=== PATIENT | female | born 1940 | race Caucasian/White ===

== ENCOUNTER 2017-03-11 17:58 | Inpatient (IN) | payer MEDICARE ==
[2017-03-11] VITALS (10 sets, daily range): BP systolic 151–177; BP diastolic 63–101; PULSE 65–97; RESP 28–33; TEMP 99.1–100.5; O2SAT 95–100
[~2017-03-11] VITALS: Ht 167.6 cm; Wt 143.4 kg
[~2017-03-11 17:58] MED LIST: COUM5TAB PO; COZA25TA PO; GEMF600T PO; GLYB1TAB50 PO; LASI20TA PO; LEVO100T4 PO; MECL25CH PO; METF500 PO; METO25CR PO; NIFE10CA PO; NIFE20CA PO; POTA-243 PO; ROSU40 PO; VITA400C28 PO; VITA500T10 PO
--- NOTE | 2017-03-11 18:10 | PD ---
HPI Chief Complaint: Respiratory Distress Time Seen by Provider: 18:07 Travel History International Travel<30 days: No Contact w/Intl Traveler<30days: No Traveled to known affect area: No History of Present Illness HPI Patient is a 77-year-old female with a history of CHF presents emergency Department with acute on chronic shortness of breath. Patient is not on home oxygen but does use a CPAP when she sleeps and sometimes during the day. Per EMS she states that over today she's had gradually worsening shortness of breath. Denies cough denies congestion. History is somewhat limited by the patient's tachypnea on arrival. Also according to EMS she has a history of atrial fibrillation and is on blood thinners. PFSH Past Medical History Arthritis: No Asthma: No Autoimmune Disease: No Blood Disorders: No Anxiety: No Depression: No Heart Rhythm Problems: No Cancer: No Cardiovascular Problems: Yes High Cholesterol: No Chemotherapy: No Chest Pain: No Congestive Heart Failure: Yes COPD: No Cerebrovascular Accident: Yes Diabetes: Yes Patient Takes Glucophage: No Diminished Hearing: No Endocrine: No Gastrointestinal Disorders: No GERD: No Glaucoma: No Genitourinary: No Headaches: No Hepatitis: No Hiatal Hernia: No Hypertension: Yes Immune Disorder: No Kidney Stones: No Musculoskeletal: Yes Neurologic: Yes Psychiatric: No Reproductive: No Respiratory: Yes Migraines: No Myocardial Infarction: No Radiation Therapy: No Renal Failure: No Seizures: No Sickle Cell Disease: No Sleep Apnea: Yes (cpap) Thyroid Disease: No Ulcer: No Influenza Vaccination: No ?: Not Menopausal: Yes Past Surgical History Abdominal Surgery: No AICD: No Cardiac Surgery: No Ear Surgery: No Endocrine Surgery: No Eye Surgery: No Genitourinary Surgery: No Gynecologic Surgery: No Insulin Pump: No Joint Replacement: Yes (BILAT KNEE) Oral Surgery: No Pacemaker: No Thoracic Surgery: No Other Surgery: Yes (BILATERAL KNEE SX, NECK SURGERY) Social History Alcohol Use: No Tobacco Use: No Substance Use: No Allergies-Medications (Allergen,Severity, Reaction): Coded Allergies: bacitracin (Unverified Allergy, Severe, Rash, 03/11/17) gramicidin D (Unverified Allergy, Severe, Rash, 03/11/17) neomycin (Unverified Allergy, Severe, Rash, 03/11/17) polymyxin B (Unverified Allergy, Severe, Rash, 03/11/17) acetaminophen (Unverified Adverse Reaction, Unknown, Hallucinations, 03/11) hydrocodone (Unverified Adverse Reaction, Unknown, Hallucinations, ) Reported Meds & Prescriptions Reported Meds & Active Scripts Active Active Prescriptions or Reported Medications Unobtainable Review of Systems ROS Limitations: Clinical Condition Physical Exam Narrative GENERAL: Well-developed, morbidly obese, in quite profound respiratory distress. CPAP in place by EMS. SKIN: Focused skin assessment warm/dry. HEAD: Atraumatic. Normocephalic. EYES: Pupils equal and round. No scleral icterus. No injection or drainage. ENT: No nasal bleeding or discharge. Mucous membranes pink and moist. NECK: Trachea midline. No JVD. CARDIOVASCULAR: Regular rate and rhythm. No murmur appreciated. RESPIRATORY: Subcostal retractions, abdominal muscle use while breathing, nearly unable to speak secondary to dyspnea.,. Bibasilar rales.. Breath sounds equal bilaterally. GASTROINTESTINAL: Abdomen soft, non-tender, nondistended. Hepatic and splenic margins not palpable. MUSCULOSKELETAL: No obvious deformities. No clubbing. No cyanosis. Giving and lower extremity edema from the knees down. NEUROLOGICAL: Awake and alert. No obvious cranial nerve deficits. Motor grossly within normal limits. Normal speech. PSYCHIATRIC: Appropriate mood and affect; insight and judgment normal. Data Data Last Documented VS Vital Signs Date Time Temp Pulse Resp B/P (MAP) Pulse Ox O2 Delivery O2 Flow Rate FiO2 03/11/17 18:32 99 03/11/17 18:32 BiPAP 100 03/11/17 18:01 100.5 82 33 177/101 (126) Orders Orders Sepsis Workup Initiated (03/11/17 ) Complete Blood Count With Diff (03/11/17 18:07) Comprehensive Metabolic Panel (03/11/17 18:07) Prothrombin Time / Inr (Pt) (03/11/17 18:07) Act Partial Throm Time (Ptt) (03/11/17 18:07) Lactic Acid Sepsis Protocol (03/11/17 18:07) Magnesium (Mg) (03/11/17 18:07) Phosphorus (Po4) (03/11/17 18:07) Lipase (03/11/17 18:07) Ckmb (Isoenzyme) Profile (03/11/17 18:07) Troponin I (03/11/17 18:07) Urinalysis - C+S If Indicated (03/11/17 18:07) Influenzae A/B Antigen (03/11/17 18:07) Blood Culture (03/11/17 18:07) Chest, Single Ap (03/11/17 18:07) Blood Glucose (03/11/17 18:07) Ecg Monitoring (03/11/17 18:07) Iv Access Insert/Monitor (03/11/17 18:07) Oximetry (03/11/17 18:07) Oxygen Administration (03/11/17 18:07) Urinary Catheter Insert/Apply (03/11/17 18:07) B-Type Natriuretic Peptide (03/11/17 18:07) Resp Bipap / Cpap Non Invas Vt (03/11/17 ) Ct Pulmonary Angiogram (03/11/17 ) Furosemide Inj (Lasix Inj) (03/11/17 19:15) Vancomycin Inj (Vancomycin Inj) (03/11/17 19:15) Piperacil-Tazo 4.5 Gm Premix (Zosyn 4.5 (03/11/17 19:15) Labs Laboratory Tests Test 03/11/17 18:20 03/11/17 18:30 White Blood Count 9.4 TH/MM3 Red Blood Count 4.27 MIL/MM3 Hemoglobin 12.6 GM/DL Hematocrit 37.8 % Mean Corpuscular Volume 88.5 FL Mean Corpuscular Hemoglobin 29.5 PG Mean Corpuscular Hemoglobin Concent 33.4 % Red Cell Distribution Width 16.1 % Platelet Count 220 TH/MM3 Mean Platelet Volume 7.4 FL Neutrophils (%) (Auto) 84.7 % Lymphocytes (%) (Auto) 8.1 % Monocytes (%) (Auto) 6.0 % Eosinophils (%) (Auto) 0.8 % Basophils (%) (Auto) 0.4 % Neutrophils # (Auto) 8.0 TH/MM3 Lymphocytes # (Auto) 0.8 TH/MM3 Monocytes # (Auto) 0.6 TH/MM3 Eosinophils # (Auto) 0.1 TH/MM3 Basophils # (Auto) 0.0 TH/MM3 CBC Comment DIFF FINAL Differential Comment Prothrombin Time 14.0 SEC Prothromb Time International Ratio 1.4 RATIO Activated Partial Thromboplast Time 24.7 SEC Blood Urea Nitrogen 18 MG/DL Creatinine 1.14 MG/DL Random Glucose 143 MG/DL Total Protein 8.9 GM/DL Albumin 3.4 GM/DL Calcium Level 8.7 MG/DL Phosphorus Level 2.9 MG/DL Magnesium Level 1.9 MG/DL Alkaline Phosphatase 95 U/L Aspartate Amino Transf (AST/SGOT) 22 U/L Alanine Aminotransferase (ALT/SGPT) 16 U/L Total Bilirubin 0.6 MG/DL Sodium Level 137 MEQ/L Potassium Level 4.3 MEQ/L Chloride Level 103 MEQ/L Carbon Dioxide Level 24.9 MEQ/L Anion Gap 9 MEQ/L Estimat Glomerular Filtration Rate 46 ML/MIN Lactic Acid Level 1.0 mmol/L Total Creatine Kinase 63 U/L Troponin I LESS THAN 0.02 NG/ML Lipase 113 U/L Urine Color YELLOW Urine Turbidity CLEAR Urine pH 6.5 Urine Specific [place] 1.014 Urine Protein 300 mg/dL Urine Glucose (UA) NEG mg/dL Urine Ketones NEG mg/dL Urine Occult Blood SMALL Urine Nitrite NEG Urine Bilirubin NEG Urine Urobilinogen LESS THAN 2.0 MG/DL Urine Leukocyte Esterase NEG Urine RBC 7 /hpf Urine WBC 1 /hpf Urine Squamous Epithelial Cells <1 /hpf Urine Hyaline Casts 1 /lpf Urine Mucus FEW /lpf Microscopic Urinalysis Comment CATH-CULT NOT IND MDM Medical Decision Making Medical Screen Exam Complete: Yes Emergency Medical Condition: Yes Differential Diagnosis CHF, pleural effusion, PE, mucous plugging, atelectasis. Narrative Course Patient roomed in the emergency department, in significant respiratory distress on arrival, she was transferred to an ER stretcher changed to BiPAP 5/10 at 100% , over the next 10-20 minutes she improved significantly and I was able to talk. Chest x-ray reveals significant pleural effusion/mucus plugging on the right, a wedge infarct is also on the differential diagnosis. CT examination of her chest was ordered. Lasix 80 mg IV was ordered, the patient now hemodynamically stable, we'll continue to titrate the BiPAP down, EKG nonischemic. Troponin negative, Yousif catheter placed, CAT scan being ordered we'll discuss with the online content editor for further management. Diagnosis Primary Impression: Acute respiratory failure with hypoxia Admitting Information Admitting Physician Requests: Admit Scripts Unable to Obtain Active Prescriptions or Reported Meds Condition: Almas Otoole MD Mar 11, 2017 18:10
[2017-03-11 18:40] LABS: BASOPHIL % 0.4 % (0.0-2.0); EOSINOPHIL # 0.1 TH/MM3 (0-0.4); EOSINOPHIL % 0.8 % (0.0-4.0); HEMATOCRIT 37.8 % (35.0-46.0); HEMOGLOBIN 12.6 GM/DL (11.6-15.3); LYMPH % 8.1 % (9.0-44.0); LYMPHOCYTE # 0.8 TH/MM3 (1.0-4.8); MEAN CELL VOLUME 88.5 FL (80.0-100.0); MEAN CORPUSCULAR HEMOGLOBIN 29.5 PG (27.0-34.0); MEAN CORPUSCULAR HGB CONC 33.4 % (32.0-36.0); MEAN PLATELET VOLUME 7.4 FL (7.0-11.0); MONOCYTE # 0.6 TH/MM3 (0-0.9); NEUT % 84.7 % (16.0-70.0); PLATELET COUNT 220 TH/MM3 (150-450); RED BLOOD COUNT 4.27 MIL/MM3 (4.00-5.30); RED CELL DISTRIBUTION WIDTH 16.1 % (11.6-17.2); WHITE BLOOD COUNT 9.4 TH/MM3 (4.0-11.0)
[2017-03-11 18:50] LABS: INTERNATIONAL NORMALIZED RATIO 1.4 RATIO
--- NOTE | 2017-03-11 18:54 | RADRPT ---
EXAM DATE/TIME: 03/11/2017 18:39 [facility] COMPARISON: CHEST SINGLE AP, June 06, 2015, 0:52. INDICATIONS : Chest pain, shortness of breath. MEDICAL HISTORY : Cardiovascular disease. SURGICAL HISTORY : None. ENCOUNTER: Initial ACUITY: 1 day PAIN SCORE: 0/10 LOCATION: Bilateral chest FINDINGS: 2 AP views of the chest. Marked cardiac silhouette enlargement similar to the prior study. New right lower lobe consolidation versus atelectasis, small right pleural effusion and possible small left ple ural effusion. No evidence of pneumothorax. CONCLUSION: 1. Chronic cardiac silhouette enlargement. 2. New bilateral lower hemithorax opacity right greater than left likely representing right lower lob e atelectasis versus consolidation, right pleural effusion, and possible small left pleural effusion. Juan Dempsey MD on March 11, 2017 at 18:51 Board Certified Radiologist. This report was verified electronically.
[2017-03-11 18:59] LABS: BILIRUBIN, URINE NEG (NEG); BLOOD, URINE SMALL (NEG); GLUCOSE,URINE NEG (NEG); HYALINE CAST, URINE 1 /lpf (RARE); KETONE, URINE NEG (NEG); MUCUS URINE FEW /lpf (OCC); NITRITE,URINE NEG (NEG); PH, URINE 6.5 (5.0-8.5); SQUAMOUS EPITHELIAL CELL URINE <1 /hpf (0-5); URINE COLOR YELLOW (YELLW/STRAW); URINE LEUKOCYTE ESTERASE NEG (NEG)
[2017-03-11 19:08] LABS: ALT (GPT) 16 U/L (10-53); PHOSPHORUS 2.9 MG/DL (2.5-4.9)
[2017-03-11] MEDS ORDERED: PIPERACIL-TAZO 4.5 GM PREMIX 100 ML IV ONE (19:15)
[2017-03-11] MEDS ORDERED: FUROSEMIDE 100 MG/10 ML VIAL IV PUSH ONE (19:15)
[2017-03-11] MEDS ORDERED: VANCOMYCIN INJ 1,000 MG in SODIUM CHLOR 0.9% 250 ML INJ 250 ML IV ONE (19:15)
[2017-03-11 19:27] LABS: ALBUMIN 3.4 GM/DL (3.4-5.0); ALKALINE PHOSPHATASE 95 U/L (45-117); AST (GOT) 22 U/L (15-37); BICARBONATE 24.9 MEQ/L (21.0-32.0); BLOOD UREA NITROGEN 18 MG/DL (7-18); CALCIUM 8.7 MG/DL (8.5-10.1); CHLORIDE 103 MEQ/L (98-107); CREATININE 1.14 MG/DL (0.50-1.00); GLOMERULAR FILTRATION RATE 46 ML/MIN (>89); GLUCOSE,RANDOM 143 MG/DL (74-106); LIPASE 113 U/L (73-393); MAGNESIUM 1.9 MG/DL (1.5-2.5); SODIUM (NA) 137 MEQ/L (136-145); TOTAL BILIRUBIN ADULT 0.6 MG/DL (0.2-1.0); TOTAL PROTEIN 8.9 GM/DL (6.4-8.2); TROPONIN I LESS THAN 0.02 NG/ML (0.02-0.05)
[2017-03-11] MEDS ORDERED: CHLORHEXIDINE GLUCONATE 2 % 1 PACK (2 CLOTHS) TOP PRN (20:00)
[2017-03-11] MEDS ORDERED: ONDANSETRON HCL 4 MG/2 ML VIAL IV PUSH PRN (20:00)
[2017-03-11] MEDS ORDERED: MISCELLANEOUS NURSING INFORMATION XX SCH (20:00)
[2017-03-11] MEDS ORDERED: POTASSIUM CHLORIDE 25 MEQ EFFERVESCENT TAB PO PRN (20:00)
[2017-03-11] MEDS ORDERED: SODIUM PHOSPHATE INJ 30 MMOL in SODIUM CHLOR 0.9% 250 ML INJ 240 ML IV PRN (20:00)
[2017-03-11] MEDS ORDERED: MAGNESIUM SULFATE INJ 2 GM in SODIUM CHLORIDE 0.9% INJ 96 ML IV PRN (20:00)
[2017-03-11] MEDS ORDERED: MAGNESIUM SULFATE INJ 4 GM in SODIUM CHLORIDE 0.9% INJ 92 ML IV PRN (20:00)
[2017-03-11] MEDS ORDERED: POTASSIUM CHLOR 40 MEQ PREMIX 100 ML IV PRN ×2 (20:00)
[2017-03-11] MEDS ORDERED: POTASSIUM PHOSPHATE MONOBASIC 500 MG TAB PO/TUBE PRN (20:00)
[2017-03-11] MEDS ORDERED: MAGNESIUM OXIDE 400 MG TAB PO PRN (20:00)
[2017-03-11] MEDS ORDERED: POTASSIUM PHOSPHATE MONOBASIC 500 MG TAB PO PRN (20:00)
[2017-03-11] MEDS ORDERED: MAGNESIUM HYDROXIDE SUSP 30 ML CUP PO PRN (20:00)
[2017-03-11] MEDS ORDERED: POTASSIUM PHOSPHATE INJ 30 MMOL in SODIUM CHLOR 0.9% 250 ML INJ 250 ML IV PRN (20:00)
[2017-03-11] MEDS ORDERED: POTASSIUM CHLOR 20 MEQ PREMIX 100 ML IV PRN ×2 (20:00)
[2017-03-11] MEDS ORDERED: Vancomycin Consult Pharmacy 1 EA OTHER SCH (20:00)
--- NOTE | 2017-03-11 20:06 | HHI.HP ---
[facility] Service Critical Care Medicine Primary Care Physician Unknown Admission Diagnosis Hypoxic Respiratory Failure Diagnosis: Chief Complaint: shortness of breath Travel History International Travel<30 Days: No Contact w/Intl Traveler <30 Da: No Traveled to Known Affected Are: No History of Present Illness This is a 77-year-old female with a history of diastolic CHF who presents with a three-week history of slowly worsening shortness of breath. Patient does use CPAP quite frequently during the day and night, and consistently uses it whenever she takes a nap which occurs at least once or twice during the daytime and then uses it every night with consistency. She complains that over the last 2-3 days her shortness of breath has gotten significantly worse. She does endorse a nonproductive cough over the last 2-3 days and some chills although denies fever. She denies any chest pain. She endorses what sounds like orthopnea and PND type symptoms. She states that she had a prior diagnosis of CHF but has not had any heart workup or seen anyone for this for at least a year or more. She does have a history of atrial fibrillation and is on blood thinners, although she cannot remember which ones. In the emergency department she was significantly hypoxic and placed on BiPAP. She was given Lasix 80 mg IV. She's had a good response and greater than 1 L since that time in urine output. Her BNP is slightly elevated at 238. In the emergency department she had a low-grade temperature of 100.5 Fahrenheit, but has a normal white count. Chest x-ray suggestive of bilateral pleural effusions with possible lower lobe consolidations. Review of Systems ROS Limitations: Clinical Condition Constitutional: COMPLAINS OF: Fatigue, DENIES: Fever, Chills Respiratory: COMPLAINS OF: Cough, Shortness of breath, DENIES: Apneas, Wheezing , Hemoptysis, Sputum production Cardiovascular: COMPLAINS OF: PND, Lower Extremity Edema, Orthopnea, DENIES: Chest pain, Palpitations, Syncope, Dyspnea on Exertion, Claudication Gastrointestinal: DENIES: Abdominal pain, Constipation, Diarrhea, Nausea, Vomiting Neurologic: DENIES: Headache Psychiatric: DENIES: Confusion ROS Remains slightly dyspneic and cannot complete a full review of systems. Past Family Social History Allergies: Coded Allergies: bacitracin (Verified Allergy, Severe, Rash, 03/11/17) gramicidin D (Verified Allergy, Severe, Rash, 03/11/17) neomycin (Verified Allergy, Severe, Rash, 03/11/17) polymyxin B (Verified Allergy, Severe, Rash, 03/11/17) acetaminophen (Verified Adverse Reaction, Unknown, Hallucinations, ) hydrocodone (Verified Adverse Reaction, Unknown, Hallucinations, 03/11/17) Past Medical History Diastolic congestive heart failure with a prior EF of 60%, but the study was multiple years ago. 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 She does endorse being on any coagulation, but cannot remember which one. Active Ordered Medications See MAR Family History reviewed and found to be noncontributory to her acute illness Social History denies tob, etoh, doa. Physical Exam Vital Signs Vital Signs Date Time Temp Pulse Resp B/P (MAP) Pulse Ox O2 Delivery O2 Flow Rate FiO2 03/11/17 18:32 99 03/11/17 18:32 BiPAP 100 03/11/17 18:05 100 100 03/11/17 18:04 BiPAP 100 03/11/17 18:01 100.5 82 33 177/101 (126) 100 Physical Exam GENERAL: Obese female, lying in bed, in mild respiratory distress, on BiPAP HEENT: Normocephalic. Atraumatic. Pupils equal, round, reactive, conjugate. Mucous membranes are moist NECK: Trachea is midline. Large neck circumference prevents accurate assessment of JVD CHEST: Mildly tachypneic. Not using accessory muscles. BiPAP in place EPAP 11 , IPAP 5, 40% FiO2 CARDIOVASCULAR: Normal rate, regular rhythm. Appears sinus at the current time by telemetry. ABDOMEN: Soft, nontender, nondistended. No guarding. MUSCULOSKELETAL: Pulses 2+. 2+ peripheral edema. NEUROLOGICAL: Breasts 0. CAM -. Follows commands. No focal deficits. Laboratory Laboratory Tests Test 03/11/17 18:20 03/11/17 18:30 White Blood Count 9.4 Red Blood Count 4.27 Hemoglobin 12.6 Hematocrit 37.8 Mean Corpuscular Volume 88.5 Mean Corpuscular Hemoglobin 29.5 Mean Corpuscular Hemoglobin Concent 33.4 Red Cell Distribution Width 16.1 Platelet Count 220 Mean Platelet Volume 7.4 Neutrophils (%) (Auto) 84.7 Lymphocytes (%) (Auto) 8.1 Monocytes (%) (Auto) 6.0 Eosinophils (%) (Auto) 0.8 Basophils (%) (Auto) 0.4 Neutrophils # (Auto) 8.0 Lymphocytes # (Auto) 0.8 Monocytes # (Auto) 0.6 Eosinophils # (Auto) 0.1 Basophils # (Auto) 0.0 CBC Comment DIFF FINAL Differential Comment Prothrombin Time 14.0 Prothromb Time International Ratio 1.4 Activated Partial Thromboplast Time 24.7 Blood Urea Nitrogen 18 Creatinine 1.14 Random Glucose 143 Total Protein 8.9 Albumin 3.4 Calcium Level 8.7 Phosphorus Level 2.9 Magnesium Level 1.9 Alkaline Phosphatase 95 Aspartate Amino Transf (AST/SGOT) 22 Alanine Aminotransferase (ALT/SGPT) 16 Total Bilirubin 0.6 Sodium Level 137 Potassium Level 4.3 Chloride Level 103 Carbon Dioxide Level 24.9 Anion Gap 9 Estimat Glomerular Filtration Rate 46 Lactic Acid Level 1.0 Total Creatine Kinase 63 Troponin I LESS THAN 0.02 B-Type Natriuretic Peptide 268 Lipase 113 Urine Color YELLOW Urine Turbidity CLEAR Urine pH 6.5 Urine Specific [place] 1.014 Urine Protein 300 Urine Glucose (UA) NEG Urine Ketones NEG Urine Occult Blood SMALL Urine Nitrite NEG Urine Bilirubin NEG Urine Urobilinogen LESS THAN 2.0 Urine Leukocyte Esterase NEG Urine RBC 7 Urine WBC 1 Urine Squamous Epithelial Cells <1 Urine Hyaline Casts 1 Urine Mucus FEW Microscopic Urinalysis Comment CATH-CULT NOT IND Date/Time Source Procedure Growth Status 03/11/17 18:25 Blood Peripheral Aerobic Blood Culture Pending Received 03/11/17 18:25 Blood Peripheral Anaerobic Blood Culture Pending Received Result Diagram: 03/11/17 1820 03/11/17 182 Imaging Last Impressions Chest X-Ray 03/11/171806 Signed Impressions: Service Date/Time: Saturday, March 11, 2017 18:39 - CONCLUSION: 1. Chronic cardiac silhouette enlargement. 2. New bilateral lower hemithorax opacity right greater than left likely representing right lower lobe atelectasis versus consolidation, right pleural effusion, and possible small left pleural effusion. Juan Dempsey MD Septic Shock Reassessment Septic shock perfusion: reassessment completed Caprini VTE Risk Assessment Caprini VTE Risk Assessment: Mod/High Risk (score >= 2) Caprini Risk Assessment Model Point Value = 1 Point Value = 2 Point Value = 3 Point Value = 5 Age 41-60 Minor surgery BMI > 25 kg/m2 Swollen legs Varicose veins or History of unexplained or recurrent spontaneous Oral contraceptives or hormone replacement Sepsis (< 1 month) Serious lung disease, including pneumonia (< 1 month) Abnormal pulmonary function Acute myocardial infarction Congestive heart failure (< 1 month) History of inflammatory bowel disease Medical patient at bed rest Age 61-74 Arthroscopic surgery Major open surgery (> 45 min) Laparoscopic surgery (> 45 min) Malignancy Confined to bed (> 72 hours) Immobilizing plaster cast Central venous access Age >= 75 History of VTE Family history of VTE Factor V Leiden Prothrombin [id number] Lupus anticoagulant Anticardiolipin antibodies Elevated serum homocysteine Heparin-induced thrombocytopenia Other congenital or acquired thrombophilia Stroke (< 1 month) Elective arthroplasty Hip, pelvis, or leg fracture Acute spinal cord injury (< 1 month) Prophylaxis Regimen Total Risk Factor Score Risk Level Prophylaxis Regimen 0-1 Low Early ambulation 2 Moderate Order ONE of the following: *Sequential Compression Device (SCD) *Heparin 5000 units SQ BID 3-4 Higher Order ONE of the following medications: *Heparin 5000 units SQ TID *Enoxaparin/Lovenox 40 mg SQ daily (WT < 150 kg, CrCl > 30 mL/min) *Enoxaparin/Lovenox 30 mg SQ daily (WT < 150 kg, CrCl > 10-29 mL/min) *Enoxaparin/Lovenox 30 mg SQ BID (WT < 150 kg, CrCl > 30 mL/min) AND/OR *Sequential Compression Device (SCD) 5 or more Highest Order ONE of the following medications: *Heparin 5000 units SQ TID (Preferred with Epidurals) *Enoxaparin/Lovenox 40 mg SQ daily (WT < 150 kg, CrCl > 30 mL/min) *Enoxaparin/Lovenox 30 mg SQ daily (WT < 150 kg, CrCl > 10-29 mL/min) *Enoxaparin/Lovenox 30 mg SQ BID (WT < 150 kg, CrCl > 30 mL/min) AND *Sequential Compression Device (SCD) Assessment and Plan Assessment and Plan Assessment: 76yF with history of CHF with preserved EF who presents with SOB and fever and acute hypoxic respiratory failure requiring NIPPV. Differential includes pneumonia vs. CHF exacerbation, diastolic type. Admit to ICU. forced diuresis. abx. f/u cultures. CHF Exacerbation, diastolic type - forced diuresis - lactate normal Acute hypoxic respiratory failure - continue BiPAP. wean as tolerated - wean fio2 for goal spo2 > 90% - diuresis and abx - nebs prn - hob at 30 degrees Possible community acquired pneumonia - broad spectrum abx given severity of symptoms. vanc and zosyn. can de- escalate if clinically improving or culture data returns. Acute kidney injury - likely secondary to CHF - strict i/o's - trend Cr on daily BMP Atrial fibrillation - CHADS score > 2. will need anticoagulation. - currently rate controlled. SCDs, SQH no GI prophylaxis indicated. NPO until respiratory status improves. Admit to ICU. Code Status Full Code Jason Mack MD Mar 11, 2017 20:06
[2017-03-11] MEDS: DOCUSATE SODIUM 50 MG/SENNA 8.6 MG TAB PO SCH (21:00)
[2017-03-11] MEDS ORDERED: VANCOMYCIN INJ 750 MG in SODIUM CHLOR 0.9% 250 ML INJ 250 ML IV ONE (21:00)
[2017-03-11] MEDS: RESP: ALBUTEROL 2.5 MG/IPRATROPIUM 0.5 MG NEB (SCH) INH (21:21)
[2017-03-11] MEDS: CHLORHEXIDINE GLUCONATE 2 % 1 PACK (2 CLOTHS) TOP SCH (22:03)
[2017-03-11] MEDS: HEPARIN SODIUM - SQ 10,000 UNITS/ML VIAL SQ SCH (22:04)
[2017-03-12] VITALS (18 sets, daily range): BP systolic 145–189; BP diastolic 59–85; PULSE 62–99; RESP 33–41; TEMP 98.7–99.9; O2SAT 93–100
[2017-03-12] MEDS: RESP: ALBUTEROL 2.5 MG/IPRATROPIUM 0.5 MG NEB (SCH) INH ×4 (03:27→20:08)
[2017-03-12] MEDS: HEPARIN SODIUM - SQ 10,000 UNITS/ML VIAL SQ SCH ×3 (04:31→20:29)
[2017-03-12] MEDS: PIPERACIL-TAZO 3.375 GM PREMIX 50 ML IV SCH ×3 (04:31→20:29)
[2017-03-12 04:32] LABS: HEMATOCRIT 34.1 % (35.0-46.0); HEMOGLOBIN 11.1 GM/DL (11.6-15.3); MEAN CELL VOLUME 88.9 FL (80.0-100.0); MEAN CORPUSCULAR HGB CONC 32.6 % (32.0-36.0); MEAN PLATELET VOLUME 7.3 FL (7.0-11.0); PLATELET COUNT 197 TH/MM3 (150-450); RED BLOOD COUNT 3.83 MIL/MM3 (4.00-5.30); WHITE BLOOD COUNT 5.8 TH/MM3 (4.0-11.0)
[2017-03-12 04:57] LABS: BICARBONATE 28.3 MEQ/L (21.0-32.0); CALCIUM 8.3 MG/DL (8.5-10.1); CREATININE 1.04 MG/DL (0.50-1.00)
--- NOTE | 2017-03-12 05:12 | RADRPT ---
EXAM DATE/TIME: 03/12/2017 03:11 [facility] COMPARISON: CHEST SINGLE AP, March 11, 2017, 18:39. INDICATIONS : Short of breath. MEDICAL HISTORY : Cardiovascular disease. SURGICAL HISTORY : None. ENCOUNTER: Subsequent ACUITY: 2 days PAIN SCORE: 0/10 LOCATION: Bilateral chest FINDINGS: There is slight cardiomegaly and perivascular pulmonary edema. Bilateral pleural effusions and bibasi lar consolidations are difficult to exclude. CONCLUSION: Slight CHF and possible pleural effusions bilaterally. Cathi Martinez MD on March 12, 2017 at 5:10 Board Certified Radiologist. This report was verified electronically.
[2017-03-12] MEDS: LABETALOL HCL 100 MG/20 ML VIAL IVS PRN ×3 (08:06→15:26)
[2017-03-12] MEDS: DOCUSATE SODIUM 50 MG/SENNA 8.6 MG TAB PO SCH ×2 (09:00→20:29)
[2017-03-12] MEDS ORDERED: METO50TA PO (09:37)
[2017-03-12] MEDS ORDERED: LOSA50TA PO (09:37)
[2017-03-12] MEDS ORDERED: ROSU10 PO (09:37)
[2017-03-12] MEDS ORDERED: LEVO100T5 PO (09:37)
[2017-03-12] MEDS ORDERED: GLIM1TAB PO ×2 (09:37)
[2017-03-12] MEDS ORDERED: VITA1000 PO (09:37)
[2017-03-12] MEDS ORDERED: FURO40TA PO (09:37)
[2017-03-12] MEDS ORDERED: METF1000 PO (09:37)
[2017-03-12] MEDS ORDERED: JANT5TAB PO (09:37)
[2017-03-12] MEDS ORDERED: GEMF600T PO (09:37)
[2017-03-12] MEDS ORDERED: POTA1TAB4 PO (09:37)
[2017-03-12] MEDS ORDERED: LORazepam 2 MG/ML VIAL IV PUSH ONE (13:00)
--- NOTE | 2017-03-12 13:11 | MB ---
cc: STEVO WOLFF MD DATE OF CONSULTATION 03/12/2017 HISTORY OF PRESENT ILLNESS This is a 77-year-old woman who comes into the hospital with significantly increasing shortness of breath over the past 1-3 weeks. Apparently she has a history of diastolic heart failure and atrial fibrillation in the past, although on questioning today does not recall any significant heart problems. No cough or sputum history at present. She denies any chest pain. She has noted that her ankles have been swelling significantly over the past several days. She does have a history of obstructive sleep apnea using a C-PAP machine when she sleeps during the day. No fever or chills have been present. She has had a history of hypertension and diabetes. She denies any prior chest pain or ischemic heart disease. SOCIAL HISTORY She is a nonsmoker. She does not use alcohol or recreational drugs. ALLERGIES TO MULTIPLE ANTIBIOTICS INCLUDING BACITRACIN. GRAMICIDIN. NEOMYCIN. POLYMYXIN. ACETAMINOPHEN. HYDROCODONE. MEDICATIONS She does not recall her home medications. PHYSICAL EXAMINATION GENERAL: On physical exam she is morbidly obese. She does appear to be mildly dyspneic. VITAL SIGNS: Her blood pressure is 170/70. Respiratory rate is approximately 30, heart rate is 70-90 and irregular. NECK: There is no neck vein distension. LUNGS: Essentially clear although the breath sounds are rather CARDIOVASCULAR EXAM: An irregularly irregular rhythm with no significant murmur or gallop noted. ABDOMEN: Obese. EXTREMITIES: Reveal trace pedal edema. ELECTROCARDIOGRAM Unremarkable. LABORATORY EXAMINATION Significant in that her BNP is only slightly elevated at 268. Troponins are normal x2. Renal function actually is within normal limits. X-RAYS A chest x-ray reveals mild bilateral pleural effusions but no significant pulmonary congestion is present. ASSESSMENT AND PLAN The patient has dyspnea of uncertain etiology. She has been placed on antibiotic therapy for possible infectious purposes. I had drawn a D-dimer to rule out the possibility of pulmonary emboli. MD SARAH Dominguez/GERDA /12:43 PM /12:48 PM
[2017-03-12] MEDS: POTASSIUM CHLORIDE 20 MEQ CONTROLLED RELEASE TAB PO SCH (16:15)
[2017-03-12] MEDS ORDERED: NON-FORMULARY DRUG (Rosuvastatin (Crestor) 10 MG) PO SCH (16:15)
--- NOTE | 2017-03-12 16:30 | HHI.CCPN ---
Subjective Remarks/Hospital Course 03/11: This is a 77-year-old female with a history of diastolic CHF who presents with a three-week history of slowly worsening shortness of breath. Patient does use CPAP quite frequently during the day and night, and consistently uses it whenever she takes a nap which occurs at least once or twice during the daytime and then uses it every night with consistency. She complains that over the last 2-3 days her shortness of breath has gotten significantly worse. She does endorse a nonproductive cough over the last 2-3 days and some chills although denies fever. She denies any chest pain. She endorses what sounds like orthopnea and PND type symptoms. She states that she had a prior diagnosis of CHF but has not had any heart workup or seen anyone for this for at least a year or more. She does have a history of atrial fibrillation and is on blood thinners, although she cannot remember which ones. In the emergency department she was significantly hypoxic and placed on BiPAP. She was given Lasix 80 mg IV. She's had a good response and greater than 1 L since that time in urine output. Her BNP is slightly elevated at 238. In the emergency department she had a low-grade temperature of 100.5 Fahrenheit, but has a normal white count. Chest x-ray suggestive of bilateral pleural effusions with possible lower lobe consolidations. 03/12: Was on nasal cannula this morning. Following return from CAT scan she developed respiratory distress and was placed on BiPAP. CT scan could not be completed as IV infiltrated. At the time of my evaluation patient was comfortably tolerating BiPAP with full facemask. Objective Vital Signs Date Time Temp Pulse Resp B/P (MAP) Pulse Ox O2 Delivery O2 Flow Rate FiO2 03/12/17 14:34 99 40 03/12/17 10:00 71 03/12/17 09:11 Nasal Cannula 4.00 03/12/17 08:00 98.7 41 179/76 (110) Intake and Output 03/12/17 03/12/17 03/13/17 08:00 16:00 00:00 Output Total 1450 ml Balance -1450 ml Result Diagram: 03/12/17 0354 03/12/17 0354 Other Results Microbiology Date/Time Source Procedure Growth Status 03/11/17 19:45 Nasal Washing Influenza Types A,B Antigen (JOSUÉ) - Final NEGATIVE FOR FLU A AND B ANTIGEN.... Complete Laboratory Tests Test 03/11/17 19:45 03/12/17 05:37 03/12/17 14:44 Blood Gas Puncture Site FROM IV LINE RT RADIAL LT RADIAL Blood Gas Patient Temperature 98.6 98.6 98.6 Venous Blood pH 7.41 (7.360-7.400) Venous Blood Partial Pressure CO2 29 mmHg (44-48) Venous Blood Partial Pressure O2 99 mmHg (35-40) Venous Blood HCO3 18 mmol/L (22-26) Venous Blood Oxygen Saturation 97 % (70-76) Venous Blood Oxygen Content 13.8 Vol % (9.0-17.0) Venous Blood Base Excess -5.8 mmol/L (-2-2) Oxygen Delivery Device BIPAP BIPAP10/5/40% BiPAP Blood Gas Ventilator Setting IPAP=10 EPAP=5 IPAP10/EPAP5 Blood Gas Inspired Oxygen 65 % 40 % 40 % Blood Gas HCO3 27 mmol/L (22-26) 27 mmol/L (22-26) Blood Gas Base Excess 2.5 mmol/L (-2-2) 1.5 mmol/L (-2-2) Blood Gas Oxygen Saturation 94 % (90-100) 94 % (90-100) Arterial Blood pH 7.37 (7.380-7.420) 7.33 (7.380-7.420) Arterial Blood Partial Pressure CO2 48 mmHg (38-42) 53 mmHg (38-42) Arterial Blood Partial Pressure O2 91 mmHg (61-120) 93 mmHg (61-120) Arterial Blood Oxygen Content 14.3 Vol % (12.0-20.0) 16.2 Vol % (12.0-20.0) Arterial Blood Carboxyhemoglobin 1.4 % (0-4) 1.0 % (0-4) Arterial Blood Methemoglobin 1.1 % (0-2) 1.2 % (0-2) Blood Gas Hemoglobin 10.7 G/DL (12.0-16.0) 12.2 G/DL (12.0-16.0) Imaging Last Impressions Chest X-Ray 03/11/17 1933 Signed Impressions: Service Date/Time: Saturday, March 11, 2017 18:39 - CONCLUSION: 1. Chronic cardiac silhouette enlargement. 2. New bilateral lower hemithorax opacity right greater than left likely representing right lower lobe atelectasis versus consolidation, right pleural effusion, and possible small left pleural effusion. Juan Dempsey MD Objective Remarks GENERAL: Obese female, lying in bed, in mild respiratory distress, on BiPAP HEENT: Normocephalic. Atraumatic. Pupils equal, round, reactive, conjugate. Mucous membranes are moist NECK: Trachea is midline. Large neck circumference prevents accurate assessment of JVD CHEST: Mildly tachypneic. Not using accessory muscles. BiPAP in place EPAP 11 , IPAP 5, 40% FiO2 CARDIOVASCULAR: Normal rate, regular rhythm. Appears sinus at the current time by telemetry. ABDOMEN: Soft, nontender, nondistended. No guarding. MUSCULOSKELETAL: Pulses 2+. 2+ peripheral edema. NEUROLOGICAL: Drowsy, easily arousable, Follows commands. No focal deficits. A/P Assessment and Plan Assessment: 76yF with history of CHF with preserved EF who presents with SOB and fever and acute hypoxic respiratory failure requiring NIPPV. Differential includes pneumonia vs. CHF exacerbation, diastolic type. Admit to ICU. forced diuresis. abx. f/u cultures. CHF Exacerbation, diastolic type - forced diuresis - lactate normal - Cardiology consulted for further evaluation. Acute hypoxic respiratory failure - continue BiPAP. wean as tolerated - wean fio2 for goal spo2 > 90% - diuresis and abx - nebs prn - hob at 30 degrees Possible community acquired pneumonia - broad spectrum abx given severity of symptoms. vanc and zosyn. can de- escalate if clinically improving or culture data returns. Acute kidney injury - likely secondary to CHF - strict i/o's - trend Cr on daily BMP Atrial fibrillation - CHADS score > 2. Coumadin for anticoagulation. - currently rate controlled. SCDs, SQH no GI prophylaxis indicated. NPO until respiratory status improves. Dwight Vergara MD Mar 12, 2017 16:30
--- NOTE | 2017-03-12 17:26 | EKG ---
Date Performed: 03/11/2017 Time Performed: 18:08:07 PTAGE: 76 years EKG: ATRIAL FIBRILLATION INFERIOR MYOCARDIAL INFARCTION Since previous tracing, no significant c hange noted ABNORMAL ECG PREVIOUS TRACING : 06/06/2015 01.43 DOCTOR: Heydi Grullon Interpretating Date/Time 03/12/2017 17:25:06
[2017-03-12] MEDS ORDERED: ACETAMINOPHEN 1000 MG/100 ML 100 ML IV PRN (19:00)
[2017-03-12] MEDS: ENOXAPARIN SODIUM 100 MG/ML SYRINGE SQ SCH (19:33)
[2017-03-12] MEDS: METOPROLOL TARTRATE 50 MG TAB PO SCH (20:29)
[2017-03-12] MEDS: VANCOMYCIN INJ 1,750 MG in SODIUM CHLORID 0.9% 500 ML INJ 500 ML IV SCH (20:29)
[2017-03-12] MEDS: LOSARTAN 50 MG TAB PO SCH (20:29)
[2017-03-12] MEDS: GLIMEPIRIDE 1 MG TAB PO SCH (20:30)
[2017-03-13] VITALS (24 sets, daily range): BP systolic 140–183; BP diastolic 62–94; PULSE 79–97; RESP 22–56; TEMP 97.6–98.8; O2SAT 90–98
[2017-03-13] MEDS: RESP: ALBUTEROL 2.5 MG/IPRATROPIUM 0.5 MG NEB (SCH) INH ×4 (03:17→20:06)
[2017-03-13] MEDS: CHLORHEXIDINE GLUCONATE 2 % 1 PACK (2 CLOTHS) TOP SCH (04:00)
[2017-03-13] MEDS: ENOXAPARIN SODIUM 100 MG/ML SYRINGE SQ SCH ×2 (04:19→17:26)
[2017-03-13] MEDS: LABETALOL HCL 100 MG/20 ML VIAL IVS PRN ×2 (04:20→15:08)
[2017-03-13] MEDS: PIPERACIL-TAZO 3.375 GM PREMIX 50 ML IV SCH ×3 (04:20→19:48)
[2017-03-13] MEDS: HEPARIN SODIUM - SQ 10,000 UNITS/ML VIAL SQ SCH ×2 (04:20→13:12)
[2017-03-13] MEDS: LEVOTHYROXINE SODIUM 100 MCG TAB PO SCH (05:34)
[2017-03-13] MEDS: GEMFIBROZIL 600 MG TAB PO SCH ×2 (05:35→15:08)
[2017-03-13 08:24] LABS: HEMATOCRIT 32.8 % (35.0-46.0); MEAN CELL VOLUME 88.5 FL (80.0-100.0); MEAN CORPUSCULAR HEMOGLOBIN 29.6 PG (27.0-34.0); MEAN CORPUSCULAR HGB CONC 33.4 % (32.0-36.0); MEAN PLATELET VOLUME 8.5 FL (7.0-11.0); PLATELET COUNT 158 TH/MM3 (150-450); RED BLOOD COUNT 3.71 MIL/MM3 (4.00-5.30); RED CELL DISTRIBUTION WIDTH 16.3 % (11.6-17.2); WHITE BLOOD COUNT 5.8 TH/MM3 (4.0-11.0)
[2017-03-13] MEDS: LOSARTAN 50 MG TAB PO SCH ×2 (08:27→20:10)
[2017-03-13] MEDS: WARFARIN SOD 5 MG TAB PO SCH (08:27)
[2017-03-13] MEDS: POTASSIUM CHLORIDE 20 MEQ CONTROLLED RELEASE TAB PO SCH (08:27)
[2017-03-13] MEDS: CHOLECALCIFEROL (VIT D3) 1000 UNIT TAB PO SCH (08:28)
[2017-03-13] MEDS: DOCUSATE SODIUM 50 MG/SENNA 8.6 MG TAB PO SCH ×2 (08:28→20:10)
[2017-03-13] MEDS: ATORVASTATIN 20 MG TAB PO SCH (08:28)
[2017-03-13] MEDS: METOPROLOL TARTRATE 50 MG TAB PO SCH ×2 (08:28→20:10)
[2017-03-13 08:30] LABS: BICARBONATE 25.5 MEQ/L (21.0-32.0); CALCIUM 8.3 MG/DL (8.5-10.1); CREATININE 1.09 MG/DL (0.50-1.00)
[2017-03-13] MEDS: GLIMEPIRIDE 1 MG TAB PO SCH ×2 (09:00→20:10)
[2017-03-13] MEDS ORDERED: DEXTROSE 50% IN WATER 50 ML VIAL(D50) IV PRN (11:30)
[2017-03-13] MEDS ORDERED: GLUCAGON 1 MG/ML VIAL IM/SQ PRN (11:30)
[2017-03-13] MEDS: ACETAMINOPHEN 325 MG TAB PO PRN ×2 (11:31→22:23)
--- NOTE | 2017-03-13 11:35 | HHI.CCPN ---
Subjective Remarks/Hospital Course 03/11: This is a 77-year-old female with a history of diastolic CHF who presents with a three-week history of slowly worsening shortness of breath. Patient does use CPAP quite frequently during the day and night, and consistently uses it whenever she takes a nap which occurs at least once or twice during the daytime and then uses it every night with consistency. She complains that over the last 2-3 days her shortness of breath has gotten significantly worse. She does endorse a nonproductive cough over the last 2-3 days and some chills although denies fever. She denies any chest pain. She endorses what sounds like orthopnea and PND type symptoms. She states that she had a prior diagnosis of CHF but has not had any heart workup or seen anyone for this for at least a year or more. She does have a history of atrial fibrillation and is on blood thinners, although she cannot remember which ones. In the emergency department she was significantly hypoxic and placed on BiPAP. She was given Lasix 80 mg IV. She's had a good response and greater than 1 L since that time in urine output. Her BNP is slightly elevated at 238. In the emergency department she had a low-grade temperature of 100.5 Fahrenheit, but has a normal white count. Chest x-ray suggestive of bilateral pleural effusions with possible lower lobe consolidations. 03/12: Was on nasal cannula this morning. Following return from CAT scan she developed respiratory distress and was placed on BiPAP. CT scan could not be completed as IV infiltrated. At the time of my evaluation patient was comfortably tolerating BiPAP with full facemask. 03/13: Was on BiPAP overnight. Awake and alert at the time of my evaluation, following commands this morning. Objective Vital Signs Date Time Temp Pulse Resp B/P (MAP) Pulse Ox O2 Delivery O2 Flow Rate FiO2 03/13/17 10:00 79 03/13/17 09:45 95 Non-Rebreather 10.00 03/13/17 09:00 25 154/67 (96) 03/13/17 07:00 40 03/13/17 04:00 98.7 Intake and Output 03/13/17 03/13/17 03/14/17 08:00 16:00 00:00 Intake Total 400 ml Output Total 400 ml Balance 0 ml Result Diagram: 03/13/17 0640 03/13/17 0640 Other Results Microbiology Date/Time Source Procedure Growth Status 03/11/17 19:45 Nasal Washing Influenza Types A,B Antigen (JOSUÉ) - Final NEGATIVE FOR FLU A AND B ANTIGEN.... Complete Laboratory Tests Test 03/12/17 14:44 Blood Gas Puncture Site LT RADIAL Blood Gas Patient Temperature 98.6 Blood Gas HCO3 27 mmol/L (22-26) Blood Gas Base Excess 1.5 mmol/L (-2-2) Blood Gas Oxygen Saturation 94 % (90-100) Arterial Blood pH 7.33 (7.380-7.420) Arterial Blood Partial Pressure CO2 53 mmHg (38-42) Arterial Blood Partial Pressure O2 93 mmHg (61-120) Arterial Blood Oxygen Content 16.2 Vol % (12.0-20.0) Arterial Blood Carboxyhemoglobin 1.0 % (0-4) Arterial Blood Methemoglobin 1.2 % (0-2) Blood Gas Hemoglobin 12.2 G/DL (12.0-16.0) Oxygen Delivery Device BiPAP Blood Gas Ventilator Setting IPAP10/EPAP5 Blood Gas Inspired Oxygen 40 % Imaging Last Impressions Chest X-Ray 03/11/177 Signed Impressions: Service Date/Time: Saturday, March 11, 2017 18:39 - CONCLUSION: 1. Chronic cardiac silhouette enlargement. 2. New bilateral lower hemithorax opacity right greater than left likely representing right lower lobe atelectasis versus consolidation, right pleural effusion, and possible small left pleural effusion. Juan Dempsey MD Objective Remarks GENERAL: Obese female, lying in bed, on BiPAP with full facemask at the time of my evaluation this morning HEENT: Normocephalic. Atraumatic. Pupils equal, round, reactive, conjugate. Mucous membranes are moist NECK: Trachea is midline. Large neck circumference prevents accurate assessment of JVD CHEST: Mildly tachypneic. Not using accessory muscles. BiPAP in place EPAP 10 , IPAP 5, 40% FiO2 CARDIOVASCULAR: Normal rate, regular rhythm. Appears sinus at the current time by telemetry. ABDOMEN: Soft, nontender, nondistended. No guarding. MUSCULOSKELETAL: Pulses 2+. 2+ peripheral edema. NEUROLOGICAL: Drowsy, easily arousable, Follows commands. No focal deficits. A/P Assessment and Plan Assessment: 76yF with history of CHF with preserved EF who presents with SOB and fever and acute hypoxic respiratory failure requiring NIPPV. Differential includes pneumonia vs. CHF exacerbation, diastolic type. Admit to ICU. forced diuresis. abx. f/u cultures. CHF Exacerbation, diastolic type - forced diuresis - lactate normal - Cardiology consulted for further evaluation. Acute hypoxic respiratory failure - continue BiPAP. wean as tolerated - wean fio2 for goal spo2 > 90% - diuresis and abx - nebs prn - hob at 30 degrees Possible community acquired pneumonia - broad spectrum abx given severity of symptoms. vanc and zosyn. can de- escalate if clinically improving or culture data returns. Acute kidney injury - likely secondary to CHF - strict i/o's - trend Cr on daily BMP Atrial fibrillation - CHADS score > 2. Lovenox/Coumadin for anticoagulation. - currently rate controlled. SCDs, SQH no GI prophylaxis indicated. Advance to 1800 ADA diet as patient tolerating nasal cannula today. Awaiting CT chest to evaluate for PE. Dwight Vergara MD Mar 13, 2017 11:35
[2017-03-13] MEDS: RESP: ALBUTEROL 2.5 MG/IPRATROPIUM 0.5 MG NEB (PRN) INH (11:38)
[2017-03-13] MEDS: INSULIN ASPART SUPPLEMENTAL SCALE SQ SCH ×3 (12:00→20:10)
[2017-03-13 12:15] LABS: INTERNATIONAL NORMALIZED RATIO 1.6 RATIO; PROTHROMBIN TIME - PATIENT 16.5 SEC (9.8-11.6)
[2017-03-13] MEDS ORDERED: LORazepam 2 MG/ML VIAL IV PUSH ONE (14:30)
[2017-03-13] MEDS: methylPREDNISolone SOD SUCC 40 MG/1 ML VIAL IV PUSH SCH ×2 (15:08→20:09)
--- NOTE | 2017-03-13 15:17 | MB ---
cc: TRAE CALVO DATE OF CONSULTATION 03/13/[address] Dwight Vergara REASON FOR CONSULTATION Pulmonary management HISTORY OF PRESENT ILLNESS This is a pleasant 76-year-old obese female with a history of atrial fibrillation, diastolic congestive heart failure, obstructive sleep apnea. She has been having worsening of her shortness for the last three to four weeks with any respiratory activity walking in the house into the kitchen makes her short of breath. She did notice increased swelling in her legs as well as wheezing and cough, no fever or chills. No chest pain. No nausea, vomiting, palpitations. With these symptoms, she was admitted in the hospital. Her initial blood gas pH 7.37, pCO2 of 48, pO2 91. Repeat blood gas on 40% BiPap is pH is 7.33 pCO2 53, bicarb 27, saturation 93%. Her CBC showed a WBC count of 5.8, hemoglobin 11, hematocrit 32.8, MCV 88, platelet count of 158. Sodium 142, potassium 4.5, chloride 108, CO2 25, BUN 18, creatinine 1.09 and her INR is 1.6. The D-dimer 1.54. PAST MEDICAL HISTORY Significant for a history of: 1. Diastolic congestive heart failure 2. COPD 3. Atrial fibrillation 4. Hypertension 5. Obstructive sleep apnea 6. Bilateral knee replacement MEDICATIONS She is currently takin. Insulin coverage 2. Coumadin 5 mg daily 3. Lipitor 20 mg daily 4. Lopid 600 mg twice a day 5. Levothyroxine 100 mcg 6. Levaquin 500 mg twice a day 7. Losartan 50 mg twice a day 8. Metoprolol 50 mg twice a day 9. Vancomycin 1750 mg q. 24-hour 10. Lovenox 100 mg q.12 h. 11. Lipitor 20 mg p.r.n. 12. Zosyn IV ALLERGIES ACETAMINOPHEN, BACITRACIN, GRAMCIDINE, HYDROCONE, NEOMYCIN, POLYMYXIN B SOCIAL HISTORY She has no history of smoking. No alcohol use. She is a homemaker. FAMILY HISTORY She is . She has six children, three of them have had bypass open heart surgery done and her had open heart surgery done twice. REVIEW OF SYSTEMS Normally she walks only a short distance. Denies any DVT or pulmonary embolism. No malignancy. No history of seizures or stroke. PHYSICAL EXAM This is a morbidly obese female mildly short of breath. VITAL SIGNS: Blood pressure 151/62, heart rate 94, respirations 20, temperature 98.8. HEENT: Pupils are equal and reactive to light. Oral mucosa and nasal mucosa normal. NECK: Supple. JVP not raised. CHEST: She had bilateral expiratory rhonchi. CARDIOVASCULAR: S1 AND S2 normal. ABDOMEN: Soft, nontender, nondistended. Bowel sounds are present. EXTREMITIES: 1 to 2+ pedal edema with ischemic changes. SCREEN TENDER: She is alert and oriented times three with no focal deficits. IMPRESSION 1. Shortness of breath with COPD exacerbation. 2. Obstructive sleep apnea 3. Respiratory acidosis 4. Mild hypoxia, need to rule out pulmonary embolism 5. Diastolic congestive heart failure 6. Atrial fibrillation 7. Arthritis status post bilateral knee replacement. PLAN She will use the C-PAP machine at nighttime for her sleep apnea. She is being diuresed. Continue antibiotic. I will also start her on IV Solu-Medrol. Monitor blood sugar. She is to undergo a CT of the chest to rule out pulmonary embolism. Further recommendations will depend upon the course in the hospital. Thank you, Dr. Vergara for this consultation. MD SHELLIE Le/ELÍAS /2:36 PM /2:47 PM
[2017-03-13] MEDS: hydrALAZINE HCL 20 MG/ML VIAL IV PRN ×2 (17:25→22:28)
[2017-03-13] MEDS: VANCOMYCIN INJ 1,750 MG in SODIUM CHLORID 0.9% 500 ML INJ 500 ML IV SCH (20:00)
[2017-03-14] VITALS (25 sets, daily range): BP systolic 95–184; BP diastolic 51–92; PULSE 81–100; RESP 21–52; TEMP 97.3–99; O2SAT 88–99
[2017-03-14] MEDS: methylPREDNISolone SOD SUCC 40 MG/1 ML VIAL IV PUSH SCH ×4 (02:48→21:45)
[2017-03-14] MEDS: RESP: ALBUTEROL 2.5 MG/IPRATROPIUM 0.5 MG NEB (SCH) INH ×4 (03:15→20:03)
[2017-03-14] MEDS: ENOXAPARIN SODIUM 100 MG/ML SYRINGE SQ SCH ×2 (03:38→17:51)
[2017-03-14] MEDS: PIPERACIL-TAZO 3.375 GM PREMIX 50 ML IV SCH ×3 (03:38→20:00)
[2017-03-14] MEDS: CHLORHEXIDINE GLUCONATE 2 % 1 PACK (2 CLOTHS) TOP SCH (03:38)
[2017-03-14] MEDS ORDERED: LORazepam 2 MG/ML VIAL ONE ×2 (04:39→16:17)
[2017-03-14] MEDS ORDERED: IOHEXOL 350 MG/ML 10 ML VIAL (for RAD DIAG) IVCONTRAST ONE (05:15)
[2017-03-14] MEDS: RESP: ALBUTEROL 2.5 MG/IPRATROPIUM 0.5 MG NEB (PRN) INH (05:25)
--- NOTE | 2017-03-14 05:56 | RADRPT ---
EXAM DATE/TIME: 03/14/2017 05:15 [facility] COMPARISON: CHEST SINGLE AP, March 14, 2017, 4:19. INDICATIONS : Shortness of breath for 1 day IV CONTRAST: 50 cc Omnipaque 350 (iohexol) IV RADIATION DOSE: 25.9 CTDIvol (mGy) ; Patient body habitus MEDICAL HISTORY : Hypertension. Congestive heart failure. Cerebrovascular disease.Diabetic SURGICAL HISTORY : None. ENCOUNTER: Initial ACUITY: 1 day PAIN SCALE: 0/10 LOCATION: chest TECHNIQUE: Volumetric scanning of the chest was performed using a pulmonary embolism protocol MIP images were re constructed. Using automated exposure control and adjustment of the mA and/or kV according to patien t size, radiation dose was kept as low as reasonably achievable to obtain optimal diagnostic quality images. DICOM format image data is available electronically for review and comparison. Follow-up recommendations for detected pulmonary nodules are based at a minimum on nodule size and pa tient risk factors according to Fleischner Society Guidelines. FINDINGS: Moderate bilateral pleural effusions and bibasilar consolidation is seen worse on the right. The re is no evidence for PE for technique. There are small lymph nodes within the mediastinum the larges t measures almost 1.6 cm in size in the pretracheal location most likely benign. CONCLUSION: Bilateral pleural effusions and bibasilar consolidation with probable superimposed slight pulmonary e khloe as well. Cathi Martinez MD on March 14, 2017 at 5:52 Board Certified Radiologist. This report was verified electronically.
--- NOTE | 2017-03-14 05:58 | RADRPT ---
EXAM DATE/TIME: 03/14/2017 04:19 [facility] COMPARISON: CHEST SINGLE AP, March 12, 2017, 3:11. CT PULMONARY ANGIOGRAM, March 14, 2017, 5:15. INDICATIONS : Shortness of breath, possible pulmonary disease. MEDICAL HISTORY : Cardiovascular disease. SURGICAL HISTORY : None. ENCOUNTER: Subsequent ACUITY: 4 - 6 days PAIN SCORE: Non-responsive. LOCATION: Bilateral chest FINDINGS: There is slight worsening of pulmonary edema. Bilateral pleural effusions and bibasilar consolidation have not changed. Slight cardiomegaly seen. CONCLUSION: Slight worsening of pulmonary edema and otherwise no change. Cathi Martinez MD on March 14, 2017 at 5:56 Board Certified Radiologist. This report was verified electronically.
[2017-03-14 06:18] LABS: HEMATOCRIT 34.7 % (35.0-46.0); HEMOGLOBIN 11.2 GM/DL (11.6-15.3); MEAN CELL VOLUME 90.7 FL (80.0-100.0); MEAN CORPUSCULAR HEMOGLOBIN 29.2 PG (27.0-34.0); MEAN CORPUSCULAR HGB CONC 32.2 % (32.0-36.0); MEAN PLATELET VOLUME 7.3 FL (7.0-11.0); PLATELET COUNT 189 TH/MM3 (150-450); RED BLOOD COUNT 3.82 MIL/MM3 (4.00-5.30); RED CELL DISTRIBUTION WIDTH 16.4 % (11.6-17.2); WHITE BLOOD COUNT 4.2 TH/MM3 (4.0-11.0)
[2017-03-14 06:46] LABS: BICARBONATE 27.4 MEQ/L (21.0-32.0); CALCIUM 8.8 MG/DL (8.5-10.1); CREATININE 1.08 MG/DL (0.50-1.00)
[2017-03-14] MEDS: LEVOTHYROXINE SODIUM 100 MCG TAB PO SCH (07:47)
[2017-03-14] MEDS: GEMFIBROZIL 600 MG TAB PO SCH ×2 (07:47→17:51)
[2017-03-14] MEDS: INSULIN ASPART SUPPLEMENTAL SCALE SQ SCH ×4 (07:49→21:00)
[2017-03-14] MEDS: WARFARIN SOD 5 MG TAB PO SCH (09:08)
[2017-03-14] MEDS: GLIMEPIRIDE 1 MG TAB PO SCH ×2 (09:08→21:45)
[2017-03-14] MEDS: LOSARTAN 50 MG TAB PO SCH ×2 (09:09→21:45)
[2017-03-14] MEDS: METOPROLOL TARTRATE 50 MG TAB PO SCH ×2 (09:09→21:45)
[2017-03-14] MEDS: POTASSIUM CHLORIDE 20 MEQ CONTROLLED RELEASE TAB PO SCH (09:09)
[2017-03-14] MEDS: DOCUSATE SODIUM 50 MG/SENNA 8.6 MG TAB PO SCH ×2 (09:09→21:45)
[2017-03-14] MEDS: CHOLECALCIFEROL (VIT D3) 1000 UNIT TAB PO SCH (09:09)
[2017-03-14] MEDS ORDERED: FUROSEMIDE 40 MG/4 ML VIAL IV PUSH ONE (09:15)
--- NOTE | 2017-03-14 09:15 | HHI.CCPN ---
Subjective Remarks/Hospital Course 03/11: This is a 77-year-old female with a history of diastolic CHF who presents with a three-week history of slowly worsening shortness of breath. Patient does use CPAP quite frequently during the day and night, and consistently uses it whenever she takes a nap which occurs at least once or twice during the daytime and then uses it every night with consistency. She complains that over the last 2-3 days her shortness of breath has gotten significantly worse. She does endorse a nonproductive cough over the last 2-3 days and some chills although denies fever. She denies any chest pain. She endorses what sounds like orthopnea and PND type symptoms. She states that she had a prior diagnosis of CHF but has not had any heart workup or seen anyone for this for at least a year or more. She does have a history of atrial fibrillation and is on blood thinners, although she cannot remember which ones. In the emergency department she was significantly hypoxic and placed on BiPAP. She was given Lasix 80 mg IV. She's had a good response and greater than 1 L since that time in urine output. Her BNP is slightly elevated at 238. In the emergency department she had a low-grade temperature of 100.5 Fahrenheit, but has a normal white count. Chest x-ray suggestive of bilateral pleural effusions with possible lower lobe consolidations. 03/12: Was on nasal cannula this morning. Following return from CAT scan she developed respiratory distress and was placed on BiPAP. CT scan could not be completed as IV infiltrated. At the time of my evaluation patient was comfortably tolerating BiPAP with full facemask. 03/13: Was on BiPAP overnight. Awake and alert at the time of my evaluation, following commands this morning. 03/14: on 3L o2 by [place] this AM. still somewhat dyspneic. tolerating breakfast. CT pulmonary angiogram yesterday without PE, concern for pulmonary edema with small pleural effusions. CXR today with worsening pulmonary edema. Objective Vital Signs Date Time Temp Pulse Resp B/P (MAP) Pulse Ox O2 Delivery O2 Flow Rate FiO2 03/14/17 08:36 97 Nasal Cannula 3.00 03/14/17 08:00 90 03/14/17 08:00 97.4 24 149/74 (99) 03/14/17 07:00 40 Intake and Output 03/14/17 03/14/17 03/15/17 08:00 16:00 00:00 Intake Total 90 ml Output Total 455 ml Balance -365 ml Result Diagram: 03/14/17 0530 03/14/17 0530 Other Results Microbiology Date/Time Source Procedure Growth Status 03/11/17 19:45 Nasal Washing Influenza Types A,B Antigen (JOSUÉ) - Final NEGATIVE FOR FLU A AND B ANTIGEN.... Complete Imaging Last Impressions Chest X-Ray 03/11/171806 Signed Impressions: Service Date/Time: Saturday, March 11, 2017 18:39 - CONCLUSION: 1. Chronic cardiac silhouette enlargement. 2. New bilateral lower hemithorax opacity right greater than left likely representing right lower lobe atelectasis versus consolidation, right pleural effusion, and possible small left pleural effusion. Juan Dempsey MD Objective Remarks GENERAL: Obese female, lying in bed, on nc o2. HEENT: Normocephalic. Atraumatic. Pupils equal, round, reactive, conjugate. Mucous membranes are moist NECK: Trachea is midline. Large neck circumference prevents accurate assessment of JVD CHEST: Mildly tachypneic. Not using accessory muscles. 3L o2 by NC. CARDIOVASCULAR: Normal rate, regular rhythm. Appears sinus at the current time by telemetry. ABDOMEN: Soft, nontender, nondistended. No guarding. MUSCULOSKELETAL: Pulses 2+. 2+ peripheral edema. NEUROLOGICAL: awake, alert, oriented. follows commands. no focal deficits. A/P Assessment and Plan Assessment: 76yF with history of CHF with preserved EF who presents with SOB and fever and acute hypoxic respiratory failure requiring NIPPV. Differential includes pneumonia vs. CHF exacerbation, diastolic type. Without evidence of PE. afebrile. continue abx, but would have low threshold to de-escalate abx therapy. appears to be most likely related to CHF. will recheck bnp today. given that her o2 requirement has improved, can transfer out of ICU. CHF Exacerbation, diastolic type - forced diuresis - lactate normal - Cardiology: Dr. Moreno following Acute hypoxic respiratory failure - wean o2 by mn for goal spo2 > 90% - diuresis and abx - nebs prn - hob at 30 degrees Possible community acquired pneumonia - broad spectrum abx given severity of symptoms. vanc and zosyn. can de- escalate if clinically improving or culture data returns. Acute kidney injury- improving. - likely secondary to CHF - strict i/o's - trend Cr on daily BMP Atrial fibrillation - CHADS score > 2. Lovenox/Coumadin for anticoagulation. - currently rate controlled. SCDs, SQH no GI prophylaxis indicated. Advance to 1800 ADA diet as patient tolerating nasal cannula today. transfer out of ICU. consult hospitalist service. Jason Mack MD Mar 14, 2017 09:15
[2017-03-14] MEDS ORDERED: LORazepam 2 MG/ML VIAL IV ONE (17:15)
[2017-03-14] MEDS: hydrALAZINE HCL 20 MG/ML VIAL IV PRN (18:26)
--- NOTE | 2017-03-14 18:52 | HHI.PR ---
Subjective Remarks 76 YOWF with resp insuff, on VM Gets anxious had Ativan, seems to be helping her CTA no PE, has pl eff Daughter at BS Objective Vital Signs Vital Signs Date Time Temp Pulse Resp B/P (MAP) Pulse Ox O2 Delivery O2 Flow Rate FiO2 03/14/17 18:00 90 21 184/92 (122) 95 03/14/17 17:20 93 Simple Mask 10.00 03/14/17 17:00 83 24 96 03/14/17 16:00 97.3 96 21 93 03/14/17 16:00 96 03/14/17 15:22 95 Bi-Pap 5.00 40 03/14/17 15:16 95 45 03/14/17 15:00 85 40 162/74 (103) 90 03/14/17 14:00 84 03/14/17 14:00 84 26 161/74 (103) 95 03/14/17 13:00 94 52 93 03/14/17 12:42 93 Bi-Pap 5.00 40 03/14/17 12:24 96 45 03/14/17 12:00 88 03/14/17 12:00 97.8 88 25 155/75 (101) 93 03/14/17 11:00 90 41 94 03/14/17 10:00 99 27 168/85 (112) 95 03/14/17 10:00 99 03/14/17 09:00 97 24 176/91 (119) 94 03/14/17 08:36 97 Nasal Cannula 3.00 03/14/17 08:00 96 Nasal Cannula 3.00 03/14/17 08:00 90 03/14/17 08:00 97.4 90 24 149/74 (99) 98 03/14/17 07:00 96 Bi-Pap 5.00 40 03/14/17 06:00 92 03/14/17 04:00 97.5 88 26 142/67 (92) 88 03/14/17 04:00 88 03/14/17 03:40 96 Venturi Mask 6.00 50 03/14/17 03:15 94 BiPAP 45 03/14/17 03:15 96 45 03/14/17 02:00 81 03/14/17 00:05 94 45 03/14/17 00:00 98.2 91 39 95/51 (66) 95 03/14/17 00:00 91 03/13/17 22:00 88 03/13/17 20:06 97 50 03/13/17 20:00 96 03/13/17 20:00 97.6 96 26 159/81 (107) 95 03/13/17 19:00 Bi-Pap 5.00 40 I/O 03/13/17 03/13/17 03/13/17 03/14/17 03/14/17 03/14/17 07:00 15:00 23:00 07:00 15:00 23:00 Intake Total 400 ml 50 ml 1275.5 ml 90 ml 50 ml Output Total 400 ml 450 ml 455 ml Balance 0 ml 50 ml 825.5 ml -365 ml 50 ml Intake Oral 708 ml 40 ml IV Total 400 ml 50 ml 567.5 ml 50 ml 50 ml Output Urine Total 400 ml 450 ml 455 ml Stool Total 0 ml # Bowel Movements 0 1 Result Diagram: 03/14/17 0503/14/17 0530 Objective Remarks GENERAL: Obese WF, sob, anxious SKIN: Warm and dry. HEAD: Normocephalic. EYES: No scleral icterus. No injection or drainage. NECK: Supple, trachea midline. No JVD or lymphadenopathy. CARDIOVASCULAR: Regular rate and rhythm without murmurs, gallops, or rubs. RESPIRATORY: Breath sounds equal bilaterally. No accessory muscle use. GASTROINTESTINAL: Abdomen soft, non-tender, nondistended. MUSCULOSKELETAL: No cyanosis, ++ edema. BACK: Nontender without obvious deformity. No CVA tenderness. A/P Assessment and Plan Resp insuff No PE Pleural effusion CHF AF PLAN: DW Daughter Cont VM Will try BIPAP If gets worse, will need intubation Diurease Cont Abx IV Solumedrol. Landon Tony MD Mar 14, 2017 18:52
[2017-03-14] MEDS ORDERED: PHARMACY ORDERED LAB ONE (19:45)
[2017-03-14] MEDS: VANCOMYCIN INJ 1,750 MG in SODIUM CHLORID 0.9% 500 ML INJ 500 ML IV SCH (21:07)
[2017-03-15] VITALS (24 sets, daily range): BP systolic 139–180; BP diastolic 72–108; PULSE 82–103; RESP 18–45; TEMP 97.6–98.8; O2SAT 88–100
[2017-03-15] MEDS: RESP: ALBUTEROL 2.5 MG/IPRATROPIUM 0.5 MG NEB (PRN) INH (00:05)
[2017-03-15] MEDS: CHLORHEXIDINE GLUCONATE 2 % 1 PACK (2 CLOTHS) TOP SCH (04:00)
[2017-03-15] MEDS: RESP: ALBUTEROL 2.5 MG/IPRATROPIUM 0.5 MG NEB (SCH) INH ×4 (04:00→21:34)
[2017-03-15] MEDS: ENOXAPARIN SODIUM 100 MG/ML SYRINGE SQ SCH ×2 (04:26→16:58)
[2017-03-15] MEDS: PIPERACIL-TAZO 3.375 GM PREMIX 50 ML IV SCH ×3 (04:27→19:53)
[2017-03-15] MEDS: methylPREDNISolone SOD SUCC 40 MG/1 ML VIAL IV PUSH SCH ×4 (04:27→19:54)
[2017-03-15] MEDS: GEMFIBROZIL 600 MG TAB PO SCH ×2 (05:18→15:23)
[2017-03-15] MEDS: LEVOTHYROXINE SODIUM 100 MCG TAB PO SCH (05:18)
[2017-03-15 07:03] LABS: HEMATOCRIT 35.4 % (35.0-46.0); HEMOGLOBIN 11.3 GM/DL (11.6-15.3); MEAN CELL VOLUME 91.7 FL (80.0-100.0); MEAN CORPUSCULAR HEMOGLOBIN 29.2 PG (27.0-34.0); MEAN CORPUSCULAR HGB CONC 31.8 % (32.0-36.0); MEAN PLATELET VOLUME 7.6 FL (7.0-11.0); PLATELET COUNT 210 TH/MM3 (150-450); RED BLOOD COUNT 3.86 MIL/MM3 (4.00-5.30); RED CELL DISTRIBUTION WIDTH 16.7 % (11.6-17.2); WHITE BLOOD COUNT 7.4 TH/MM3 (4.0-11.0)
[2017-03-15 07:19] LABS: BICARBONATE 24.8 MEQ/L (21.0-32.0); CREATININE 1.17 MG/DL (0.50-1.00)
[2017-03-15] MEDS: INSULIN ASPART SUPPLEMENTAL SCALE SQ SCH ×4 (08:00→21:13)
--- NOTE | 2017-03-15 08:42 | HHI.PR ---
Subjective Remarks on bipap awake and alert. says she is doing ok asking for coffee had severe panic attack requiring ativan yesterday Objective Vitals bipap awake/oriented follows commands heart irreg lung diminished bases abd s/nt ext no pitting velarde Vital Signs Date Time Temp Pulse Resp B/P (MAP) Pulse Ox O2 Delivery O2 Flow Rate FiO2 03/15/17 07:00 95 Bi-Pap 5.00 45 03/15/17 06:00 83 03/15/17 04:01 95 45 03/15/17 04:00 98.8 97 25 140/72 (94) 95 03/15/17 04:00 97 03/15/17 02:00 93 03/15/17 00:00 84 03/15/17 00:00 98.6 84 27 139/108 (118) 95 03/14/17 22:05 99 45 03/14/17 22:00 100 03/14/17 20:00 86 03/14/17 20:00 99.0 86 38 184/82 (116) 95 03/14/17 19:05 95 45 03/14/17 19:05 95 BiPAP 45 03/14/17 19:00 93 Simple Mask 10.00 40 03/14/17 18:00 90 21 184/92 (122) 95 03/14/17 18:00 90 03/14/17 17:20 93 Simple Mask 10.00 03/14/17 17:00 83 24 96 03/14/17 16:00 97.3 96 21 93 03/14/17 16:00 96 03/14/17 15:22 95 Bi-Pap 5.00 40 03/14/17 15:16 95 45 03/14/17 15:00 85 40 162/74 (103) 90 03/14/17 14:00 84 03/14/17 14:00 84 26 161/74 (103) 95 03/14/17 13:00 94 52 93 03/14/17 12:42 93 Bi-Pap 5.00 40 03/14/17 12:24 96 45 03/14/17 12:00 88 03/14/17 12:00 97.8 88 25 155/75 (101) 93 03/14/17 11:00 90 41 94 03/14/17 10:00 99 27 168/85 (112) 95 03/14/17 10:00 99 03/14/17 09:00 97 24 057/02 (689) 89 Result Diagram: 03/15/1714 03/15/1714 A/P Problem List: (1) Acute respiratory failure with hypoxia ICD Codes: J96.01 - Acute respiratory failure with hypoxia Status: Acute Plan: 1. hypoxic resp failure. diastolic chf with exacerbation/effusions questionable pna paul. uses cpap 2. afib. controlled 3. ckd 3 4. diabetes. steroid exacerbated. 5. htn plan bipap. wean as tolerated. f/u abg cont nebs . steroids per pulmonary de escalate abx on lovenox/coumadin for afib..f/u pending inr monitor bmp. pt scheduled diuretic held ssi. oha. PT eval anxiolytics. pt had severe anxiety attack yesterday keep in icu today. (2) Diastolic CHF ICD Codes: I50.30 - Unspecified diastolic (congestive) heart failure Status: Acute (3) Pleural effusion ICD Codes: J90 - Pleural effusion, not elsewhere classified Status: Acute (4) Diabetes ICD Codes: E11.9 - Type 2 diabetes mellitus without complications Status: Chronic (5) CKD (chronic kidney disease), stage III ICD Codes: N18.3 - Chronic kidney disease, stage 3 (moderate) Status: Chronic (6) Atrial fibrillation ICD Codes: I48.91 - Unspecified atrial fibrillation Status: Chronic Marcello Stuart MD Mar 15, 2017 08:42
[2017-03-15] MEDS: POTASSIUM CHLORIDE 20 MEQ CONTROLLED RELEASE TAB PO SCH ×2 (09:00→10:34)
[2017-03-15] MEDS: GLIMEPIRIDE 1 MG TAB PO SCH ×2 (09:00→19:53)
[2017-03-15] MEDS: DOCUSATE SODIUM 50 MG/SENNA 8.6 MG TAB PO SCH ×2 (09:00→19:54)
[2017-03-15] MEDS: LORazepam 2 MG/ML VIAL IV PUSH PRN ×2 (10:33→22:24)
[2017-03-15] MEDS: ATORVASTATIN 20 MG TAB PO SCH (10:34)
[2017-03-15] MEDS: METOPROLOL TARTRATE 50 MG TAB PO SCH ×2 (10:35→19:53)
[2017-03-15] MEDS: WARFARIN SOD 5 MG TAB PO SCH (10:35)
[2017-03-15] MEDS: CHOLECALCIFEROL (VIT D3) 1000 UNIT TAB PO SCH (10:35)
[2017-03-15] MEDS: LOSARTAN 50 MG TAB PO SCH ×2 (10:35→19:53)
[2017-03-15 13:17] LABS: INTERNATIONAL NORMALIZED RATIO 2.7 RATIO
--- NOTE | 2017-03-15 16:52 | HHI.PR ---
Subjective Remarks 76 YOWF with resp insuff, on VM Gets anxious CTA no PE, has pl eff Less labored breathing Still has wheezing. Objective Vital Signs Vital Signs Date Time Temp Pulse Resp B/P (MAP) Pulse Ox O2 Delivery O2 Flow Rate FiO2 03/15/17 14:00 93 03/15/17 13:00 82 20 157/80 (105) 91 03/15/17 12:16 95 40 03/15/17 12:00 84 03/15/17 12:00 98.0 84 19 94 03/15/17 11:00 86 22 148/78 (101) 94 03/15/17 10:00 89 18 180/79 (112) 93 03/15/17 10:00 89 03/15/17 09:19 95 45 03/15/17 09:00 85 19 175/90 (118) 94 03/15/17 08:00 97.8 94 20 176/85 (115) 94 03/15/17 08:00 94 03/15/17 07:00 95 Bi-Pap 5.00 45 03/15/17 06:00 83 03/15/17 04:01 95 45 03/15/17 04:00 98.8 97 25 140/72 (94) 95 03/15/17 04:00 97 03/15/17 02:00 93 03/15/17 00:00 84 03/15/17 00:00 98.6 84 27 139/108 (118) 95 03/14/17 22:05 99 45 03/14/17 22:00 100 03/14/17 20:00 86 03/14/17 20:00 99.0 86 38 184/82 (116) 95 03/14/17 19:05 95 45 03/14/17 19:05 95 BiPAP 45 03/14/17 19:00 93 Simple Mask 10.00 40 03/14/17 18:00 90 21 184/92 (122) 95 03/14/17 18:00 90 03/14/17 17:20 93 Simple Mask 10.00 03/14/17 17:00 83 24 96 I/O 03/14/17 03/14/17 03/14/17 03/15/17 03/15/17 03/15/17 07:00 15:00 23:00 07:00 15:00 23:00 Intake Total 90 ml 50 ml 360 ml 30 ml 250 ml 50 ml Output Total 455 ml 1000 ml 426 ml Balance -365 ml 50 ml -640 ml -396 ml 250 ml 50 ml Intake Oral 40 ml 360 ml 30 ml IV Total 50 ml 50 ml 250 ml 50 ml Output Urine Total 455 ml 1000 ml 425 ml Stool Total 0 ml 1 ml # Bowel Movements 2 1 Result Diagram: 03/15/1751303/15/17513 Objective Remarks GENERAL: Obese WF, sob, anxious SKIN: Warm and dry. HEAD: Normocephalic. EYES: No scleral icterus. No injection or drainage. NECK: Supple, trachea midline. No JVD or lymphadenopathy. CARDIOVASCULAR: Regular rate and rhythm without murmurs, gallops, or rubs. RESPIRATORY: Breath sounds equal bilaterally. No accessory muscle use. GASTROINTESTINAL: Abdomen soft, non-tender, nondistended. MUSCULOSKELETAL: No cyanosis, ++ edema. BACK: Nontender without obvious deformity. No CVA tenderness. A/P Assessment and Plan Resp insuff No PE Pleural effusion CHF AF PLAN: Cont VM If gets worse, will need intubation Diurease Cont Abx IV Solumedrol. racemic epi nebs prn Landon Tony MD Mar 15, 2017 16:51
[2017-03-15] MEDS ORDERED: RESP: RACEPINEPHRINE 2.25% 0.5 ML NEB NEB PRN (17:00)
[2017-03-16] VITALS (20 sets, daily range): BP systolic 87–193; BP diastolic 51–84; PULSE 68–92; RESP 18–35; TEMP 97.8–98.6; O2SAT 89–96
[2017-03-16] MEDS: RESP: ALBUTEROL 2.5 MG/IPRATROPIUM 0.5 MG NEB (SCH) INH ×4 (03:03→20:12)
[2017-03-16] MEDS: CHLORHEXIDINE GLUCONATE 2 % 1 PACK (2 CLOTHS) TOP SCH (03:42)
[2017-03-16] MEDS: methylPREDNISolone SOD SUCC 40 MG/1 ML VIAL IV PUSH SCH ×4 (03:42→23:42)
[2017-03-16] MEDS: PIPERACIL-TAZO 3.375 GM PREMIX 50 ML IV SCH ×3 (03:42→23:43)
[2017-03-16] MEDS: hydrALAZINE HCL 20 MG/ML VIAL IV PRN (03:55)
--- NOTE | 2017-03-16 05:17 | RADRPT ---
EXAM DATE/TIME: 03/16/2017 03:28 [facility] COMPARISON: CHEST SINGLE AP, March 14, 2017, 4:19. INDICATIONS : Shortness of breath, possible pulmonary disease. MEDICAL HISTORY : Cardiovascular disease. SURGICAL HISTORY : None. ENCOUNTER: Subsequent ACUITY: 1 week PAIN SCORE: Non-responsive. LOCATION: Bilateral chest FINDINGS: Patchy parenchymal opacities again seen of both lungs, right more so than left. A small to moderate r ight pleural effusion is again noted. Findings are not significantly changed. I don't see a pneumotho rax. Mild cardiomegaly is stable. CONCLUSION: Patchy bilateral consolidation and small to moderate right pleural effusion not significantly changed . Mild cardiomegaly. Rufino Chow MD on March 16, 2017 at 5:15 Board Certified Radiologist. This report was verified electronically.
[2017-03-16 05:30] LABS: HEMATOCRIT 34.3 % (35.0-46.0); MEAN CORPUSCULAR HEMOGLOBIN 28.7 PG (27.0-34.0); MEAN CORPUSCULAR HGB CONC 32.2 % (32.0-36.0); MEAN PLATELET VOLUME 7.3 FL (7.0-11.0); PLATELET COUNT 193 TH/MM3 (150-450); RED BLOOD COUNT 3.85 MIL/MM3 (4.00-5.30); RED CELL DISTRIBUTION WIDTH 15.7 % (11.6-17.2); WHITE BLOOD COUNT 6.4 TH/MM3 (4.0-11.0)
[2017-03-16 05:35] LABS: INTERNATIONAL NORMALIZED RATIO 4.8 RATIO; PROTHROMBIN TIME - PATIENT 47.7 SEC (9.8-11.6)
[2017-03-16 06:04] LABS: BICARBONATE 27.4 MEQ/L (21.0-32.0); CALCIUM 9.1 MG/DL (8.5-10.1); CREATININE 1.26 MG/DL (0.50-1.00)
[2017-03-16] MEDS: GEMFIBROZIL 600 MG TAB PO SCH ×2 (06:05→15:23)
[2017-03-16] MEDS: LEVOTHYROXINE SODIUM 100 MCG TAB PO SCH (06:06)
[2017-03-16] MEDS: INSULIN ASPART SUPPLEMENTAL SCALE SQ SCH ×4 (08:00→21:00)
[2017-03-16] MEDS ORDERED: FUROSEMIDE 40 MG/4 ML VIAL IV PUSH ONE (09:00)
[2017-03-16] MEDS: POTASSIUM CHLORIDE 20 MEQ CONTROLLED RELEASE TAB PO SCH (09:00)
[2017-03-16] MEDS: LOSARTAN 50 MG TAB PO SCH ×2 (09:15→23:43)
[2017-03-16] MEDS: METOPROLOL TARTRATE 50 MG TAB PO SCH ×2 (09:15→23:43)
[2017-03-16] MEDS: DOCUSATE SODIUM 50 MG/SENNA 8.6 MG TAB PO SCH ×2 (09:15→23:43)
[2017-03-16] MEDS: GLIMEPIRIDE 1 MG TAB PO SCH ×2 (09:15→23:43)
[2017-03-16] MEDS: CHOLECALCIFEROL (VIT D3) 1000 UNIT TAB PO SCH (09:15)
--- NOTE | 2017-03-16 09:36 | HHI.PR ---
Subjective Remarks sob and wheezing this AM Objective Vitals off bipap looks sob oriented bilatered ext wheezing kendall heart reg abd s/nt velarde Vital Signs Date Time Temp Pulse Resp B/P (MAP) Pulse Ox O2 Delivery O2 Flow Rate FiO2 03/16/17 08:18 94 45 03/16/17 06:00 84 03/16/17 04:00 77 03/16/17 04:00 98.0 77 18 193/82 (119) 95 03/16/17 03:09 95 BiPAP 03/16/17 03:05 95 45 03/16/17 02:40 Bi-Pap 45 03/16/17 02:00 76 03/16/17 00:05 94 40 03/16/17 00:00 77 03/16/17 00:00 Bi-Pap 40 03/16/17 00:00 97.8 77 18 150/70 (96) 91 03/15/17 22:00 91 03/15/17 21:39 95 BiPAP 03/15/17 20:08 97 BiPAP 03/15/17 20:05 96 40 03/15/17 20:00 97.6 102 20 173/88 (116) 100 03/15/17 20:00 Bi-Pap 40 03/15/17 20:00 102 03/15/17 18:00 103 03/15/17 17:36 93 40 03/15/17 17:00 101 22 160/77 (104) 94 03/15/17 16:00 98.3 87 24 178/84 (115) 91 03/15/17 16:00 87 03/15/17 15:00 89 22 88 03/15/17 14:00 93 26 168/89 (115) 91 03/15/17 14:00 93 03/15/17 13:00 82 20 157/80 (105) 91 03/15/17 12:16 95 40 03/15/17 12:00 84 03/15/17 12:00 98.0 84 19 94 03/15/17 11:00 86 22 148/78 (101) 94 03/15/17 10:00 89 18 180/79 (112) 93 03/15/17 10:00 89 Result Diagram: 03/16/17 04303/16/17 0432 A/P Problem List: (1) Acute respiratory failure with hypoxia ICD Codes: J96.01 - Acute respiratory failure with hypoxia Status: Acute Plan: 1. hypoxic resp failure...continues to have severe wheezing/sob diastolic chf with exacerbation/effusions questionable pna paul. uses cpap 2. afib. controlled. coumadin supratherapeutic 3. ckd 3 4. diabetes. steroid exacerbated. 5. htn. uncontrolled plan bipap. wean as tolerated. cont nebs . add budesonide. steroids per pulmonary cont emperic abx echo to eval LVF pending. lovenox stopped and coumadin hold until inr trends down. dose lasix now. monitor cr ssi. oha. PT eval anxiolytics. pt had severe anxiety attack keep in icu today. discussed with [facility] as she has potential for respiratory deterioration. add procardia for bp (2) Diastolic CHF ICD Codes: I50.30 - Unspecified diastolic (congestive) heart failure Status: Acute (3) Pleural effusion ICD Codes: J90 - Pleural effusion, not elsewhere classified Status: Acute (4) Diabetes ICD Codes: E11.9 - Type 2 diabetes mellitus without complications Status: Chronic (5) CKD (chronic kidney disease), stage III ICD Codes: N18.3 - Chronic kidney disease, stage 3 (moderate) Status: Chronic (6) Atrial fibrillation ICD Codes: I48.91 - Unspecified atrial fibrillation Status: Chronic Marcello Stuart MD Mar 16, 2017 09:36
[2017-03-16] MEDS: NIFEdipine 30 MG SUSTAINED RELEASE TAB PO SCH ×2 (09:42→23:43)
[2017-03-16] MEDS: RESP: BUDESONIDE 0.5 MG/2 ML NEB NEB SCH ×2 (10:09→20:11)
--- NOTE | 2017-03-16 14:26 | HHI.PR ---
Subjective Remarks 76 YOWF with resp insuff, on VM Gets anxious CTA no PE, has pl eff Still has wheezing. Getting tired Daughters at BS consulted Objective Vital Signs Vital Signs Date Time Temp Pulse Resp B/P (MAP) Pulse Ox O2 Delivery O2 Flow Rate FiO2 03/16/17 10:15 Bi-Pap 45 03/16/17 10:00 88 03/16/17 08:18 94 45 03/16/17 08:00 90 03/16/17 08:00 97.9 90 23 168/79 (108) 89 03/16/17 07:15 Bi-Pap 45 03/16/17 06:00 84 03/16/17 04:00 77 03/16/17 04:00 98.0 77 18 193/82 (119) 95 03/16/17 03:09 95 BiPAP 03/16/17 03:05 95 45 03/16/17 02:40 Bi-Pap 45 03/16/17 02:00 76 03/16/17 00:05 94 40 03/16/17 00:00 77 03/16/17 00:00 Bi-Pap 40 03/16/17 00:00 97.8 77 18 150/70 (96) 91 03/15/17 22:00 91 03/15/17 21:39 95 BiPAP 03/15/17 20:08 97 BiPAP 03/15/17 20:05 96 40 03/15/17 20:00 97.6 102 20 173/88 (116) 100 03/15/17 20:00 Bi-Pap 40 03/15/17 20:00 102 03/15/17 18:00 103 03/15/17 17:36 93 40 03/15/17 17:00 101 22 160/77 (104) 94 03/15/17 16:00 98.3 87 24 178/84 (115) 91 03/15/17 16:00 87 03/15/17 15:00 89 22 88 I/O 03/15/17 03/15/17 03/15/17 03/16/17 03/16/17 03/16/17 07:00 15:00 23:00 07:00 15:00 23:00 Intake Total 30 ml 250 ml 290 ml 530 ml Output Total 426 ml 400 ml 400 ml Balance -396 ml 250 ml -110 ml 130 ml Intake Oral 30 ml 240 ml 480 ml IV Total 250 ml 50 ml 50 ml Output Urine Total 425 ml 400 ml 400 ml Stool Total 1 ml # Bowel Movements 1 2 2 Result Diagram: 03/16/1743103/16/17431 Objective Remarks GENERAL: Obese WF, sob, anxious SKIN: Warm and dry. HEAD: Normocephalic. EYES: No scleral icterus. No injection or drainage. NECK: Supple, trachea midline. No JVD or lymphadenopathy. CARDIOVASCULAR: Regular rate and rhythm without murmurs, gallops, or rubs. RESPIRATORY: Breath sounds equal bilaterally. No accessory muscle use. GASTROINTESTINAL: Abdomen soft, non-tender, nondistended. MUSCULOSKELETAL: No cyanosis, ++ edema. BACK: Nontender without obvious deformity. No CVA tenderness. A/P Assessment and Plan Resp insuff No PE Pleural effusion CHF AF PLAN: BIPAP Diurease Cont Abx IV Solumedrol. racemic epi nebs prn Will need intubation consulted Landon Tony MD Mar 16, 2017 14:26
[2017-03-16] MEDS ORDERED: ETOMIDATE 40 MG/20 ML VIAL ONE (14:27)
[2017-03-16] MEDS ORDERED: SUCCINYLCHOLINE CHLORIDE 200 MG/10 ML VIAL IV ONE (14:30)
[2017-03-16] MEDS ORDERED: ETOMIDATE 20 MG/10 ML VIAL IVP ONE (14:30)
[2017-03-16] MEDS ORDERED: fentaNYL CITRATE 250 MCG/5 ML AMP IV ONE (14:30)
--- NOTE | 2017-03-16 14:43 | ECHRPT ---
Indication: HEART FAILURE CONCLUSIONS Normal left ventricular size. Moderate concentric left ventricular hypertrophy. The left ventricular systolic function is mildly reduced with an estimated ejection fraction in the range of 45- 50%. (Estimated, endocardium not well visualized and often off-axis imaging.) The left atrial size is moderately dilated. The right atrial size is nqaa-va-skdssxbqqu dilated. Bmqg-xa-kewxpxme mitral valve regurgitation. Aortic valve sclerosis is present. Aortic valve area is 1.4 cm. Aortic valve mean gradient is 14.3 mmHg. Mild aortic valve stenosis. Trace aortic valve regurgitation. There is mild tricuspid valve regurgitation. The estimated pulmonary arterial pressure is 62.8 mmHg. There is estimated sapggfxo-dq-aakuxh pulmonary hypertension present (range 60-70 mmHg). Mild pulmonary valve regurgitation. Very technically difficult study. BP: 149 / 74 HR: 90 Rhythm: Atrial fibrillation, Atrial flut ter MEASUREMENTS (Male / Female) Normal Values Technical Quality:Very technically difficult study 2D ECHO LV Diastolic Diameter PLAX 3.1 cm 4.2 - 5.9 / 3.9 - 5.3 cm LV Systolic Diameter PLAX 2.5 cm IVS Diastolic Thickness 1.6 cm 0.6 - 1.0 / 0.6 - 0.9 cm LVPW Diastolic Thickness 1.6 cm 0.6 - 1.0 / 0.6 - 0.9 cm LV Relative Wall Thickness 1.0 LVOT Diameter 2.1 cm Aortic Root Diameter 3.1 cm LA Systolic Diameter LX 4.2 cm 3.0 - 4.0 / 2.7 - 3.8 cm DOPPLER AV Peak Velocity 246.5 cm/s AV Peak Gradient 24.3 mmHg AV Mean Gradient 14.2 mmHg AV Velocity Time Integral 48.8 cm LVOT Peak Velocity 105.1 cm/s LVOT Peak Gradient 4.4 mmHg LVOT Velocity Time Integral 19.8 cm LVOT Cardiac Index 2308.3 cm/minm AV Area Cont Eq vti 1.4 cm AV Area Cont Eq pk 1.5 cm Mitral E Point Velocity 106.2 cm/s LV E' Lateral Velocity 9.8 cm/s Mitral E to LV E' Lateral Ratio 10.8 LV E' Septal Velocity 7.4 cm/s Mitral E to LV E' Septal Ratio 14.3 TR Peak Velocity 363.3 cm/s TR Peak Gradient 52.8 mmHg Right Atrial Pressure 10.0 mmHg Pulmonary Artery Systolic Pressu 62.8 mmHg Right Ventricular Systolic Press 62.8 mmHg PV Peak Velocity 88.0 cm/s PV Peak Gradient 3.1 mmHg FINDINGS LEFT VENTRICLE Normal left ventricular size. Moderate concentric left ventricular hypertrophy. The left ventricular systolic function is mildly reduced with an estimated ejection fraction in the range of 45- 50%. RIGHT VENTRICLE Normal right ventricular size and systolic function. LEFT ATRIUM The left atrial size is moderately dilated. RIGHT ATRIUM The right atrial size is zaki-sg-mhrizmkpft dilated. ATRIAL SEPTUM Normal atrial septal thickness without atrial level shunting by limited color doppler interrogation. AORTA The aortic root and proximal ascending aorta are normal in size on limited imaging. MITRAL VALVE Difu-bk-gukznvqy mitral valve regurgitation. AORTIC VALVE Aortic valve sclerosis is present. Aortic valve area is 1.4 cm. Aortic valve mean gradient is 14.3 mmHg. Mild aortic valve stenosis. Trace aortic valve regurgitation. TRICUSPID VALVE There is mild tricuspid valve regurgitation. The estimated pulmonary arterial pressure is 62.8 mmHg. There is estimated ipdzlepl-ap-xuvecc pulmonary hypertension present (range 60-70 mmHg). PULMONARY VALVE Mild pulmonary valve regurgitation. VESSELS The inferior vena cava is normal in size. PERICARDIUM No pericardial effusion. Cesario Bray MD (Electronically Signed) Final Date:16 March 2017 14:42
[2017-03-16] MEDS ORDERED: PROPOFOL 500 MG/50 ML INJ 50 ML ONE (14:53)
[2017-03-16] MEDS: fentaNYL DRIP 250 ML IV PRN (15:43)
[2017-03-16] MEDS: PROPOFOL 1000 MG/100 ML INJ 100 ML IV PRN ×3 (15:43→21:02)
--- NOTE | 2017-03-16 16:20 | RADRPT ---
EXAM DATE/TIME: 03/16/2017 15:23 [facility] COMPARISON: CHEST SINGLE AP, March 16, 2017, 3:28. INDICATIONS : Post intubation. MEDICAL HISTORY : Cardiovascular disease. SURGICAL HISTORY : None. ENCOUNTER: Initial ACUITY: 1 day PAIN SCORE: Non-responsive. LOCATION: Bilateral chest FINDINGS: There is slight cardiomegaly and moderate perivascular pulmonary edema. Focal consolidation is not se en. NG tube is present with tip in the stomach. ET tube is present with tip overlapping approximately 2 cm above the chang. CONCLUSION: Moderate CHF. Cathi Martinez MD on March 16, 2017 at 16:16 Board Certified Radiologist. This report was verified electronically.
--- NOTE | 2017-03-16 16:26 | HHI.CCPN ---
Subjective Remarks/Hospital Course 03/11: This is a 77-year-old female with a history of diastolic CHF who presents with a three-week history of slowly worsening shortness of breath. Patient does use CPAP quite frequently during the day and night, and consistently uses it whenever she takes a nap which occurs at least once or twice during the daytime and then uses it every night with consistency. She complains that over the last 2-3 days her shortness of breath has gotten significantly worse. She does endorse a nonproductive cough over the last 2-3 days and some chills although denies fever. She denies any chest pain. She endorses what sounds like orthopnea and PND type symptoms. She states that she had a prior diagnosis of CHF but has not had any heart workup or seen anyone for this for at least a year or more. She does have a history of atrial fibrillation and is on blood thinners, although she cannot remember which ones. In the emergency department she was significantly hypoxic and placed on BiPAP. She was given Lasix 80 mg IV. She's had a good response and greater than 1 L since that time in urine output. Her BNP is slightly elevated at 238. In the emergency department she had a low-grade temperature of 100.5 Fahrenheit, but has a normal white count. Chest x-ray suggestive of bilateral pleural effusions with possible lower lobe consolidations. 03/12: Was on nasal cannula this morning. Following return from CAT scan she developed respiratory distress and was placed on BiPAP. CT scan could not be completed as IV infiltrated. At the time of my evaluation patient was comfortably tolerating BiPAP with full facemask. 03/13: Was on BiPAP overnight. Awake and alert at the time of my evaluation, following commands this morning. 03/14: on 3L o2 by NC this AM. still somewhat dyspneic. tolerating breakfast. CT pulmonary angiogram yesterday without PE, concern for pulmonary edema with small pleural effusions. CXR today with worsening pulmonary edema. 03/16: Critical care medicine reconsulted by Dr. Radford for respiratory failure with possible need for intubation. Patient remained on BiPAP however does not tolerate taking it off and immediately gets extremely tachypneic and short of breath. Has not been able to have tube feeds of by mouth meds due to her respiratory status. No significant improvement and appears to be getting weaker with lack of nutrition. Discussed with Dr. Radford as well as family members on multiple occasions today. Discussed plan with family regarding proceeding with intubation and mechanical ventilation and inserting NG tube/OG tube to maintain nutritional status while waiting for improvement in pneumonia/ respiratory failure and they were agreeable. Objective Vital Signs Date Time Temp Pulse Resp B/P (MAP) Pulse Ox O2 Delivery O2 Flow Rate FiO2 03/16/17 14:54 93 100 03/16/17 10:15 Bi-Pap 03/16/17 10:00 88 03/16/17 08:00 97.9 23 168/79 (108) 03/15/17 07:00 5.00 Intake and Output 03/16/17 03/16/17 03/17/17 08:00 16:00 00:00 Intake Total 530 ml Output Total 400 ml Balance 130 ml Result Diagram: 03/16/17 0432 03/16/17 0432 Other Results Laboratory Tests Test 03/16/17 04:32 White Blood Count 6.4 TH/MM3 Red Blood Count 3.85 MIL/MM3 Hemoglobin 11.0 GM/DL Hematocrit 34.3 % Mean Corpuscular Volume 89.0 FL Mean Corpuscular Hemoglobin 28.7 PG Mean Corpuscular Hemoglobin Concent 32.2 % Red Cell Distribution Width 15.7 % Platelet Count 193 TH/MM3 Mean Platelet Volume 7.3 FL Prothrombin Time 47.7 SEC Prothromb Time International Ratio 4.8 RATIO Blood Urea Nitrogen 32 MG/DL Creatinine 1.26 MG/DL Random Glucose 106 MG/DL Calcium Level 9.1 MG/DL Sodium Level 144 MEQ/L Potassium Level 3.8 MEQ/L Chloride Level 111 MEQ/L Carbon Dioxide Level 27.4 MEQ/L Anion Gap 6 MEQ/L Estimat Glomerular Filtration Rate 41 ML/MIN Imaging Chest x-ray portable done on 03/16 was personally reviewed: ET tube above chang , bilateral infiltrates more on the right, bilateral pleural effusions, NG tube in place Last 48 hours Impressions Chest X-Ray 03/16/17 0600 Signed Impressions: Service Date/Time: Thursday, March 16, 2017 03:28 - CONCLUSION: Patchy bilateral consolidation and small to moderate right pleural effusion not significantly changed. Mild cardiomegaly. Rufino Chow MD Last Impressions Chest X-Ray 03/11/17 1807 Signed Impressions: Service Date/Time: Saturday, March 11, 2017 18:39 - CONCLUSION: 1. Chronic cardiac silhouette enlargement. 2. New bilateral lower hemithorax opacity right greater than left likely representing right lower lobe atelectasis versus consolidation, right pleural effusion, and possible small left pleural effusion. Juan Dempsey MD Objective Remarks HEENT/ Neuro: Sedated, orally intubated, Pallor present, no icterus, tongue/ mucosa moist Neck: No JVD Chest/Pulm: on mech vent, good air entry bilaterally, no wheezing or crackles CVS: S1-S2 regular, no murmur GI/abdomen: soft, nontender, bowel sounds sluggish Extremities: warm bilaterally, no edema A/P Assessment and Plan Assessment: 76yF with history of CHF with preserved EF who presents with SOB and fever and acute hypoxic respiratory failure requiring NIPPV. Differential includes pneumonia vs. CHF exacerbation, diastolic type. Without evidence of PE. Intubated and placed on mechanical ventilation for borderline respiration status and inability to take off BiPAP for by mouth intake. Neuro: - Sedation with propofol/fentanyl gtt., daily sedation vacation. Neurochecks. CHF Exacerbation, diastolic type - forced diuresis - lactate normal - Cardiology: Dr. Moreno following Acute hypoxic respiratory failure -Intubated and placed on mechanical ventilation on 03/16. Vent bundle, bronchodilators, daily C Pap trials starting tomorrow. - diuresis and abx - nebs prn - hob at 30 degrees Possible community acquired pneumonia - broad spectrum abx given severity of symptoms. vanc and zosyn. Since sputum for Gram stain and cultures following intubation. Acute kidney injury - likely secondary to CHF - strict i/o's - trend Cr on daily BMP Atrial fibrillation - CHADS score > 2. Lovenox/Coumadin for anticoagulation. Coumadin on hold due to elevated INR greater than 4.5 - currently rate controlled. GI/liver: - Insert OG tube and start tube feeds with Glucerna 1.5 and advanced to goal as tolerated. SCDs, SQH no GI prophylaxis indicated. Onb 03/16 discussed at length with multiple family members today prior to intubation including reviewing CAT scan images.. Explained that patient is chronically on BiPAP and inability to take off BiPAP to feed or insert NG tube. Discussed option of proceeding with intubation and place on mechanical ventilation in order to be able to place the OG tube to meet nutritional requirements. Family in agreement. Discussed with Dr. Radford who is agreeable with the plan as well. Condition critical Time spent on critical care excluding procedures 45 minutes Dwight Vergara MD Mar 16, 2017 16:26
--- NOTE | 2017-03-16 16:47 | PD.PROCEDR ---
Procedure Note Procedure Procedure: Endotracheal intubation Preop diagnosis: Acute respiratory failure Postop diagnosis: Same Sedation used: Etomidate 30 mg, fentanyl 200 mcg, succinylcholine 150 mg IV Procedure: Patient was preoxygenated with 100% oxygen via Ambu bag with bag mask ventilation, following induction of sedation and neuromuscular blockade, direct laryngoscopy was performed using a Mac for blade with good visualization of vocal cords. An 8 Albanian ET tube was passed through the vocal cords under direct visualization up to the 23 centimeter brandon and after inflating cuff of ET tube, correct placement was confirmed using bagging with good color change on CO2 detector, 5 point auscultation and chest rise with ventilation. Patient was connected to mechanical ventilation. Patient tolerated the procedure well with no immediate complications noted. Postprocedure chest x-ray was ordered. Dwight Vergara MD Mar 16, 2017 16:47
[2017-03-16] MEDS ORDERED: PHARMACY ORDERED LAB ONE (19:45)
[2017-03-16] MEDS: CHLORHEXIDINE 0.12% (ORAL KIT) 15 ML CUP MT SCH (20:00)
[2017-03-17] VITALS (61 sets, daily range): BP systolic 108–166; BP diastolic 38–100; PULSE 64–97; RESP 8–61; TEMP 98.2–99; O2SAT 92–97
[2017-03-17] MEDS: PROPOFOL 1000 MG/100 ML INJ 100 ML IV PRN ×2 (00:37→04:51)
[2017-03-17] MEDS: RESP: ALBUTEROL 2.5 MG/IPRATROPIUM 0.5 MG NEB (SCH) INH ×5 (04:00→21:34)
[2017-03-17] MEDS: CHLORHEXIDINE GLUCONATE 2 % 1 PACK (2 CLOTHS) TOP SCH (04:00)
[2017-03-17] MEDS: methylPREDNISolone SOD SUCC 40 MG/1 ML VIAL IV PUSH SCH ×4 (04:36→23:05)
[2017-03-17] MEDS: LEVOTHYROXINE SODIUM 100 MCG TAB PO SCH (04:36)
[2017-03-17] MEDS: PIPERACIL-TAZO 3.375 GM PREMIX 50 ML IV SCH ×3 (04:39→23:06)
[2017-03-17] MEDS: GEMFIBROZIL 600 MG TAB PO SCH ×2 (04:42→16:02)
[2017-03-17 05:18] LABS: HEMATOCRIT 32.9 % (35.0-46.0); HEMOGLOBIN 10.8 GM/DL (11.6-15.3); MEAN CELL VOLUME 88.8 FL (80.0-100.0); MEAN CORPUSCULAR HEMOGLOBIN 29.1 PG (27.0-34.0); MEAN CORPUSCULAR HGB CONC 32.8 % (32.0-36.0); MEAN PLATELET VOLUME 7.3 FL (7.0-11.0); PLATELET COUNT 175 TH/MM3 (150-450); RED CELL DISTRIBUTION WIDTH 15.8 % (11.6-17.2); WHITE BLOOD COUNT 4.7 TH/MM3 (4.0-11.0)
[2017-03-17 05:24] LABS: INTERNATIONAL NORMALIZED RATIO 3.9 RATIO; PROTHROMBIN TIME - PATIENT 39.5 SEC (9.8-11.6)
[2017-03-17 05:32] LABS: BICARBONATE 27.8 MEQ/L (21.0-32.0); CALCIUM 8.9 MG/DL (8.5-10.1); CREATININE 1.31 MG/DL (0.50-1.00)
[2017-03-17] MEDS: DOCUSATE SODIUM 50 MG/SENNA 8.6 MG TAB PO SCH ×2 (07:41→23:06)
[2017-03-17] MEDS: CHLORHEXIDINE 0.12% (ORAL KIT) 15 ML CUP MT SCH ×2 (08:07→20:00)
[2017-03-17] MEDS: METOPROLOL TARTRATE 50 MG TAB PO SCH ×2 (08:27→23:06)
[2017-03-17] MEDS: NIFEdipine 30 MG SUSTAINED RELEASE TAB PO SCH ×2 (08:27→21:00)
[2017-03-17] MEDS: POTASSIUM CHLORIDE 20 MEQ CONTROLLED RELEASE TAB PO SCH (08:27)
[2017-03-17] MEDS: INSULIN ASPART SUPPLEMENTAL SCALE SQ SCH ×4 (08:27→23:07)
[2017-03-17] MEDS: GLIMEPIRIDE 1 MG TAB PO SCH ×2 (08:28→23:06)
[2017-03-17] MEDS: LOSARTAN 50 MG TAB PO SCH (08:28)
[2017-03-17] MEDS: CHOLECALCIFEROL (VIT D3) 1000 UNIT TAB PO SCH (08:29)
[2017-03-17] MEDS: RESP: BUDESONIDE 0.5 MG/2 ML NEB NEB SCH ×2 (08:54→21:34)
[2017-03-17] MEDS: LACTATED RINGER'S 1000 ML INJ 1,000 ML IV SCH (12:45)
[2017-03-17] MEDS: SILDENAFIL CITRATE 20 MG TAB NG SCH (13:02)
--- NOTE | 2017-03-17 13:22 | HHI.CCPN ---
Subjective Remarks/Hospital Course 03/11: This is a 77-year-old female with a history of diastolic CHF who presents with a three-week history of slowly worsening shortness of breath. Patient does use CPAP quite frequently during the day and night, and consistently uses it whenever she takes a nap which occurs at least once or twice during the daytime and then uses it every night with consistency. She complains that over the last 2-3 days her shortness of breath has gotten significantly worse. She does endorse a nonproductive cough over the last 2-3 days and some chills although denies fever. She denies any chest pain. She endorses what sounds like orthopnea and PND type symptoms. She states that she had a prior diagnosis of CHF but has not had any heart workup or seen anyone for this for at least a year or more. She does have a history of atrial fibrillation and is on blood thinners, although she cannot remember which ones. In the emergency department she was significantly hypoxic and placed on BiPAP. She was given Lasix 80 mg IV. She's had a good response and greater than 1 L since that time in urine output. Her BNP is slightly elevated at 238. In the emergency department she had a low-grade temperature of 100.5 Fahrenheit, but has a normal white count. Chest x-ray suggestive of bilateral pleural effusions with possible lower lobe consolidations. 03/12: Was on nasal cannula this morning. Following return from CAT scan she developed respiratory distress and was placed on BiPAP. CT scan could not be completed as IV infiltrated. At the time of my evaluation patient was comfortably tolerating BiPAP with full facemask. 03/13: Was on BiPAP overnight. Awake and alert at the time of my evaluation, following commands this morning. 03/14: on 3L o2 by NC this AM. still somewhat dyspneic. tolerating breakfast. CT pulmonary angiogram yesterday without PE, concern for pulmonary edema with small pleural effusions. CXR today with worsening pulmonary edema. 03/16: Critical care medicine reconsulted by Dr. Radford for respiratory failure with possible need for intubation. Patient remained on BiPAP however does not tolerate taking it off and immediately gets extremely tachypneic and short of breath. Has not been able to have tube feeds of by mouth meds due to her respiratory status. No significant improvement and appears to be getting weaker with lack of nutrition. Discussed with Dr. Radford as well as family members on multiple occasions today. Discussed plan with family regarding proceeding with intubation and mechanical ventilation and inserting NG tube/OG tube to maintain nutritional status while waiting for improvement in pneumonia/ respiratory failure and they were agreeable. 03/17: Sedated, easily arousable, orally intubated on mechanical ventilation. Tolerating tube feeds. Objective Vital Signs Date Time Temp Pulse Resp B/P (MAP) Pulse Ox O2 Delivery O2 Flow Rate FiO2 03/17/17 11:49 92 50 03/17/17 11:00 68 14 141/67 (91) 03/17/17 07:59 98.9 03/16/17 20:14 Ventilator 03/15/17 07:00 5.00 Intake and Output 03/17/17 03/17/17 03/18/17 08:00 16:00 00:00 Intake Total 250 ml Output Total 400 ml Balance -150 ml Result Diagram: 03/17/17 0435 03/17/17 0435 Other Results Laboratory Tests Test 03/16/17 16:20 Blood Gas Puncture Site LT RADIAL Blood Gas Patient Temperature 98.6 Blood Gas HCO3 25 mmol/L (22-26) Blood Gas Base Excess 0.3 mmol/L (-2-2) Blood Gas Oxygen Saturation 98 % (90-100) Arterial Blood pH 7.40 (7.380-7.420) Arterial Blood Partial Pressure CO2 41 mmHg (38-42) Arterial Blood Partial Pressure O2 215 mmHg (61-120) Arterial Blood Oxygen Content 15.3 Vol % (12.0-20.0) Arterial Blood Carboxyhemoglobin 0.9 % (0-4) Arterial Blood Methemoglobin 1.1 % (0-2) Blood Gas Hemoglobin 10.8 G/DL (12.0-16.0) Oxygen Delivery Device VENTILATOR Blood Gas Ventilator Setting [id number]/R18/VT500/P8 Blood Gas Inspired Oxygen 100 % Imaging Chest x-ray portable done on 03/16 was personally reviewed: ET tube above chang , bilateral infiltrates more on the right, bilateral pleural effusions, NG tube in place Last 48 hours Impressions Chest X-Ray 03/16/17 0600 Signed Impressions: Service Date/Time: Thursday, March 16, 2017 03:28 - CONCLUSION: Patchy bilateral consolidation and small to moderate right pleural effusion not significantly changed. Mild cardiomegaly. Rufino Chow MD Last Impressions Chest X-Ray 03/11/17 1807 Signed Impressions: Service Date/Time: Saturday, March 11, 2017 18:39 - CONCLUSION: 1. Chronic cardiac silhouette enlargement. 2. New bilateral lower hemithorax opacity right greater than left likely representing right lower lobe atelectasis versus consolidation, right pleural effusion, and possible small left pleural effusion. Juan Dempsey MD Objective Remarks HEENT/ Neuro: Sedated, arousable, following commands, orally intubated, Pallor present, no icterus, tongue/ mucosa moist Neck: No JVD Chest/Pulm: on mech vent, good air entry bilaterally, no wheezing or crackles. Scattered rhonchi CVS: S1-S2 regular, no murmur GI/abdomen: soft, nontender, bowel sounds sluggish Extremities: warm bilaterally, bilateral edema A/P Assessment and Plan Assessment: 76yF with history of CHF with preserved EF who presents with SOB and fever and acute hypoxic respiratory failure requiring NIPPV. Differential includes pneumonia vs. CHF exacerbation, diastolic type. Without evidence of PE. Intubated and placed on mechanical ventilation for borderline respiration status and inability to take off BiPAP for by mouth intake. Neuro: - Sedation with propofol/fentanyl gtt., daily sedation vacation. Neurochecks. CHF Exacerbation, diastolic type Pulmonary hypertension -Status post diuresis - lactate normal - Added sildenafil for pulmonary hypertension on 03/17/17 - Cardiology: Dr. Moreno evaluated patient Acute hypoxic respiratory failure -Intubated and placed on mechanical ventilation on 03/16. Vent bundle, bronchodilators, daily C Pap trials - abx - nebs prn - hob at 30 degrees Possible community acquired pneumonia Bilateral pleural effusions - broad spectrum abx given severity of symptoms. vanc and zosyn. sputum for Gram stain and cultures following intubation. - We will obtain CT-guided thoracentesis once INR improves. Coumadin will be placed on hold Acute kidney injury -Off diuretics. Holding losartan starting 03/17 in view of rising creatinine. May require fluids. Repeat UA and urine culture as indicated - strict i/o's - trend Cr on daily BMP Atrial fibrillation - CHADS score > 2. Lovenox/Coumadin for anticoagulation. We'll hold Coumadin as patient is to be scheduled for thoracentesis. - currently rate controlled. GI/liver: -Tolerating tube feeds with Glucerna 1.5@60 cc per hour SCDs, SQH Pepcid for GI prophylaxis On 03/16 discussed at length with multiple family members today prior to intubation including reviewing CAT scan images.. Explained that patient is chronically on BiPAP and inability to take off BiPAP to feed or insert NG tube. Discussed option of proceeding with intubation and place on mechanical ventilation in order to be able to place the OG tube to meet nutritional requirements. Family in agreement. Discussed with Dr. Radford who is agreeable with the plan as well. 03/17: Discussed with family members at bedside regarding current clinical status and plan of care and they voiced understanding and were agreeable. Condition critical Time spent on critical care excluding procedures 45 minutes Dwight Vergara MD Mar 17, 2017 13:22
--- NOTE | 2017-03-17 15:20 | HHI.PR ---
Subjective Remarks 76 YOWF with resp insuff, on VM Gets anxious CTA no PE, has pl eff Intubated Weaned to CPAP Sedated with Fentanyl Objective Vital Signs Vital Signs Date Time Temp Pulse Resp B/P (MAP) Pulse Ox O2 Delivery O2 Flow Rate FiO2 03/17/17 14:14 81 03/17/17 14:00 81 19 140/63 (88) 96 03/17/17 13:45 74 27 136/63 (87) 95 03/17/17 13:30 82 33 150/70 (96) 93 03/17/17 13:15 81 27 137/65 (89) 93 03/17/17 13:00 78 143/65 (91) 92 03/17/17 12:45 72 12 144/66 (92) 95 03/17/17 12:30 75 32 147/64 (91) 94 03/17/17 12:15 70 15 142/66 (91) 93 03/17/17 12:00 50 03/17/17 12:00 98.7 69 16 149/65 (93) 92 03/17/17 12:00 75 03/17/17 11:49 92 50 03/17/17 11:00 68 14 141/67 (91) 95 03/17/17 10:45 70 16 143/66 (91) 95 03/17/17 10:30 73 16 144/65 (91) 95 03/17/17 10:15 74 14 143/67 (92) 95 03/17/17 10:00 70 136/63 (87) 95 03/17/17 09:45 72 136/63 (87) 95 03/17/17 09:30 78 134/63 (86) 95 03/17/17 09:15 84 128/61 (83) 94 03/17/17 09:05 83 141/66 (91) 94 03/17/17 09:00 85 166/74 (104) 94 03/17/17 08:45 94 42 155/89 (111) 94 03/17/17 08:43 95 50 03/17/17 08:30 84 51 146/66 (92) 94 03/17/17 08:24 93 61 156/75 (102) 93 03/17/17 08:23 50 03/17/17 08:15 97 37 153/100 (117) 96 03/17/17 08:02 86 44 140/87 (104) 95 03/17/17 08:00 50 03/17/17 08:00 76 23 108/38 (61) 94 03/17/17 08:00 70 03/17/17 07:59 98.9 03/17/17 07:45 70 24 141/65 (90) 95 03/17/17 07:30 67 23 143/67 (92) 95 03/17/17 07:15 68 18 145/66 (92) 96 03/17/17 07:00 68 35 133/62 (85) 95 03/17/17 06:00 72 03/17/17 05:09 96 50 03/17/17 04:00 64 03/17/17 04:00 50 03/17/17 04:00 98.3 64 18 138/63 (88) 93 03/17/17 02:00 64 03/17/17 00:00 50 03/17/17 00:00 98.2 68 18 140/63 (88) 95 03/17/17 00:00 68 03/16/17 23:53 96 50 03/16/17 22:00 80 03/16/17 20:14 94 Ventilator 03/16/17 20:06 94 50 03/16/17 20:00 50 03/16/17 20:00 98.6 80 25 123/58 (79) 93 03/16/17 20:00 80 03/16/17 18:00 69 03/16/17 18:00 50 03/16/17 16:30 70 03/16/17 16:00 68 03/16/17 16:00 98.1 69 18 87/51 (63) 95 I/O 03/16/17 03/16/17 03/16/17 03/17/17 03/17/17 03/17/17 07:00 15:00 23:00 07:00 15:00 23:00 Intake Total 530 ml 50 ml 200 ml 250 ml Output Total 400 ml 1800 ml 400 ml Balance 130 ml 50 ml -1600 ml -150 ml Intake Oral 480 ml IV Total 50 ml 50 ml 100 ml 250 ml Other 100 ml Output Urine Total 400 ml 1800 ml 400 ml # Bowel Movements 2 1 0 Result Diagram: 03/17/1743403/17/17434 Objective Remarks GENERAL: Obese WF, sob, anxious SKIN: Warm and dry. HEAD: Normocephalic. EYES: No scleral icterus. No injection or drainage. NECK: Supple, trachea midline. No JVD or lymphadenopathy. CARDIOVASCULAR: Regular rate and rhythm without murmurs, gallops, or rubs. RESPIRATORY: Breath sounds equal bilaterally. No accessory muscle use. GASTROINTESTINAL: Abdomen soft, non-tender, nondistended. MUSCULOSKELETAL: No cyanosis, ++ edema. BACK: Nontender without obvious deformity. No CVA tenderness. A/P Assessment and Plan VDRF No PE Pleural effusion CHF AF PLAN: Vent support CPAP trial Diurease Cont Abx IV Solumedrol. Fentanyl for sedation Landon Tony MD Mar 17, 2017 15:20
[2017-03-17] MEDS: RESP: ALBUTEROL 2.5 MG/IPRATROPIUM 0.5 MG NEB (PRN) INH (15:34)
[2017-03-17] MEDS: FAMOTIDINE 20 MG TAB OG-TUBE SCH ×2 (16:03→23:10)
[2017-03-17] MEDS ORDERED: PHYTONADIONE 2.5 MG/SWFI 2.5 ML ORAL SYR OG-TUBE ONE (20:00)
[2017-03-18] VITALS (38 sets, daily range): BP systolic 119–231; BP diastolic 60–201; PULSE 58–99; RESP 10–41; TEMP 98.4–100.1; O2SAT 90–100
[2017-03-18] MEDS: RESP: ALBUTEROL 2.5 MG/IPRATROPIUM 0.5 MG NEB (SCH) INH ×4 (03:37→21:14)
[2017-03-18] MEDS: CHLORHEXIDINE GLUCONATE 2 % 1 PACK (2 CLOTHS) TOP SCH (04:00)
[2017-03-18] MEDS: PROPOFOL 1000 MG/100 ML INJ 100 ML IV PRN ×2 (05:52→22:13)
[2017-03-18] MEDS: LEVOTHYROXINE SODIUM 100 MCG TAB PO SCH (05:54)
[2017-03-18] MEDS: GEMFIBROZIL 600 MG TAB PO SCH ×2 (05:54→16:38)
[2017-03-18] MEDS: PIPERACIL-TAZO 3.375 GM PREMIX 50 ML IV SCH ×3 (05:54→20:44)
[2017-03-18] MEDS: methylPREDNISolone SOD SUCC 40 MG/1 ML VIAL IV PUSH SCH ×4 (05:54→20:44)
[2017-03-18 06:34] LABS: HEMATOCRIT 37.8 % (35.0-46.0); MEAN CELL VOLUME 88.3 FL (80.0-100.0); MEAN CORPUSCULAR HGB CONC 31.7 % (32.0-36.0); MEAN PLATELET VOLUME 7.4 FL (7.0-11.0); PLATELET COUNT 190 TH/MM3 (150-450); RED BLOOD COUNT 4.28 MIL/MM3 (4.00-5.30); WHITE BLOOD COUNT 5.5 TH/MM3 (4.0-11.0)
[2017-03-18 06:47] LABS: INTERNATIONAL NORMALIZED RATIO 1.6 RATIO; PROTHROMBIN TIME - PATIENT 16.4 SEC (9.8-11.6)
[2017-03-18 06:51] LABS: BICARBONATE 26.7 MEQ/L (21.0-32.0); CALCIUM 8.9 MG/DL (8.5-10.1); CREATININE 1.36 MG/DL (0.50-1.00)
--- NOTE | 2017-03-18 06:51 | HHI.CCPN ---
Subjective Remarks/Hospital Course 03/11: This is a 77-year-old female with a history of diastolic CHF who presents with a three-week history of slowly worsening shortness of breath. Patient does use CPAP quite frequently during the day and night, and consistently uses it whenever she takes a nap which occurs at least once or twice during the daytime and then uses it every night with consistency. She complains that over the last 2-3 days her shortness of breath has gotten significantly worse. She does endorse a nonproductive cough over the last 2-3 days and some chills although denies fever. She denies any chest pain. She endorses what sounds like orthopnea and PND type symptoms. She states that she had a prior diagnosis of CHF but has not had any heart workup or seen anyone for this for at least a year or more. She does have a history of atrial fibrillation and is on blood thinners, although she cannot remember which ones. In the emergency department she was significantly hypoxic and placed on BiPAP. She was given Lasix 80 mg IV. She's had a good response and greater than 1 L since that time in urine output. Her BNP is slightly elevated at 238. In the emergency department she had a low-grade temperature of 100.5 Fahrenheit, but has a normal white count. Chest x-ray suggestive of bilateral pleural effusions with possible lower lobe consolidations. 03/12: Was on nasal cannula this morning. Following return from CAT scan she developed respiratory distress and was placed on BiPAP. CT scan could not be completed as IV infiltrated. At the time of my evaluation patient was comfortably tolerating BiPAP with full facemask. 03/13: Was on BiPAP overnight. Awake and alert at the time of my evaluation, following commands this morning. 03/14: on 3L o2 by NC this AM. still somewhat dyspneic. tolerating breakfast. CT pulmonary angiogram yesterday without PE, concern for pulmonary edema with small pleural effusions. CXR today with worsening pulmonary edema. 03/16: Critical care medicine reconsulted by Dr. Radford for respiratory failure with possible need for intubation. Patient remained on BiPAP however does not tolerate taking it off and immediately gets extremely tachypneic and short of breath. Has not been able to have tube feeds of by mouth meds due to her respiratory status. No significant improvement and appears to be getting weaker with lack of nutrition. Discussed with Dr. Radford as well as family members on multiple occasions today. Discussed plan with family regarding proceeding with intubation and mechanical ventilation and inserting NG tube/OG tube to maintain nutritional status while waiting for improvement in pneumonia/ respiratory failure and they were agreeable. 03/17: Sedated, easily arousable, orally intubated on mechanical ventilation. Tolerating tube feeds. 03/18: Remains sedated, orally intubated on mechanical ventilation. Tolerating tube feeds. Objective Vital Signs Date Time Temp Pulse Resp B/P (MAP) Pulse Ox O2 Delivery O2 Flow Rate FiO2 03/18/17 06:00 72 03/18/17 04:35 97 40 03/18/17 04:00 99.8 18 149/68 (95) 03/16/17 20:14 Ventilator 03/15/17 07:00 5.00 Intake and Output 03/18/17 03/18/17 03/19/17 08:00 16:00 00:00 Intake Total 1446 ml Output Total 450 ml Balance 996 ml Result Diagram: 03/18/17 0618 03/17/17 0435 Imaging Chest x-ray portable done on 03/16 was personally reviewed: ET tube above chang , bilateral infiltrates more on the right, bilateral pleural effusions, NG tube in place Last 48 hours Impressions Chest X-Ray 03/16/17 0600 Signed Impressions: Service Date/Time: Thursday, March 16, 2017 03:28 - CONCLUSION: Patchy bilateral consolidation and small to moderate right pleural effusion not significantly changed. Mild cardiomegaly. Rufino Chow MD Last Impressions Chest X-Ray 03/11/17 1807 Signed Impressions: Service Date/Time: Saturday, March 11, 2017 18:39 - CONCLUSION: 1. Chronic cardiac silhouette enlargement. 2. New bilateral lower hemithorax opacity right greater than left likely representing right lower lobe atelectasis versus consolidation, right pleural effusion, and possible small left pleural effusion. Juan Dempsey MD Objective Remarks HEENT/ Neuro: Sedated, arousable, following commands, orally intubated, Pallor present, no icterus, tongue/ mucosa moist Neck: No JVD Chest/Pulm: on mech vent, good air entry bilaterally, no wheezing or crackles. Scattered rhonchi CVS: S1-S2 regular, no murmur GI/abdomen: soft, nontender, bowel sounds sluggish Extremities: warm bilaterally, bilateral edema A/P Assessment and Plan Assessment: 76yF with history of CHF with preserved EF who presents with SOB and fever and acute hypoxic respiratory failure. Differential includes pneumonia vs. CHF exacerbation, diastolic type. Without evidence of PE. Intubated and placed on mechanical ventilation for borderline respiration status and inability to take off BiPAP for PO intake. Neuro: - Sedation with propofol/fentanyl gtt., daily sedation vacation. Neurochecks. CHF Exacerbation, diastolic type Pulmonary hypertension -Status post diuresis - lactate normal - Added sildenafil for pulmonary hypertension on 03/17/17 - Cardiology: Dr. Moreno evaluated patient Acute hypoxic respiratory failure -Intubated and placed on mechanical ventilation on 03/16. Vent bundle, bronchodilators, daily C Pap trials - abx - nebs prn - hob at 30 degrees Possible community acquired pneumonia Bilateral pleural effusions - broad spectrum abx given severity of symptoms. vanc and zosyn. sputum for Gram stain and cultures following intubation. - We will obtain CT-guided thoracentesis once INR improves. Coumadin will be placed on hold Acute kidney injury -Off diuretics. Holding losartan starting 03/17 in view of rising creatinine. May require fluids. Repeat UA and urine culture as indicated - strict i/o's - trend Cr on daily BMP Atrial fibrillation - CHADS score > 2. Lovenox/Coumadin for anticoagulation. We'll hold Coumadin as patient is to be scheduled for thoracentesis. - currently rate controlled. GI/liver: -Tolerating tube feeds with Glucerna 1.5@60 cc per hour SCDs, SQH Pepcid for GI prophylaxis On 03/16 discussed at length with multiple family members today prior to intubation including reviewing CAT scan images.. Explained that patient is chronically on BiPAP and inability to take off BiPAP to feed or insert NG tube. Discussed option of proceeding with intubation and place on mechanical ventilation in order to be able to place the OG tube to meet nutritional requirements. Family in agreement. Discussed with Dr. Radford who is agreeable with the plan as well. 03/17: Discussed with family members at bedside regarding current clinical status and plan of care and they voiced understanding and were agreeable. Condition critical Time spent on critical care excluding procedures 45 minutes Dwight Vergara MD Mar 18, 2017 06:51
[2017-03-18] MEDS: INSULIN ASPART SUPPLEMENTAL SCALE SQ SCH ×4 (08:00→20:50)
[2017-03-18] MEDS: RESP: BUDESONIDE 0.5 MG/2 ML NEB NEB SCH ×2 (08:08→21:14)
[2017-03-18] MEDS: CHLORHEXIDINE 0.12% (ORAL KIT) 15 ML CUP MT SCH ×2 (08:58→20:46)
[2017-03-18] MEDS: DOCUSATE SODIUM 50 MG/SENNA 8.6 MG TAB PO SCH ×2 (08:59→20:45)
[2017-03-18] MEDS: CHOLECALCIFEROL (VIT D3) 1000 UNIT TAB PO SCH (08:59)
[2017-03-18] MEDS: GLIMEPIRIDE 1 MG TAB PO SCH ×2 (08:59→20:45)
[2017-03-18] MEDS: ATORVASTATIN 20 MG TAB PO SCH (08:59)
[2017-03-18] MEDS: POTASSIUM CHLORIDE 20 MEQ CONTROLLED RELEASE TAB PO SCH (09:00)
[2017-03-18] MEDS: FAMOTIDINE 20 MG TAB OG-TUBE SCH ×2 (09:00→20:45)
[2017-03-18] MEDS: SILDENAFIL CITRATE 20 MG TAB NG SCH (09:00)
[2017-03-18] MEDS: NIFEdipine 30 MG SUSTAINED RELEASE TAB PO SCH ×2 (09:00→20:45)
[2017-03-18] MEDS: METOPROLOL TARTRATE 50 MG TAB PO SCH ×2 (09:00→20:45)
[2017-03-18] MEDS: hydrALAZINE HCL 20 MG/ML VIAL IV PRN (11:39)
[2017-03-18] MEDS: LACTATED RINGER'S 1000 ML INJ 1,000 ML IV SCH (11:41)
--- NOTE | 2017-03-18 14:29 | HHI.PR ---
Subjective Remarks 76 YOWF with resp insuff, on VM Gets anxious CTA no PE, has pl eff Intubated On AC 14 Sedated with Fentanyl Tolerates TF Objective Vital Signs Vital Signs Date Time Temp Pulse Resp B/P (MAP) Pulse Ox O2 Delivery O2 Flow Rate FiO2 03/18/17 13:00 78 36 92 03/18/17 13:00 78 03/18/17 12:55 92 40 03/18/17 12:45 90 03/18/17 12:45 90 41 130/64 (86) 90 03/18/17 12:30 77 12 159/74 (102) 90 03/18/17 12:30 77 03/18/17 12:15 81 15 161/71 (101) 92 03/18/17 12:15 81 03/18/17 12:00 71 03/18/17 12:00 40 03/18/17 12:00 100.0 71 12 141/66 (91) 94 03/18/17 11:03 95 40 03/18/17 10:15 60 03/18/17 10:00 67 10 153/71 (98) 95 03/18/17 10:00 67 03/18/17 09:45 71 03/18/17 09:45 71 11 135/62 (86) 94 03/18/17 09:30 75 12 140/65 (90) 98 03/18/17 09:30 75 03/18/17 09:23 73 03/18/17 09:23 73 13 166/74 (104) 100 03/18/17 09:21 73 18 231/201 (211) 100 03/18/17 09:21 73 03/18/17 09:19 72 03/18/17 09:19 72 12 216/194 (201) 100 03/18/17 09:16 74 03/18/17 09:16 74 12 189/82 (117) 100 03/18/17 09:15 70 03/18/17 09:15 70 16 192/86 (121) 99 03/18/17 09:04 70 03/18/17 09:04 70 16 179/79 (112) 100 03/18/17 09:00 69 03/18/17 09:00 69 15 194/81 (118) 100 03/18/17 08:45 70 03/18/17 08:45 70 15 169/74 (105) 98 03/18/17 08:30 65 12 162/74 (103) 97 03/18/17 08:30 65 03/18/17 08:15 67 16 176/80 (112) 99 03/18/17 08:15 67 03/18/17 08:11 99 40 03/18/17 08:10 40 03/18/17 08:00 65 03/18/17 08:00 40 03/18/17 08:00 98.4 65 25 158/74 (102) 97 03/18/17 06:00 72 03/18/17 04:35 97 40 03/18/17 04:00 99.8 63 18 149/68 (95) 96 03/18/17 04:00 61 03/18/17 04:00 50 03/18/17 02:00 58 03/18/17 01:16 97 45 03/18/17 00:00 50 03/18/17 00:00 73 03/18/17 00:00 100.1 73 18 119/60 (79) 95 03/17/17 23:40 97 50 03/17/17 22:16 93 50 03/17/17 22:00 71 03/17/17 20:00 99.0 72 14 159/70 (99) 93 03/17/17 20:00 72 03/17/17 20:00 35 03/17/17 19:19 96 50 03/17/17 19:00 67 03/17/17 18:00 79 19 151/70 (97) 93 03/17/17 17:45 69 27 146/66 (92) 93 03/17/17 17:30 69 24 133/63 (86) 93 03/17/17 17:15 74 15 144/67 (92) 93 03/17/17 17:00 70 16 132/62 (85) 93 03/17/17 16:45 71 28 134/62 (86) 93 03/17/17 16:30 72 15 131/60 (83) 92 03/17/17 16:15 71 23 131/61 (84) 92 03/17/17 16:00 50 03/17/17 16:00 76 15 130/63 (85) 93 03/17/17 16:00 68 03/17/17 15:45 71 14 118/53 (74) 93 03/17/17 15:31 93 50 03/17/17 15:30 75 13 128/58 (81) 93 03/17/17 15:15 76 15 137/51 (79) 92 03/17/17 15:00 80 15 149/64 (92) 94 03/17/17 14:45 84 16 135/62 (86) 95 03/17/17 14:30 81 8 129/65 (86) 94 I/O 03/17/17 03/17/17 03/17/17 03/18/17 03/18/17 03/18/17 07:00 15:00 23:00 07:00 15:00 23:00 Intake Total 250 ml 1496 ml Output Total 400 ml 340 ml 450 ml Balance -150 ml -340 ml 1046 ml IV Total 250 ml 100 ml Tube Feeding 1396 ml Output Urine Total 400 ml 340 ml 450 ml # Bowel Movements 0 4 Result Diagram: 03/18/1761703/18/17617 Objective Remarks GENERAL: Obese WF, sob, anxious SKIN: Warm and dry. HEAD: Normocephalic. EYES: No scleral icterus. No injection or drainage. NECK: Supple, trachea midline. No JVD or lymphadenopathy. CARDIOVASCULAR: Regular rate and rhythm without murmurs, gallops, or rubs. RESPIRATORY: Breath sounds equal bilaterally. No accessory muscle use. GASTROINTESTINAL: Abdomen soft, non-tender, nondistended. MUSCULOSKELETAL: No cyanosis, ++ edema. BACK: Nontender without obvious deformity. No CVA tenderness. A/P Assessment and Plan VDRF No PE Pleural effusion CHF AF PLAN: Vent support CPAP trial Diurease Cont Abx IV Solumedrol. Fentanyl for sedation Landon Tony MD Mar 18, 2017 14:29
[2017-03-18] MEDS: fentaNYL DRIP 250 ML IV PRN (16:38)
[2017-03-18 19:04] LABS: BACTERIA, URINE RARE /hpf; BILIRUBIN, URINE NEG (NEG); BLOOD, URINE LARGE (NEG); GLUCOSE,URINE NEG (NEG); KETONE, URINE NEG (NEG); MUCUS URINE FEW /lpf (OCC); NITRITE,URINE NEG (NEG); SQUAMOUS EPITHELIAL CELL URINE 7 /hpf (0-5); URINE COLOR YELLOW (YELLW/STRAW); URINE LEUKOCYTE ESTERASE MOD (NEG)
[2017-03-19] VITALS (24 sets, daily range): BP systolic 137–182; BP diastolic 68–87; PULSE 55–99; RESP 10–30; TEMP 98.1–100; O2SAT 92–97
[2017-03-19] MEDS: RESP: ALBUTEROL 2.5 MG/IPRATROPIUM 0.5 MG NEB (SCH) INH ×2 (02:51→08:42)
[2017-03-19] MEDS: hydrALAZINE HCL 20 MG/ML VIAL IV PRN ×2 (03:15→20:20)
[2017-03-19] MEDS: PIPERACIL-TAZO 3.375 GM PREMIX 50 ML IV SCH ×3 (03:16→20:08)
[2017-03-19] MEDS: methylPREDNISolone SOD SUCC 40 MG/1 ML VIAL IV PUSH SCH ×4 (03:16→20:09)
[2017-03-19] MEDS: CHLORHEXIDINE GLUCONATE 2 % 1 PACK (2 CLOTHS) TOP SCH (04:00)
--- NOTE | 2017-03-19 04:56 | RADRPT ---
EXAM DATE/TIME: 03/19/2017 03:55 [facility] COMPARISON: CHEST SINGLE AP, March 16, 2017, 15:23. INDICATIONS : Short of breath. MEDICAL HISTORY : Cardiovascular disease. SURGICAL HISTORY : None. ENCOUNTER: Subsequent ACUITY: 1 week PAIN SCORE: 0/10 LOCATION: Bilateral chest FINDINGS: A single portable frontal view the chest is limited by the patient's body habitus and the obliquity o f the film. Endotracheal tube tip is 2 cm from the chang. Nasogastric tube tip in the region of the body the stomach. Worsening right lung infiltrate. The left lung is clear. No effusions. Cardiomegaly . CONCLUSION: Worsening right lung infiltrate. Yohannes Green Jr., MD on March 19, 2017 at 4:53 Board Certified Radiologist. This report was verified electronically.
[2017-03-19] MEDS: LEVOTHYROXINE SODIUM 100 MCG TAB PO SCH (05:11)
[2017-03-19] MEDS: GEMFIBROZIL 600 MG TAB PO SCH ×2 (05:12→16:10)
[2017-03-19 05:20] LABS: INTERNATIONAL NORMALIZED RATIO 1.2 RATIO
[2017-03-19] MEDS: GLIMEPIRIDE 1 MG TAB PO SCH ×2 (07:57→20:09)
[2017-03-19] MEDS: SILDENAFIL CITRATE 20 MG TAB NG SCH (07:58)
[2017-03-19] MEDS: METOPROLOL TARTRATE 50 MG TAB PO SCH ×2 (07:58→20:09)
[2017-03-19] MEDS: CHOLECALCIFEROL (VIT D3) 1000 UNIT TAB PO SCH (07:58)
[2017-03-19] MEDS: POTASSIUM CHLORIDE 20 MEQ CONTROLLED RELEASE TAB PO SCH (07:58)
[2017-03-19] MEDS: CHLORHEXIDINE 0.12% (ORAL KIT) 15 ML CUP MT SCH ×2 (07:59→20:08)
[2017-03-19] MEDS: INSULIN ASPART SUPPLEMENTAL SCALE SQ SCH ×3 (07:59→21:00)
[2017-03-19] MEDS: FAMOTIDINE 20 MG TAB OG-TUBE SCH ×2 (07:59→20:09)
[2017-03-19] MEDS: DOCUSATE SODIUM 50 MG/SENNA 8.6 MG TAB PO SCH ×2 (07:59→20:09)
[2017-03-19] MEDS: NIFEdipine 30 MG SUSTAINED RELEASE TAB PO SCH ×2 (08:00→20:10)
[2017-03-19] MEDS: RESP: BUDESONIDE 0.5 MG/2 ML NEB NEB SCH ×2 (08:42→20:43)
--- NOTE | 2017-03-19 10:28 | HHI.CCPN ---
Subjective Remarks/Hospital Course 03/11: This is a 77-year-old female with a history of diastolic CHF who presents with a three-week history of slowly worsening shortness of breath. Patient does use CPAP quite frequently during the day and night, and consistently uses it whenever she takes a nap which occurs at least once or twice during the daytime and then uses it every night with consistency. She complains that over the last 2-3 days her shortness of breath has gotten significantly worse. She does endorse a nonproductive cough over the last 2-3 days and some chills although denies fever. She denies any chest pain. She endorses what sounds like orthopnea and PND type symptoms. She states that she had a prior diagnosis of CHF but has not had any heart workup or seen anyone for this for at least a year or more. She does have a history of atrial fibrillation and is on blood thinners, although she cannot remember which ones. In the emergency department she was significantly hypoxic and placed on BiPAP. She was given Lasix 80 mg IV. She's had a good response and greater than 1 L since that time in urine output. Her BNP is slightly elevated at 238. In the emergency department she had a low-grade temperature of 100.5 Fahrenheit, but has a normal white count. Chest x-ray suggestive of bilateral pleural effusions with possible lower lobe consolidations. 03/12: Was on nasal cannula this morning. Following return from CAT scan she developed respiratory distress and was placed on BiPAP. CT scan could not be completed as IV infiltrated. At the time of my evaluation patient was comfortably tolerating BiPAP with full facemask. 03/13: Was on BiPAP overnight. Awake and alert at the time of my evaluation, following commands this morning. 03/14: on 3L o2 by NC this AM. still somewhat dyspneic. tolerating breakfast. CT pulmonary angiogram yesterday without PE, concern for pulmonary edema with small pleural effusions. CXR today with worsening pulmonary edema. 03/16: Critical care medicine reconsulted by Dr. Radford for respiratory failure with possible need for intubation. Patient remained on BiPAP however does not tolerate taking it off and immediately gets extremely tachypneic and short of breath. Has not been able to have tube feeds of by mouth meds due to her respiratory status. No significant improvement and appears to be getting weaker with lack of nutrition. Discussed with Dr. Radford as well as family members on multiple occasions today. Discussed plan with family regarding proceeding with intubation and mechanical ventilation and inserting NG tube/OG tube to maintain nutritional status while waiting for improvement in pneumonia/ respiratory failure and they were agreeable. 03/17: Sedated, easily arousable, orally intubated on mechanical ventilation. Tolerating tube feeds. 03/18: Remains sedated, orally intubated on mechanical ventilation. Tolerating tube feeds. 03/19: Afebrile. Patient continues on CPAP trials successfully, plan for CT- guided thoracentesis this a.m.. Objective Vital Signs Date Time Temp Pulse Resp B/P (MAP) Pulse Ox O2 Delivery O2 Flow Rate FiO2 03/19/17 07:35 94 40 03/19/17 06:00 93 03/19/17 04:00 98.1 30 163/68 (99) 03/16/17 20:14 Ventilator 03/15/17 07:00 5.00 Intake and Output 03/19/17 03/19/17 03/20/17 08:00 16:00 00:00 Output Total 475 ml Balance -475 ml Result Diagram: 03/18/17 0618 03/18/17 0618 Other Results Microbiology Date/Time Source Procedure Growth Status 03/16/17 16:05 Sputum Endotracheal Gram Stain - Final Complete 03/16/17 16:05 Sputum Endotracheal Sputum Culture - Final NO GROWTH IN 48 HOURS. Complete Imaging Last Impressions Chest X-Ray 03/19/17 0600 Signed Impressions: Service Date/Time: Sunday, March 19, 2017 03:55 - CONCLUSION: Worsening right lung infiltrate. Yohannes Green Jr., MD CT Angiography 03/14/17 0000 Signed Impressions: Service Date/Time: February 05:15 - CONCLUSION: Bilateral pleural effusions and bibasilar consolidation with probable superimposed slight pulmonary edema as well. Cathi Martinez MD Chest x-ray portable done on 03/16 was personally reviewed: ET tube above chang , bilateral infiltrates more on the right, bilateral pleural effusions, NG tube in place Last 48 hours Impressions Chest X-Ray 03/16/17 0600 Signed Impressions: Service Date/Time: Thursday, March 16, 2017 03:28 - CONCLUSION: Patchy bilateral consolidation and small to moderate right pleural effusion not significantly changed. Mild cardiomegaly. Rufino Chow MD Last Impressions Chest X-Ray 03/11/171806 Signed Impressions: Service Date/Time: Saturday, March 11, 2017 18:39 - CONCLUSION: 1. Chronic cardiac silhouette enlargement. 2. New bilateral lower hemithorax opacity right greater than left likely representing right lower lobe atelectasis versus consolidation, right pleural effusion, and possible small left pleural effusion. Juan Dempsey MD Objective Remarks Gen-is a morbidly obese female intubated and sedated HEENT/ Neuro: Sedated, arousable, following commands, orally intubated, Pallor present, no icterus, tongue/ mucosa moist Neck: No JVD Chest/Pulm: on mech vent, good air entry bilaterally, no wheezing or crackles. Scattered rhonchi CVS: S1-S2 regular, no murmur. Telemetry atrial fibrillation rate controlled GI/abdomen: soft, nontender, bowel sounds sluggish Extremities: warm bilaterally, bilateral edema 2 + A/P Assessment and Plan Assessment: 76yF with history of CHF with preserved EF who presents with SOB and fever and acute hypoxic respiratory failure. Differential includes pneumonia vs. CHF exacerbation, diastolic type. Without evidence of PE. Intubated and placed on mechanical ventilation for borderline respiration status and inability to take off BiPAP for PO intake. Neuro: - Sedation with propofol/fentanyl gtt., daily sedation vacation. - Neurochecks per ICU protocol CHF Exacerbation, diastolic type Pulmonary hypertension -Status post diuresis - lactate normal - Added sildenafil for pulmonary hypertension on 03/17/17 - Cardiology: Dr. Moreno evaluated patient Acute hypoxic respiratory failure -Intubated and placed on mechanical ventilation on 03/16. - Vent bundle, bronchodilators, continue daily CPAP trials - abx - nebs prn - hob at 30 degrees Possible community acquired pneumonia Bilateral pleural effusions - broad spectrum abx given severity of symptoms. vanc and zosyn. sputum for Gram stain and cultures following intubation. - We will obtain CT-guided thoracentesis once INR improves. Coumadin will be placed on hold. INR 1.2 this am - Follow-up results of pleural fluid lab analysis -03/11 Blood culture- Anaerobic gram-positive cocci Acute kidney injury -Off diuretics. Holding losartan starting 03/17 in view of rising creatinine. May require fluids. Repeat UA and urine culture as indicated - strict I & O's - trend Cr on daily BMP Atrial fibrillation - CHADS score > 2. Lovenox/Coumadin for anticoagulation. We'll hold Coumadin as patient is to be scheduled for thoracentesis. - currently rate controlled. GI/liver: -Tolerating tube feeds with Glucerna 1.5@60 cc per hour SCDs, SQH Pepcid for GI prophylaxis On 03/16 discussed at length with multiple family members today prior to intubation including reviewing CAT scan images.. Explained that patient is chronically on BiPAP and inability to take off BiPAP to feed or insert NG tube. Discussed option of proceeding with intubation and place on mechanical ventilation in order to be able to place the OG tube to meet nutritional requirements. Family in agreement. Discussed with Dr. Radford who is agreeable with the plan as well. 03/17: Discussed with family members at bedside regarding current clinical status and plan of care and they voiced understanding and were agreeable. Condition critical my billing statement This patient remains critically ill with one or more organ systems which are or may become a threat to life. I have spent in excess of 33 minutes discontinuously in the care and management of this patient. This time is exclusive of procedures, and includes, but is not limited to, evaluation of the patient, review of the medical record, discussions with family, consultants, nursing staff, or respiratory therapy, and documentation in the medical record. s Physician Nadiya Vazquez MD Mar 19, 2017 10:28
[2017-03-19] MEDS: LACTATED RINGER'S 1000 ML INJ 1,000 ML IV SCH (11:52)
[2017-03-19] MEDS: PROPOFOL 1000 MG/100 ML INJ 100 ML IV PRN (11:52)
[2017-03-19] MEDS: RESP: ALBUTEROL 2.5 MG/IPRATROPIUM 0.5 MG NEB (PRN) INH (14:52)
--- NOTE | 2017-03-19 18:33 | HHI.PR ---
Subjective Remarks 76 YOWF with resp insuff, on VM Gets anxious CTA no PE, has pl eff Intubated On AC 10 Tolertaed CPAP Sedated with Fentanyland Diprivan Tolerates TF Objective Vital Signs Vital Signs Date Time Temp Pulse Resp B/P (MAP) Pulse Ox O2 Delivery O2 Flow Rate FiO2 03/19/17 17:04 96 40 03/19/17 17:00 55 03/19/17 17:00 40 03/19/17 16:00 70 03/19/17 14:00 61 20 97 03/19/17 14:00 61 03/19/17 13:00 62 18 96 03/19/17 13:00 62 03/19/17 13:00 40 03/19/17 12:05 94 40 03/19/17 12:00 66 03/19/17 12:00 99.2 66 10 94 03/19/17 11:24 66 03/19/17 11:24 66 12 137/70 (92) 94 03/19/17 11:00 66 12 94 03/19/17 11:00 66 03/19/17 10:00 67 12 93 03/19/17 10:00 67 03/19/17 09:00 68 12 92 03/19/17 09:00 68 03/19/17 08:00 40 03/19/17 08:00 100.0 82 12 94 03/19/17 08:00 82 03/19/17 07:35 94 40 03/19/17 06:00 93 03/19/17 04:00 99 03/19/17 04:00 40 03/19/17 04:00 98.1 99 30 163/68 (99) 95 03/19/17 03:05 93 40 03/19/17 02:00 75 03/19/17 00:33 94 40 03/19/17 00:00 65 03/19/17 00:00 40 03/19/17 00:00 98.4 65 18 164/73 (103) 93 03/18/17 22:00 65 03/18/17 21:12 94 40 03/18/17 20:00 40 03/18/17 20:00 69 03/18/17 20:00 98.7 69 25 149/67 (94) 96 I/O 1/1/18 1/1/18 03/18/17 03/19/17 03/19/17 03/19/17 07:00 15:00 23:00 07:00 15:00 23:00 Intake Total 1496 ml 1000 ml 1058 ml 1200 ml Output Total 450 ml 550 ml 475 ml Balance 1046 ml 1000 ml 508 ml -475 ml 1200 ml IV Total 100 ml 1000 ml 100 ml 1200 ml Tube Feeding 1396 ml 718 ml Other 240 ml Output Urine Total 450 ml 550 ml 475 ml # Bowel Movements 4 2 1 Result Diagram: 03/18/1761703/18/17617 Objective Remarks GENERAL: Obese WF, sob, anxious SKIN: Warm and dry. HEAD: Normocephalic. EYES: No scleral icterus. No injection or drainage. NECK: Supple, trachea midline. No JVD or lymphadenopathy. CARDIOVASCULAR: Regular rate and rhythm without murmurs, gallops, or rubs. RESPIRATORY: Breath sounds equal bilaterally. No accessory muscle use. GASTROINTESTINAL: Abdomen soft, non-tender, nondistended. MUSCULOSKELETAL: No cyanosis, ++ edema. BACK: Nontender without obvious deformity. No CVA tenderness. A/P Assessment and Plan VDRF No PE Pleural effusion CHF AF PLAN: Vent support Diurease Cont Abx IV Solumedrol. Fentanyl and Diprivan for sedation CT guided TC in AMfor sedation Landon Tony MD Mar 19, 2017 18:32
[2017-03-20] VITALS (34 sets, daily range): BP systolic 137–221; BP diastolic 65–91; PULSE 57–81; RESP 18–28; TEMP 98.1–99.6; O2SAT 93–100
[2017-03-20] MEDS: CHLORHEXIDINE GLUCONATE 2 % 1 PACK (2 CLOTHS) TOP SCH (04:00)
--- NOTE | 2017-03-20 04:58 | RADRPT ---
EXAM DATE/TIME: 03/20/2017 03:50 [facility] COMPARISON: CHEST SINGLE AP, March 19, 2017, 3:55. INDICATIONS : Short of breath. MEDICAL HISTORY : Cerebrovascular disease. SURGICAL HISTORY : None. ENCOUNTER: Subsequent ACUITY: 1 week PAIN SCORE: 0/10 LOCATION: Bilateral chest FINDINGS: A single portable frontal view of the chest is limited due to the obliquity. This particularly limits the evaluation of the right base. Right lung infiltrate is seen vertically in the basilar segment. T his is stable. Left lung is clear. No effusions. Heart is mildly enlarged. CONCLUSION: 1. Limited by the obliquity. 2. No gross change involving the right lung infiltrate. Yohannes Green Jr., MD on March 20, 2017 at 4:56 Board Certified Radiologist. This report was verified electronically.
[2017-03-20 05:21] LABS: HEMATOCRIT 33.9 % (35.0-46.0); HEMOGLOBIN 10.9 GM/DL (11.6-15.3); MEAN CELL VOLUME 88.9 FL (80.0-100.0); MEAN CORPUSCULAR HEMOGLOBIN 28.5 PG (27.0-34.0); MEAN CORPUSCULAR HGB CONC 32.1 % (32.0-36.0); MEAN PLATELET VOLUME 7.7 FL (7.0-11.0); PLATELET COUNT 203 TH/MM3 (150-450); RED BLOOD COUNT 3.82 MIL/MM3 (4.00-5.30); RED CELL DISTRIBUTION WIDTH 16.2 % (11.6-17.2); WHITE BLOOD COUNT 7.5 TH/MM3 (4.0-11.0)
[2017-03-20 05:22] LABS: INTERNATIONAL NORMALIZED RATIO 1.2 RATIO; PROTHROMBIN TIME - PATIENT 11.9 SEC (9.8-11.6)
[2017-03-20] MEDS: LEVOTHYROXINE SODIUM 100 MCG TAB PO SCH (05:31)
[2017-03-20] MEDS: PIPERACIL-TAZO 3.375 GM PREMIX 50 ML IV SCH ×3 (05:31→20:18)
[2017-03-20] MEDS: GEMFIBROZIL 600 MG TAB PO SCH ×2 (05:31→16:08)
[2017-03-20] MEDS: methylPREDNISolone SOD SUCC 40 MG/1 ML VIAL IV PUSH SCH ×4 (05:31→20:18)
[2017-03-20 05:39] LABS: BICARBONATE 26.8 MEQ/L (21.0-32.0); CALCIUM 8.4 MG/DL (8.5-10.1); CREATININE 1.17 MG/DL (0.50-1.00)
[2017-03-20] MEDS: INSULIN ASPART SUPPLEMENTAL SCALE SQ SCH ×4 (08:00→20:19)
[2017-03-20] MEDS: CHLORHEXIDINE 0.12% (ORAL KIT) 15 ML CUP MT SCH ×2 (08:00→20:18)
[2017-03-20] MEDS: CHOLECALCIFEROL (VIT D3) 1000 UNIT TAB PO SCH (08:18)
[2017-03-20] MEDS: NIFEdipine 30 MG SUSTAINED RELEASE TAB PO SCH ×2 (08:18→20:18)
[2017-03-20] MEDS: ATORVASTATIN 20 MG TAB PO SCH (08:18)
[2017-03-20] MEDS: fentaNYL DRIP 250 ML IV PRN (08:18)
[2017-03-20] MEDS: FAMOTIDINE 20 MG TAB OG-TUBE SCH ×2 (08:19→20:18)
[2017-03-20] MEDS: SILDENAFIL CITRATE 20 MG TAB NG SCH (08:19)
[2017-03-20] MEDS: GLIMEPIRIDE 1 MG TAB PO SCH ×2 (08:19→20:18)
[2017-03-20] MEDS: POTASSIUM CHLORIDE 20 MEQ CONTROLLED RELEASE TAB PO SCH (08:19)
[2017-03-20] MEDS: DOCUSATE SODIUM 50 MG/SENNA 8.6 MG TAB PO SCH ×2 (08:20→20:19)
[2017-03-20] MEDS: METOPROLOL TARTRATE 50 MG TAB PO SCH ×2 (09:00→20:18)
[2017-03-20] MEDS: RESP: BUDESONIDE 0.5 MG/2 ML NEB NEB SCH ×2 (09:10→21:14)
[2017-03-20] MEDS: LACTATED RINGER'S 1000 ML INJ 1,000 ML IV SCH (10:57)
[2017-03-20] MEDS ORDERED: LIDOCAINE HCL 1% 20 ML VIAL ONE (12:55)
--- NOTE | 2017-03-20 14:30 | RADRPT ---
EXAM DATE/TIME: 03/20/2017 13:47 [facility] COMPARISON: No previous studies available for comparison. TECHNIQUE: Using automated exposure control and adjustment of the mA and/or kV according to p atient size, radiation dose was kept as low as reasonably achievable to obtain optimal diagnostic ernesto lity images. DICOM format image data is available electronically for review and comparison. FINDINGS: Very tiny pleural effusions are noted bilaterally and are too small for thoracentesis. Bibasilar alveolar consolidations are noted consistent with compressive atelectasis and/or pneumonia. Coronary artery calcifications are noted. The heart is enlarged. Mild pulmonary vascular congestion is noted. No pulmonary nodule or mass is noted. No significant lymphadenopathy is noted. Endotracheal tube and nasogastric tube are in good positions. Degenerative changes and scoliosis of the thoracolu mbar spine are noted. CONCLUSION: 1. Very tiny bilateral pleural effusions which are too small for thoracentesis. 2. Cardiomegaly and coronary artery calcifications. 3. Bibasilar alveolar consolidations consistent with compressive atelectasis and/or pneumonia. 4. Mild pulmonary vascular congestion. Almas Dave MD on March 20, 2017 at 14:26 Board Certified Radiologist. This report was verified electronically.
[2017-03-20] MEDS: PROPOFOL 1000 MG/100 ML INJ 100 ML IV PRN (15:48)
[2017-03-20] MEDS: hydrALAZINE HCL 20 MG/ML VIAL IV PRN (16:08)
--- NOTE | 2017-03-20 18:48 | HHI.PR ---
Subjective Remarks 76 YOWF with resp insuff, on VM Gets anxious CTA no PE, has pl eff Intubated On AC 10 Sedated with Fentanyland Diprivan Tolerates TF no sig pleural fluid for drainage Objective Vital Signs Vital Signs Date Time Temp Pulse Resp B/P (MAP) Pulse Ox O2 Delivery O2 Flow Rate FiO2 03/20/17 17:00 81 03/20/17 17:00 81 24 97 03/20/17 17:00 81 24 97 03/20/17 16:38 79 24 161/80 (107) 97 03/20/17 16:38 79 24 161/80 (107) 97 03/20/17 16:38 79 03/20/17 16:19 71 25 193/81 (118) 100 03/20/17 16:19 71 03/20/17 16:19 71 25 193/81 (118) 100 03/20/17 16:16 71 25 221/84 (129) 100 03/20/17 16:16 71 25 221/84 (129) 100 03/20/17 16:16 71 03/20/17 16:11 66 03/20/17 16:11 66 18 183/88 (119) 100 03/20/17 16:11 66 18 183/88 (119) 100 03/20/17 16:10 66 19 197/84 (121) 100 03/20/17 16:10 66 19 197/84 (121) 100 03/20/17 16:10 66 03/20/17 16:04 63 18 196/84 (121) 99 03/20/17 16:04 63 18 196/84 (121) 99 03/20/17 16:04 63 03/20/17 16:00 40 03/20/17 16:00 64 18 196/91 (126) 97 03/20/17 16:00 64 03/20/17 16:00 98.8 64 18 196/91 (126) 97 03/20/17 15:57 97 40 03/20/17 15:00 57 03/20/17 15:00 57 18 166/81 (109) 97 03/20/17 14:30 59 18 175/78 (110) 97 03/20/17 14:30 59 03/20/17 14:09 65 03/20/17 14:09 65 23 154/88 (110) 99 03/20/17 13:00 62 03/20/17 13:00 62 18 144/76 (98) 100 03/20/17 12:48 99 40 03/20/17 12:30 61 18 156/70 (98) 100 03/20/17 12:30 61 03/20/17 12:00 98.1 63 18 156/76 (102) 100 03/20/17 12:00 63 03/20/17 12:00 40 03/20/17 10:00 66 03/20/17 09:11 93 40 03/20/17 08:32 62 03/20/17 08:32 62 23 139/84 (102) 96 03/20/17 08:30 57 20 202/81 (121) 95 03/20/17 08:30 57 03/20/17 08:06 59 03/20/17 08:06 59 18 179/84 (115) 95 03/20/17 08:00 58 03/20/17 08:00 40 03/20/17 08:00 99.6 58 21 191/84 (119) 95 03/20/17 06:00 59 03/20/17 04:00 63 03/20/17 04:00 98.4 63 21 137/65 (89) 95 03/20/17 04:00 40 03/20/17 03:47 94 40 03/20/17 02:00 65 03/20/17 00:21 95 40 03/20/17 00:00 98.7 69 19 153/71 (98) 95 03/20/17 00:00 40 03/20/17 00:00 69 03/19/17 22:00 73 03/19/17 20:41 93 40 03/19/17 20:00 98.8 63 26 182/87 (118) 96 03/19/17 20:00 40 03/19/17 20:00 63 03/19/17 19:00 66 03/19/17 19:00 66 23 96 I/O 03/19/17 03/19/17 03/19/17 03/20/17 03/20/17 03/20/17 07:00 15:00 23:00 07:00 15:00 23:00 Intake Total 1200 ml 251 ml 1320 ml 1100 ml 50 ml Output Total 475 ml 400 ml 325 ml Balance -475 ml 1200 ml -149 ml 995 ml 1100 ml 50 ml IV Total 1200 ml 50 ml 1080 ml 1100 ml 50 ml Tube Feeding 81 ml 240 ml Other 120 ml Output Urine Total 475 ml 400 ml 325 ml Stool Total 0 ml Bladder Scan Volume Amount 818 ml 818 ml # Voids 1 # Bowel Movements 1 3 0 Result Diagram: 03/20/1742903/20/17429 Objective Remarks GENERAL: Obese WF, sob, anxious SKIN: Warm and dry. HEAD: Normocephalic. EYES: No scleral icterus. No injection or drainage. NECK: Supple, trachea midline. No JVD or lymphadenopathy. CARDIOVASCULAR: Regular rate and rhythm without murmurs, gallops, or rubs. RESPIRATORY: Breath sounds equal bilaterally. No accessory muscle use. GASTROINTESTINAL: Abdomen soft, non-tender, nondistended. MUSCULOSKELETAL: No cyanosis, ++ edema. BACK: Nontender without obvious deformity. No CVA tenderness. A/P Assessment and Plan VDRF No PE Pleural effusion CHF AF PLAN: Vent support Diurease Cont Abx IV Solumedrol. Fentanyl and Diprivan for sedation CPAP trial in AM Landon Tony MD Mar 20, 2017 18:48
--- NOTE | 2017-03-20 19:08 | HHI.CCPN ---
Subjective Remarks/Hospital Course 03/11: This is a 77-year-old female with a history of diastolic CHF who presents with a three-week history of slowly worsening shortness of breath. Patient does use CPAP quite frequently during the day and night, and consistently uses it whenever she takes a nap which occurs at least once or twice during the daytime and then uses it every night with consistency. She complains that over the last 2-3 days her shortness of breath has gotten significantly worse. She does endorse a nonproductive cough over the last 2-3 days and some chills although denies fever. She denies any chest pain. She endorses what sounds like orthopnea and PND type symptoms. She states that she had a prior diagnosis of CHF but has not had any heart workup or seen anyone for this for at least a year or more. She does have a history of atrial fibrillation and is on blood thinners, although she cannot remember which ones. In the emergency department she was significantly hypoxic and placed on BiPAP. She was given Lasix 80 mg IV. She's had a good response and greater than 1 L since that time in urine output. Her BNP is slightly elevated at 238. In the emergency department she had a low-grade temperature of 100.5 Fahrenheit, but has a normal white count. Chest x-ray suggestive of bilateral pleural effusions with possible lower lobe consolidations. 03/12: Was on nasal cannula this morning. Following return from CAT scan she developed respiratory distress and was placed on BiPAP. CT scan could not be completed as IV infiltrated. At the time of my evaluation patient was comfortably tolerating BiPAP with full facemask. 03/13: Was on BiPAP overnight. Awake and alert at the time of my evaluation, following commands this morning. 03/14: on 3L o2 by NC this AM. still somewhat dyspneic. tolerating breakfast. CT pulmonary angiogram yesterday without PE, concern for pulmonary edema with small pleural effusions. CXR today with worsening pulmonary edema. 03/16: Critical care medicine reconsulted by Dr. Radford for respiratory failure with possible need for intubation. Patient remained on BiPAP however does not tolerate taking it off and immediately gets extremely tachypneic and short of breath. Has not been able to have tube feeds of by mouth meds due to her respiratory status. No significant improvement and appears to be getting weaker with lack of nutrition. Discussed with Dr. Radford as well as family members on multiple occasions today. Discussed plan with family regarding proceeding with intubation and mechanical ventilation and inserting NG tube/OG tube to maintain nutritional status while waiting for improvement in pneumonia/ respiratory failure and they were agreeable. 03/17: Sedated, easily arousable, orally intubated on mechanical ventilation. Tolerating tube feeds. 03/18: Remains sedated, orally intubated on mechanical ventilation. Tolerating tube feeds. 03/19: Afebrile. Patient continues on CPAP trials successfully, plan for CT- guided thoracentesis this a.m.. 03/20: Late entry note. Patient underwent CT evaluation for pleural effusions minimal no thoracentesis performed. The patient continues on sedation with intermittent CPAP trials. Objective Vital Signs Date Time Temp Pulse Resp B/P (MAP) Pulse Ox O2 Delivery O2 Flow Rate FiO2 03/20/17 17:00 81 03/20/17 17:00 24 97 03/20/17 16:38 161/80 (107) 03/20/17 16:00 40 03/20/17 16:00 98.8 03/16/17 20:14 Ventilator Intake and Output 03/20/17 03/20/17 03/21/17 08:00 16:00 00:00 Intake Total 1320 ml 1150 ml Output Total 325 ml Balance 995 ml 1150 ml Result Diagram: 03/20/17 0430 03/20/17 0430 Imaging Last Impressions Chest X-Ray 03/19/17 0600 Signed Impressions: Service Date/Time: Sunday, March 19, 2017 03:55 - CONCLUSION: Worsening right lung infiltrate. Yohannes Green Jr., MD CT Angiography 03/14/17 0000 Signed Impressions: Service Date/Time: February 05:15 - CONCLUSION: Bilateral pleural effusions and bibasilar consolidation with probable superimposed slight pulmonary edema as well. Cathi Martinez MD Chest x-ray portable done on 03/16 was personally reviewed: ET tube above chang , bilateral infiltrates more on the right, bilateral pleural effusions, NG tube in place Last 48 hours Impressions Chest X-Ray 03/16/17 0600 Signed Impressions: Service Date/Time: Thursday, March 16, 2017 03:28 - CONCLUSION: Patchy bilateral consolidation and small to moderate right pleural effusion not significantly changed. Mild cardiomegaly. Rufino Chow MD Last Impressions Chest X-Ray 03/11/171806 Signed Impressions: Service Date/Time: Saturday, March 11, 2017 18:39 - CONCLUSION: 1. Chronic cardiac silhouette enlargement. 2. New bilateral lower hemithorax opacity right greater than left likely representing right lower lobe atelectasis versus consolidation, right pleural effusion, and possible small left pleural effusion. Juan Dempsey MD Objective Remarks Gen-is a morbidly obese female intubated and sedated HEENT/ Neuro: Sedated, arousable, following commands, orally intubated, Pallor present, no icterus, tongue/ mucosa moist Neck: No JVD Chest/Pulm: on mech vent, good air entry bilaterally, no wheezing or crackles. Scattered rhonchi CVS: S1-S2 regular, no murmur. Telemetry atrial fibrillation rate controlled GI/abdomen: soft, nontender, bowel sounds sluggish Extremities: warm bilaterally, bilateral edema 2 + A/P Assessment and Plan Assessment: 76yF with history of CHF with preserved EF who presents with SOB and fever and acute hypoxic respiratory failure. Differential includes pneumonia vs. CHF exacerbation, diastolic type. Without evidence of PE. Intubated and placed on mechanical ventilation for borderline respiration status and inability to take off BiPAP for PO intake. Neuro: - Sedation with propofol/fentanyl gtt., daily sedation vacation. - Neurochecks per ICU protocol CHF Exacerbation, diastolic type Pulmonary hypertension -Status post diuresis - lactate normal - Added sildenafil for pulmonary hypertension on 03/17/17 - Cardiology: Dr. Moreno evaluated patient Acute hypoxic respiratory failure -Intubated and placed on mechanical ventilation on 03/16. - Vent bundle, bronchodilators, continue daily CPAP trials - abx - nebs prn - hob at 30 degrees Possible community acquired pneumonia Bilateral pleural effusions - broad spectrum abx given severity of symptoms. vanc and zosyn. sputum for Gram stain and cultures following intubation. - We will obtain CT-guided thoracentesis once INR improves. Coumadin will be placed on hold. INR 1.2 this am - Follow-up results of pleural fluid lab analysis -03/11 Blood culture- Anaerobic gram-positive cocci Acute kidney injury -Off diuretics. Holding losartan starting 03/17 in view of rising creatinine. May require fluids. Repeat UA and urine culture as indicated - strict I & O's - trend Cr on daily BMP Atrial fibrillation - CHADS score > 2. Lovenox/Coumadin for anticoagulation. We'll hold Coumadin as patient is to be scheduled for thoracentesis. - currently rate controlled. GI/liver: -Tolerating tube feeds with Glucerna 1.5@60 cc per hour SCDs, SQH Pepcid for GI prophylaxis On 03/16 discussed at length with multiple family members today prior to intubation including reviewing CAT scan images.. Explained that patient is chronically on BiPAP and inability to take off BiPAP to feed or insert NG tube. Discussed option of proceeding with intubation and place on mechanical ventilation in order to be able to place the OG tube to meet nutritional requirements. Family in agreement. Discussed with Dr. Radford who is agreeable with the plan as well. 03/17: Discussed with family members at bedside regarding current clinical status and plan of care and they voiced understanding and were agreeable. Condition critical my billing statement This patient remains critically ill with one or more organ systems which are or may become a threat to life. I have spent in excess of 30 minutes discontinuously in the care and management of this patient. This time is exclusive of procedures, and includes, but is not limited to, evaluation of the patient, review of the medical record, discussions with family, consultants, nursing staff, or respiratory therapy, and documentation in the medical record. s Physician Nadiya Vazquez MD Mar 20, 2017 19:08
[2017-03-20 19:18] LABS: BILIRUBIN, URINE NEG (NEG); BLOOD, URINE NEG (NEG); GLUCOSE,URINE NEG (NEG); KETONE, URINE NEG (NEG); NITRITE,URINE NEG (NEG); PH, URINE 6.5 (5.0-8.5); SQUAMOUS EPITHELIAL CELL URINE 1 /hpf (0-5); URINE COLOR YELLOW (YELLW/STRAW); URINE LEUKOCYTE ESTERASE NEG (NEG)
[2017-03-21] VITALS (18 sets, daily range): BP systolic 135–194; BP diastolic 68–87; PULSE 52–71; RESP 18–25; TEMP 98.5–99.6; O2SAT 95–99
[2017-03-21] MEDS: methylPREDNISolone SOD SUCC 40 MG/1 ML VIAL IV PUSH SCH ×4 (03:16→22:10)
[2017-03-21] MEDS: CHLORHEXIDINE GLUCONATE 2 % 1 PACK (2 CLOTHS) TOP SCH (04:00)
[2017-03-21] MEDS: PIPERACIL-TAZO 3.375 GM PREMIX 50 ML IV SCH (04:29)
[2017-03-21] MEDS: LEVOTHYROXINE SODIUM 100 MCG TAB PO SCH (06:00)
[2017-03-21] MEDS: GEMFIBROZIL 600 MG TAB PO SCH ×2 (07:00→15:36)
[2017-03-21] MEDS: INSULIN ASPART SUPPLEMENTAL SCALE SQ SCH ×4 (08:00→22:11)
[2017-03-21] MEDS: RESP: BUDESONIDE 0.5 MG/2 ML NEB NEB SCH ×2 (08:02→20:13)
[2017-03-21] MEDS: RESP: ALBUTEROL 2.5 MG/IPRATROPIUM 0.5 MG NEB (PRN) INH (08:03)
[2017-03-21] MEDS: GLIMEPIRIDE 1 MG TAB PO SCH ×2 (08:54→22:09)
[2017-03-21] MEDS: CHOLECALCIFEROL (VIT D3) 1000 UNIT TAB PO SCH (08:55)
[2017-03-21] MEDS: POTASSIUM CHLORIDE 20 MEQ CONTROLLED RELEASE TAB PO SCH (08:55)
[2017-03-21] MEDS: SILDENAFIL CITRATE 20 MG TAB NG SCH (08:55)
[2017-03-21] MEDS: NIFEdipine 30 MG SUSTAINED RELEASE TAB PO SCH ×2 (08:55→22:09)
[2017-03-21] MEDS: FAMOTIDINE 20 MG TAB OG-TUBE SCH ×2 (08:56→22:10)
[2017-03-21] MEDS: DOCUSATE SODIUM 50 MG/SENNA 8.6 MG TAB PO SCH ×2 (08:56→21:00)
[2017-03-21] MEDS: METOPROLOL TARTRATE 50 MG TAB PO SCH ×2 (08:56→21:00)
[2017-03-21] MEDS: CHLORHEXIDINE 0.12% (ORAL KIT) 15 ML CUP MT SCH ×2 (08:57→22:09)
--- NOTE | 2017-03-21 12:25 | HHI.CCPN ---
Subjective Remarks/Hospital Course 03/11: This is a 77-year-old female with a history of diastolic CHF who presents with a three-week history of slowly worsening shortness of breath. Patient does use CPAP quite frequently during the day and night, and consistently uses it whenever she takes a nap which occurs at least once or twice during the daytime and then uses it every night with consistency. She complains that over the last 2-3 days her shortness of breath has gotten significantly worse. She does endorse a nonproductive cough over the last 2-3 days and some chills although denies fever. She denies any chest pain. She endorses what sounds like orthopnea and PND type symptoms. She states that she had a prior diagnosis of CHF but has not had any heart workup or seen anyone for this for at least a year or more. She does have a history of atrial fibrillation and is on blood thinners, although she cannot remember which ones. In the emergency department she was significantly hypoxic and placed on BiPAP. She was given Lasix 80 mg IV. She's had a good response and greater than 1 L since that time in urine output. Her BNP is slightly elevated at 238. In the emergency department she had a low-grade temperature of 100.5 Fahrenheit, but has a normal white count. Chest x-ray suggestive of bilateral pleural effusions with possible lower lobe consolidations. 03/12: Was on nasal cannula this morning. Following return from CAT scan she developed respiratory distress and was placed on BiPAP. CT scan could not be completed as IV infiltrated. At the time of my evaluation patient was comfortably tolerating BiPAP with full facemask. 03/13: Was on BiPAP overnight. Awake and alert at the time of my evaluation, following commands this morning. 03/14: on 3L o2 by NC this AM. still somewhat dyspneic. tolerating breakfast. CT pulmonary angiogram yesterday without PE, concern for pulmonary edema with small pleural effusions. CXR today with worsening pulmonary edema. 03/16: Critical care medicine reconsulted by Dr. Radford for respiratory failure with possible need for intubation. Patient remained on BiPAP however does not tolerate taking it off and immediately gets extremely tachypneic and short of breath. Has not been able to have tube feeds of by mouth meds due to her respiratory status. No significant improvement and appears to be getting weaker with lack of nutrition. Discussed with Dr. Radford as well as family members on multiple occasions today. Discussed plan with family regarding proceeding with intubation and mechanical ventilation and inserting NG tube/OG tube to maintain nutritional status while waiting for improvement in pneumonia/ respiratory failure and they were agreeable. 03/17: Sedated, easily arousable, orally intubated on mechanical ventilation. Tolerating tube feeds. 03/18: Remains sedated, orally intubated on mechanical ventilation. Tolerating tube feeds. 03/19: Afebrile. Patient continues on CPAP trials successfully, plan for CT- guided thoracentesis this a.m.. 03/20: Late entry note. Patient underwent CT evaluation for pleural effusions minimal no thoracentesis performed. The patient continues on sedation with intermittent CPAP trials. 03/21: Afebrile. Patient noted to have yeast from urine culture Diflucan started for 14 days regimen. Patient continues to tolerate tube feeds. Objective Vital Signs Date Time Temp Pulse Resp B/P (MAP) Pulse Ox O2 Delivery O2 Flow Rate FiO2 03/21/17 12:12 98 40 03/21/17 06:00 54 03/21/17 04:00 98.7 18 155/71 (99) Intake and Output 03/21/17 03/21/17 03/22/17 08:00 16:00 00:00 Intake Total 1257 ml Output Total 725 ml Balance 532 ml Result Diagram: 03/20/17 0430 03/20/17 0430 Imaging Last Impressions Chest X-Ray 03/19/17 0600 Signed Impressions: Service Date/Time: Sunday, March 19, 2017 03:55 - CONCLUSION: Worsening right lung infiltrate. Yohannes Green Jr., MD CT Angiography 03/14/17 0000 Signed Impressions: Service Date/Time: February 05:15 - CONCLUSION: Bilateral pleural effusions and bibasilar consolidation with probable superimposed slight pulmonary edema as well. Cathi Martinez MD Chest x-ray portable done on 03/16 was personally reviewed: ET tube above chang , bilateral infiltrates more on the right, bilateral pleural effusions, NG tube in place Last 48 hours Impressions Chest X-Ray 03/16/17 0600 Signed Impressions: Service Date/Time: Thursday, March 16, 2017 03:28 - CONCLUSION: Patchy bilateral consolidation and small to moderate right pleural effusion not significantly changed. Mild cardiomegaly. Rufino Chow MD Last Impressions Chest X-Ray 03/11/171806 Signed Impressions: Service Date/Time: Saturday, March 11, 2017 18:39 - CONCLUSION: 1. Chronic cardiac silhouette enlargement. 2. New bilateral lower hemithorax opacity right greater than left likely representing right lower lobe atelectasis versus consolidation, right pleural effusion, and possible small left pleural effusion. Juan Dempsey MD Objective Remarks Gen-This is a morbidly obese female intubated and sedated HEENT/ Neuro: Sedated, arousable, following commands, orally intubated, Pallor present, no icterus, tongue/ mucosa moist Neck: No JVD Chest/Pulm: on mech vent, good air entry bilaterally, no wheezing or crackles. Scattered rhonchi CVS: S1-S2 regular, no murmur. Telemetry atrial fibrillation rate controlled GI/abdomen: soft, nontender, bowel sounds sluggish Extremities: warm bilaterally, bilateral edema 3 + A/P Assessment and Plan Assessment: 76yF with history of CHF with preserved EF who presents with SOB and fever and acute hypoxic respiratory failure. Differential includes pneumonia vs. CHF exacerbation, diastolic type. Without evidence of PE. Intubated and placed on mechanical ventilation for borderline respiration status and inability to take off BiPAP for PO intake. Neuro: - Sedation with propofol/fentanyl gtt., daily sedation vacation. - Neurochecks per ICU protocol CHF Exacerbation, diastolic type Pulmonary hypertension -Status post diuresis - lactate normal - Added sildenafil for pulmonary hypertension on 03/17/17 - Cardiology: Dr. Moreno evaluated patient 03/12 Acute hypoxic respiratory failure -Intubated and placed on mechanical ventilation on 03/16. - Vent bundle, bronchodilators, continue daily CPAP trials - abx - nebs prn - hob at 30 degrees Possible community acquired pneumonia Bilateral pleural effusions - broad spectrum abx given severity of symptoms. vanc and zosyn105/13-03/21. sputum for Gram stain and cultures following intubation. - We will obtain CT-guided thoracentesis once INR improves. Coumadin will be placed on hold. INR 1.2 this am - Follow-up results of pleural fluid lab analysis -12/25 Blood culture- Anaerobic gram-positive cocci -03/18 Urine culture- yeast Acute kidney injury UTI -Off diuretics. Holding losartan starting 03/17 in view of rising creatinine. May require fluids. Repeat UA and urine culture as indicated - strict I & O's - trend Cr on daily BMP -03/21 begin Diflucan x 14 days Atrial fibrillation - CHADS score > 2. Lovenox/Coumadin for anticoagulation.Small amt of fluid not quantifiable for thoracentesis. Will resume Coumadin - currently rate controlled. GI/liver: -Tolerating tube feeds with Glucerna 1.5@60 cc per hour SCDs, SQH Pepcid for GI prophylaxis On 03/16 discussed at length with multiple family members today prior to intubation including reviewing CAT scan images.. Explained that patient is chronically on BiPAP and inability to take off BiPAP to feed or insert NG tube. Discussed option of proceeding with intubation and place on mechanical ventilation in order to be able to place the OG tube to meet nutritional requirements. Family in agreement. Discussed with Dr. Radford who is agreeable with the plan as well. 03/17: Discussed with family members at bedside regarding current clinical status and plan of care and they voiced understanding and were agreeable. Condition critical my billing statement This patient remains critically ill with one or more organ systems which are or may become a threat to life. I have spent in excess of 30 minutes discontinuously in the care and management of this patient. This time is exclusive of procedures, and includes, but is not limited to, evaluation of the patient, review of the medical record, discussions with family, consultants, nursing staff, or respiratory therapy, and documentation in the medical record. s Physician Nadiya Vazquez MD Mar 21, 2017 12:25
[2017-03-21 13:08] LABS: BICARBONATE 26.3 MEQ/L (21.0-32.0); CALCIUM 8.7 MG/DL (8.5-10.1); CREATININE 1.16 MG/DL (0.50-1.00)
[2017-03-21] MEDS: WARFARIN SOD 5 MG TAB PO SCH (15:36)
[2017-03-21] MEDS: LORazepam 2 MG/ML VIAL IV PUSH PRN (15:36)
[2017-03-21] MEDS: fentaNYL DRIP 250 ML IV PRN (15:52)
[2017-03-21] MEDS: FLUCONAZOLE 200 MG PREMIX BAG 100 ML IV SCH (16:01)
[2017-03-21] MEDS ORDERED: DEXMEDETOMIDINE INJ 200 MCG in SODIUM CHLORIDE 0.9% INJ 50 ML IV PRN (16:30)
--- NOTE | 2017-03-21 19:33 | HHI.PR ---
Subjective Remarks 76 YOWF with resp insuff, on VM Gets anxious CTA no PE, has pl eff Intubated On AC 10 Sedated with Fentanyl Blood pressure was high CPAP not tried Daughter at [facility] Tolerates TF no sig pleural fluid for drainage Objective Vital Signs Vital Signs Date Time Temp Pulse Resp B/P (MAP) Pulse Ox O2 Delivery O2 Flow Rate FiO2 03/21/17 15:26 95 40 03/21/17 12:12 98 40 03/21/17 08:04 98 40 03/21/17 06:00 54 03/21/17 04:50 97 40 03/21/17 04:00 54 03/21/17 04:00 98.7 54 18 155/71 (99) 97 03/21/17 04:00 40 03/21/17 02:00 69 03/21/17 01:10 96 40 03/21/17 00:00 40 03/21/17 00:00 98.5 61 18 135/70 (91) 96 03/21/17 00:00 61 03/20/17 22:00 58 03/20/17 21:15 95 40 03/20/17 20:00 98.8 79 28 161/80 (107) 95 03/20/17 20:00 40 03/20/17 20:00 79 I/O 03/20/17 03/20/17 03/20/17 03/21/17 03/21/17 03/21/17 07:00 15:00 23:00 07:00 15:00 23:00 Intake Total 1320 ml 1100 ml 829 ml 1257 ml Output Total 325 ml 900 ml 725 ml Balance 995 ml 1100 ml -71 ml 532 ml IV Total 1080 ml 1100 ml 100 ml 635 ml Tube Feeding 240 ml 489 ml 622 ml Other 240 ml Output Urine Total 325 ml 900 ml 425 ml Stool Total 0 ml 300 ml Bladder Scan Volume Amount 818 ml 818 ml # Voids 1 # Bowel Movements 0 1 1 Result Diagram: 03/20/17 0430 03/21/17 1207 Objective Remarks GENERAL: Obese WF, sob, anxious SKIN: Warm and dry. HEAD: Normocephalic. EYES: No scleral icterus. No injection or drainage. NECK: Supple, trachea midline. No JVD or lymphadenopathy. CARDIOVASCULAR: Regular rate and rhythm without murmurs, gallops, or rubs. RESPIRATORY: Breath sounds equal bilaterally. No accessory muscle use. GASTROINTESTINAL: Abdomen soft, non-tender, nondistended. MUSCULOSKELETAL: No cyanosis, ++ edema. BACK: Nontender without obvious deformity. No CVA tenderness. A/P Assessment and Plan VDRF No PE Pleural effusion CHF AF PLAN: Vent support Diurease Cont Abx IV Solumedrol. Fentanyl for sedation CPAP trial in AM Will try Precedex tonight DW Daughter at [facility] MD Mar 21, 2017 19:33
[2017-03-22] VITALS (21 sets, daily range): BP systolic 156–184; BP diastolic 73–137; PULSE 51–110; RESP 14–29; TEMP 98.6–100.5; O2SAT 89–98
[2017-03-22] MEDS: CHLORHEXIDINE GLUCONATE 2 % 1 PACK (2 CLOTHS) TOP SCH (01:50)
[2017-03-22] MEDS: methylPREDNISolone SOD SUCC 40 MG/1 ML VIAL IV PUSH SCH ×4 (01:50→20:50)
[2017-03-22] MEDS: ACETAMINOPHEN 325 MG TAB PO PRN (04:47)
[2017-03-22] MEDS: LEVOTHYROXINE SODIUM 100 MCG TAB PO SCH (04:47)
[2017-03-22] MEDS: GEMFIBROZIL 600 MG TAB PO SCH ×2 (07:45→16:42)
[2017-03-22] MEDS: FAMOTIDINE 20 MG TAB OG-TUBE SCH ×2 (07:45→20:50)
[2017-03-22] MEDS: DOCUSATE SODIUM 50 MG/SENNA 8.6 MG TAB PO SCH ×2 (07:45→20:50)
[2017-03-22] MEDS: GLIMEPIRIDE 1 MG TAB PO SCH ×2 (07:45→20:50)
[2017-03-22] MEDS: CHOLECALCIFEROL (VIT D3) 1000 UNIT TAB PO SCH (07:45)
[2017-03-22] MEDS: POTASSIUM CHLORIDE 20 MEQ PWD PACKET PO SCH (07:46)
[2017-03-22] MEDS: METOPROLOL TARTRATE 50 MG TAB PO SCH ×2 (07:47→20:50)
[2017-03-22] MEDS: RESP: ALBUTEROL 2.5 MG/IPRATROPIUM 0.5 MG NEB (PRN) INH (07:51)
[2017-03-22] MEDS: RESP: BUDESONIDE 0.5 MG/2 ML NEB NEB SCH ×2 (07:51→20:00)
[2017-03-22] MEDS: NIFEdipine 30 MG SUSTAINED RELEASE TAB PO SCH ×2 (09:00→21:07)
[2017-03-22] MEDS: INSULIN ASPART SUPPLEMENTAL SCALE SQ SCH ×4 (10:10→21:00)
[2017-03-22] MEDS: CHLORHEXIDINE 0.12% (ORAL KIT) 15 ML CUP MT SCH ×2 (10:11→20:50)
[2017-03-22] MEDS: ATORVASTATIN 20 MG TAB PO SCH (10:11)
[2017-03-22] MEDS: hydrALAZINE HCL 20 MG/ML VIAL IV PRN (10:43)
[2017-03-22] MEDS ORDERED: DEXMEDETOMIDINE INJ 1,000 MCG in SODIUM CHLOR 0.9% 250 ML INJ 250 ML IV PRN (11:00)
[2017-03-22] MEDS: SILDENAFIL CITRATE 20 MG TAB NG SCH (11:51)
[2017-03-22] MEDS: FLUCONAZOLE 200 MG PREMIX BAG 100 ML IV SCH (12:41)
[2017-03-22] MEDS ORDERED: PILL SPLITTER OTHER PRN (15:45)
[2017-03-22] MEDS: WARFARIN SOD 5 MG TAB PO SCH (16:42)
--- NOTE | 2017-03-22 17:25 | HHI.CCPN ---
Subjective Remarks/Hospital Course 03/11: This is a 77-year-old female with a history of diastolic CHF who presents with a three-week history of slowly worsening shortness of breath. Patient does use CPAP quite frequently during the day and night, and consistently uses it whenever she takes a nap which occurs at least once or twice during the daytime and then uses it every night with consistency. She complains that over the last 2-3 days her shortness of breath has gotten significantly worse. She does endorse a nonproductive cough over the last 2-3 days and some chills although denies fever. She denies any chest pain. She endorses what sounds like orthopnea and PND type symptoms. She states that she had a prior diagnosis of CHF but has not had any heart workup or seen anyone for this for at least a year or more. She does have a history of atrial fibrillation and is on blood thinners, although she cannot remember which ones. In the emergency department she was significantly hypoxic and placed on BiPAP. She was given Lasix 80 mg IV. She's had a good response and greater than 1 L since that time in urine output. Her BNP is slightly elevated at 238. In the emergency department she had a low-grade temperature of 100.5 Fahrenheit, but has a normal white count. Chest x-ray suggestive of bilateral pleural effusions with possible lower lobe consolidations. 03/12: Was on nasal cannula this morning. Following return from CAT scan she developed respiratory distress and was placed on BiPAP. CT scan could not be completed as IV infiltrated. At the time of my evaluation patient was comfortably tolerating BiPAP with full facemask. 03/13: Was on BiPAP overnight. Awake and alert at the time of my evaluation, following commands this morning. 03/14: on 3L o2 by NC this AM. still somewhat dyspneic. tolerating breakfast. CT pulmonary angiogram yesterday without PE, concern for pulmonary edema with small pleural effusions. CXR today with worsening pulmonary edema. 03/16: Critical care medicine reconsulted by Dr. Radford for respiratory failure with possible need for intubation. Patient remained on BiPAP however does not tolerate taking it off and immediately gets extremely tachypneic and short of breath. Has not been able to have tube feeds of by mouth meds due to her respiratory status. No significant improvement and appears to be getting weaker with lack of nutrition. Discussed with Dr. Radford as well as family members on multiple occasions today. Discussed plan with family regarding proceeding with intubation and mechanical ventilation and inserting NG tube/OG tube to maintain nutritional status while waiting for improvement in pneumonia/ respiratory failure and they were agreeable. 03/17: Sedated, easily arousable, orally intubated on mechanical ventilation. Tolerating tube feeds. 03/18: Remains sedated, orally intubated on mechanical ventilation. Tolerating tube feeds. 03/19: Afebrile. Patient continues on CPAP trials successfully, plan for CT- guided thoracentesis this a.m.. 03/20: Late entry note. Patient underwent CT evaluation for pleural effusions minimal no thoracentesis performed. The patient continues on sedation with intermittent CPAP trials. 03/21: Afebrile. Patient noted to have yeast from urine culture Diflucan started for 14 days regimen. Patient continues to tolerate tube feeds. 03/22: TMax 100.5. Patient CPAP trials initiated an ongoing since 8 AM. Patient transitioned to Precedex this a.m. was not started last night secondary to patient's bradycardic rate. With minimal sedation patient alert and oriented following commands daughter in the room. Objective Vital Signs Date Time Temp Pulse Resp B/P (MAP) Pulse Ox O2 Delivery O2 Flow Rate FiO2 03/22/17 16:04 96 40 03/22/17 14:00 62 03/22/17 12:00 99.4 29 157/73 (101) Intake and Output 03/22/17 03/22/17 03/23/17 08:00 16:00 00:00 Intake Total 531 ml 200 ml Output Total 450 ml Balance 81 ml 200 ml Result Diagram: 03/20/17 0430 03/21/17 1207 Imaging Last Impressions Chest X-Ray 03/19/17 0600 Signed Impressions: Service Date/Time: Sunday, March 19, 2017 03:55 - CONCLUSION: Worsening right lung infiltrate. Yohannes Green Jr., MD CT Angiography 03/14/17 0000 Signed Impressions: Service Date/Time: February 05:15 - CONCLUSION: Bilateral pleural effusions and bibasilar consolidation with probable superimposed slight pulmonary edema as well. Cathi Martinez MD Chest x-ray portable done on 03/16 was personally reviewed: ET tube above chang , bilateral infiltrates more on the right, bilateral pleural effusions, NG tube in place Last 48 hours Impressions Chest X-Ray 03/16/17 0600 Signed Impressions: Service Date/Time: Thursday, March 16, 2017 03:28 - CONCLUSION: Patchy bilateral consolidation and small to moderate right pleural effusion not significantly changed. Mild cardiomegaly. Rufino Chow MD Last Impressions Chest X-Ray 03/11/17 1807 Signed Impressions: Service Date/Time: Saturday, March 11, 2017 18:39 - CONCLUSION: 1. Chronic cardiac silhouette enlargement. 2. New bilateral lower hemithorax opacity right greater than left likely representing right lower lobe atelectasis versus consolidation, right pleural effusion, and possible small left pleural effusion. Juan Dempsey MD Objective Remarks Gen-This is a morbidly obese female intubated and lightly sedated, responsive HEENT/ Neuro: Sedated, arousable, following commands, orally intubated, Pallor present, no icterus, tongue/ mucosa moist Neck: No JVD Chest/Pulm: on mech vent, good air entry bilaterally, no wheezing or crackles. Scattered rhonchi CVS: S1-S2 regular, no murmur. Telemetry atrial fibrillation rate controlled GI/abdomen: soft, nontender, bowel sounds sluggish Extremities: warm bilaterally, bilateral edema 3 + A/P Assessment and Plan Assessment: 76yF with history of CHF with preserved EF who presents with SOB and fever and acute hypoxic respiratory failure. Differential includes pneumonia vs. CHF exacerbation, diastolic type. Without evidence of PE. Intubated and placed on mechanical ventilation for borderline respiration status and inability to take off BiPAP for PO intake. Neuro: - Sedation with Precedex daily for ventilator synchrony -Daily sedation vacation - Neurochecks per ICU protocol CHF Exacerbation, diastolic type Pulmonary hypertension -Status post diuresis - lactate normal - Added sildenafil 20 mg/day for pulmonary hypertension on 03/17/17 - Cardiology: Dr. Moreno evaluated patient Acute hypoxic respiratory failure -Intubated and placed on mechanical ventilation on 03/16. - Vent bundle, bronchodilators, continue daily CPAP trials, and throughout the night if patient tolerates and clinically stable - abx - nebs prn - hob at 30 degrees - Follow-up chest x-ray in a.m. Possible community acquired pneumonia Bilateral pleural effusions - broad spectrum abx given severity of symptoms. vanc and zosyn1/-03/21. sputum for Gram stain and cultures following intubation. - CT-guided thoracentesis cancel secondary to inadequate pleural fluid for drainage. Coumadin resumed -03/11 Blood culture- Anaerobic gram-positive cocci -03/18 Urine culture- yeast Acute kidney injury UTI -Off diuretics. Holding losartan starting 03/17 in view of rising creatinine. May require fluids. Repeat UA and urine culture as indicated - strict I & O's - trend Cr on daily BMP -03/21 begin Diflucan x 14 days Atrial fibrillation - CHADS score > 2. Lovenox/Coumadin for anticoagulation.Small amt of fluid not quantifiable for thoracentesis. Will resume Coumadin - currently rate controlled. GI/liver: -Tolerating tube feeds with Glucerna 1.5@60 cc per hour SCDs, SQH Pepcid for GI prophylaxis On 03/16 discussed at length with multiple family members today prior to intubation including reviewing CAT scan images.. Explained that patient is chronically on BiPAP and inability to take off BiPAP to feed or insert NG tube. Discussed option of proceeding with intubation and place on mechanical ventilation in order to be able to place the OG tube to meet nutritional requirements. Family in agreement. Discussed with Dr. Radford who is agreeable with the plan as well. 03/17: Discussed with family members at bedside regarding current clinical status and plan of care and they voiced understanding and were agreeable. 03/21, 03/22-patient's daughter at bedside. Extensive discussion with daughter provided update on medical status. Chin to be continued on CPAP trials throughout the night if clinically tolerating for plans for SBT trials when clinically indicated Condition critical my billing statement This patient remains critically ill with one or more organ systems which are or may become a threat to life. I have spent in excess of 47 minutes discontinuously in the care and management of this patient. This time is exclusive of procedures, and includes, but is not limited to, evaluation of the patient, review of the medical record, discussions with family, consultants, nursing staff, or respiratory therapy, and documentation in the medical record. Physician Nadiya Vazquez MD Mar 22, 2017 17:25
--- NOTE | 2017-03-22 17:59 | HHI.PR ---
Subjective Remarks 76 YOWF with resp insuff, on VM Gets anxious CTA no PE, has pl eff Intubated Tolerates TF Tolerates CPA Sedated with Fentanyl and Precedex Objective Vital Signs Vital Signs Date Time Temp Pulse Resp B/P (MAP) Pulse Ox O2 Delivery O2 Flow Rate FiO2 03/22/17 16:04 96 40 03/22/17 14:00 62 03/22/17 12:00 40 03/22/17 12:00 99.4 85 29 157/73 (101) 98 03/22/17 12:00 85 03/22/17 11:24 91 40 03/22/17 11:01 40 03/22/17 11:00 96 40 03/22/17 10:35 94 40 03/22/17 10:00 80 03/22/17 08:00 99.0 99 24 175/137 (150) 96 03/22/17 08:00 40 03/22/17 08:00 80 03/22/17 07:53 96 40 03/22/17 06:00 86 03/22/17 04:00 79 03/22/17 04:00 40 03/22/17 04:00 100.5 79 22 184/86 (118) 03/22/17 03:32 97 40 03/22/17 02:00 70 03/22/17 00:02 98 40 03/22/17 00:00 40 03/22/17 00:00 98.6 110 19 184/87 (119) 89 03/22/17 00:00 110 03/21/17 22:00 67 03/21/17 20:15 95 40 03/21/17 20:00 52 03/21/17 20:00 98.8 52 19 194/87 (122) 96 03/21/17 20:00 40 03/21/17 18:00 53 I/O 03/21/17 03/21/17 03/21/17 03/22/17 03/22/17 03/22/17 07:00 15:00 23:00 07:00 15:00 23:00 Intake Total 1313.11 ml 196.11 ml 888 ml 531 ml 200 ml Output Total 725 ml 475 ml 450 ml Balance 588.11 ml 196.11 ml 413 ml 81 ml 200 ml IV Total 691.11 ml 196.11 ml 40 ml 200 ml Tube Feeding 622 ml 648 ml 531 ml Other 200 ml Output Urine Total 425 ml 475 ml 450 ml Stool Total 300 ml # Bowel Movements 1 2 Result Diagram: 03/20/17 0430 03/21/17 1207 Objective Remarks GENERAL: Obese WF, sob, anxious SKIN: Warm and dry. HEAD: Normocephalic. EYES: No scleral icterus. No injection or drainage. NECK: Supple, trachea midline. No JVD or lymphadenopathy. CARDIOVASCULAR: Regular rate and rhythm without murmurs, gallops, or rubs. RESPIRATORY: Breath sounds equal bilaterally. No accessory muscle use. GASTROINTESTINAL: Abdomen soft, non-tender, nondistended. MUSCULOSKELETAL: No cyanosis, ++ edema. BACK: Nontender without obvious deformity. No CVA tenderness. A/P Assessment and Plan VDRF No PE Pleural effusion CHF AF PLAN: Vent support Diurease Cont Abx IV Solumedrol. Fentanyl and Precedex for sedation Daily CPAP trial Landon Tony MD Mar 22, 2017 17:59
[2017-03-23] VITALS (20 sets, daily range): BP systolic 127–178; BP diastolic 63–77; PULSE 48–90; RESP 17–29; TEMP 97.8–98.9; O2SAT 91–96
[2017-03-23] MEDS: CHLORHEXIDINE GLUCONATE 2 % 1 PACK (2 CLOTHS) TOP SCH (03:02)
[2017-03-23] MEDS: methylPREDNISolone SOD SUCC 40 MG/1 ML VIAL IV PUSH SCH ×3 (03:04→20:10)
[2017-03-23] MEDS: hydrALAZINE HCL 20 MG/ML VIAL IV PRN (04:37)
--- NOTE | 2017-03-23 04:45 | RADRPT ---
EXAM DATE/TIME: 03/23/2017 03:18 [facility] COMPARISON: CHEST SINGLE AP, March 20, 2017, 3:50. INDICATIONS : Shortness of breath, possible pulmonary disease. MEDICAL HISTORY : Cerebrovascular disease. SURGICAL HISTORY : None. ENCOUNTER: Subsequent ACUITY: 1 week PAIN SCORE: 0/10 LOCATION: Bilateral chest FINDINGS: Single AP view of the chest. Endotracheal tube and nasogastric tube remain in place. Persistent right lower lobe atelectasis versus consolidation. No significant interval change allowing for differences in technique. Cardiac silhouette enlargement also unchanged. CONCLUSION: Persistent right lower lobe atelectasis versus consolidation. Persistent cardiac silhouette enlargeme nt. No significant interval change. Juan Dempsey MD on March 23, 2017 at 4:41 Board Certified Radiologist. This report was verified electronically.
[2017-03-23] MEDS: LEVOTHYROXINE SODIUM 100 MCG TAB PO SCH (05:49)
[2017-03-23 06:29] LABS: HEMATOCRIT 37.5 % (35.0-46.0); MEAN CELL VOLUME 89.9 FL (80.0-100.0); MEAN CORPUSCULAR HEMOGLOBIN 28.7 PG (27.0-34.0); MEAN CORPUSCULAR HGB CONC 31.9 % (32.0-36.0); MEAN PLATELET VOLUME 8.1 FL (7.0-11.0); PLATELET COUNT 211 TH/MM3 (150-450); RED BLOOD COUNT 4.17 MIL/MM3 (4.00-5.30); RED CELL DISTRIBUTION WIDTH 16.2 % (11.6-17.2); WHITE BLOOD COUNT 7.2 TH/MM3 (4.0-11.0)
[2017-03-23 06:45] LABS: INTERNATIONAL NORMALIZED RATIO 1.3 RATIO; PROTHROMBIN TIME - PATIENT 12.8 SEC (9.8-11.6)
[2017-03-23 07:32] LABS: BICARBONATE 26.3 MEQ/L (21.0-32.0); CALCIUM 8.6 MG/DL (8.5-10.1); CREATININE 1.01 MG/DL (0.50-1.00); MAGNESIUM 2.7 MG/DL (1.5-2.5); PHOSPHORUS 3.4 MG/DL (2.5-4.9)
[2017-03-23] MEDS: RESP: BUDESONIDE 0.5 MG/2 ML NEB NEB SCH ×2 (08:01→20:33)
[2017-03-23] MEDS: GEMFIBROZIL 600 MG TAB PO SCH ×2 (08:13→17:54)
[2017-03-23] MEDS: INSULIN ASPART SUPPLEMENTAL SCALE SQ SCH ×4 (08:13→20:10)
[2017-03-23] MEDS: CHLORHEXIDINE 0.12% (ORAL KIT) 15 ML CUP MT SCH ×2 (08:14→20:00)
[2017-03-23] MEDS: GLIMEPIRIDE 1 MG TAB PO SCH ×2 (08:15→20:10)
[2017-03-23] MEDS: FAMOTIDINE 20 MG TAB OG-TUBE SCH ×2 (08:15→20:10)
[2017-03-23] MEDS: SILDENAFIL CITRATE 20 MG TAB NG SCH (08:15)
[2017-03-23] MEDS: CHOLECALCIFEROL (VIT D3) 1000 UNIT TAB PO SCH (08:16)
[2017-03-23] MEDS: NIFEdipine 30 MG SUSTAINED RELEASE TAB PO SCH ×2 (08:16→20:10)
[2017-03-23] MEDS: DOCUSATE SODIUM 50 MG/SENNA 8.6 MG TAB PO SCH ×2 (08:17→20:10)
[2017-03-23] MEDS: POTASSIUM CHLORIDE 20 MEQ PWD PACKET PO SCH ×2 (08:17→08:35)
[2017-03-23] MEDS: METOPROLOL TARTRATE 50 MG TAB PO SCH ×2 (08:17→20:10)
[2017-03-23] MEDS: FLUCONAZOLE 200 MG PREMIX BAG 100 ML IV SCH (13:41)
[2017-03-23] MEDS: RESP: ALBUTEROL 2.5 MG/IPRATROPIUM 0.5 MG NEB (PRN) INH (13:46)
--- NOTE | 2017-03-23 15:30 | HHI.CCPN ---
Subjective Remarks/Hospital Course 03/11: This is a 77-year-old female with a history of diastolic CHF who presents with a three-week history of slowly worsening shortness of breath. Patient does use CPAP quite frequently during the day and night, and consistently uses it whenever she takes a nap which occurs at least once or twice during the daytime and then uses it every night with consistency. She complains that over the last 2-3 days her shortness of breath has gotten significantly worse. She does endorse a nonproductive cough over the last 2-3 days and some chills although denies fever. She denies any chest pain. She endorses what sounds like orthopnea and PND type symptoms. She states that she had a prior diagnosis of CHF but has not had any heart workup or seen anyone for this for at least a year or more. She does have a history of atrial fibrillation and is on blood thinners, although she cannot remember which ones. In the emergency department she was significantly hypoxic and placed on BiPAP. She was given Lasix 80 mg IV. She's had a good response and greater than 1 L since that time in urine output. Her BNP is slightly elevated at 238. In the emergency department she had a low-grade temperature of 100.5 Fahrenheit, but has a normal white count. Chest x-ray suggestive of bilateral pleural effusions with possible lower lobe consolidations. 03/12: Was on nasal cannula this morning. Following return from CAT scan she developed respiratory distress and was placed on BiPAP. CT scan could not be completed as IV infiltrated. At the time of my evaluation patient was comfortably tolerating BiPAP with full facemask. 03/13: Was on BiPAP overnight. Awake and alert at the time of my evaluation, following commands this morning. 03/14: on 3L o2 by NC this AM. still somewhat dyspneic. tolerating breakfast. CT pulmonary angiogram yesterday without PE, concern for pulmonary edema with small pleural effusions. CXR today with worsening pulmonary edema. 03/16: Critical care medicine reconsulted by Dr. Radford for respiratory failure with possible need for intubation. Patient remained on BiPAP however does not tolerate taking it off and immediately gets extremely tachypneic and short of breath. Has not been able to have tube feeds of by mouth meds due to her respiratory status. No significant improvement and appears to be getting weaker with lack of nutrition. Discussed with Dr. Radford as well as family members on multiple occasions today. Discussed plan with family regarding proceeding with intubation and mechanical ventilation and inserting NG tube/OG tube to maintain nutritional status while waiting for improvement in pneumonia/ respiratory failure and they were agreeable. 03/17: Sedated, easily arousable, orally intubated on mechanical ventilation. Tolerating tube feeds. 03/18: Remains sedated, orally intubated on mechanical ventilation. Tolerating tube feeds. 03/19: Afebrile. Patient continues on CPAP trials successfully, plan for CT- guided thoracentesis this a.m.. 03/20: Late entry note. Patient underwent CT evaluation for pleural effusions minimal no thoracentesis performed. The patient continues on sedation with intermittent CPAP trials. 03/21: Afebrile. Patient noted to have yeast from urine culture Diflucan for 14 days regimen. Patient continues to tolerate tube feeds. 03/22: TMax 100.5. Patient CPAP trials initiated an ongoing since 8 AM. Patient transitioned to Precedex this a.m. was not started last night secondary to patient's bradycardic rate. With minimal sedation patient alert and oriented following commands daughter in the room. 03/23: The patient tolerated CPAP trials throughout the night greater than 24 hours. SBT parameters obtained within normal limits. Patient was successfully extubated, and has been weaned to 4 L via nasal cannula. Steroids continue to be weaned per pulmonology. Objective Vital Signs Date Time Temp Pulse Resp B/P (MAP) Pulse Ox O2 Delivery O2 Flow Rate FiO2 03/23/17 14:00 59 03/23/17 13:49 94 Nasal Cannula 4 03/23/17 12:00 97.8 24 127/63 (84) 03/23/17 12:00 40 Intake and Output 03/23/17 03/23/17 03/24/17 08:00 16:00 00:00 Intake Total 812 ml Output Total 550 ml Balance 262 ml Result Diagram: 03/23/17 0600 03/23/17 0600 Other Results Laboratory Tests Test 03/23/17 05:49 03/23/17 13:10 Blood Gas Puncture Site RT RADIAL RT RADIAL Blood Gas Patient Temperature 98.6 98.6 Blood Gas HCO3 25 mmol/L (22-26) 25 mmol/L (22-26) Blood Gas Base Excess 0.6 mmol/L (-2-2) 0.4 mmol/L (-2-2) Blood Gas Oxygen Saturation 96 % (90-100) 94 % (90-100) Arterial Blood pH 7.40 (7.380-7.420) 7.40 (7.380-7.420) Arterial Blood Partial Pressure CO2 41 mmHg (38-42) 41 mmHg (38-42) Arterial Blood Partial Pressure O2 123 mmHg (61-120) 86 mmHg (61-120) Arterial Blood Oxygen Content 16.8 Vol % (12.0-20.0) 15.7 Vol % (12.0-20.0) Arterial Blood Carboxyhemoglobin 1.1 % (0-4) 1.0 % (0-4) Arterial Blood Methemoglobin 1.2 % (0-2) 1.0 % (0-2) Blood Gas Hemoglobin 12.2 G/DL (12.0-16.0) 11.8 G/DL (12.0-16.0) Oxygen Delivery Device VENTILATOR VENTILATOR Blood Gas Ventilator Setting CPAP CPAP 5/10PS Blood Gas Inspired Oxygen 40 % 40 % Imaging Last Impressions Chest X-Ray 03/19/17 0600 Signed Impressions: Service Date/Time: Sunday, March 19, 2017 03:55 - CONCLUSION: Worsening right lung infiltrate. Yohannes Green Jr., MD CT Angiography 03/14/17 0000 Signed Impressions: Service Date/Time: February 05:15 - CONCLUSION: Bilateral pleural effusions and bibasilar consolidation with probable superimposed slight pulmonary edema as well. Cathi Martinez MD Chest x-ray portable done on 03/16 was personally reviewed: ET tube above chang , bilateral infiltrates more on the right, bilateral pleural effusions, NG tube in place Last 48 hours Impressions Chest X-Ray 03/16/17 0600 Signed Impressions: Service Date/Time: Thursday, March 16, 2017 03:28 - CONCLUSION: Patchy bilateral consolidation and small to moderate right pleural effusion not significantly changed. Mild cardiomegaly. Rufino Chow MD Last Impressions Chest X-Ray 03/11/17 1807 Signed Impressions: Service Date/Time: Saturday, March 11, 2017 18:39 - CONCLUSION: 1. Chronic cardiac silhouette enlargement. 2. New bilateral lower hemithorax opacity right greater than left likely representing right lower lobe atelectasis versus consolidation, right pleural effusion, and possible small left pleural effusion. Juan Dempsey MD Objective Remarks Gen-This is a morbidly obese female recently extubated, no respiratory distress HEENT/ Neuro: Sedated, arousable, following commands, orally intubated, Pallor present, no icterus, tongue/ mucosa moist Neck: No JVD Chest/Pulm: on mech vent, good air entry bilaterally, no wheezing or crackles. Clear to auscultation bilaterally. CVS: S1-S2 regular, no murmur. Telemetry atrial fibrillation rate controlled GI/abdomen: soft, nontender, bowel sounds sluggish Extremities: warm bilaterally, bilateral edema 3 + A/P Assessment and Plan Assessment: 76yF with history of CHF with preserved EF who presents with SOB and fever and acute hypoxic respiratory failure. Differential includes pneumonia vs. CHF exacerbation, diastolic type. Without evidence of PE. Intubated and placed on mechanical ventilation for borderline respiration status and inability to take off BiPAP for PO intake. Neuro: - Precedex discontinued -Avoid long-acting sedative type medications - Neurochecks per ICU protocol CHF Exacerbation, diastolic type Pulmonary hypertension -Status post diuresis - Continue sildenafil 20 mg/day for pulmonary hypertension on 03/17/17 - Cardiology: Dr. Moreno evaluated patient Acute hypoxic respiratory failure -Intubated and placed on mechanical ventilation on 03/16. Extubated 03/23/17 - SBT parameters-NIF -37, FVC 900, RSBI 30, positive cuff leak - ABG 7.39/41/85/24/0.4 - abx - nebs prn - hob at 30 degrees - Senna spirometry every 4 hours while awake Possible community acquired pneumonia Bilateral pleural effusions - broad spectrum abx given severity of symptoms. vanc and zosyn1/-03/21. sputum for Gram stain and cultures following intubation. - CT-guided thoracentesis cancel secondary to inadequate pleural fluid for drainage. Coumadin resumed -03/11 Blood culture- Anaerobic gram-positive cocci -03/18 Urine culture- yeast Acute kidney injury UTI -Off diuretics. Holding losartan starting 03/17 in view of rising creatinine. May require fluids. Repeat UA and urine culture as indicated - strict I & O's - trend Cr on daily BMP -03/21 begin Diflucan x 14 days Atrial fibrillation - CHADS score > 2. Lovenox/Coumadin for anticoagulation.Small amt of fluid not quantifiable for thoracentesis. Will resume Coumadin - currently rate controlled. GI/liver: -Bedside swallow-allow ice chips -Advance diet- 1800 kamar ADA PT evaluation and treat SCDs, SQH Pepcid for GI prophylaxis On 03/16 discussed at length with multiple family members today prior to intubation including reviewing CAT scan images.. Explained that patient is chronically on BiPAP and inability to take off BiPAP to feed or insert NG tube. Discussed option of proceeding with intubation and place on mechanical ventilation in order to be able to place the OG tube to meet nutritional requirements. Family in agreement. Discussed with Dr. Radford who is agreeable with the plan as well. 03/17: Discussed with family members at bedside regarding current clinical status and plan of care and they voiced understanding and were agreeable. 03/23: Patient extubated doing well, currently on 4 L nasal cannula. Patient has passed bedside swallow exam. Tolerating clear liquids. Dispo: Level [address] [facility] in a.m. plan transfer to the floor in the a.m. Physician Nadiya Vazquez MD Mar 23, 2017 15:30
[2017-03-23] MEDS: WARFARIN SOD 5 MG TAB PO SCH (17:54)
[2017-03-23] MEDS: LORazepam 2 MG/ML VIAL IV PUSH PRN (21:22)
[2017-03-24] VITALS (24 sets, daily range): BP systolic 116–156; BP diastolic 61–95; PULSE 58–103; RESP 14–49; TEMP 97.5–98.5; O2SAT 91–100
[2017-03-24] MEDS ORDERED: ETOMIDATE 40 MG/20 ML VIAL ONE (02:37)
[2017-03-24] MEDS ORDERED: PROPOFOL 500 MG/50 ML INJ 50 ML ONE (02:48)
[2017-03-24] MEDS ORDERED: MIDAZOLAM HCL 5 MG/ML VIAL (1 ML) ONE (03:03)
[2017-03-24] MEDS: PROPOFOL 1000 MG/100 ML INJ 100 ML IV PRN ×6 (03:20→20:29)
--- NOTE | 2017-03-24 03:30 | RADRPT ---
EXAM DATE/TIME: 03/24/2017 03:08 [facility] COMPARISON: CHEST SINGLE AP, March 23, 2017, 3:18. INDICATIONS : Shortness of breath, E-T tube placement. MEDICAL HISTORY : Cerebrovascular disease. SURGICAL HISTORY : None. ENCOUNTER: Subsequent ACUITY: 1 week PAIN SCORE: Non-responsive. LOCATION: Bilateral chest FINDINGS: Single AP view of the chest. Endotracheal tube is in place with the tip 1.6 cm above the chang. Naso gastric tube is no longer seen. There is increased hazy opacity of the lungs bilaterally right greate r than left with pulmonary vasculature indistinctness. Cardiac silhouette remains enlarged and unchan ged. No evidence of pneumothorax. CONCLUSION: Increased bilateral pulmonary opacity likely representing pulmonary edema. Possible small right pleur al effusion. Persistent cardiac silhouette enlargement. Endotracheal tube tip 1.6 cm above the chang . Juan Dempsey MD on March 24, 2017 at 3:27 Board Certified Radiologist. This report was verified electronically.
[2017-03-24] MEDS: CHLORHEXIDINE GLUCONATE 2 % 1 PACK (2 CLOTHS) TOP SCH (04:00)
[2017-03-24] MEDS ORDERED: CHLORHEXIDINE GLUCONATE 2 % 1 PACK (2 CLOTHS)(extra cloths) TOPICAL PRN (05:30)
[2017-03-24] MEDS: LEVOTHYROXINE SODIUM 100 MCG TAB PO SCH (06:00)
[2017-03-24] MEDS: GEMFIBROZIL 600 MG TAB PO SCH ×2 (06:08→15:06)
[2017-03-24] MEDS: RESP: ALBUTEROL 2.5 MG/IPRATROPIUM 0.5 MG NEB (PRN) INH (07:35)
[2017-03-24] MEDS: RESP: BUDESONIDE 0.5 MG/2 ML NEB NEB SCH ×2 (07:37→19:54)
[2017-03-24] MEDS: INSULIN ASPART SUPPLEMENTAL SCALE SQ SCH ×4 (08:00→20:28)
[2017-03-24] MEDS: GLIMEPIRIDE 1 MG TAB PO SCH ×2 (09:00→20:28)
[2017-03-24] MEDS: FAMOTIDINE 20 MG TAB OG-TUBE SCH ×2 (09:25→20:28)
[2017-03-24] MEDS: NIFEdipine 30 MG SUSTAINED RELEASE TAB PO SCH ×2 (09:25→20:28)
[2017-03-24] MEDS: METOPROLOL TARTRATE 50 MG TAB PO SCH ×2 (09:25→20:28)
[2017-03-24] MEDS: POTASSIUM CHLORIDE 20 MEQ PWD PACKET PO SCH (09:25)
[2017-03-24] MEDS: methylPREDNISolone SOD SUCC 40 MG/1 ML VIAL IV PUSH SCH ×2 (09:25→20:27)
[2017-03-24] MEDS: DOCUSATE SODIUM 50 MG/SENNA 8.6 MG TAB PO SCH ×2 (09:25→20:28)
[2017-03-24] MEDS: CHLORHEXIDINE 0.12% (ORAL KIT) 15 ML CUP MT SCH ×2 (09:26→20:00)
[2017-03-24] MEDS: SILDENAFIL CITRATE 20 MG TAB PO SCH (09:26)
[2017-03-24] MEDS: CHOLECALCIFEROL (VIT D3) 1000 UNIT TAB PO SCH (09:26)
[2017-03-24] MEDS: FLUCONAZOLE 200 MG PREMIX BAG 100 ML IV SCH (12:26)
[2017-03-24] MEDS: RESP: ALBUTEROL 2.5 MG/IPRATROPIUM 0.5 MG NEB (SCH) INH ×2 (12:57→19:54)
[2017-03-24] MEDS: WARFARIN SOD 5 MG TAB PO SCH (15:06)
[2017-03-24] MEDS ORDERED: FUROSEMIDE 40 MG/4 ML VIAL IV PUSH SCH (18:30)
--- NOTE | 2017-03-24 19:11 | HHI.CCPN ---
Subjective Remarks/Hospital Course 03/11: This is a 77-year-old female with a history of diastolic CHF who presents with a three-week history of slowly worsening shortness of breath. Patient does use CPAP quite frequently during the day and night, and consistently uses it whenever she takes a nap which occurs at least once or twice during the daytime and then uses it every night with consistency. She complains that over the last 2-3 days her shortness of breath has gotten significantly worse. She does endorse a nonproductive cough over the last 2-3 days and some chills although denies fever. She denies any chest pain. She endorses what sounds like orthopnea and PND type symptoms. She states that she had a prior diagnosis of CHF but has not had any heart workup or seen anyone for this for at least a year or more. She does have a history of atrial fibrillation and is on blood thinners, although she cannot remember which ones. In the emergency department she was significantly hypoxic and placed on BiPAP. She was given Lasix 80 mg IV. She's had a good response and greater than 1 L since that time in urine output. Her BNP is slightly elevated at 238. In the emergency department she had a low-grade temperature of 100.5 Fahrenheit, but has a normal white count. Chest x-ray suggestive of bilateral pleural effusions with possible lower lobe consolidations. 03/12: Was on nasal cannula this morning. Following return from CAT scan she developed respiratory distress and was placed on BiPAP. CT scan could not be completed as IV infiltrated. At the time of my evaluation patient was comfortably tolerating BiPAP with full facemask. 03/13: Was on BiPAP overnight. Awake and alert at the time of my evaluation, following commands this morning. 03/14: on 3L o2 by NC this AM. still somewhat dyspneic. tolerating breakfast. CT pulmonary angiogram yesterday without PE, concern for pulmonary edema with small pleural effusions. CXR today with worsening pulmonary edema. 03/16: Critical care medicine reconsulted by Dr. Radford for respiratory failure with possible need for intubation. Patient remained on BiPAP however does not tolerate taking it off and immediately gets extremely tachypneic and short of breath. Has not been able to have tube feeds of by mouth meds due to her respiratory status. No significant improvement and appears to be getting weaker with lack of nutrition. Discussed with Dr. Radford as well as family members on multiple occasions today. Discussed plan with family regarding proceeding with intubation and mechanical ventilation and inserting NG tube/OG tube to maintain nutritional status while waiting for improvement in pneumonia/ respiratory failure and they were agreeable. 03/17: Sedated, easily arousable, orally intubated on mechanical ventilation. Tolerating tube feeds. 03/18: Remains sedated, orally intubated on mechanical ventilation. Tolerating tube feeds. 03/19: Afebrile. Patient continues on CPAP trials successfully, plan for CT- guided thoracentesis this a.m.. 03/20: Late entry note. Patient underwent CT evaluation for pleural effusions minimal no thoracentesis performed. The patient continues on sedation with intermittent CPAP trials. 03/21: Afebrile. Patient noted to have yeast from urine culture type of plan started for 14 days regimen. Patient continues to tolerate tube feeds. 03/22: TMax 100.5. Patient CPAP trials initiated an ongoing since 8 AM. Patient transitioned to Precedex this a.m. was not started last night secondary to patient's bradycardic rate. With minimal sedation patient alert and oriented following commands daughter in the room. 03/23: The patient tolerated CPAP trials throughout the night greater than 24 hours. SBT parameters obtained within normal limits. Patient was successfully extubated, and has been weaned to 4 L via nasal cannula. Steroids continue to be weaned per pulmonology. 03/24: The patient was successfully extubated yesterday during the night ,however the patient became hypoxic ,cyanotic (per report) and required emergent intubation. She was reintubated, stat chest x-ray revealed pulmonary edema .Lasix ordered. Sputum culture obtained results pending. Objective Vital Signs Date Time Temp Pulse Resp B/P (MAP) Pulse Ox O2 Delivery O2 Flow Rate FiO2 03/24/17 18:00 59 18 141/65 (90) 100 03/24/17 16:00 98.3 03/24/17 16:00 40 03/23/17 22:35 Nasal Cannula 4.00 Intake and Output 03/24/17 03/24/17 03/25/17 08:00 16:00 00:00 Intake Total 374 ml 314.4 ml 282.3 ml Output Total 550 ml 655 ml Balance -176 ml 314.4 ml -372.7 ml Result Diagram: 03/23/17 0600 03/23/17 0600 Other Results Laboratory Tests Test 03/24/17 05:04 Blood Gas Puncture Site RT RADIAL Blood Gas Patient Temperature 98.6 Blood Gas HCO3 25 mmol/L (22-26) Blood Gas Base Excess -0.1 mmol/L (-2-2) Blood Gas Oxygen Saturation 94 % (90-100) Arterial Blood pH 7.35 (7.380-7.420) Arterial Blood Partial Pressure CO2 46 mmHg (38-42) Arterial Blood Partial Pressure O2 85 mmHg (61-120) Arterial Blood Oxygen Content 14.7 Vol % (12.0-20.0) Arterial Blood Carboxyhemoglobin 1.1 % (0-4) Arterial Blood Methemoglobin 1.0 % (0-2) Blood Gas Hemoglobin 11.1 G/DL (12.0-16.0) Oxygen Delivery Device VENTILATOR Blood Gas Ventilator Setting PRVC/AC14/500/ Blood Gas Inspired Oxygen 40 % Imaging Last Impressions Chest X-Ray 03/19/17 06 Signed Impressions: Service Date/Time: Sunday, March 19, 2017 03:55 - CONCLUSION: Worsening right lung infiltrate. Yohannes Green Jr., MD CT Angiography 03/14/17 0000 Signed Impressions: Service Date/Time: February 05:15 - CONCLUSION: Bilateral pleural effusions and bibasilar consolidation with probable superimposed slight pulmonary edema as well. Cathi Martinez MD Chest x-ray portable done on 03/16 was personally reviewed: ET tube above chang , bilateral infiltrates more on the right, bilateral pleural effusions, NG tube in place Last 48 hours Impressions Chest X-Ray 03/16/17 0600 Signed Impressions: Service Date/Time: Thursday, March 16, 2017 03:28 - CONCLUSION: Patchy bilateral consolidation and small to moderate right pleural effusion not significantly changed. Mild cardiomegaly. Rufino Chow MD Last Impressions Chest X-Ray 03/11/17 1807 Signed Impressions: Service Date/Time: Saturday, March 11, 2017 18:39 - CONCLUSION: 1. Chronic cardiac silhouette enlargement. 2. New bilateral lower hemithorax opacity right greater than left likely representing right lower lobe atelectasis versus consolidation, right pleural effusion, and possible small left pleural effusion. Juan Dempsey MD Objective Remarks Gen-This is a morbidly obese female recently extubated, no respiratory distress HEENT/ Neuro: Sedated, arousable, following commands, orally intubated, Pallor present, no icterus, tongue/ mucosa moist Neck: No JVD Chest/Pulm: on mech vent, good air entry bilaterally, no wheezing or crackles. Clear to auscultation bilaterally. CVS: S1-S2 regular, no murmur. Telemetry atrial fibrillation rate controlled GI/abdomen: soft, nontender, bowel sounds sluggish Extremities: warm bilaterally, bilateral edema 3 + A/P Assessment and Plan Assessment: 76yF with history of CHF with preserved EF who presents with SOB and fever and acute hypoxic respiratory failure. Differential includes pneumonia vs. CHF exacerbation, diastolic type. Without evidence of PE. Intubated and placed on mechanical ventilation for borderline respiration status and inability to take off BiPAP for PO intake. Neuro: - Precedex discontinued -Avoid long-acting sedative type medications - Neurochecks per ICU protocol CHF Exacerbation, diastolic type Pulmonary hypertension -Status post diuresis - Continue sildenafil 20 mg/day for pulmonary hypertension on 03/17/17 - Cardiology: Dr. Moreno evaluated patient - Order CTA thorax- F/U results Acute hypoxic respiratory failure Pulmonary edema -Intubated and placed on mechanical ventilation on 03/16. Extubated 03/23/17 - Intubated 03/24/17 -Ventilator bundle - Lasix 40 mg twice a day - abx - nebs prn - hob at 30 degrees - Incentive spirometry every 4 hours while awake Possible community acquired pneumonia Bilateral pleural effusions - broad spectrum abx given severity of symptoms. vanc and zosyn105/13-03/21. sputum for Gram stain and cultures following intubation. - CT-guided thoracentesis cancel secondary to inadequate pleural fluid for drainage. Coumadin resumed -03/11 Blood culture- Anaerobic gram-positive cocci -03/18 Urine culture- yeast Acute kidney injury UTI -Off diuretics. Holding losartan starting 03/17 in view of rising creatinine. May require fluids. Repeat UA and urine culture as indicated - strict I & O's - trend Cr on daily BMP -03/21 begin Diflucan x 14 days Atrial fibrillation - CHADS score > 2. Lovenox/Coumadin for anticoagulation.Small amt of fluid not quantifiable for thoracentesis. Will resume Coumadin - currently rate controlled. GI/liver: -Glucerna 1.5 PT evaluation and treat SCDs, SQH Pepcid for GI prophylaxis On 03/16 discussed at length with multiple family members today prior to intubation including reviewing CAT scan images.. Explained that patient is chronically on BiPAP and inability to take off BiPAP to feed or insert NG tube. Discussed option of proceeding with intubation and place on mechanical ventilation in order to be able to place the OG tube to meet nutritional requirements. Family in agreement. Discussed with Dr. Radford who is agreeable with the plan as well. 03/17: Discussed with family members at bedside regarding current clinical status and plan of care and they voiced understanding and were agreeable. Discussed with RECREATION CLERK at bedside. Dispo: Level 3 Physician Nadiya Vazquez MD Mar 24, 2017 19:11
[2017-03-24] MEDS: FUROSEMIDE 40 MG/4 ML VIAL IV PUSH SCH (20:27)
--- NOTE | 2017-03-24 21:33 | PD.PROCEDR ---
Procedure Note Procedure Endotracheal Intubation A time-out was completed verifying correct patient, procedure, site, positioning , and special equipment if applicable. The patient was placed in a flat position. Sedation was obtained using Etomidate 20mg. The patient was easily ventilated using an ambu bag. The [employer]/ MAC 4 BLADE was used and inserted into the oropharynx at which time there was a Grade 1 view of the vocal cords. A 8-yoruba endotracheal tube was inserted and visualized going through the vocal cords. The stylette was removed. Colorimetric change was visualized on the CO2 meter. Breath sounds were heard in both lung celaya equally. The endotracheal tube was placed at 23 cm, measured at the teeth. A chest x-ray was ordered to assess for pneumothorax and verify endotrachealtube placement. Estimated Blood Loss: 0 The patient tolerated the procedure well and there were no complications. Dilshad Hercules MD Mar 24, 2017 9:33 pm
[2017-03-25] VITALS (20 sets, daily range): BP systolic 98–151; BP diastolic 49–68; PULSE 59–77; RESP 15–36; TEMP 98–100.6; O2SAT 96–100
[2017-03-25] MEDS: PROPOFOL 1000 MG/100 ML INJ 100 ML IV PRN ×3 (03:22→10:46)
[2017-03-25] MEDS: CHLORHEXIDINE GLUCONATE 2 % 1 PACK (2 CLOTHS)(taper/protocol) TOPICAL SCH (03:22)
[2017-03-25] MEDS: CHLORHEXIDINE GLUCONATE 2 % 1 PACK (2 CLOTHS) TOP SCH (03:23)
[2017-03-25 05:49] LABS: HEMATOCRIT 35.5 % (35.0-46.0); MEAN CELL VOLUME 89.2 FL (80.0-100.0); MEAN CORPUSCULAR HEMOGLOBIN 30.2 PG (27.0-34.0); MEAN CORPUSCULAR HGB CONC 33.8 % (32.0-36.0); MEAN PLATELET VOLUME 8.9 FL (7.0-11.0); PLATELET COUNT 204 TH/MM3 (150-450); RED BLOOD COUNT 3.98 MIL/MM3 (4.00-5.30); RED CELL DISTRIBUTION WIDTH 16.4 % (11.6-17.2); WHITE BLOOD COUNT 9.1 TH/MM3 (4.0-11.0)
[2017-03-25 06:16] LABS: BICARBONATE 25.4 MEQ/L (21.0-32.0); CALCIUM 8.5 MG/DL (8.5-10.1); CREATININE 1.17 MG/DL (0.50-1.00); MAGNESIUM 2.5 MG/DL (1.5-2.5); PHOSPHORUS 4.3 MG/DL (2.5-4.9)
[2017-03-25] MEDS: LEVOTHYROXINE SODIUM 100 MCG TAB PO SCH (06:34)
[2017-03-25] MEDS: RESP: BUDESONIDE 0.5 MG/2 ML NEB NEB SCH ×2 (07:51→21:04)
[2017-03-25] MEDS: RESP: ALBUTEROL 2.5 MG/IPRATROPIUM 0.5 MG NEB (SCH) INH ×4 (07:51→21:04)
[2017-03-25] MEDS: CHLORHEXIDINE 0.12% (ORAL KIT) 15 ML CUP MT SCH ×2 (08:00→20:30)
[2017-03-25] MEDS: POTASSIUM CHLORIDE 20 MEQ PWD PACKET PO SCH (09:00)
[2017-03-25] MEDS: FAMOTIDINE 20 MG TAB OG-TUBE SCH ×2 (10:16→20:31)
[2017-03-25] MEDS: METOPROLOL TARTRATE 50 MG TAB PO SCH ×2 (10:17→20:32)
[2017-03-25] MEDS: GLIMEPIRIDE 1 MG TAB PO SCH (10:17)
[2017-03-25] MEDS: methylPREDNISolone SOD SUCC 40 MG/1 ML VIAL IV PUSH SCH ×3 (10:17→20:31)
[2017-03-25] MEDS: SILDENAFIL CITRATE 20 MG TAB PO SCH (10:17)
[2017-03-25] MEDS: CHOLECALCIFEROL (VIT D3) 1000 UNIT TAB PO SCH (10:17)
[2017-03-25] MEDS: ATORVASTATIN 20 MG TAB PO SCH (10:17)
[2017-03-25] MEDS: NIFEdipine 30 MG SUSTAINED RELEASE TAB PO SCH ×2 (10:17→20:31)
[2017-03-25] MEDS: DOCUSATE SODIUM 50 MG/SENNA 8.6 MG TAB PO SCH ×2 (10:17→20:31)
[2017-03-25] MEDS: FUROSEMIDE 40 MG/4 ML VIAL IV PUSH SCH (10:18)
[2017-03-25] MEDS: GEMFIBROZIL 600 MG TAB PO SCH ×2 (10:42→16:30)
[2017-03-25] MEDS: INSULIN ASPART SUPPLEMENTAL SCALE SQ SCH ×3 (10:46→20:40)
--- NOTE | 2017-03-25 13:02 | HHI.CCPN ---
Subjective Remarks/Hospital Course 03/11: This is a 77-year-old female with a history of diastolic CHF who presents with a three-week history of slowly worsening shortness of breath. Patient does use CPAP quite frequently during the day and night, and consistently uses it whenever she takes a nap which occurs at least once or twice during the daytime and then uses it every night with consistency. She complains that over the last 2-3 days her shortness of breath has gotten significantly worse. She does endorse a nonproductive cough over the last 2-3 days and some chills although denies fever. She denies any chest pain. She endorses what sounds like orthopnea and PND type symptoms. She states that she had a prior diagnosis of CHF but has not had any heart workup or seen anyone for this for at least a year or more. She does have a history of atrial fibrillation and is on blood thinners, although she cannot remember which ones. In the emergency department she was significantly hypoxic and placed on BiPAP. She was given Lasix 80 mg IV. She's had a good response and greater than 1 L since that time in urine output. Her BNP is slightly elevated at 238. In the emergency department she had a low-grade temperature of 100.5 Fahrenheit, but has a normal white count. Chest x-ray suggestive of bilateral pleural effusions with possible lower lobe consolidations. 03/12: Was on nasal cannula this morning. Following return from CAT scan she developed respiratory distress and was placed on BiPAP. CT scan could not be completed as IV infiltrated. At the time of my evaluation patient was comfortably tolerating BiPAP with full facemask. 03/13: Was on BiPAP overnight. Awake and alert at the time of my evaluation, following commands this morning. 03/14: on 3L o2 by NC this AM. still somewhat dyspneic. tolerating breakfast. CT pulmonary angiogram yesterday without PE, concern for pulmonary edema with small pleural effusions. CXR today with worsening pulmonary edema. 03/16: Critical care medicine reconsulted by Dr. Radford for respiratory failure with possible need for intubation. Patient remained on BiPAP however does not tolerate taking it off and immediately gets extremely tachypneic and short of breath. Has not been able to have tube feeds of by mouth meds due to her respiratory status. No significant improvement and appears to be getting weaker with lack of nutrition. Discussed with Dr. Radford as well as family members on multiple occasions today. Discussed plan with family regarding proceeding with intubation and mechanical ventilation and inserting NG tube/OG tube to maintain nutritional status while waiting for improvement in pneumonia/ respiratory failure and they were agreeable. 03/17: Sedated, easily arousable, orally intubated on mechanical ventilation. Tolerating tube feeds. 03/18: Remains sedated, orally intubated on mechanical ventilation. Tolerating tube feeds. 03/19: Afebrile. Patient continues on CPAP trials successfully, plan for CT- guided thoracentesis this a.m.. 03/20: Late entry note. Patient underwent CT evaluation for pleural effusions minimal no thoracentesis performed. The patient continues on sedation with intermittent CPAP trials. 03/21: Afebrile. Patient noted to have yeast from urine culture type of plan started for 14 days regimen. Patient continues to tolerate tube feeds. 03/22: TMax 100.5. Patient CPAP trials initiated an ongoing since 8 AM. Patient transitioned to Precedex this a.m. was not started last night secondary to patient's bradycardic rate. With minimal sedation patient alert and oriented following commands daughter in the room. 03/23: The patient tolerated CPAP trials throughout the night greater than 24 hours. SBT parameters obtained within normal limits. Patient was successfully extubated, and has been weaned to 4 L via nasal cannula. Steroids continue to be weaned per pulmonology. 03/24: The patient was successfully extubated yesterday during the night ,however the patient became hypoxic ,cyanotic (per report) and required emergent intubation. She was reintubated, stat chest x-ray revealed pulmonary edema .Lasix ordered. Sputum culture obtained results pending. 03/25: The patient continues to be sedated and intubated, well oxygenated on FiO2 of 35%. Plan for CT angiography thorax today to rule out pulmonary embolus in the setting of pulmonary hypertension, and repeat intubation that occurred on 03/24/17. Plan for CPAP trials to continue and subsequently SBT parameters. Sedation vacation revealed patient alert and following commands on minimal sedation. Objective Vital Signs Date Time Temp Pulse Resp B/P (MAP) Pulse Ox O2 Delivery O2 Flow Rate FiO2 03/25/17 12:36 97 35 03/25/17 06:00 66 03/25/17 04:00 100.6 32 136/65 (88) 03/23/17 22:35 Nasal Cannula 4.00 Intake and Output 03/25/17 03/25/17 03/26/17 08:00 16:00 00:00 Intake Total 530 ml Output Total 2550 ml Balance -2020 ml Result Diagram: 03/25/17 0446 03/25/17 0446 Other Results Laboratory Tests Test 03/25/17 04:54 Blood Gas Puncture Site LT RADIAL Blood Gas Patient Temperature 98.6 Blood Gas HCO3 27 mmol/L (22-26) Blood Gas Base Excess 2.9 mmol/L (-2-2) Blood Gas Oxygen Saturation 91 % (90-100) Arterial Blood pH 7.44 (7.380-7.420) Arterial Blood Partial Pressure CO2 40 mmHg (38-42) Arterial Blood Partial Pressure O2 69 mmHg (61-120) Arterial Blood Oxygen Content 14.9 Vol % (12.0-20.0) Arterial Blood Carboxyhemoglobin 1.3 % (0-4) Arterial Blood Methemoglobin 1.3 % (0-2) Blood Gas Hemoglobin 11.6 G/DL (12.0-16.0) Oxygen Delivery Device VENTILATOR Blood Gas Ventilator Setting PRVC/AC Blood Gas Inspired Oxygen 35 % Imaging Last Impressions Chest X-Ray 03/24/17 0000 Signed Impressions: Service Date/Time: Friday, March 24, 2017 03:08 - CONCLUSION: Increased bilateral pulmonary opacity likely representing pulmonary edema. Possible small right pleural effusion. Persistent cardiac silhouette enlargement. Endotracheal tube tip 1.6 cm above the chang. Juan Dempsey MD Consultation 03/20/17 0700 Signed Impressions: Service Date/Time: Monday, March 20, 2017 13:47 - CONCLUSION: 1. Very tiny bilateral pleural effusions which are too small for thoracentesis. 2. Cardiomegaly and coronary artery calcifications. 3. Bibasilar alveolar consolidations consistent with compressive atelectasis and/or pneumonia. 4. Mild pulmonary vascular congestion. Almas Dave MD CT Angiography 03/14/17 0000 Signed Impressions: Service Date/Time: February 05:15 - CONCLUSION: Bilateral pleural effusions and bibasilar consolidation with probable superimposed slight pulmonary edema as well. Cathi Martinez MD Last Impressions Chest X-Ray 03/19/17 0600 Signed Impressions: Service Date/Time: Sunday, March 19, 2017 03:55 - CONCLUSION: Worsening right lung infiltrate. Yohannes Green Jr., MD CT Angiography 03/14/17 0000 Signed Impressions: Service Date/Time: February 05:15 - CONCLUSION: Bilateral pleural effusions and bibasilar consolidation with probable superimposed slight pulmonary edema as well. Cathi Martinez MD Chest x-ray portable done on 03/16 was personally reviewed: ET tube above chang , bilateral infiltrates more on the right, bilateral pleural effusions, NG tube in place Last 48 hours Impressions Chest X-Ray 03/16/17 0600 Signed Impressions: Service Date/Time: Thursday, March 16, 2017 03:28 - CONCLUSION: Patchy bilateral consolidation and small to moderate right pleural effusion not significantly changed. Mild cardiomegaly. Rufino Chow MD Last Impressions Chest X-Ray 03/11/17 1807 Signed Impressions: Service Date/Time: Saturday, March 11, 2017 18:39 - CONCLUSION: 1. Chronic cardiac silhouette enlargement. 2. New bilateral lower hemithorax opacity right greater than left likely representing right lower lobe atelectasis versus consolidation, right pleural effusion, and possible small left pleural effusion. Juan Dempsey MD Objective Remarks Gen-This is a morbidly obese female intubated and sedated HEENT/ Neuro: Sedated, arousable, following commands, orally intubated, Pallor present, no icterus, tongue/ mucosa moist Neck: No JVD Chest/Pulm: on mech vent, good air entry bilaterally, no wheezing or crackles. Clear to auscultation bilaterally. CVS: S1-S2 regular rate, no murmur. Telemetry atrial fibrillation rate controlled GI/abdomen: soft, nontender, bowel sounds sluggish Extremities: warm bilaterally, bilateral edema 3 + Neuro: RASS -2. Off sedation patient's following commands A/P Assessment and Plan Assessment: 76yF with history of CHF with preserved EF who presents with SOB and fever and acute hypoxic respiratory failure. Differential includes pneumonia vs. CHF exacerbation, diastolic type. Without evidence of PE. Intubated and placed on mechanical ventilation for borderline respiration status and inability to take off BiPAP for PO intake. Neuro: - Precedex initiated. Wean off -Avoid long-acting sedative type medications - Neurochecks per ICU protocol CHF Exacerbation, diastolic type Pulmonary hypertension -Status post diuresis - Continue sildenafil 20 mg/day for pulmonary hypertension on 03/17/17 - Cardiology: Dr. Moreno evaluated patient - Ordered CT Angio pulmonary - F/U results Acute hypoxic respiratory failure Pulmonary edema -Intubated and placed on mechanical ventilation on 03/16. Extubated 03/23/17 - Reintubated 03/24/17 -Ventilator bundle - Lasix 40 mg twice a day - abx - nebs prn - hob at 30 degrees - Senna spirometry every 4 hours while awake Possible community acquired pneumonia Bilateral pleural effusions - broad spectrum abx given severity of symptoms. vanc and zosyn105/13-03/21. sputum for Gram stain and cultures following intubation. - CT-guided thoracentesis cancel secondary to inadequate pleural fluid for drainage. Coumadin resumed -03/11 Blood culture- Anaerobic gram-positive cocci -03/18 Urine culture- yeast Acute kidney injury UTI -Off diuretics. Holding losartan starting 03/17 in view of rising creatinine. May require fluids. Repeat UA and urine culture as indicated - strict I & O's - trend Cr on daily BMP -03/21 begin Diflucan x 14 days Atrial fibrillation - CHADS score > 2. Lovenox/Coumadin for anticoagulation.Small amt of fluid not quantifiable for thoracentesis. Will resume Coumadin - currently rate controlled. -Repeat INR GI/liver: -Bedside swallow-allow ice chips -Advance diet- 1800 kamar ADA PT evaluation and treat SCDs, SQH Pepcid for GI prophylaxis On 03/16 discussed at length with multiple family members today prior to intubation including reviewing CAT scan images.. Explained that patient is chronically on BiPAP and inability to take off BiPAP to feed or insert NG tube. Discussed option of proceeding with intubation and place on mechanical ventilation in order to be able to place the OG tube to meet nutritional requirements. Family in agreement. Discussed with Dr. Radford who is agreeable with the plan as well. 03/17: Discussed with family members at bedside regarding current clinical status and plan of care and they voiced understanding and were agreeable. 03/25: Discussed with son Mina at bedside providing him with medical status update. Contacted patient's daughter, Kimberley providing her with update regarding pulmonary edema, diuresis, CT angiogram pulmonary pending, and patient 's neuro status off sedation following commands. Discussed with her VDRF and the possibility of tracheostomy and PEG placement, if unable to wean off the ventilator. Daughter stated an understanding, all questions answered. Discussed with TUCK POINTER HELPER at bedside. Dispo: my billing statement This patient remains critically ill with one or more organ systems which are or may become a threat to life. I have spent in excess of 30 minutes discontinuously in the care and management of this patient. This time is exclusive of procedures, and includes, but is not limited to, evaluation of the patient, review of the medical record, discussions with family, consultants, nursing staff, or respiratory therapy, and documentation in the medical record. Physician Nadiya Vazquez MD Mar 25, 2017 13:02
--- NOTE | 2017-03-25 13:43 | RADRPT ---
EXAM DATE/TIME: 03/25/2017 12:40 [facility] COMPARISON: CHEST SINGLE AP, March 24, 2017, 3:08. INDICATIONS : Shortness of breath. MEDICAL HISTORY : Cerebrovascular disease. SURGICAL HISTORY : None. ENCOUNTER: Initial ACUITY: 1 week PAIN SCORE: Non-responsive. LOCATION: Bilateral chest FINDINGS: There is a stable ETT. Interval placement of NGT which courses beyond the GE junction. Redemonstratio n of bilateral lower lung zone pleural-parenchymal opacities, right greater left. Cardiac silhouette is enlarged. Remainder of exam is unchanged. CONCLUSION: 1. Stable ETT. NGT courses beyond the GE junction with tip omitted from the image. 2. Stable positive fluid balance. 3. Stable bilateral lower lung zone pleural-parenchymal disease, right > left. Max Stratton MD on March 25, 2017 at 13:32 Board Certified Radiologist. This report was verified electronically.
[2017-03-25] MEDS ORDERED: IOHEXOL 350 MG/ML 10 ML VIAL (for RAD DIAG) IVCONTRAST ONE (13:58)
--- NOTE | 2017-03-25 14:09 | RADRPT ---
EXAM DATE/TIME: 03/25/2017 13:29 [facility] COMPARISON: CT PULMONARY ANGIOGRAM, March 14, 2017, 5:15. INDICATIONS : Pulmonary hypertension,hyoxic,respiratory failure IV CONTRAST: 60 cc Omnipaque 350 (iohexol) IV RADIATION DOSE: 6.34 CTDIvol (mGy) MEDICAL HISTORY : Cerebrovascular disease. Cardiovascular disease Hypertension.Diabetes SURGICAL HISTORY : Orthopedic ENCOUNTER: Initial ACUITY: 1 day PAIN SCALE: Non-responsive LOCATION: chest TECHNIQUE: Volumetric scanning of the chest was performed using a pulmonary embolism protocol MIP images were re constructed. Using automated exposure control and adjustment of the mA and/or kV according to patien t size, radiation dose was kept as low as reasonably achievable to obtain optimal diagnostic quality images. DICOM format image data is available electronically for review and comparison. Follow-up recommendations for detected pulmonary nodules are based at a minimum on nodule size and pa tient risk factors according to Fleischner Society Guidelines. FINDINGS: There is no central pulmonary emboli. There is cardiomegaly with moderate interstitial edema,. Ther e are consolidative changes in both base is worse on the right than the left. As the small right ple ural effusion. There is trace left pleural effusion. There is no axillary or mediastinal adenopathy . Upper abdominal contents are unremarkable. CONCLUSION: Negative for central pulmonary emboli Cardiomegaly with moderate congestive failure, consolidation in both base with small right pleural ef fusion. Satnam Ibarra MD FACR on March 25, 2017 at 14:03 Board Certified Radiologist. This report was verified electronically.
[2017-03-25] MEDS: DEXMEDETOMIDINE INJ 200 MCG in SODIUM CHLORIDE 0.9% INJ 50 ML IV PRN ×2 (14:44→19:11)
[2017-03-25] MEDS: FLUCONAZOLE 200 MG PREMIX BAG 100 ML IV SCH (14:45)
[2017-03-25] MEDS: WARFARIN SOD 5 MG TAB PO SCH (16:30)
--- NOTE | 2017-03-25 19:55 | HHI.PR ---
Subjective Remarks 76 YOWF with resp insuff, on VM Gets anxious CTA no PE, has pl eff Weekend events noted Was extubated, reintubated within 24 hrs Tolerates TF Sedated with Precedex CTA No PE Objective Vital Signs Vital Signs Date Time Temp Pulse Resp B/P (MAP) Pulse Ox O2 Delivery O2 Flow Rate FiO2 03/25/17 18:00 71 03/25/17 17:10 96 35 03/25/17 17:10 35 03/25/17 17:00 35 03/25/17 16:22 98 35 03/25/17 16:00 68 03/25/17 16:00 100.1 68 20 149/67 (94) 99 03/25/17 14:00 75 03/25/17 13:35 100 100 03/25/17 12:36 97 35 03/25/17 12:00 68 03/25/17 12:00 99.8 68 22 98/49 (65) 99 03/25/17 10:00 63 03/25/17 08:00 59 03/25/17 08:00 35 03/25/17 08:00 99.9 59 15 125/60 (81) 99 03/25/17 07:53 98 35 03/25/17 06:00 66 03/25/17 04:14 98 35 03/25/17 04:00 35 03/25/17 04:00 100.6 77 32 136/65 (88) 98 03/25/17 04:00 77 03/25/17 02:00 74 03/25/17 01:18 100 35 03/25/17 00:00 98.0 74 36 137/68 (91) 100 03/25/17 00:00 74 03/25/17 00:00 35 03/24/17 22:00 66 03/24/17 20:00 66 03/24/17 20:00 98.2 66 14 144/68 (93) 100 03/24/17 20:00 35 I/O 03/24/17 03/24/17 03/24/17 03/25/17 03/25/17 03/25/17 07:00 15:00 23:00 07:00 15:00 23:00 Intake Total 374 ml 124 ml 472.7 ml 530 ml 563 ml Output Total 550 ml 655 ml 2550 ml 1600 ml Balance -176 ml 124 ml -182.3 ml -2020 ml -1037 ml IV Total 374 ml 124 ml 272.7 ml 289 ml 100 ml Tube Feeding 241 ml 363 ml Tube Irrigant 200 ml Other 100 ml Output Urine Total 550 ml 425 ml 2550 ml 1600 ml Emesis 230 ml # Bowel Movements 1 1 0 4 Result Diagram: 03/25/1744503/25/17445 Objective Remarks GENERAL: Obese WF, sob, anxious SKIN: Warm and dry. HEAD: Normocephalic. EYES: No scleral icterus. No injection or drainage. NECK: Supple, trachea midline. No JVD or lymphadenopathy. CARDIOVASCULAR: Regular rate and rhythm without murmurs, gallops, or rubs. RESPIRATORY: Breath sounds equal bilaterally. No accessory muscle use. GASTROINTESTINAL: Abdomen soft, non-tender, nondistended. MUSCULOSKELETAL: No cyanosis, ++ edema. BACK: Nontender without obvious deformity. No CVA tenderness. A/P Assessment and Plan VDRF No PE Pleural effusion CHF AF PLAN: Vent support Diurease Cont Abx IV Solumedrol.Increase 40 mg q 6 hrs monitor BS Precedex for sedation Daily CPAP trial Landon Tony MD Mar 25, 2017 19:55
[2017-03-26] VITALS (18 sets, daily range): BP systolic 129–146; BP diastolic 63–71; PULSE 60–86; RESP 15–20; TEMP 98.8–99.7; O2SAT 94–100
[2017-03-26] MEDS: CHLORHEXIDINE GLUCONATE 2 % 1 PACK (2 CLOTHS) TOP SCH (03:12)
[2017-03-26] MEDS: methylPREDNISolone SOD SUCC 40 MG/1 ML VIAL IV PUSH SCH ×4 (03:12→20:41)
[2017-03-26] MEDS: CHLORHEXIDINE GLUCONATE 2 % 1 PACK (2 CLOTHS)(taper/protocol) TOPICAL SCH (03:13)
[2017-03-26] MEDS: DEXMEDETOMIDINE INJ 200 MCG in SODIUM CHLORIDE 0.9% INJ 50 ML IV PRN ×4 (03:26→22:52)
[2017-03-26] MEDS: RESP: ALBUTEROL 2.5 MG/IPRATROPIUM 0.5 MG NEB (SCH) INH ×4 (03:35→20:14)
--- NOTE | 2017-03-26 05:25 | RADRPT ---
EXAM DATE/TIME: 03/26/2017 04:25 [facility] COMPARISON: CHEST SINGLE AP, March 25, 2017, 12:40. INDICATIONS : Shortness of breath. MEDICAL HISTORY : Cerebrovascular disease. SURGICAL HISTORY : None. ENCOUNTER: Subsequent ACUITY: 1 week PAIN SCORE: 0/10 LOCATION: Bilateral chest FINDINGS: The cardiac silhouette is enlarged in transverse diameter. There are findings of congestive heart aureliano lure with interstitial and alveolar opacity bilaterally. Moderate size bilateral pleural effusions ar e identified. CONCLUSION: 1. Cardiomegaly and findings of congestive heart failure. The findings are similar to the prior exam. Camden Lakhani MD on March 26, 2017 at 5:24 Board Certified Radiologist. This report was verified electronically.
[2017-03-26] MEDS: LEVOTHYROXINE SODIUM 100 MCG TAB PO SCH (05:46)
[2017-03-26] MEDS: GEMFIBROZIL 600 MG TAB PO SCH ×2 (05:46→17:13)
[2017-03-26 07:42] LABS: HEMATOCRIT 36.1 % (35.0-46.0); MEAN CELL VOLUME 88.3 FL (80.0-100.0); MEAN CORPUSCULAR HEMOGLOBIN 29.4 PG (27.0-34.0); MEAN CORPUSCULAR HGB CONC 33.3 % (32.0-36.0); MEAN PLATELET VOLUME 8.7 FL (7.0-11.0); PLATELET COUNT 204 TH/MM3 (150-450); RED BLOOD COUNT 4.09 MIL/MM3 (4.00-5.30); RED CELL DISTRIBUTION WIDTH 16.1 % (11.6-17.2); WHITE BLOOD COUNT 8.6 TH/MM3 (4.0-11.0)
[2017-03-26 07:46] LABS: INTERNATIONAL NORMALIZED RATIO 3.6 RATIO; PROTHROMBIN TIME - PATIENT 36.2 SEC (9.8-11.6)
--- NOTE | 2017-03-26 07:52 | PD.CARD.PN ---
Subjective Subjective Remarks Asked to review chart. Remains on vent. CXR shows no evidence of CHF. A fib rate controlled. On warfarin Objective Medications Current Medications Medications (Trade) Dose Ordered Sig/Diann Route Start Time Stop Time Status Last Admin Potassium Chloride 100 ml @ 50 mls/hr Q2H PRN IV 03/11/17 20:00 Potassium Chloride 100 ml @ 50 mls/hr Q2H PRN IV 03/11/17 20:00 (K-Lyte Cl Eff) 50 meq UNSCH PRN PO 03/11/17 20:00 Potassium Chloride 100 ml @ 25 mls/hr UNSCH PRN IV 03/11/17 20:00 Potassium Chloride 100 ml @ 50 mls/hr Q2H PRN IV 03/11/17 20:00 Magnesium Sulfate 4 gm/Sodium Chloride 100 ml @ 50 mls/hr UNSCH PRN IV 03/11/17 20:00 (Mag-Ox) 800 mg UNSCH PRN PO 03/11/17 20:00 Magnesium Sulfate 2 gm/Sodium Chloride 100 ml @ 50 mls/hr UNSCH PRN IV 03/11/17 20:00 (K-Phos) 2,000 mg Q4H PRN PO 03/11/17 20:00 Sodium Phosphate 30 mmol/Sodium Chloride 250 ml @ 42 mls/hr UNSCH PRN IV 03/11/17 20:00 (K-Phos) 2,000 mg UNSCH PRN PO/TUBE 03/11/17 20:00 Potassium Phosphate 30 mmol/ Sodium Chloride 260 ml @ 42 mls/hr UNSCH PRN IV 03/11/17 20:00 (Duoneb Neb) 1 ampule Q2HR NEB PRN INH 03/11/17 20:00 03/24/17 07:35 (Zofran Inj) 4 mg Q6H PRN IV PUSH 03/11/17 20:00 Miscellaneous Information 1 Q361D XX 03/11/17 20:00 03/11/17 20:00 (Chlorhexidine 2% Cloth) Taper DAILY@04 TOP 03/12/17 04:00 03/08/18 03:59 03/25/17 03:23 (Chlorhexidine 2% Cloth) 3 pack UNSCH PRN TOP 03/11/17 20:00 (Elda-Colace) 1 tab BID PO 03/11/17 21:00 03/25/17 10:17 (Milk Of Magnesia Liq) 30 ml Q12H PRN PO 03/11/17 20:00 (Trandate Inj) 20 mg Q2H PRN IVS 03/12/17 08:00 03/13/17 15:08 (Vitamin D3) 1,000 units DAILY PO 03/13/17 09:00 03/25/17 10:17 (Lopid) 600 mg BIDAC PO 03/13/17 07:00 03/26/17 05:46 (Amaryl) 1 mg BID PO 03/12/17 21:00 Future Hold 03/25/17 10:17 (Synthroid) 100 mcg DAILY@0600 PO 03/13/17 06:00 03/26/17 05:46 (Cozaar) 50 mg BID PO 03/12/17 21:00 Future Hold 03/17/17 08:28 (Lopressor) 50 mg BID PO 03/12/17 21:00 03/25/17 10:17 (Lipitor) 20 mg MoWeFr@0900 PO 03/13/17 09:00 03/25/17 10:17 (Tylenol) 650 mg Q6H PRN PO 03/13/17 11:15 03/22/17 04:47 (NovoLOG SUPPLEMENTAL SCALE) 1 ACHS SLIDING SCALE SQ 03/13/17 12:00 03/25/17 20:40 (D50w (Vial) Inj) 25 ml UNSCH PRN IV 03/13/17 11:30 (Glucagon Inj) 1 mg UNSCH PRN IM/SQ 03/13/17 11:30 (Apresoline Inj) 20 mg Q2H PRN IV 03/13/17 17:15 03/23/17 04:37 (Ativan Inj) 1 mg Q8H PRN IV PUSH 03/15/17 08:45 03/23/17 21:22 (Procardia Xl) 30 mg BID PO 03/16/17 09:30 03/25/17 20:31 (Pulmicort Respule Neb) 0.5 mg Q12HR NEB NEB 03/16/17 09:45 03/25/17 21:04 (Peridex 0.12% Liq) 15 ml BID@08,20 MT 03/16/17 20:00 03/25/17 20:30 Fluconazole/ Sodium Chloride 100 ml @ 100 mls/hr Q24H IV 03/21/17 13:00 04/04/17 12:59 03/25/17 14:45 (Coumadin) 5 mg DAILY@1600 PO 03/21/17 16:00 03/25/17 16:30 (KCl Powder) 20 meq DAILY PO 03/22/17 09:00 03/24/17 09:25 (Pepcid) 10 mg BID OG-TUBE 03/22/17 21:00 03/25/17 20:31 (Pill Splitter) 1 ea UNSCH PRN OTHER 03/22/17 15:45 (Revatio) 20 mg DAILY PO 03/24/17 09:00 03/25/17 10:17 Propofol 100 ml @ 4.314 mls/ hr TITRATE PRN IV 03/24/17 03:00 03/25/17 10:46 Miscellaneous Information Patient in critical care unit? Ass... Q361D .XX 03/24/17 05:30 (Chlorhexidine 2% Cloth) 3 pack DAILY@04 TOPICAL 03/25/17 04:00 03/29/17 04:01 03/25/17 03:22 (Chlorhexidine 2% Cloth) 3 pack UNSCH PRN TOPICAL 03/24/17 05:30 03/29/17 05:26 (Lasix Inj) 40 mg BID IV PUSH 03/24/17 21:00 Future hold 03/25/17 10:18 Dexmedetomidine HCl 200 mcg/ Sodium Chloride 52 ml @ 7.27 mls/hr TITRATE PRN IV 03/25/17 12:45 03/26/17 03:26 (Duoneb Neb) 1 ampule Q6HR NEB INH 03/25/17 16:00 03/26/17 03:35 (SoluMEDROL INJ) 40 mg Q6H IV PUSH 03/25/17 21:00 03/26/17 03:12 Vital Signs / I&O Vital Signs Date Time Temp Pulse Resp B/P (MAP) Pulse Ox O2 Delivery O2 Flow Rate FiO2 03/26/17 06:00 76 03/26/17 04:00 99.7 65 17 132/63 (86) 99 03/26/17 04:00 65 03/26/17 04:00 35 03/26/17 03:34 100 35 03/26/17 02:00 60 03/26/17 00:12 99 35 03/26/17 00:00 35 03/26/17 00:00 98.8 62 19 135/64 (87) 100 03/26/17 00:00 62 03/25/17 22:00 62 03/25/17 21:05 100 35 03/25/17 20:00 99.0 61 17 151/68 (95) 100 03/25/17 20:00 61 03/25/17 20:00 35 03/25/17 18:00 71 03/25/17 17:10 96 35 03/25/17 17:10 35 03/25/17 17:00 35 03/25/17 16:22 98 35 03/25/17 16:00 68 03/25/17 16:00 100.1 68 20 149/67 (94) 99 03/25/17 14:00 75 03/25/17 13:35 100 100 03/25/17 12:36 97 35 03/25/17 12:00 68 03/25/17 12:00 99.8 68 22 98/49 (65) 99 03/25/17 10:00 63 03/25/17 08:00 59 03/25/17 08:00 35 03/25/17 08:00 99.9 59 15 125/60 (81) 99 03/25/17 07:53 98 35 I/O 03/25/17 03/25/17 03/25/17 03/26/17 03/26/17 03/26/17 07:00 15:00 23:00 07:00 15:00 23:00 Intake Total 530 ml 563 ml 737 ml Output Total 2550 ml 1600 ml 800 ml Balance -2020 ml -1037 ml -63 ml IV Total 289 ml 100 ml 69 ml Tube Feeding 241 ml 363 ml 568 ml Other 100 ml 100 ml Output Urine Total 2550 ml 1600 ml 800 ml # Bowel Movements 0 4 0 Physical Exam Lungs grossly clear Irregular. Rate 70-80 Laboratory Laboratory Tests Test 03/26/17 06:14 03/26/17 07:01 Blood Gas Puncture Site RT RADIAL Blood Gas Patient Temperature 98.6 Blood Gas HCO3 27 mmol/L Blood Gas Base Excess 2.7 mmol/L Blood Gas Oxygen Saturation 94 % Arterial Blood pH 7.44 Arterial Blood Partial Pressure CO2 40 mmHg Arterial Blood Partial Pressure O2 81 mmHg Arterial Blood Oxygen Content 16.0 Vol % Arterial Blood Carboxyhemoglobin 1.1 % Arterial Blood Methemoglobin 1.2 % Blood Gas Hemoglobin 12.1 G/DL Oxygen Delivery Device VENTILATOR Blood Gas Ventilator Setting Blood Gas Inspired Oxygen 35 % White Blood Count 8.6 TH/MM3 Red Blood Count 4.09 MIL/MM3 Hemoglobin 12.0 GM/DL Hematocrit 36.1 % Mean Corpuscular Volume 88.3 FL Mean Corpuscular Hemoglobin 29.4 PG Mean Corpuscular Hemoglobin Concent 33.3 % Red Cell Distribution Width 16.1 % Platelet Count 204 TH/MM3 Mean Platelet Volume 8.7 FL Prothrombin Time 36.2 SEC Prothromb Time International Ratio 3.6 RATIO Imaging Last 24 hours Impressions Chest X-Ray 03/26/17 0600 Signed Impressions: Service Date/Time: Sunday, March 26, 2017 04:25 - CONCLUSION: 1. Cardiomegaly and findings of congestive heart failure. The findings are similar to the prior exam. Camden Lakhani MD Assessment and Plan Assessment and Plan Stable from CV standpoint. Respiratory failure non-cardiac. Continue present care plan Camden Moreno MD Mar 26, 2017 07:52
[2017-03-26] MEDS: INSULIN ASPART SUPPLEMENTAL SCALE SQ SCH ×4 (08:00→21:32)
[2017-03-26] MEDS: CHLORHEXIDINE 0.12% (ORAL KIT) 15 ML CUP MT SCH ×2 (08:02→20:40)
[2017-03-26] MEDS: DOCUSATE SODIUM 50 MG/SENNA 8.6 MG TAB PO SCH ×2 (08:03→20:41)
[2017-03-26] MEDS: SILDENAFIL CITRATE 20 MG TAB PO SCH (08:03)
[2017-03-26] MEDS: NIFEdipine 30 MG SUSTAINED RELEASE TAB PO SCH ×2 (08:03→20:41)
[2017-03-26] MEDS: FAMOTIDINE 20 MG TAB OG-TUBE SCH ×2 (08:03→20:41)
[2017-03-26] MEDS: CHOLECALCIFEROL (VIT D3) 1000 UNIT TAB PO SCH (08:03)
[2017-03-26] MEDS: METOPROLOL TARTRATE 50 MG TAB PO SCH ×2 (08:03→20:41)
[2017-03-26] MEDS: RESP: BUDESONIDE 0.5 MG/2 ML NEB NEB SCH ×2 (08:04→20:14)
[2017-03-26 08:12] LABS: BICARBONATE 26.6 MEQ/L (21.0-32.0); CALCIUM 8.3 MG/DL (8.5-10.1); CREATININE 1.19 MG/DL (0.50-1.00)
[2017-03-26] MEDS: FUROSEMIDE 40 MG/4 ML VIAL IV PUSH SCH ×2 (08:31→20:41)
[2017-03-26] MEDS: POTASSIUM CHLORIDE 20 MEQ PWD PACKET PO SCH (08:31)
--- NOTE | 2017-03-26 12:37 | PD.CONS ---
Consult Service Palliative Care . Consult Requested By Dr. Jaffe . Primary Care Physician Jesus Loo MD, PhD . Reason for Consultation a. To assist with evaluation and management of symptoms including: dyspnea, pain. b. To assist medical decision maker(s) with: better understanding of current medical conditions; weighing benefits/burdens of medical treatment options; making medical treatment decisions. . HPI History of Present Illness Ms. Aviles is a 76 year old female with past medical history of hypertension, CHF (no workup or evaluation in the past year), hypothyroidism, atrial fibrillation on warfarin, sleep apnea uses CPAP at night, diabetes and prior CVA. Patient presented to [facility] via [facility] on 03/11/17 with worsening shortness of breath over the 3 weeks prior to presentation. She attempted to use CPAP (was using intermittently day and night) with no improvement. The shortness of breath became increasingly worse and she called 911. Patient denies any chest pain or other symptoms. She reported a nonproductive cough over the last 2-3 days and some chills although denies fever. She reported some orthopnea. Upon arrival to the emergency department she was tachypneic, hypoxic and placed on BiPAP. She was given Lasix 80mg with adequate UOP. Additional findings: * VS: T 100.5, HR 82, RR 33, BP 177/101 * WBC 9.4, Hemoglobin 12.6, hematocrit 37.8, platelets 220, neutrophils 84.7 * PT 14, INR 1.4, PTT 24.7 * BUN 18, creatinine 1.14, glucose 143, sodium 137, potassium 4.3, chloride 103 , GFR 46 * total protein 8.9, albumin 3.4 * Lactic acid 1.0 * total bilirubin 0.6, AST 22, ALT 16 * troponin less than 0.02 * BNP 238 * urinalysis negative. * chest xray - chronic cardiac silhouette enlargement, new bilateral lower hemithorax opacity right> left, representing RLL atelectasis vs consolidation, right pleural effusion and possible small left pleural effusion. * Blood cultures later resulted with gram positive cocci in anaerobic bottle. Pulmonology, Dr. Tony was consulted with recommendation to continue medical management and CTA to rule of PE. 03/14/17 CTA bilateral pleural effusions and bibasilar consolidation with probable superimposed slight pulmonary edema. Cardiology, Dr. Morneo was consulted notes indicate dyspnea of uncertain etiology, non cardiac related. 03/16/17 - Echo EF 45-50%. 03/20 and 03/24 urine cultures + monster glabrata. Patient underwent CT evaluation for pleural effusions minimal, no thoracentesis performed. Patient was medically extubated on 03/23/17, however became hypoxic and cyanotic requiring emergent reintubation. Repeat CTA to rule out PE in the setting of pulmonary hypertension. 03/25/16 repeat CTA negative for pulmonary emboli, cardiomegaly with moderate congestive heart failure, consolidation in both bases with small right pleural effusion. [facility] Continues to tolerate CPAP trials. On sedation vacation patient is alert and following commands. Palliative care was consulted to assist family with possible upcoming trach/PEG decisions and decision regarding reintubation if able to be medically extubated in the coming days. . Function/Cognitive Trajectory Patient has had declining health in the months prior to admission. She was having more SOB. Sleeping more. Unable to perform ADLs without assistance. Unable to take out her own trash or do her own shopping recently. . Review of Systems ROS Limitations: Intubated Constitutional: COMPLAINS OF: Fatigue, Generalized weakness Eyes: COMPLAINS OF: Blurred vision (wears glasses) Respiratory: COMPLAINS OF: Apneas, Cough, Shortness of breath Cardiovascular: COMPLAINS OF: Dyspnea on Exertion, Lower Extremity Edema, Orthopnea Musculoskeletal: COMPLAINS OF: Back pain Hematologic/Lymphatics: COMPLAINS OF: Bruising Psychiatric: COMPLAINS OF: Anxiety (secondary to SOB) Other ROS: ROS per family report and EMR review, pt on vent. Past Family Social History Coded Allergies: bacitracin (Verified Allergy, Severe, Rash, 03/11/17) gramicidin D (Verified Allergy, Severe, Rash, 03/11/17) neomycin (Verified Allergy, Severe, Rash, 03/11/17) polymyxin B (Verified Allergy, Severe, Rash, 03/11/17) acetaminophen (Verified Adverse Reaction, Unknown, Hallucinations, ) hydrocodone (Verified Adverse Reaction, Unknown, Hallucinations, 03/11/17) Past Medical History Diastolic congestive heart failure with a prior EF of 60%, but the study was multiple years ago. Obstructive sleep apnea on CPAP at home Diabetes Type II Prior CVA without residual deficits Hypertension Atrial fibrillation on warfarin Prior CVA Hypothyroidism . Past Surgical History Bilateral total knee arthroplasties Cervical fusion . Reported Medications Reported Meds & Active Scripts Active Reported Vitamin D-1000 (Cholecalciferol) 1,000 Unit Tab 1,000 Units PO DAILY Jantoven (Warfarin) 5 Mg Tab 5 Mg PO DAILY Losartan (Losartan Potassium) 50 Mg Tab 50 Mg PO BID Metformin (Metformin HCl) 1,000 Mg Tab 1,000 Mg PO BIDPC Crestor (Rosuvastatin Calcium) 10 Mg Tab 10 Mg PO MON, WED, FRID Glimepiride 1 Mg Tab 1 Mg PO BID Take with breakfast or first main meal Glimepiride 1 Mg Tab 1 Mg PO DAILY Take with breakfast or first main meal Levothyroxine (Levothyroxine Sodium) 100 Mcg Tab 100 Mcg PO DAILY K-Tab (Potassium Chloride) 20 Meq Tab 20 Meq PO DAILY Furosemide 40 Mg Tab 40 Mg PO BID Gemfibrozil 600 Mg Tab 600 Mg PO BIDAC Take 30 minutes prior to breakfast and dinner. Metoprolol Tartrate 50 Mg Tab 50 Mg PO BID . Current Medications Medications (Trade) Dose Ordered Sig/Diann Route Start Time Stop Time Status Last Admin Potassium Chloride 100 ml @ 50 mls/hr Q2H PRN IV 03/11/17 20:00 Potassium Chloride 100 ml @ 50 mls/hr Q2H PRN IV 03/11/17 20:00 (K-Lyte Cl Eff) 50 meq UNSCH PRN PO 03/11/17 20:00 Potassium Chloride 100 ml @ 25 mls/hr UNSCH PRN IV 03/11/17 20:00 Potassium Chloride 100 ml @ 50 mls/hr Q2H PRN IV 03/11/17 20:00 Magnesium Sulfate 4 gm/Sodium Chloride 100 ml @ 50 mls/hr UNSCH PRN IV 03/11/17 20:00 (Mag-Ox) 800 mg UNSCH PRN PO 03/11/17 20:00 Magnesium Sulfate 2 gm/Sodium Chloride 100 ml @ 50 mls/hr UNSCH PRN IV 03/11/17 20:00 (K-Phos) 2,000 mg Q4H PRN PO 03/11/17 20:00 Sodium Phosphate 30 mmol/Sodium Chloride 250 ml @ 42 mls/hr UNSCH PRN IV 03/11/17 20:00 (K-Phos) 2,000 mg UNSCH PRN PO/TUBE 03/11/17 20:00 Potassium Phosphate 30 mmol/ Sodium Chloride 260 ml @ 42 mls/hr UNSCH PRN IV 03/11/17 20:00 (Duoneb Neb) 1 ampule Q2HR NEB PRN INH 03/11/17 20:00 03/24/17 07:35 (Zofran Inj) 4 mg Q6H PRN IV PUSH 03/11/17 20:00 Miscellaneous Information 1 Q361D XX 03/11/17 20:00 03/11/17 20:00 (Chlorhexidine 2% Cloth) Taper DAILY@04 TOP 03/12/17 04:00 03/08/18 03:59 03/25/17 03:23 (Chlorhexidine 2% Cloth) 3 pack UNSCH PRN TOP 03/11/17 20:00 (Elda-Colace) 1 tab BID PO 03/11/17 21:00 03/25/17 10:17 (Milk Of Magnesia Liq) 30 ml Q12H PRN PO 03/11/17 20:00 (Trandate Inj) 20 mg Q2H PRN IVS 03/12/17 08:00 03/13/17 15:08 (Vitamin D3) 1,000 units DAILY PO 03/13/17 09:00 03/26/17 08:03 (Lopid) 600 mg BIDAC PO 03/13/17 07:00 03/26/17 05:46 (Amaryl) 1 mg BID PO 03/12/17 21:00 Future Hold 03/25/17 10:17 (Synthroid) 100 mcg DAILY@0600 PO 03/13/17 06:00 03/26/17 05:46 (Cozaar) 50 mg BID PO 03/12/17 21:00 Future Hold 03/17/17 08:28 (Lopressor) 50 mg BID PO 03/12/17 21:00 03/26/17 08:03 (Lipitor) 20 mg MoWeFr@0900 PO 03/13/17 09:00 03/25/17 10:17 (Tylenol) 650 mg Q6H PRN PO 03/13/17 11:15 03/22/17 04:47 (NovoLOG SUPPLEMENTAL SCALE) 1 ACHS SLIDING SCALE SQ 03/13/17 12:00 03/26/17 08:00 (D50w (Vial) Inj) 25 ml UNSCH PRN IV 03/13/17 11:30 (Glucagon Inj) 1 mg UNSCH PRN IM/SQ 03/13/17 11:30 (Apresoline Inj) 20 mg Q2H PRN IV 03/13/17 17:15 03/23/17 04:37 (Ativan Inj) 1 mg Q8H PRN IV PUSH 03/15/17 08:45 03/23/17 21:22 (Procardia Xl) 30 mg BID PO 03/16/17 09:30 03/26/17 08:03 (Pulmicort Respule Neb) 0.5 mg Q12HR NEB NEB 03/16/17 09:45 03/26/17 08:04 (Peridex 0.12% Liq) 15 ml BID@08,20 MT 03/16/17 20:00 03/26/17 08:02 Fluconazole/ Sodium Chloride 100 ml @ 100 mls/hr Q24H IV 03/21/17 13:00 04/04/17 12:59 03/25/17 14:45 (Coumadin) 5 mg DAILY@1600 PO 03/21/17 16:00 03/25/17 16:30 (KCl Powder) 20 meq DAILY PO 03/22/17 09:00 03/24/17 09:25 (Pepcid) 10 mg BID OG-TUBE 03/22/17 21:00 03/26/17 08:03 (Pill Splitter) 1 ea UNSCH PRN OTHER 03/22/17 15:45 (Revatio) 20 mg DAILY PO 03/24/17 09:00 03/26/17 08:03 Propofol 100 ml @ 4.314 mls/ hr TITRATE PRN IV 03/24/17 03:00 03/25/17 10:46 Miscellaneous Information Patient in critical care unit? Ass... Q361D .XX 03/24/17 05:30 (Chlorhexidine 2% Cloth) 3 pack DAILY@04 TOPICAL 03/25/17 04:00 03/29/17 04:01 03/25/17 03:22 (Chlorhexidine 2% Cloth) 3 pack UNSCH PRN TOPICAL 03/24/17 05:30 03/29/17 05:26 (Lasix Inj) 40 mg BID IV PUSH 03/24/17 21:00 Future hold 03/26/17 08:31 Dexmedetomidine HCl 200 mcg/ Sodium Chloride 52 ml @ 7.27 mls/hr TITRATE PRN IV 03/25/17 12:45 03/26/17 03:26 (Duoneb Neb) 1 ampule Q6HR NEB INH 03/25/17 16:00 03/26/17 08:04 (SoluMEDROL INJ) 40 mg Q6H IV PUSH 03/25/17 21:00 03/26/17 08:03 Family History Mother of MS. 6 living children. . Substance Use Tobacco: Never smoked. Alcohol: None. Prescription med abuse:None. Illicits:None. . Psychosocial History . 6 adult children all live out of state. Moved from [place] to [place] 20 years ago. . Spiritual/Cultural Factors Confucianist magdalena. . Health Care Surrogate: Copy in medical record Date completed: 02/25/09 . Health Care Surrogate(s): Patient is incapacitated to make her own health care decisions, uncertain if she will regain capacity. Completed designation of health care proxy in [place] on 02/25/09 naming Sierra Adair as primary health care agent and Randi Beebe as alternate. . Documented care wishes: No Living Will. . Today's verbally stated goals: Patient is incapacitated to make her own health care decisions, uncertain if she will regain capacity. . Family/friends goals: Conference call/ family meeting with 5 of 6 available children (1 daughter in prison). Family has decided they would want reintubation if able to be medically extubated and trach and PEG when indicated. DaughterSierra remains hopeful patient will be able to participate in decision making if medically extubated as family has never had these conversations with patient. . Ethical and Legal Issues Patient is incapacitated to make her own health care decisions, uncertain if she will regain capacity. Completed designation of health care proxy in [place] on 02/25/09 naming Sierra Adair as primary health care agent and Randi Beebe as alternate. . Physical Exam Vital Signs Date Time Temp Pulse Resp B/P (MAP) Pulse Ox O2 Delivery O2 Flow Rate FiO2 03/26/17 11:26 96 35 03/26/17 10:00 70 03/26/17 08:04 100 35 03/26/17 08:00 99.3 71 18 146/68 (94) 99 03/26/17 08:00 71 03/26/17 08:00 35 03/26/17 06:00 76 03/26/17 04:00 99.7 65 17 132/63 (86) 99 03/26/17 04:00 65 03/26/17 04:00 35 03/26/17 03:34 100 35 03/26/17 02:00 60 03/26/17 00:12 99 35 03/26/17 00:00 35 03/26/17 00:00 98.8 62 19 135/64 (87) 100 03/26/17 00:00 62 03/25/17 22:00 62 03/25/17 21:05 100 35 03/25/17 20:00 99.0 61 17 151/68 (95) 100 03/25/17 20:00 61 03/25/17 20:00 35 03/25/17 18:00 71 03/25/17 17:10 96 35 03/25/17 17:10 35 03/25/17 17:00 35 03/25/17 16:22 98 35 03/25/17 16:00 68 03/25/17 16:00 100.1 68 20 149/67 (94) 99 03/25/17 14:00 75 03/25/17 13:35 100 100 03/25/17 12:36 97 35 03/25/17 12:00 68 03/25/17 12:00 99.8 68 22 98/49 (65) 99 Exam CONSTITUTIONAL/GENERAL: This is an adequately nourished patient, in no apparent distress. TUBES/LINES/DRAINS: SKIN: No jaundice, rashes, or lesions. Ecchymoses on upper extremities. No wounds seen anteriorly. Skin temperature appropriate. Not diaphoretic. HEAD: Atraumatic. Normocephalic. EYES: Pupils equal and round and reactive. Extraocular motions intact. No scleral icterus. No injection or drainage. Fundi not examined. ENT: Hearing grossly normal. Nose without bleeding or purulent drainage. Throat without visible erythema, exudates, masses, or lesions. NECK: Trachea midline. Supple, nontender. No palpable thyroid enlargement or nodularity. CARDIOVASCULAR: Regular rate and rhythm without murmurs, gallops, or rubs. No JVD. Peripheral pulses symmetric. RESPIRATORY/CHEST: Symmetric, unlabored respirations. Clear to auscultation. Breath sounds equal bilaterally. No wheezes, rales, or rhonchi. GASTROINTESTINAL: Abdomen soft, non-tender, nondistended. No hepato-splenomegaly , or palpable masses. No guarding. Bowel sounds present. GENITOURINARY: Without palpable bladder distension. Yousif catheter in place. MUSCULOSKELETAL: Extremities without clubbing, cyanosis, or edema. No joint tenderness or effusion noted. No calf tenderness. No mottling or clubbing. LYMPHATICS: No palpable cervical or supraclavicular adenopathy. NEUROLOGICAL: Awake and alert. Motor and sensory grossly within normal limits. Follows commands. Cognitively sharp. Moves all extremities. PSYCHIATRIC: No obvious anxiety/depression. no apparent hallucinations or other psychotic thought process. Diagnostic Tests Laboratory Laboratory Tests Test 03/23/17 13:10 03/24/17 05:04 03/25/17 04:46 03/25/17 04:54 Blood Gas Puncture Site RT RADIAL RT RADIAL LT RADIAL Blood Gas Patient Temperature 98.6 98.6 98.6 Blood Gas HCO3 25 mmol/L (22-26) 25 mmol/L (22-26) 27 mmol/L (22-26) Blood Gas Base Excess 0.4 mmol/L (-2-2) -0.1 mmol/L (-2-2) 2.9 mmol/L (-2-2) Blood Gas Oxygen Saturation 94 % (90-100) 94 % (90-100) 91 % (90-100) Arterial Blood pH 7.40 (7.380-7.420) 7.35 (7.380-7.420) 7.44 (7.380-7.420) Arterial Blood Partial Pressure CO2 41 mmHg (38-42) 46 mmHg (38-42) 40 mmHg (38-42) Arterial Blood Partial Pressure O2 86 mmHg (61-120) 85 mmHg (61-120) 69 mmHg (61-120) Arterial Blood Oxygen Content 15.7 Vol % (12.0-20.0) 14.7 Vol % (12.0-20.0) 14.9 Vol % (12.0-20.0) Arterial Blood Carboxyhemoglobin 1.0 % (0-4) 1.1 % (0-4) 1.3 % (0-4) Arterial Blood Methemoglobin 1.0 % (0-2) 1.0 % (0-2) 1.3 % (0-2) Blood Gas Hemoglobin 11.8 G/DL (12.0-16.0) 11.1 G/DL (12.0-16.0) 11.6 G/DL (12.0-16.0) Oxygen Delivery Device VENTILATOR VENTILATOR VENTILATOR Blood Gas Ventilator Setting CPAP 5/10PS PRVC/AC14/500/ PRVC/AC Blood Gas Inspired Oxygen 40 % 40 % 35 % White Blood Count 9.1 TH/MM3 (4.0-11.0) Red Blood Count 3.98 MIL/MM3 (4.00-5.30) Hemoglobin 12.0 GM/DL (11.6-15.3) Hematocrit 35.5 % (35.0-46.0) Mean Corpuscular Volume 89.2 FL (80.0-100.0) Mean Corpuscular Hemoglobin 30.2 PG (27.0-34.0) Mean Corpuscular Hemoglobin Concent 33.8 % (32.0-36.0) Red Cell Distribution Width 16.4 % (11.6-17.2) Platelet Count 204 TH/MM3 (150-450) Mean Platelet Volume 8.9 FL (7.0-11.0) Blood Urea Nitrogen 46 MG/DL (7-18) Creatinine 1.17 MG/DL (0.50-1.00) Random Glucose 185 MG/DL (74-106) Calcium Level 8.5 MG/DL (8.5-10.1) Phosphorus Level 4.3 MG/DL (2.5-4.9) Magnesium Level 2.5 MG/DL (1.5-2.5) Sodium Level 139 MEQ/L (136-145) Potassium Level 5.1 MEQ/L (3.5-5.1) Chloride Level 106 MEQ/L (98-107) Carbon Dioxide Level 25.4 MEQ/L (21.0-32.0) Anion Gap 8 MEQ/L (5-15) Estimat Glomerular Filtration Rate 45 ML/MIN (>89) Test 03/26/17 06:14 03/26/17 07:01 Blood Gas Puncture Site RT RADIAL Blood Gas Patient Temperature 98.6 Blood Gas HCO3 27 mmol/L (22-26) Blood Gas Base Excess 2.7 mmol/L (-2-2) Blood Gas Oxygen Saturation 94 % (90-100) Arterial Blood pH 7.44 (7.380-7.420) Arterial Blood Partial Pressure CO2 40 mmHg (38-42) Arterial Blood Partial Pressure O2 81 mmHg (61-120) Arterial Blood Oxygen Content 16.0 Vol % (12.0-20.0) Arterial Blood Carboxyhemoglobin 1.1 % (0-4) Arterial Blood Methemoglobin 1.2 % (0-2) Blood Gas Hemoglobin 12.1 G/DL (12.0-16.0) Oxygen Delivery Device VENTILATOR Blood Gas Ventilator Setting Blood Gas Inspired Oxygen 35 % White Blood Count 8.6 TH/MM3 (4.0-11.0) Red Blood Count 4.09 MIL/MM3 (4.00-5.30) Hemoglobin 12.0 GM/DL (11.6-15.3) Hematocrit 36.1 % (35.0-46.0) Mean Corpuscular Volume 88.3 FL (80.0-100.0) Mean Corpuscular Hemoglobin 29.4 PG (27.0-34.0) Mean Corpuscular Hemoglobin Concent 33.3 % (32.0-36.0) Red Cell Distribution Width 16.1 % (11.6-17.2) Platelet Count 204 TH/MM3 (150-450) Mean Platelet Volume 8.7 FL (7.0-11.0) Prothrombin Time 36.2 SEC (9.8-11.6) Prothromb Time International Ratio 3.6 RATIO Blood Urea Nitrogen 48 MG/DL (7-18) Creatinine 1.19 MG/DL (0.50-1.00) Random Glucose 238 MG/DL (74-106) Calcium Level 8.3 MG/DL (8.5-10.1) Sodium Level 140 MEQ/L (136-145) Potassium Level 4.8 MEQ/L (3.5-5.1) Chloride Level 105 MEQ/L (98-107) Carbon Dioxide Level 26.6 MEQ/L (21.0-32.0) Anion Gap 8 MEQ/L (5-15) Estimat Glomerular Filtration Rate 44 ML/MIN (>89) Result Diagram: 03/26/17 0701 03/26/17 0701 Microbiology Microbiology Date/Time Source Procedure Growth Status 03/24/17 16:35 Sputum Endotracheal Gram Stain - Final Complete 03/24/17 16:35 Sputum Endotracheal Sputum Culture - Final HEAVY GROWTH NORMAL RESPIRATORY KEENA Complete Imaging Last Impressions Chest X-Ray 03/26/17 0600 Signed Impressions: Service Date/Time: Sunday, March 26, 2017 04:25 - CONCLUSION: 1. Cardiomegaly and findings of congestive heart failure. The findings are similar to the prior exam. Camden Lakhani MD CT Angiography 03/25/17 0000 Signed Impressions: Service Date/Time: Saturday, March 25, 2017 13:29 - CONCLUSION: Negative for central pulmonary emboli Cardiomegaly with moderate congestive failure, consolidation in both base with small right pleural effusion. Satnam Ibarra MD FACR Consultation 03/20/17 0700 Signed Impressions: Service Date/Time: Monday, March 20, 2017 13:47 - CONCLUSION: 1. Very tiny bilateral pleural effusions which are too small for thoracentesis. 2. Cardiomegaly and coronary artery calcifications. 3. Bibasilar alveolar consolidations consistent with compressive atelectasis and/or pneumonia. 4. Mild pulmonary vascular congestion. Almas Dave MD Procedures * 03/24/16 - Intubated * 03/23/16 - extubated * 03/16/17 - Intubated . Patient/Family Conference Present at Family Conference: Met with daughterSierra for 30 minutes. Later met with daughterSierra and sonMina in consult room. Additional family Kamila, Olivia and Arben (children) on conference call for 1 hour. Also present MIN Deutsch and Ana Weaver [employer] medical student present. Family Conference Time (mins): 90 Family Conference Location: Consult Room Issues Discussed: * Palliative care role, purpose, approach * Additional medical, psychosocial, and spiritual history * Patients general health, functional status, and cognitive changes in the months leading up to the current hospitalization * Patient/family understanding of the current medical problems * Patient/family understanding of prognosis * Patients goals of care as best understood from advance directives and/or conversations and/or values * Current medical treatment options and benefits/burdens of those options * Likely scenarios comparing ongoing aggressive care with a transition to comfort measures only * Questions answered to the best of my ability * Palliative care contact information provided Family struggling with decisions as patient remains with some appropriate neuro status. Some family verbalizes she would not want trach/PEG or residential. Others tearful and quiet during visit. Left them to speak as a family after answering medical questions. 03/26/16 - Conference call/ family meeting with 5 of 6 available children (1 daughter in prison). Family has decided they would want reintubation if able to be medically extubated and trach and PEG when indicated. Daughter, Sierra remains hopeful patient will be able to participate in decision making if medically extubated as family has never had these conversations with patient. . Assessment and Plan Disease Oriented Problem List: (1) Diastolic CHF (2) CKD (chronic kidney disease), stage III (3) Pleural effusion (4) Diabetes (5) Atrial fibrillation (6) Acute respiratory failure with hypoxia Symptom Scale: (1) Pain 0-10 Scale: Unable to quantify (2) Dyspnea Comment: tolerating CPAP trials. (3) Agitation 0-10 Scale: Unable to quantify (4) Anxiety 0-10 Scale: Unable to quantify Pertinent Non-Medical Issues Psychosocial: . 6 children, 5 live out of state/ 1 local daughter in prison. Lives alone. Spiritual: Confucianist magdalena. Legal: Patient is incapacitated to make her own health care decisions, uncertain if she will regain capacity. Completed designation of health care proxy in [place] on 02/25/09 naming Sierra Adair (RN daughter) as primary health care agent and Randi Abiel (daughter) as alternate. Ethical issues impacting care: No known concerns at this time. . Important Contacts * Sierra Adair, daughter/Primary HCP: [phone] * Randi Beebe, daughter/ alternate HCP: [phone] * Kamila, daughter: [phone] * Arben, son: [phone] * Juliángloria, son: . Prognosis Ms. Aviles is a 76 year old female with multiple medical comorbidities admitted with acute on chronic respiratory failure, CHF, renal insufficiency failed recent extubation. Given trajectory of health and functional decline prior to admission, comorbidities, elevated BMI and advanced age she remains high risk for further decline, setbacks, infections, hospitalizations or even . . Code Status: Full Code Plan * Patient is incapacitated to make her own health care decisions, uncertain if she will regain capacity. Completed designation of health care proxy in [place] on 02/25/09 naming Sierra Adair as primary health care agent and Randi Beebe as alternate. * FULL CODE * 03/26/16 - Conference call/ family meeting with 5 of 6 available children (1 daughter in prison). Family has decided they would want reintubation if able to be medically extubated and trach and PEG when indicated. Daughter, Sierra remains hopeful patient will be able to participate in decision making if medically extubated as family has never had these conversations with patient. * Discussed with Dr. Jaffe and nurse, Brendan. * SYMPTOMS: Pain: due to tubes and lines, bedbound status and elevated BMI. Has PRN Tylenol for pain. Dyspnea: tolerating CPAP trials. Possible medical extubation on 03/27/17. Agitation: on Precedex, with continued episodes of agitation noted. Hopefully will improve if extubated. Anxiety: reported by family due to SOB and underlying claustrophobia. Has PRN Lorazepam, minimal use to date. No new medication recommendations at this time. * Palliative care number provided. * Palliative care will continue to follow to assist with symptom management and clarification of treatment goals as needed. . Thank you for the opportunity to participate in the care of Ms. Aviles. Attestation To help prompt me to consider important information that might be impacting today's encounter and assessment, information from prior notes written by myself or my colleagues may have been "brought forward" into today's note. My signature on this note, however, is an attestation that I personally performed the exam, history, and/or decision-making noted today, and, unless otherwise indicated, the interactions with patient, family, and staff as well as the review of records all occurred today. I also attest that the listed assessment and stated plan reflect my best clinical judgment today based on the combination of historical information, prior notes, and today's exam/ interactions. When time spent is documented, it refers only to time spent today by the signer, or if indicated, combined time spent today by collaborating physician/nurse practitioner. Sera Price Mar 26, 2017 12:37
[2017-03-26] MEDS: FLUCONAZOLE 200 MG PREMIX BAG 100 ML IV SCH (13:08)
--- NOTE | 2017-03-26 15:36 | HHI.CCPN ---
Subjective Remarks/Hospital Course 03/11: This is a 77-year-old female with a history of diastolic CHF who presents with a three-week history of slowly worsening shortness of breath. Patient does use CPAP quite frequently during the day and night, and consistently uses it whenever she takes a nap which occurs at least once or twice during the daytime and then uses it every night with consistency. She complains that over the last 2-3 days her shortness of breath has gotten significantly worse. She does endorse a nonproductive cough over the last 2-3 days and some chills although denies fever. She denies any chest pain. She endorses what sounds like orthopnea and PND type symptoms. She states that she had a prior diagnosis of CHF but has not had any heart workup or seen anyone for this for at least a year or more. She does have a history of atrial fibrillation and is on blood thinners, although she cannot remember which ones. In the emergency department she was significantly hypoxic and placed on BiPAP. She was given Lasix 80 mg IV. She's had a good response and greater than 1 L since that time in urine output. Her BNP is slightly elevated at 238. In the emergency department she had a low-grade temperature of 100.5 Fahrenheit, but has a normal white count. Chest x-ray suggestive of bilateral pleural effusions with possible lower lobe consolidations. 03/12: Was on nasal cannula this morning. Following return from CAT scan she developed respiratory distress and was placed on BiPAP. CT scan could not be completed as IV infiltrated. At the time of my evaluation patient was comfortably tolerating BiPAP with full facemask. 03/13: Was on BiPAP overnight. Awake and alert at the time of my evaluation, following commands this morning. 03/14: on 3L o2 by NC this AM. still somewhat dyspneic. tolerating breakfast. CT pulmonary angiogram yesterday without PE, concern for pulmonary edema with small pleural effusions. CXR today with worsening pulmonary edema. 03/16: Critical care medicine reconsulted by Dr. Radford for respiratory failure with possible need for intubation. Patient remained on BiPAP however does not tolerate taking it off and immediately gets extremely tachypneic and short of breath. Has not been able to have tube feeds of by mouth meds due to her respiratory status. No significant improvement and appears to be getting weaker with lack of nutrition. Discussed with Dr. Radford as well as family members on multiple occasions today. Discussed plan with family regarding proceeding with intubation and mechanical ventilation and inserting NG tube/OG tube to maintain nutritional status while waiting for improvement in pneumonia/ respiratory failure and they were agreeable. 03/17: Sedated, easily arousable, orally intubated on mechanical ventilation. Tolerating tube feeds. 03/18: Remains sedated, orally intubated on mechanical ventilation. Tolerating tube feeds. 03/19: Afebrile. Patient continues on CPAP trials successfully, plan for CT- guided thoracentesis this a.m.. 03/20: Late entry note. Patient underwent CT evaluation for pleural effusions minimal no thoracentesis performed. The patient continues on sedation with intermittent CPAP trials. 03/21: Afebrile. Patient noted to have yeast from urine culture type of plan started for 14 days regimen. Patient continues to tolerate tube feeds. 03/22: TMax 100.5. Patient CPAP trials initiated an ongoing since 8 AM. Patient transitioned to Precedex this a.m. was not started last night secondary to patient's bradycardic rate. With minimal sedation patient alert and oriented following commands daughter in the room. 03/23: The patient tolerated CPAP trials throughout the night greater than 24 hours. SBT parameters obtained within normal limits. Patient was successfully extubated, and has been weaned to 4 L via nasal cannula. Steroids continue to be weaned per pulmonology. 03/24: The patient was successfully extubated yesterday during the night ,however the patient became hypoxic ,cyanotic (per report) and required emergent intubation. She was reintubated, stat chest x-ray revealed pulmonary edema .Lasix ordered. Sputum culture obtained results pending. 03/25: The patient continues to be sedated and intubated, well oxygenated on FiO2 of 35%. Plan for CT angiography thorax today to rule out pulmonary embolus in the setting of pulmonary hypertension, and repeat intubation that occurred on 03/24/17. Plan for CPAP trials to continue and subsequently SBT parameters. Sedation vacation revealed patient alert and following commands on minimal sedation. 03/26: Tmax 99.7. Patient continues on CPAP trials since yesterday chest x-ray showing moderate pleural effusions. Continues on diuretics, prednisone was increased dosing to every 6 hours. INR this a.m. noted to be 3.6, Coumadin placed on hold. Pharmacy has been consulted for management of Coumadin for therapeutic level of 2.0- 3.0. Height of care team is in conference with the patient's family regarding defining goals of care at this time. Objective Vital Signs Date Time Temp Pulse Resp B/P (MAP) Pulse Ox O2 Delivery O2 Flow Rate FiO2 03/26/17 11:26 96 35 03/26/17 10:00 70 03/26/17 08:00 99.3 18 146/68 (94) 03/23/17 22:35 Nasal Cannula 4.00 Intake and Output 03/26/17 03/26/17 03/26/17 07:59 15:59 23:59 Intake Total 737 ml Output Total 800 ml Balance -63 ml Result Diagram: 03/26/17 0701 03/26/17 0701 Other Results Microbiology Date/Time Source Procedure Growth Status 03/24/17 16:35 Sputum Endotracheal Gram Stain - Final Complete 03/24/17 16:35 Sputum Endotracheal Sputum Culture - Final HEAVY GROWTH NORMAL RESPIRATORY KEENA Complete Laboratory Tests Test 03/26/17 06:14 Blood Gas Puncture Site RT RADIAL Blood Gas Patient Temperature 98.6 Blood Gas HCO3 27 mmol/L (22-26) Blood Gas Base Excess 2.7 mmol/L (-2-2) Blood Gas Oxygen Saturation 94 % (90-100) Arterial Blood pH 7.44 (7.380-7.420) Arterial Blood Partial Pressure CO2 40 mmHg (38-42) Arterial Blood Partial Pressure O2 81 mmHg (61-120) Arterial Blood Oxygen Content 16.0 Vol % (12.0-20.0) Arterial Blood Carboxyhemoglobin 1.1 % (0-4) Arterial Blood Methemoglobin 1.2 % (0-2) Blood Gas Hemoglobin 12.1 G/DL (12.0-16.0) Oxygen Delivery Device VENTILATOR Blood Gas Ventilator Setting Blood Gas Inspired Oxygen 35 % Imaging Last Impressions Chest X-Ray 03/24/17 0000 Signed Impressions: Service Date/Time: Friday, March 24, 2017 03:08 - CONCLUSION: Increased bilateral pulmonary opacity likely representing pulmonary edema. Possible small right pleural effusion. Persistent cardiac silhouette enlargement. Endotracheal tube tip 1.6 cm above the chang. Juan Dempsey MD Consultation 1/3/18 0700 Signed Impressions: Service Date/Time: Monday, March 20, 2017 13:47 - CONCLUSION: 1. Very tiny bilateral pleural effusions which are too small for thoracentesis. 2. Cardiomegaly and coronary artery calcifications. 3. Bibasilar alveolar consolidations consistent with compressive atelectasis and/or pneumonia. 4. Mild pulmonary vascular congestion. Almas Dave MD CT Angiography 03/14/17 0000 Signed Impressions: Service Date/Time: February 05:15 - CONCLUSION: Bilateral pleural effusions and bibasilar consolidation with probable superimposed slight pulmonary edema as well. Cathi Martinez MD Last Impressions Chest X-Ray 03/19/17 0600 Signed Impressions: Service Date/Time: Sunday, March 19, 2017 03:55 - CONCLUSION: Worsening right lung infiltrate. Yohannes Green Jr., MD CT Angiography 03/14/17 0000 Signed Impressions: Service Date/Time: February 05:15 - CONCLUSION: Bilateral pleural effusions and bibasilar consolidation with probable superimposed slight pulmonary edema as well. Cathi Martinez MD Chest x-ray portable done on 03/16 was personally reviewed: ET tube above chang , bilateral infiltrates more on the right, bilateral pleural effusions, NG tube in place Last 48 hours Impressions Chest X-Ray 03/16/17 0600 Signed Impressions: Service Date/Time: Thursday, March 16, 2017 03:28 - CONCLUSION: Patchy bilateral consolidation and small to moderate right pleural effusion not significantly changed. Mild cardiomegaly. Rufino Chow MD Last Impressions Chest X-Ray 03/11/17 1807 Signed Impressions: Service Date/Time: Saturday, March 11, 2017 18:39 - CONCLUSION: 1. Chronic cardiac silhouette enlargement. 2. New bilateral lower hemithorax opacity right greater than left likely representing right lower lobe atelectasis versus consolidation, right pleural effusion, and possible small left pleural effusion. Juan Dempsey MD Objective Remarks Gen-This is a morbidly obese female intubated and sedated on Precedex infusion HEENT/ Neuro: Sedated, arousable, following commands, orally intubated, No pallor present, no icterus, tongue/ mucosa moist and pink Neck: No JVD Chest/Pulm: on mech vent, good air entry bilaterally, no wheezing or crackles. Clear to auscultation bilaterally. CVS: S1-S2 regular rate, no murmur. Telemetry atrial fibrillation rate controlled GI/abdomen: soft, nontender, bowel sounds normoactive Extremities: warm bilaterally, bilateral edema 3 + Neuro: RASS -2. Off sedation patient's following commands A/P Assessment and Plan Assessment: 76yF with history of CHF with preserved EF who presents with SOB and fever and acute hypoxic respiratory failure. Differential includes pneumonia vs. CHF exacerbation, diastolic type. Without evidence of PE. Intubated and placed on mechanical ventilation for borderline respiration status and inability to take off BiPAP for PO intake. Neuro: - Precedex initiated. Wean off -Avoid long-acting sedative type medications - Neurochecks per ICU protocol CHF Exacerbation, diastolic type Pulmonary hypertension -Status post diuresis - Continue sildenafil 20 mg/day for pulmonary hypertension on 03/17/17 - Cardiology: Dr. Moreno following noncardiac respiratory failure - Ordered CT Angio pulmonary - F/U results Acute hypoxic respiratory failure Pulmonary edema -Intubated and placed on mechanical ventilation on 03/16. Extubated 03/23/17 - Reintubated 03/24/17 -Ventilator bundle - Lasix 40 mg twice a day - abx - nebs prn - hob at 30 degrees - Senna spirometry every 4 hours while awake -03/25 CT angiogram thorax- no PE, pulmonary edema Possible community acquired pneumonia Bilateral pleural effusions - broad spectrum abx given severity of symptoms. vanc and zosyn12/26-03/21. sputum for Gram stain and cultures following intubation. - CT-guided thoracentesis cancel secondary to inadequate pleural fluid for drainage. INR 3.6 today, Coumadin placed on hold. I see consulted for management -03/11 Blood culture- Anaerobic gram-positive cocci -03/18 Urine culture- yeast Acute kidney injury UTI -Off diuretics. Holding losartan starting 03/17 in view of rising creatinine. May require fluids. Repeat UA and urine culture as indicated - strict I & O's - trend Cr on daily BMP -03/21 begin Diflucan x 14 days Atrial fibrillation - CHADS score > 2. Lovenox/Coumadin for anticoagulation. Pharmacy consulted for management of Coumadin - currently rate controlled. -Repeat INR GI/liver: -Glucerna 1.5 PT evaluation and treat SCDs, SQH Pepcid for GI prophylaxis On 03/16 discussed at length with multiple family members today prior to intubation including reviewing CAT scan images.. Explained that patient is chronically on BiPAP and inability to take off BiPAP to feed or insert NG tube. Discussed option of proceeding with intubation and place on mechanical ventilation in order to be able to place the OG tube to meet nutritional requirements. Family in agreement. Discussed with Dr. Radford who is agreeable with the plan as well. 03/17: Discussed with family members at bedside regarding current clinical status and plan of care and they voiced understanding and were agreeable. 03/25: Discussed with son Mina at bedside providing him with medical status update. Contacted patient's daughter, Kimberley providing her with update regarding pulmonary edema, diuresis, CT angiogram pulmonary pending, and patient 's neuro status off sedation following commands. Discussed with her VDRF and the possibility of tracheostomy and PEG placement, if unable to wean off the ventilator. Daughter stated an understanding, all questions answered. 03/26: Discussed with Mina son and Kimberley daughter, provided an update on medical status. Palliative care team meeting scheduled for this afternoon to discuss definition of goals of care. Discussed with PROJ ENGINEER at bedside (Brendan) Dispo: my billing statement This patient remains critically ill with one or more organ systems which are or may become a threat to life. I have spent in excess of 37 minutes discontinuously in the care and management of this patient. This time is exclusive of procedures, and includes, but is not limited to, evaluation of the patient, review of the medical record, discussions with family, consultants, nursing staff, or respiratory therapy, and documentation in the medical record. Physician Nadiya Vazquez MD Mar 26, 2017 15:36
--- NOTE | 2017-03-26 15:38 | EKG ---
Date Performed: 03/25/2017 Time Performed: 14:10:04 PTAGE: 76 years EKG: ATRIAL FIBRILLATION ABNORMAL RHYTHM ECG PREVIOUS TRACING : 03/11/2017 18.08 Compared to prior tracing no significant change DOCTOR: Roly Law Interpretating Date/Time 03/26/2017 15:36:48
--- NOTE | 2017-03-26 16:33 | PQ ---
Physician Query Response Document PATIENT: LUANN HARDING : 1940 ADMIT DATE: 03/11/2017 7:57 PM DISCH DATE: RESPONDING PROVIDER #: marie QUERY TEXT: Cause and Effect Relationship Please clarify in documentation the relationship, if any, between UTI (DOCUMENTED 03/21/16) and INDWE LLING URINARY CATHETER Such as: -- Conditions are due to or associated -- Unrelated to each other -- Other, please specify PLEASE CALL [facility] @ [facility] [id number] FOR ASSISTANCE. THANK YOU ! The patient's Clinical Indicators include: PER PROGRESS NOTE: 03/21: Afebrile. Patient noted to have yeast from urine culture type of plan started for 14 days regim en. UTI CONNELLY EXCHANGED STARTED ON FLUCONAZOLE Query created by: Belinda Smith on 03/22/2017 4:42 PM RESPONSE TEXT: Patient with indwelling urinary catheter with noted yeast in skin folds of groin and breakdown and gr oin area, noted cloudy urine and urine culture obtained which also revealed Yeast. Connelly catheter exc hange and patient started on fluconazole. Electronically signed by: Nadiya Jaffe MD 03/26/2017 4:29 PM
--- NOTE | 2017-03-26 19:04 | HHI.PR ---
Subjective Remarks 76 YOWF with resp insuff, on VM Gets anxious CTA no PE, has pl eff Weekend events noted Was extubated, reintubated within 24 hrs Tolerates TF Sedated with Precedex Sreroids increased On PS 15 Objective Vital Signs Vital Signs Date Time Temp Pulse Resp B/P (MAP) Pulse Ox O2 Delivery O2 Flow Rate FiO2 03/26/17 18:00 73 03/26/17 16:05 94 35 03/26/17 16:00 35 03/26/17 16:00 99.4 75 20 143/71 (95) 96 03/26/17 16:00 75 03/26/17 15:36 35 03/26/17 14:00 68 03/26/17 12:00 99.1 70 19 135/63 (87) 99 03/26/17 12:00 35 03/26/17 11:26 96 35 03/26/17 10:00 70 03/26/17 08:04 100 35 03/26/17 08:00 99.3 71 18 146/68 (94) 99 03/26/17 08:00 71 03/26/17 08:00 35 03/26/17 06:00 76 03/26/17 04:00 99.7 65 17 132/63 (86) 99 03/26/17 04:00 65 03/26/17 04:00 35 03/26/17 03:34 100 35 03/26/17 02:00 60 03/26/17 00:12 99 35 03/26/17 00:00 35 03/26/17 00:00 98.8 62 19 135/64 (87) 100 03/26/17 00:00 62 03/25/17 22:00 62 03/25/17 21:05 100 35 03/25/17 20:00 99.0 61 17 151/68 (95) 100 03/25/17 20:00 61 03/25/17 20:00 35 I/O 03/25/17 03/25/17 03/25/17 03/26/17 03/26/17 03/26/17 07:00 15:00 23:00 07:00 15:00 23:00 Intake Total 530 ml 563 ml 737 ml 100 ml 763 ml Output Total 2550 ml 1600 ml 800 ml 1300 ml Balance -2020 ml -1037 ml -63 ml 100 ml -537 ml IV Total 289 ml 100 ml 69 ml 100 ml Tube Feeding 241 ml 363 ml 568 ml 663 ml Other 100 ml 100 ml 100 ml Output Urine Total 2550 ml 1600 ml 800 ml 1300 ml # Bowel Movements 0 4 0 Result Diagram: 03/26/1770003/26/17700 Objective Remarks GENERAL: Obese WF, sob, anxious SKIN: Warm and dry. HEAD: Normocephalic. EYES: No scleral icterus. No injection or drainage. NECK: Supple, trachea midline. No JVD or lymphadenopathy. CARDIOVASCULAR: Regular rate and rhythm without murmurs, gallops, or rubs. RESPIRATORY: Breath sounds equal bilaterally. No accessory muscle use. GASTROINTESTINAL: Abdomen soft, non-tender, nondistended. MUSCULOSKELETAL: No cyanosis, ++ edema. BACK: Nontender without obvious deformity. No CVA tenderness. A/P Assessment and Plan VDRF No PE Pleural effusion CHF AF PLAN: Vent support Diurease Cont Abx IV Solumedrol. 40 mg q 6 hrs monitor BS Precedex for sedation Daily CPAP trial DW daughter at BS Landon Tony MD Mar 26, 2017 19:04
[2017-03-27] VITALS (22 sets, daily range): BP systolic 132–180; BP diastolic 68–86; PULSE 73–100; RESP 11–41; TEMP 97.8–99.3; O2SAT 95–100
[2017-03-27] MEDS: CHLORHEXIDINE GLUCONATE 2 % 1 PACK (2 CLOTHS)(taper/protocol) TOPICAL SCH (02:53)
[2017-03-27] MEDS: methylPREDNISolone SOD SUCC 40 MG/1 ML VIAL IV PUSH SCH ×4 (02:53→20:11)
[2017-03-27] MEDS: CHLORHEXIDINE GLUCONATE 2 % 1 PACK (2 CLOTHS) TOP SCH (02:53)
[2017-03-27] MEDS: RESP: ALBUTEROL 2.5 MG/IPRATROPIUM 0.5 MG NEB (SCH) INH ×4 (03:54→21:14)
--- NOTE | 2017-03-27 04:42 | RADRPT ---
EXAM DATE/TIME: 03/27/2017 03:02 [facility] COMPARISON: CHEST SINGLE AP, March 26, 2017, 4:25. INDICATIONS : Short of breath. MEDICAL HISTORY : Cerebrovascular disease. SURGICAL HISTORY : None. ENCOUNTER: Subsequent ACUITY: 1 week PAIN SCORE: 0/10 LOCATION: Bilateral chest FINDINGS: The cardiac silhouette is enlarged in transverse diameter. There is bilateral lower lobe atelectasis versus pneumonia. Small bilateral pleural effusions are identified. There has been no significant patrick nge when compared to the prior exam. CONCLUSION: 1. Cardiomegaly. Bilateral lower lobe atelectasis versus pneumonia. There has been no significant patrick nge when compared to the prior exam. Camden Lakhani MD on March 27, 2017 at 4:40 Board Certified Radiologist. This report was verified electronically.
[2017-03-27] MEDS: GEMFIBROZIL 600 MG TAB PO SCH ×3 (05:52→21:07)
[2017-03-27] MEDS: LEVOTHYROXINE SODIUM 100 MCG TAB PO SCH ×2 (05:52→20:12)
[2017-03-27] MEDS: RESP: BUDESONIDE 0.5 MG/2 ML NEB NEB SCH ×2 (07:34→21:14)
[2017-03-27] MEDS: ATORVASTATIN 20 MG TAB PO SCH (08:06)
[2017-03-27] MEDS: SILDENAFIL CITRATE 20 MG TAB PO SCH (08:06)
[2017-03-27] MEDS: CHOLECALCIFEROL (VIT D3) 1000 UNIT TAB PO SCH (08:06)
[2017-03-27] MEDS: FAMOTIDINE 20 MG TAB OG-TUBE SCH ×2 (08:06→20:11)
[2017-03-27] MEDS: METOPROLOL TARTRATE 50 MG TAB PO SCH ×2 (08:06→20:11)
[2017-03-27] MEDS: NIFEdipine 30 MG SUSTAINED RELEASE TAB PO SCH ×2 (08:06→20:12)
[2017-03-27] MEDS: POTASSIUM CHLORIDE 20 MEQ PWD PACKET PO SCH (08:07)
[2017-03-27] MEDS: FUROSEMIDE 40 MG/4 ML VIAL IV PUSH SCH ×2 (08:08→20:11)
[2017-03-27] MEDS: CHLORHEXIDINE 0.12% (ORAL KIT) 15 ML CUP MT SCH ×2 (08:08→20:00)
[2017-03-27] MEDS: INSULIN ASPART SUPPLEMENTAL SCALE SQ SCH ×4 (08:11→21:09)
[2017-03-27] MEDS: DOCUSATE SODIUM 50 MG/SENNA 8.6 MG TAB PO SCH ×2 (08:11→20:11)
[2017-03-27 08:18] LABS: HEMATOCRIT 36.6 % (35.0-46.0); HEMOGLOBIN 11.8 GM/DL (11.6-15.3); MEAN CELL VOLUME 88.9 FL (80.0-100.0); MEAN CORPUSCULAR HEMOGLOBIN 28.8 PG (27.0-34.0); MEAN CORPUSCULAR HGB CONC 32.3 % (32.0-36.0); MEAN PLATELET VOLUME 8.8 FL (7.0-11.0); PLATELET COUNT 208 TH/MM3 (150-450); RED BLOOD COUNT 4.12 MIL/MM3 (4.00-5.30); RED CELL DISTRIBUTION WIDTH 16.3 % (11.6-17.2); WHITE BLOOD COUNT 11.3 TH/MM3 (4.0-11.0)
[2017-03-27 08:41] LABS: BICARBONATE 28.4 MEQ/L (21.0-32.0); CALCIUM 8.1 MG/DL (8.5-10.1); CREATININE 1.23 MG/DL (0.50-1.00); MAGNESIUM 2.5 MG/DL (1.5-2.5); PHOSPHORUS 2.6 MG/DL (2.5-4.9)
[2017-03-27] MEDS: FLUCONAZOLE 200 MG PREMIX BAG 100 ML IV SCH (12:07)
[2017-03-27 13:31] LABS: INTERNATIONAL NORMALIZED RATIO 2.9 RATIO; PROTHROMBIN TIME - PATIENT 29.4 SEC (9.8-11.6)
--- NOTE | 2017-03-27 14:05 | HHI.HCPN ---
Reason for visit a. To assist with evaluation and management of symptoms including: dyspnea, pain. b. To assist medical decision maker(s) with: better understanding of current medical conditions; weighing benefits/burdens of medical treatment options; making medical treatment decisions. . Subjective/Interval History Pt was intubated, up and alert. Pt's daughter daughter at bedside. Pt is able to nod and shake head very well at bedside. Answered questions appropriately. Recognizes daughter. Able to shake head when asked "Are you in [place]" nod no. Are you in [place]? Nod yes. Answered basic question correctly. I was able to go over pt's condition at bedside. I was able to go over pt's extubation, and what that entails, and that likely she will need reintubation. I went over that reintubation would mean trach and peg. With daughter at bedside, she noded yes for reintubation and peg and trach. Family/friend interactions Daughter who is a nurse, had indicated she has been asking her mom the same thing, and pt has said yes to reintubation. She was not able to get trach and peg decisions. I was able to review that with pt, and pt's daughter . Advance Directives Health Care Surrogate: Copy in medical record Advance Directive Specifics Date completed: 02/25/09 . Health Care Surrogate(s): Patient is incapacitated to make her own health care decisions, uncertain if she will regain capacity. Completed designation of health care proxy in [place] on 02/25/09 naming Sierra Adair as primary health care agent and Randi Beebe as alternate. . Documented care wishes: No Living Will. . Objective Vital Signs Date Time Temp Pulse Resp B/P (MAP) Pulse Ox O2 Delivery O2 Flow Rate FiO2 03/27/17 13:18 100 30 03/27/17 13:12 100 BiPAP/CPAP 30 03/27/17 12:00 35 03/27/17 12:00 76 03/27/17 12:00 97.8 76 31 155/72 (99) 100 03/27/17 11:39 100 35 03/27/17 10:00 76 03/27/17 08:00 35 03/27/17 08:00 79 03/27/17 08:00 98.5 79 26 155/69 (97) 100 03/27/17 07:36 100 35 03/27/17 06:00 76 03/27/17 04:55 100 35 03/27/17 04:10 35 03/27/17 04:10 99.3 100 11 153/71 (98) 100 03/27/17 04:00 78 03/27/17 02:00 78 03/27/17 00:33 100 35 03/27/17 00:00 98.9 73 11 153/71 (98) 100 03/27/17 00:00 73 03/27/17 00:00 35 03/26/17 22:00 86 03/26/17 20:15 100 35 03/26/17 20:00 99.2 77 15 129/68 (88) 100 03/26/17 20:00 35 03/26/17 20:00 76 03/26/17 18:00 73 03/26/17 16:05 94 35 03/26/17 16:00 35 03/26/17 16:00 99.4 75 20 143/71 (95) 96 03/26/17 16:00 75 03/26/17 15:36 35 03/26/17 14:00 68 Intake & Output 03/27/17 03/27/17 07:00 19:00 Intake Total 778 ml Output Total 2100 ml Balance -1322 ml IV Total 87 ml Tube Feeding 591 ml Other 100 ml Output Urine Total 2100 ml # Bowel Movements 1 Physical Exam CONSTITUTIONAL/GENERAL: This is an adequately nourished patient, obese pt, intubated, alert but no apparent distress. TUBES/LINES/DRAINS:velarde, intubated. SKIN: No jaundice, rashes, or lesions. Ecchymoses on upper extremities. No wounds seen anteriorly. Skin temperature appropriate. Not diaphoretic. HEAD: Atraumatic. Normocephalic. EYES: Pupils equal and round and reactive. Extraocular motions intact. No scleral icterus. No injection or drainage. Fundi not examined. ENT: Hearing grossly normal. Nose without bleeding or purulent drainage. Throat without visible erythema, exudates, masses, or lesions. NECK: Trachea midline. Supple, nontender. No palpable thyroid enlargement or nodularity. CARDIOVASCULAR: Regular rate and rhythm without murmurs, gallops, or rubs. No JVD. Peripheral pulses symmetric. RESPIRATORY/CHEST: Symmetric, unlabored respirations. Decrease breath sound bilat. . No wheezes, rales, or rhonchi. GASTROINTESTINAL: Abdomen soft, distended No hepato-splenomegaly, or palpable masses. No guarding. Bowel sounds present. GENITOURINARY: Without palpable bladder distension. Velarde catheter in place. MUSCULOSKELETAL: Extremities without clubbing, cyanosis, or edema. No joint tenderness or effusion noted. No calf tenderness. No mottling or clubbing. LYMPHATICS: No palpable cervical or supraclavicular adenopathy. NEUROLOGICAL: Awake and alert. Motor and sensory grossly within normal limits. Follows commands. Cognitively sharp. Moves all extremities. PSYCHIATRIC: No obvious anxiety/depression. no apparent hallucinations or other psychotic thought process. Diagnostic Tests Laboratory Laboratory Tests Test 03/25/17 04:46 03/25/17 04:54 03/26/17 06:14 03/26/17 07:01 White Blood Count 9.1 TH/MM3 (4.0-11.0) 8.6 TH/MM3 (4.0-11.0) Red Blood Count 3.98 MIL/MM3 (4.00-5.30) 4.09 MIL/MM3 (4.00-5.30) Hemoglobin 12.0 GM/DL (11.6-15.3) 12.0 GM/DL (11.6-15.3) Hematocrit 35.5 % (35.0-46.0) 36.1 % (35.0-46.0) Mean Corpuscular Volume 89.2 FL (80.0-100.0) 88.3 FL (80.0-100.0) Mean Corpuscular Hemoglobin 30.2 PG (27.0-34.0) 29.4 PG (27.0-34.0) Mean Corpuscular Hemoglobin Concent 33.8 % (32.0-36.0) 33.3 % (32.0-36.0) Red Cell Distribution Width 16.4 % (11.6-17.2) 16.1 % (11.6-17.2) Platelet Count 204 TH/MM3 (150-450) 204 TH/MM3 (150-450) Mean Platelet Volume 8.9 FL (7.0-11.0) 8.7 FL (7.0-11.0) Blood Urea Nitrogen 46 MG/DL (7-18) 48 MG/DL (7-18) Creatinine 1.17 MG/DL (0.50-1.00) 1.19 MG/DL (0.50-1.00) Random Glucose 185 MG/DL (74-106) 238 MG/DL (74-106) Calcium Level 8.5 MG/DL (8.5-10.1) 8.3 MG/DL (8.5-10.1) Phosphorus Level 4.3 MG/DL (2.5-4.9) Magnesium Level 2.5 MG/DL (1.5-2.5) Sodium Level 139 MEQ/L (136-145) 140 MEQ/L (136-145) Potassium Level 5.1 MEQ/L (3.5-5.1) 4.8 MEQ/L (3.5-5.1) Chloride Level 106 MEQ/L (98-107) 105 MEQ/L (98-107) Carbon Dioxide Level 25.4 MEQ/L (21.0-32.0) 26.6 MEQ/L (21.0-32.0) Anion Gap 8 MEQ/L (5-15) 8 MEQ/L (5-15) Estimat Glomerular Filtration Rate 45 ML/MIN (>89) 44 ML/MIN (>89) Blood Gas Puncture Site LT RADIAL RT RADIAL Blood Gas Patient Temperature 98.6 98.6 Blood Gas HCO3 27 mmol/L (22-26) 27 mmol/L (22-26) Blood Gas Base Excess 2.9 mmol/L (-2-2) 2.7 mmol/L (-2-2) Blood Gas Oxygen Saturation 91 % (90-100) 94 % (90-100) Arterial Blood pH 7.44 (7.380-7.420) 7.44 (7.380-7.420) Arterial Blood Partial Pressure CO2 40 mmHg (38-42) 40 mmHg (38-42) Arterial Blood Partial Pressure O2 69 mmHg (61-120) 81 mmHg (61-120) Arterial Blood Oxygen Content 14.9 Vol % (12.0-20.0) 16.0 Vol % (12.0-20.0) Arterial Blood Carboxyhemoglobin 1.3 % (0-4) 1.1 % (0-4) Arterial Blood Methemoglobin 1.3 % (0-2) 1.2 % (0-2) Blood Gas Hemoglobin 11.6 G/DL (12.0-16.0) 12.1 G/DL (12.0-16.0) Oxygen Delivery Device VENTILATOR VENTILATOR Blood Gas Ventilator Setting PRVC/AC Blood Gas Inspired Oxygen 35 % 35 % Prothrombin Time 36.2 SEC (9.8-11.6) Prothromb Time International Ratio 3.6 RATIO Test 03/27/17 06:45 03/27/17 12:20 03/27/17 12:43 White Blood Count 11.3 TH/MM3 (4.0-11.0) Red Blood Count 4.12 MIL/MM3 (4.00-5.30) Hemoglobin 11.8 GM/DL (11.6-15.3) Hematocrit 36.6 % (35.0-46.0) Mean Corpuscular Volume 88.9 FL (80.0-100.0) Mean Corpuscular Hemoglobin 28.8 PG (27.0-34.0) Mean Corpuscular Hemoglobin Concent 32.3 % (32.0-36.0) Red Cell Distribution Width 16.3 % (11.6-17.2) Platelet Count 208 TH/MM3 (150-450) Mean Platelet Volume 8.8 FL (7.0-11.0) Blood Urea Nitrogen 50 MG/DL (7-18) Creatinine 1.23 MG/DL (0.50-1.00) Random Glucose 280 MG/DL (74-106) Calcium Level 8.1 MG/DL (8.5-10.1) Phosphorus Level 2.6 MG/DL (2.5-4.9) Magnesium Level 2.5 MG/DL (1.5-2.5) Sodium Level 140 MEQ/L (136-145) Potassium Level 4.6 MEQ/L (3.5-5.1) Chloride Level 103 MEQ/L (98-107) Carbon Dioxide Level 28.4 MEQ/L (21.0-32.0) Anion Gap 9 MEQ/L (5-15) Estimat Glomerular Filtration Rate 42 ML/MIN (>89) Prothrombin Time 29.4 SEC (9.8-11.6) Prothromb Time International Ratio 2.9 RATIO Blood Gas Puncture Site RT RADIAL Blood Gas Patient Temperature 98.6 Blood Gas HCO3 29 mmol/L (22-26) Blood Gas Base Excess 5.0 mmol/L (-2-2) Blood Gas Oxygen Saturation 94 % (90-100) Arterial Blood pH 7.46 (7.380-7.420) Arterial Blood Partial Pressure CO2 41 mmHg (38-42) Arterial Blood Partial Pressure O2 82 mmHg (61-120) Arterial Blood Oxygen Content 17.0 Vol % (12.0-20.0) Arterial Blood Carboxyhemoglobin 1.0 % (0-4) Arterial Blood Methemoglobin 1.2 % (0-2) Blood Gas Hemoglobin 12.8 G/DL (12.0-16.0) Oxygen Delivery Device VENTILATOR Blood Gas Ventilator Setting CPAP/PS5/PEEP5 Blood Gas Inspired Oxygen 35 % Result Diagram: 03/27/17 0645 03/27/17 0645 Microbiology Microbiology Date/Time Source Procedure Growth Status 03/24/17 16:35 Sputum Endotracheal Gram Stain - Final Complete 03/24/17 16:35 Sputum Endotracheal Sputum Culture - Final HEAVY GROWTH NORMAL RESPIRATORY KEENA Complete Imaging Last Impressions Chest X-Ray 03/27/17 0600 Signed Impressions: Service Date/Time: Monday, March 27, 2017 03:02 - CONCLUSION: 1. Cardiomegaly. Bilateral lower lobe atelectasis versus pneumonia. There has been no significant change when compared to the prior exam. Camden Lakhani MD CT Angiography 03/25/17 0000 Signed Impressions: Service Date/Time: Saturday, March 25, 2017 13:29 - CONCLUSION: Negative for central pulmonary emboli Cardiomegaly with moderate congestive failure, consolidation in both base with small right pleural effusion. Satnam Ibarra MD FACR Consultation 03/20/17 0700 Signed Impressions: Service Date/Time: Monday, March 20, 2017 13:47 - CONCLUSION: 1. Very tiny bilateral pleural effusions which are too small for thoracentesis. 2. Cardiomegaly and coronary artery calcifications. 3. Bibasilar alveolar consolidations consistent with compressive atelectasis and/or pneumonia. 4. Mild pulmonary vascular congestion. Almas Dave MD Procedures * 03/24/16 - Intubated * 03/23/16 - extubated * 03/16/17 - Intubated . Assessment and Plan Disease Oriented Problem List: (1) Diastolic CHF (2) CKD (chronic kidney disease), stage III (3) Pleural effusion (4) Diabetes (5) Atrial fibrillation (6) Acute respiratory failure with hypoxia Symptom Scale: (1) Pain 0-10 Scale: Unable to quantify (2) Dyspnea Comment: tolerating CPAP trials. (3) Agitation 0-10 Scale: Unable to quantify (4) Anxiety 0-10 Scale: Unable to quantify Pertinent Non-Medical Issues Psychosocial: . 6 children, 5 live out of state/ 1 local daughter in [place]. Lives alone. Spiritual: [employer]ab[employer] magdalena. Legal: Patient is incapacitated to make her own health care decisions, uncertain if she will regain capacity. Completed designation of health care proxy in [place] on 02/25/09 naming Sierra Adair (RN daughter) as primary health care agent and Randi Beebe (daughter) as alternate. Ethical issues impacting care: No known concerns at this time. . Important Contacts * Sierra Adair, daughter/Primary HCP: [phone] * Randi Beebe, daughter/ alternate HCP: [phone] * Kamila, daughter: [phone] * Arben, son: [phone] * Mina, son: . Prognosis Ms. Aviles is a 76 year old female with multiple medical comorbidities admitted with acute on chronic respiratory failure, CHF, renal insufficiency failed recent extubation. Given trajectory of health and functional decline prior to admission, comorbidities, elevated BMI and advanced age she remains high risk for further decline, setbacks, infections, hospitalizations or even . . Code Status: Full Code Plan * Patient is incapacitated to make her own health care decisions, uncertain if she will regain capacity. Completed designation of health care proxy in [place] on 02/25/09 naming Sierra Adair as primary health care agent and Randi Beebe as alternate. * FULL CODE- would want intubation. * Capacity- Answered questions appropriately. Recognizes daughter. Able to shake head when asked "Are you in [place]" nod no. Are you in [place]? Nod yes. Answered other basic question correctly. Has capacity to make medical decision. * 03/27/16- another family meeting with daughter (Sierra who is a RN) and patient at bedside. Sierra is hoping to get answer from patient. Pt is able to nod and shake head very well at bedside to indicate yes or no. I went over that reintubation would mean trach and peg. With daughter at bedside, She noded yes for reintubation and peg and trach. Goals are aggressive. Yes to peg/ trach if reintubated. * Discussed with Dr. Jaffe and nurse, * SYMPTOMS: Pain: due to tubes and lines, bedbound status and elevated BMI. Has PRN Tylenol for pain. Dyspnea: tolerating CPAP trials. * Palliative care number provided. * Palliative care will continue to follow to assist with symptom management and clarification of treatment goals as needed. . Michele Rincon MD Mar 27, 2017 14:05
--- NOTE | 2017-03-27 16:52 | HHI.PR ---
Subjective Remarks 76 YOWF with resp insuff, onBIPAP Gets anxious CTA no PE, has pl eff Tolerates TF Extubated follows commands Daughter at BS Objective Vital Signs Vital Signs Date Time Temp Pulse Resp B/P (MAP) Pulse Ox O2 Delivery O2 Flow Rate FiO2 03/27/17 16:19 95 30 03/27/17 16:00 75 03/27/17 14:00 81 03/27/17 13:18 100 30 03/27/17 13:12 100 BiPAP/CPAP 30 03/27/17 12:00 35 03/27/17 12:00 76 03/27/17 12:00 97.8 76 31 155/72 (99) 100 03/27/17 11:39 100 35 03/27/17 10:00 76 03/27/17 08:00 35 03/27/17 08:00 79 03/27/17 08:00 98.5 79 26 155/69 (97) 100 03/27/17 07:36 100 35 03/27/17 06:00 76 03/27/17 04:55 100 35 03/27/17 04:10 35 03/27/17 04:10 99.3 100 11 153/71 (98) 100 03/27/17 04:00 78 03/27/17 02:00 78 03/27/17 00:33 100 35 03/27/17 00:00 98.9 73 11 153/71 (98) 100 03/27/17 00:00 73 03/27/17 00:00 35 03/26/17 22:00 86 03/26/17 20:15 100 35 03/26/17 20:00 99.2 77 15 129/68 (88) 100 03/26/17 20:00 35 03/26/17 20:00 76 03/26/17 18:00 73 I/O 03/26/17 03/26/17 03/26/17 03/27/17 03/27/17 03/27/17 07:00 15:00 23:00 07:00 15:00 23:00 Intake Total 737 ml 100 ml 815 ml 726 ml Output Total 800 ml 1300 ml 2100 ml Balance -63 ml 100 ml -485 ml -1374 ml IV Total 69 ml 100 ml 52 ml 35 ml Tube Feeding 568 ml 663 ml 591 ml Other 100 ml 100 ml 100 ml Output Urine Total 800 ml 1300 ml 2100 ml # Bowel Movements 0 1 Result Diagram: 03/27/1764403/27/17644 Objective Remarks GENERAL: Obese WF, sob, anxious SKIN: Warm and dry. HEAD: Normocephalic. EYES: No scleral icterus. No injection or drainage. NECK: Supple, trachea midline. No JVD or lymphadenopathy. CARDIOVASCULAR: Regular rate and rhythm without murmurs, gallops, or rubs. RESPIRATORY: Breath sounds equal bilaterally. No accessory muscle use. GASTROINTESTINAL: Abdomen soft, non-tender, nondistended. MUSCULOSKELETAL: No cyanosis, ++ edema. BACK: Nontender without obvious deformity. No CVA tenderness. A/P Assessment and Plan VDRF, s/p extubation No PE Pleural effusion CHF AF PLAN: Diurease Cont Abx IV Solumedrol. 40 mg q 6 hrs monitor BS Cont BIPAP DW daughter at BS Landon Tony MD Mar 27, 2017 16:51
--- NOTE | 2017-03-27 19:18 | HHI.CCPN ---
Subjective Remarks/Hospital Course 03/11: This is a 77-year-old female with a history of diastolic CHF who presents with a three-week history of slowly worsening shortness of breath. Patient does use CPAP quite frequently during the day and night, and consistently uses it whenever she takes a nap which occurs at least once or twice during the daytime and then uses it every night with consistency. She complains that over the last 2-3 days her shortness of breath has gotten significantly worse. She does endorse a nonproductive cough over the last 2-3 days and some chills although denies fever. She denies any chest pain. She endorses what sounds like orthopnea and PND type symptoms. She states that she had a prior diagnosis of CHF but has not had any heart workup or seen anyone for this for at least a year or more. She does have a history of atrial fibrillation and is on blood thinners, although she cannot remember which ones. In the emergency department she was significantly hypoxic and placed on BiPAP. She was given Lasix 80 mg IV. She's had a good response and greater than 1 L since that time in urine output. Her BNP is slightly elevated at 238. In the emergency department she had a low-grade temperature of 100.5 Fahrenheit, but has a normal white count. Chest x-ray suggestive of bilateral pleural effusions with possible lower lobe consolidations. 03/12: Was on nasal cannula this morning. Following return from CAT scan she developed respiratory distress and was placed on BiPAP. CT scan could not be completed as IV infiltrated. At the time of my evaluation patient was comfortably tolerating BiPAP with full facemask. 03/13: Was on BiPAP overnight. Awake and alert at the time of my evaluation, following commands this morning. 03/14: on 3L o2 by NC this AM. still somewhat dyspneic. tolerating breakfast. CT pulmonary angiogram yesterday without PE, concern for pulmonary edema with small pleural effusions. CXR today with worsening pulmonary edema. 03/16: Critical care medicine reconsulted by Dr. Radford for respiratory failure with possible need for intubation. Patient remained on BiPAP however does not tolerate taking it off and immediately gets extremely tachypneic and short of breath. Has not been able to have tube feeds of by mouth meds due to her respiratory status. No significant improvement and appears to be getting weaker with lack of nutrition. Discussed with Dr. Radford as well as family members on multiple occasions today. Discussed plan with family regarding proceeding with intubation and mechanical ventilation and inserting NG tube/OG tube to maintain nutritional status while waiting for improvement in pneumonia/ respiratory failure and they were agreeable. 03/17: Sedated, easily arousable, orally intubated on mechanical ventilation. Tolerating tube feeds. 03/18: Remains sedated, orally intubated on mechanical ventilation. Tolerating tube feeds. 03/19: Afebrile. Patient continues on CPAP trials successfully, plan for CT- guided thoracentesis this a.m.. 03/20: Late entry note. Patient underwent CT evaluation for pleural effusions minimal no thoracentesis performed. The patient continues on sedation with intermittent CPAP trials. 03/21: Afebrile. Patient noted to have yeast from urine culture type of plan started for 14 days regimen. Patient continues to tolerate tube feeds. 03/22: TMax 100.5. Patient CPAP trials initiated an ongoing since 8 AM. Patient transitioned to Precedex this a.m. was not started last night secondary to patient's bradycardic rate. With minimal sedation patient alert and oriented following commands daughter in the room. 03/23: The patient tolerated CPAP trials throughout the night greater than 24 hours. SBT parameters obtained within normal limits. Patient was successfully extubated, and has been weaned to 4 L via nasal cannula. Steroids continue to be weaned per pulmonology. 03/24: The patient was successfully extubated yesterday during the night ,however the patient became hypoxic ,cyanotic (per report) and required emergent intubation. She was reintubated, stat chest x-ray revealed pulmonary edema .Lasix ordered. Sputum culture obtained results pending. 03/25: The patient continues to be sedated and intubated, well oxygenated on FiO2 of 35%. Plan for CT angiography thorax today to rule out pulmonary embolus in the setting of pulmonary hypertension, and repeat intubation that occurred on 03/24/17. Plan for CPAP trials to continue and subsequently SBT parameters. Sedation vacation revealed patient alert and following commands on minimal sedation. 03/26: Tmax 99.7. Patient continues on CPAP trials since yesterday chest x-ray showing moderate pleural effusions. Continues on diuretics, prednisone was increased dosing to every 6 hours. INR this a.m. noted to be 3.6, Coumadin placed on hold. Pharmacy has been consulted for management of Coumadin for therapeutic level of 2.0- 3.0. Palliative care team is in conference with the patient's family regarding defining goals of care at this time. 03/27: Patient successfully passed SBT parameters. Palliative care forensics team director and to discuss goals of care. Patient requests trial of extubation with an understanding that reintubation and possible tracheostomy in the future if required. Plan for extubation. Objective Vital Signs Date Time Temp Pulse Resp B/P (MAP) Pulse Ox O2 Delivery O2 Flow Rate FiO2 03/27/17 16:19 95 30 03/27/17 16:00 75 03/27/17 13:12 BiPAP/CPAP 03/27/17 12:00 97.8 31 155/72 (99) 03/23/17 22:35 4.00 Intake and Output 03/27/17 03/27/17 03/28/17 08:00 16:00 00:00 Intake Total 726 ml Output Total 2100 ml Balance -1374 ml Result Diagram: 03/27/17 0645 03/27/17 0645 Other Results Laboratory Tests Test 03/27/17 12:43 Blood Gas Puncture Site RT RADIAL Blood Gas Patient Temperature 98.6 Blood Gas HCO3 29 mmol/L (22-26) Blood Gas Base Excess 5.0 mmol/L (-2-2) Blood Gas Oxygen Saturation 94 % (90-100) Arterial Blood pH 7.46 (7.380-7.420) Arterial Blood Partial Pressure CO2 41 mmHg (38-42) Arterial Blood Partial Pressure O2 82 mmHg (61-120) Arterial Blood Oxygen Content 17.0 Vol % (12.0-20.0) Arterial Blood Carboxyhemoglobin 1.0 % (0-4) Arterial Blood Methemoglobin 1.2 % (0-2) Blood Gas Hemoglobin 12.8 G/DL (12.0-16.0) Oxygen Delivery Device VENTILATOR Blood Gas Ventilator Setting CPAP/PS5/PEEP5 Blood Gas Inspired Oxygen 35 % Imaging Last Impressions Chest X-Ray 03/24/17 0000 Signed Impressions: Service Date/Time: Friday, March 24, 2017 03:08 - CONCLUSION: Increased bilateral pulmonary opacity likely representing pulmonary edema. Possible small right pleural effusion. Persistent cardiac silhouette enlargement. Endotracheal tube tip 1.6 cm above the chang. Juan Dempsey MD Consultation 03/20/17 0700 Signed Impressions: Service Date/Time: Monday, March 20, 2017 13:47 - CONCLUSION: 1. Very tiny bilateral pleural effusions which are too small for thoracentesis. 2. Cardiomegaly and coronary artery calcifications. 3. Bibasilar alveolar consolidations consistent with compressive atelectasis and/or pneumonia. 4. Mild pulmonary vascular congestion. Almas Dave MD CT Angiography 03/14/17 0000 Signed Impressions: Service Date/Time: February 05:15 - CONCLUSION: Bilateral pleural effusions and bibasilar consolidation with probable superimposed slight pulmonary edema as well. Cathi Martinez MD Last Impressions Chest X-Ray 03/19/17 0600 Signed Impressions: Service Date/Time: Sunday, March 19, 2017 03:55 - CONCLUSION: Worsening right lung infiltrate. Yohannes Green Jr., MD CT Angiography 03/14/17 0000 Signed Impressions: Service Date/Time: February 05:15 - CONCLUSION: Bilateral pleural effusions and bibasilar consolidation with probable superimposed slight pulmonary edema as well. Cathi Martinez MD Chest x-ray portable done on 03/16 was personally reviewed: ET tube above chang , bilateral infiltrates more on the right, bilateral pleural effusions, NG tube in place Last 48 hours Impressions Chest X-Ray 03/16/17 0600 Signed Impressions: Service Date/Time: Thursday, March 16, 2017 03:28 - CONCLUSION: Patchy bilateral consolidation and small to moderate right pleural effusion not significantly changed. Mild cardiomegaly. Rufino Chow MD Last Impressions Chest X-Ray 03/11/17 1807 Signed Impressions: Service Date/Time: Saturday, March 11, 2017 18:39 - CONCLUSION: 1. Chronic cardiac silhouette enlargement. 2. New bilateral lower hemithorax opacity right greater than left likely representing right lower lobe atelectasis versus consolidation, right pleural effusion, and possible small left pleural effusion. Juan Dempsey MD Objective Remarks Gen-This is a morbidly obese female recently extubated in no distress HEENT/ Neuro: Sedated, arousable, following commands, orally intubated, No pallor present, no icterus, tongue/ mucosa moist and pink Neck: No JVD Chest/Pulm: on mech vent, good air entry bilaterally, no wheezing or crackles. Clear to auscultation bilaterally. CVS: S1-S2 regular rate, no murmur. Telemetry atrial fibrillation rate controlled GI/abdomen: soft, nontender, bowel sounds normoactive Extremities: warm bilaterally, bilateral edema 3 + Neuro: RASS 0. Following commands, moving extremities 4. A/P Assessment and Plan Assessment: 76yF with history of CHF with preserved EF who presents with SOB and fever and acute hypoxic respiratory failure. Differential includes pneumonia vs. CHF exacerbation, diastolic type. Without evidence of PE. Intubated and placed on mechanical ventilation for borderline respiration status and inability to take off BiPAP for PO intake. Neuro: - Precedex discontinued -Avoid long-acting sedative type medications - Neurochecks per ICU protocol -Xanax 0.5 mg every 6 hours when necessary for agitation CHF Exacerbation, diastolic type Pulmonary hypertension -Status post diuresis - Continue sildenafil 20 mg/day for pulmonary hypertension on 03/17/17 - Cardiology: Dr. Moreno following noncardiac respiratory failure - 03/25 CT Angio pulmonary - negative Acute hypoxic respiratory failure Pulmonary edema -Intubated and placed on mechanical ventilation on 03/16. Extubated 03/23/17 - Reintubated 03/24/17 -Ventilator bundle - Lasix 40 mg twice a day - abx - nebs prn - hob at 30 degrees - Senna spirometry every 4 hours while awake -03/25 CT angiogram thorax- no PE, pulmonary edema Possible community acquired pneumonia Bilateral pleural effusions - broad spectrum abx given severity of symptoms. vanc and zosyn1/-03/21. sputum for Gram stain and cultures following intubation. - CT-guided thoracentesis cancel secondary to inadequate pleural fluid for drainage. INR 3.6 today, Coumadin placed on hold. I see consulted for management -03/11 Blood culture- Anaerobic gram-positive cocci -03/18 Urine culture- yeast Acute kidney injury UTI -Off diuretics. Holding losartan starting 03/17 in view of rising creatinine. May require fluids. Repeat UA and urine culture as indicated - strict I & O's - trend Cr on daily BMP -03/21 begin Diflucan x 14 days Atrial fibrillation - CHADS score > 2. Lovenox/Coumadin for anticoagulation.Small amt of fluid not quantifiable for thoracentesis. Pharmacy consulted for management of Coumadin - currently rate controlled. -Repeat INR GI/liver: Glucerna 1.5 PT evaluation and treat SCDs, SQH Pepcid for GI prophylaxis On 03/16 discussed at length with multiple family members today prior to intubation including reviewing CAT scan images.. Explained that patient is chronically on BiPAP and inability to take off BiPAP to feed or insert NG tube. Discussed option of proceeding with intubation and place on mechanical ventilation in order to be able to place the OG tube to meet nutritional requirements. Family in agreement. Discussed with Dr. Radford who is agreeable with the plan as well. 03/17: Discussed with family members at bedside regarding current clinical status and plan of care and they voiced understanding and were agreeable. 03/25: Discussed with son Mina at bedside providing him with medical status update. Contacted patient's daughter, Kimberley providing her with update regarding pulmonary edema, diuresis, CT angiogram pulmonary pending, and patient 's neuro status off sedation following commands. Discussed with her VDRF and the possibility of tracheostomy and PEG placement, if unable to wean off the ventilator. Daughter stated an understanding, all questions answered. 03/26: Discussed with Mina son and Kimberley daughter, provided an update on medical status. Palliative care team meeting scheduled for this afternoon to discuss definition of goals of care. Discussed with HEMATOLOGY ONCOLOGY CONSULTANT at bedside (Brendan) Dispo: Level III Family requests aggressive measures be continued the patient was successfully extubated with understanding that the patient may require reintubation and possibly a tracheostomy. Patient to be maintained on BiPAP. Physician Nadiya Vazquez MD Mar 27, 2017 19:18
[2017-03-27] MEDS: hydrALAZINE HCL 20 MG/ML VIAL IV PRN (20:11)
[2017-03-28] VITALS (23 sets, daily range): BP systolic 125–172; BP diastolic 67–94; PULSE 74–105; RESP 12–34; TEMP 97.8–98.9; O2SAT 97–100
[2017-03-28] MEDS: methylPREDNISolone SOD SUCC 40 MG/1 ML VIAL IV PUSH SCH ×4 (02:47→19:48)
[2017-03-28] MEDS: CHLORHEXIDINE GLUCONATE 2 % 1 PACK (2 CLOTHS) TOP SCH (02:48)
[2017-03-28] MEDS: RESP: ALBUTEROL 2.5 MG/IPRATROPIUM 0.5 MG NEB (SCH) INH ×4 (03:37→21:18)
--- NOTE | 2017-03-28 05:27 | RADRPT ---
EXAM DATE/TIME: 03/28/2017 04:26 [facility] COMPARISON: CHEST SINGLE AP, March 27, 2017, 3:02. INDICATIONS : Shortness of breath. MEDICAL HISTORY : Cerebrovascular disease. Cardiovascular disease. Hypertension. Diabetes SURGICAL HISTORY : None. ENCOUNTER: Initial ACUITY: 2 weeks PAIN SCORE: 0/10 LOCATION: Bilateral chest FINDINGS: The cardiac silhouette is enlarged in transverse diameter. The lungs are free of acute parenchymal op acity. No effusions are identified. No pleural effusions are identified. CONCLUSION: 1. Cardiomegaly. No acute pulmonary disease. Resolution of the previously seen edema Camden Lakhani MD on March 28, 2017 at 5:24 Board Certified Radiologist. This report was verified electronically.
[2017-03-28] MEDS: INSULIN ASPART SUPPLEMENTAL SCALE SQ SCH ×4 (08:00→19:55)
[2017-03-28] MEDS: CHLORHEXIDINE 0.12% (ORAL KIT) 15 ML CUP MT SCH ×2 (08:00→19:48)
[2017-03-28 08:04] LABS: CALCIUM 8.5 MG/DL (8.5-10.1); CREATININE 1.11 MG/DL (0.50-1.00); MAGNESIUM 2.5 MG/DL (1.5-2.5); PHOSPHORUS 3.3 MG/DL (2.5-4.9)
[2017-03-28] MEDS: RESP: BUDESONIDE 0.5 MG/2 ML NEB NEB SCH ×2 (08:22→21:18)
[2017-03-28] MEDS: POTASSIUM CHLORIDE 20 MEQ PWD PACKET PO SCH (09:00)
[2017-03-28] MEDS: FUROSEMIDE 40 MG/4 ML VIAL IV PUSH SCH (09:35)
[2017-03-28] MEDS: NIFEdipine 30 MG SUSTAINED RELEASE TAB PO SCH ×2 (09:36→19:48)
[2017-03-28] MEDS: METOPROLOL TARTRATE 50 MG TAB PO SCH ×2 (09:36→19:48)
[2017-03-28] MEDS: CHOLECALCIFEROL (VIT D3) 1000 UNIT TAB PO SCH (09:36)
[2017-03-28] MEDS: FAMOTIDINE 20 MG TAB OG-TUBE SCH ×2 (09:36→19:51)
[2017-03-28] MEDS: DOCUSATE SODIUM 50 MG/SENNA 8.6 MG TAB PO SCH ×2 (09:36→19:48)
[2017-03-28] MEDS: SILDENAFIL CITRATE 20 MG TAB PO SCH (09:37)
[2017-03-28] MEDS: FLUCONAZOLE 200 MG PREMIX BAG 100 ML IV SCH (13:00)
--- NOTE | 2017-03-28 14:37 | HHI.CCPN ---
Subjective Remarks/Hospital Course 03/11: This is a 77-year-old female with a history of diastolic CHF who presents with a three-week history of slowly worsening shortness of breath. Patient does use CPAP quite frequently during the day and night, and consistently uses it whenever she takes a nap which occurs at least once or twice during the daytime and then uses it every night with consistency. She complains that over the last 2-3 days her shortness of breath has gotten significantly worse. She does endorse a nonproductive cough over the last 2-3 days and some chills although denies fever. She denies any chest pain. She endorses what sounds like orthopnea and PND type symptoms. She states that she had a prior diagnosis of CHF but has not had any heart workup or seen anyone for this for at least a year or more. She does have a history of atrial fibrillation and is on blood thinners, although she cannot remember which ones. In the emergency department she was significantly hypoxic and placed on BiPAP. She was given Lasix 80 mg IV. She's had a good response and greater than 1 L since that time in urine output. Her BNP is slightly elevated at 238. In the emergency department she had a low-grade temperature of 100.5 Fahrenheit, but has a normal white count. Chest x-ray suggestive of bilateral pleural effusions with possible lower lobe consolidations. 03/12: Was on nasal cannula this morning. Following return from CAT scan she developed respiratory distress and was placed on BiPAP. CT scan could not be completed as IV infiltrated. At the time of my evaluation patient was comfortably tolerating BiPAP with full facemask. 03/13: Was on BiPAP overnight. Awake and alert at the time of my evaluation, following commands this morning. 03/14: on 3L o2 by NC this AM. still somewhat dyspneic. tolerating breakfast. CT pulmonary angiogram yesterday without PE, concern for pulmonary edema with small pleural effusions. CXR today with worsening pulmonary edema. 03/16: Critical care medicine reconsulted by Dr. Radford for respiratory failure with possible need for intubation. Patient remained on BiPAP however does not tolerate taking it off and immediately gets extremely tachypneic and short of breath. Has not been able to have tube feeds of by mouth meds due to her respiratory status. No significant improvement and appears to be getting weaker with lack of nutrition. Discussed with Dr. Radford as well as family members on multiple occasions today. Discussed plan with family regarding proceeding with intubation and mechanical ventilation and inserting NG tube/OG tube to maintain nutritional status while waiting for improvement in pneumonia/ respiratory failure and they were agreeable. 03/17: Sedated, easily arousable, orally intubated on mechanical ventilation. Tolerating tube feeds. 03/18: Remains sedated, orally intubated on mechanical ventilation. Tolerating tube feeds. 03/19: Afebrile. Patient continues on CPAP trials successfully, plan for CT- guided thoracentesis this a.m.. 03/20: Late entry note. Patient underwent CT evaluation for pleural effusions minimal no thoracentesis performed. The patient continues on sedation with intermittent CPAP trials. 03/21: Afebrile. Patient noted to have yeast from urine culture type of plan started for 14 days regimen. Patient continues to tolerate tube feeds. 03/22: TMax 100.5. Patient CPAP trials initiated an ongoing since 8 AM. Patient transitioned to Precedex this a.m. was not started last night secondary to patient's bradycardic rate. With minimal sedation patient alert and oriented following commands daughter in the room. 03/23: The patient tolerated CPAP trials throughout the night greater than 24 hours. SBT parameters obtained within normal limits. Patient was successfully extubated, and has been weaned to 4 L via nasal cannula. Steroids continue to be weaned per pulmonology. 03/24: The patient was successfully extubated yesterday during the night ,however the patient became hypoxic ,cyanotic (per report) and required emergent intubation. She was reintubated, stat chest x-ray revealed pulmonary edema .Lasix ordered. Sputum culture obtained results pending. 03/25: The patient continues to be sedated and intubated, well oxygenated on FiO2 of 35%. Plan for CT angiography thorax today to rule out pulmonary embolus in the setting of pulmonary hypertension, and repeat intubation that occurred on 03/24/17. Plan for CPAP trials to continue and subsequently SBT parameters. Sedation vacation revealed patient alert and following commands on minimal sedation. 03/26: Tmax 99.7. Patient continues on CPAP trials since yesterday chest x-ray showing moderate pleural effusions. Continues on diuretics, prednisone was increased dosing to every 6 hours. INR this a.m. noted to be 3.6, Coumadin placed on hold. Pharmacy has been consulted for management of Coumadin for therapeutic level of 2.0- 3.0. Palliative care team is in conference with the patient's family regarding defining goals of care at this time. 03/27: Patient successfully passed SBT parameters. Palliative care [place] and to discuss goals of care. Patient requests trial of extubation with an understanding that reintubation and possible tracheostomy in the future if required. Plan for extubation. 03/28: Patient tolerated BiPAP since extubation. Patient currently being weaned to nasal cannula and to wear BiPAP at night with the medical history significant for LEDA. Tolerating clear liquid diet and will advance to heart healthy diet this a.m. Physical therapy to evaluate and treat. Case management consulted for possible disposition of rehabilitation from oral hypoglycemic when patient is able to tolerate diet. Objective Vital Signs Date Time Temp Pulse Resp B/P (MAP) Pulse Ox O2 Delivery O2 Flow Rate FiO2 03/28/17 13:00 82 03/28/17 11:00 16 140/76 (97) 97 03/28/17 09:36 Nasal Cannula 3.00 03/28/17 08:00 98.4 03/28/17 03:38 30 Intake and Output 03/28/17 03/28/17 03/28/17 07:59 15:59 23:59 Intake Total 25 ml Output Total 1700 ml Balance -1675 ml Result Diagram: 03/27/17 0645 03/28/17 0610 Imaging Last Impressions Chest X-Ray 03/24/17 0000 Signed Impressions: Service Date/Time: Friday, March 24, 2017 03:08 - CONCLUSION: Increased bilateral pulmonary opacity likely representing pulmonary edema. Possible small right pleural effusion. Persistent cardiac silhouette enlargement. Endotracheal tube tip 1.6 cm above the chang. Juan Dempsey MD Consultation 03/20/17 0700 Signed Impressions: Service Date/Time: Monday, March 20, 2017 13:47 - CONCLUSION: 1. Very tiny bilateral pleural effusions which are too small for thoracentesis. 2. Cardiomegaly and coronary artery calcifications. 3. Bibasilar alveolar consolidations consistent with compressive atelectasis and/or pneumonia. 4. Mild pulmonary vascular congestion. Almas Dave MD CT Angiography 03/14/17 0000 Signed Impressions: Service Date/Time: February 05:15 - CONCLUSION: Bilateral pleural effusions and bibasilar consolidation with probable superimposed slight pulmonary edema as well. Cathi Martinez MD Last Impressions Chest X-Ray 03/19/17 0600 Signed Impressions: Service Date/Time: Sunday, March 19, 2017 03:55 - CONCLUSION: Worsening right lung infiltrate. Yohannes Green Jr., MD CT Angiography 03/14/17 0000 Signed Impressions: Service Date/Time: February 05:15 - CONCLUSION: Bilateral pleural effusions and bibasilar consolidation with probable superimposed slight pulmonary edema as well. Cathi Martinez MD Chest x-ray portable done on 03/16 was personally reviewed: ET tube above chang , bilateral infiltrates more on the right, bilateral pleural effusions, NG tube in place Last 48 hours Impressions Chest X-Ray 03/16/17 0600 Signed Impressions: Service Date/Time: Thursday, March 16, 2017 03:28 - CONCLUSION: Patchy bilateral consolidation and small to moderate right pleural effusion not significantly changed. Mild cardiomegaly. Rufino Chow MD Last Impressions Chest X-Ray 03/11/17 1807 Signed Impressions: Service Date/Time: Saturday, March 11, 2017 18:39 - CONCLUSION: 1. Chronic cardiac silhouette enlargement. 2. New bilateral lower hemithorax opacity right greater than left likely representing right lower lobe atelectasis versus consolidation, right pleural effusion, and possible small left pleural effusion. Juan Dempsey MD Objective Remarks Gen-This is a morbidly obese female on BIPAP in no distress HEENT/ Neuro: Sedated, arousable, following commands, orally intubated, No pallor present, no icterus, tongue/ mucosa moist and pink Neck: No JVD Chest/Pulm: on mech vent, good air entry bilaterally, no wheezing or crackles. Clear to auscultation bilaterally. CVS: S1-S2 regular rate, no murmur. Telemetry atrial fibrillation rate controlled GI/abdomen: soft, nontender, bowel sounds normoactive Extremities: warm bilaterally, bilateral edema 3 + Neuro: RASS 0. Following commands, moving extremities 4. A/P Assessment and Plan Neuro: - Precedex discontinued -Avoid long-acting sedative type medications - Neurochecks per ICU protocol -Xanax 0.5 mg every 6 hours when necessary for agitation CHF Exacerbation, diastolic type Pulmonary hypertension -Status post diuresis - Continue sildenafil 20 mg/day for pulmonary hypertension on 03/17/17 - Cardiology: Dr. Moreno following noncardiac respiratory failure - 03/25 CT Angio pulmonary - negative Acute hypoxic respiratory failure-resolved Pulmonary edema-resolved -Intubated and placed on mechanical ventilation on 03/16. Extubated 03/23/17, - Reintubated 03/24/17 -03/28 CXR-no pulmonary edema - Change to Lasix 40 mg/day - abx - nebs prn - hob at 30 degrees - Incentive spirometry every 4 hours while awake -03/25 CT angiogram thorax- no PE, pulmonary edema Possible community acquired pneumonia Bilateral pleural effusions - broad spectrum abx given severity of symptoms. vanc and zosyn105/13-03/21. sputum for Gram stain and cultures following intubation. - CT-guided thoracentesis cancel secondary to inadequate pleural fluid for drainage. INR 3.6 today, Coumadin placed on hold. I see consulted for management -03/11 Blood culture- Anaerobic gram-positive cocci -03/18 Urine culture- yeast Acute kidney injury UTI -Off diuretics. Holding losartan starting 03/17 in view of rising creatinine. May require fluids. Repeat UA and urine culture as indicated - strict I & O's - trend Cr on daily BMP -03/21 begin Diflucan x 14 days Atrial fibrillation - CHADS score > 2. Lovenox/Coumadin for anticoagulation. Pharmacy consulted for management of Coumadin - currently rate controlled. -Repeat INR GI/liver: -Advance diet- 1800 kamar ADA PT evaluation and treat SCDs, SQH Pepcid for GI prophylaxis On 03/16 discussed at length with multiple family members today prior to intubation including reviewing CAT scan images.. Explained that patient is chronically on BiPAP and inability to take off BiPAP to feed or insert NG tube. Discussed option of proceeding with intubation and place on mechanical ventilation in order to be able to place the OG tube to meet nutritional requirements. Family in agreement. Discussed with Dr. Radford who is agreeable with the plan as well. Dispo: Level 2-planned transfer to [facility] in a.m. Plan transfer to MedSurg floor when bed available Family requests aggressive measures be continued the patient was successfully extubated with understanding that the patient may require reintubation and possibly a tracheostomy. Patient to be maintained on BiPAP at night. Physician Nadiya Vazquez MD Mar 28, 2017 14:37
[2017-03-28] MEDS: GEMFIBROZIL 600 MG TAB PO SCH (17:53)
--- NOTE | 2017-03-28 18:00 | HHI.PR ---
Subjective Remarks 76 YOWF with resp insuff, Gets anxious CTA no PE, has pl eff Tolerates TF Extubated 03/27 follows commands Daughter at BS tolerates Clears Weaned to NC Objective Vital Signs Vital Signs Date Time Temp Pulse Resp B/P (MAP) Pulse Ox O2 Delivery O2 Flow Rate FiO2 03/28/17 13:00 82 03/28/17 12:00 78 03/28/17 11:00 83 16 140/76 (97) 97 03/28/17 11:00 83 03/28/17 10:01 99 03/28/17 10:01 99 19 156/67 (96) 97 03/28/17 10:00 99 03/28/17 10:00 99 19 156/67 (96) 97 03/28/17 09:36 98 Nasal Cannula 3.00 03/28/17 09:00 105 18 158/80 (106) 99 03/28/17 09:00 105 03/28/17 08:00 98.4 89 28 168/86 (113) 99 03/28/17 08:00 89 03/28/17 07:00 87 03/28/17 07:00 87 25 172/82 (112) 99 03/28/17 04:00 88 03/28/17 04:00 98.9 84 12 158/82 (107) 100 03/28/17 03:38 100 30 03/28/17 02:00 82 03/28/17 01:06 99 30 03/28/17 00:00 98.3 84 18 147/68 (94) 100 03/28/17 00:00 84 03/27/17 22:04 100 30 03/27/17 22:00 80 03/27/17 20:00 98.0 81 20 180/86 (117) 100 03/27/17 20:00 81 03/27/17 19:08 99 30 03/27/17 18:00 79 I/O 03/27/17 03/27/17 03/27/17 03/28/17 03/28/17 03/28/17 07:00 15:00 23:00 07:00 15:00 23:00 Intake Total 726 ml 60 ml 25 ml Output Total 2100 ml 1825 ml 1700 ml Balance -1374 ml -1765 ml -1675 ml Intake Oral 25 ml IV Total 35 ml Tube Feeding 591 ml Other 100 ml 60 ml Output Urine Total 2100 ml 1825 ml 1700 ml # Bowel Movements 1 1 3 Result Diagram: 03/27/17 0645 03/28/17 0610 Objective Remarks GENERAL: Obese WF, sob, anxious SKIN: Warm and dry. HEAD: Normocephalic. EYES: No scleral icterus. No injection or drainage. NECK: Supple, trachea midline. No JVD or lymphadenopathy. CARDIOVASCULAR: Regular rate and rhythm without murmurs, gallops, or rubs. RESPIRATORY: Breath sounds equal bilaterally. No accessory muscle use. GASTROINTESTINAL: Abdomen soft, non-tender, nondistended. MUSCULOSKELETAL: No cyanosis, ++ edema. BACK: Nontender without obvious deformity. No CVA tenderness. A/P Assessment and Plan VDRF, s/p extubation No PE Pleural effusion CHF AF PLAN: Diurease Cont Abx IV Solumedrol. 40 mg q 6 hrs monitor BS Supplement 02 to keep sat >90% CPAP at night DW daughter at [facility],Landon Kwan MD Mar 28, 2017 18:00
[2017-03-28 19:11] LABS: PROTHROMBIN TIME - PATIENT 30.1 SEC (9.8-11.6)
[2017-03-29] VITALS (16 sets, daily range): BP systolic 139–166; BP diastolic 71–91; PULSE 68–97; RESP 16–39; TEMP 96.9–98.4; O2SAT 93–100
[2017-03-29] MEDS: RESP: ALBUTEROL 2.5 MG/IPRATROPIUM 0.5 MG NEB (SCH) INH ×4 (03:05→20:47)
[2017-03-29] MEDS: CHLORHEXIDINE GLUCONATE 2 % 1 PACK (2 CLOTHS) TOP SCH (04:00)
[2017-03-29] MEDS: methylPREDNISolone SOD SUCC 40 MG/1 ML VIAL IV PUSH SCH ×3 (04:48→15:00)
[2017-03-29] MEDS: LEVOTHYROXINE SODIUM 100 MCG TAB PO SCH (04:48)
[2017-03-29] MEDS: GEMFIBROZIL 600 MG TAB PO SCH ×2 (04:48→09:43)
[2017-03-29 07:01] LABS: PROTHROMBIN TIME - PATIENT 29.9 SEC (9.8-11.6)
[2017-03-29] MEDS: CHLORHEXIDINE 0.12% (ORAL KIT) 15 ML CUP MT SCH ×2 (08:00→20:00)
[2017-03-29] MEDS: POTASSIUM CHLORIDE 20 MEQ PWD PACKET PO SCH (09:00)
[2017-03-29 09:19] LABS: AUTOMATED NEUTROPHIL # 10.4 TH/MM3 (1.8-7.7); BASOPHIL % 0.1 % (0.0-2.0); HEMATOCRIT 39.6 % (35.0-46.0); HEMOGLOBIN 12.7 GM/DL (11.6-15.3); LYMPH % 2.1 % (9.0-44.0); LYMPHOCYTE # 0.2 TH/MM3 (1.0-4.8); MEAN CELL VOLUME 88.4 FL (80.0-100.0); MEAN CORPUSCULAR HEMOGLOBIN 28.4 PG (27.0-34.0); MEAN CORPUSCULAR HGB CONC 32.1 % (32.0-36.0); MEAN PLATELET VOLUME 8.6 FL (7.0-11.0); MONOCYTE # 0.4 TH/MM3 (0-0.9); NEUT % 93.8 % (16.0-70.0); PLATELET COUNT 195 TH/MM3 (150-450); RED BLOOD COUNT 4.48 MIL/MM3 (4.00-5.30); RED CELL DISTRIBUTION WIDTH 16.6 % (11.6-17.2); WHITE BLOOD COUNT 11.1 TH/MM3 (4.0-11.0)
[2017-03-29] MEDS: RESP: BUDESONIDE 0.5 MG/2 ML NEB NEB SCH ×2 (09:28→20:47)
[2017-03-29] MEDS: GLIMEPIRIDE 1 MG TAB PO SCH ×2 (09:30→19:58)
--- NOTE | 2017-03-29 09:36 | HHI.PR ---
Subjective Remarks doing better. daughter at bedside. Objective Vitals nad nasal cannula heart reg lung course bs abd s/nt ext no edema Vital Signs Date Time Temp Pulse Resp B/P (MAP) Pulse Ox O2 Delivery O2 Flow Rate FiO2 03/29/17 08:08 95 Nasal Cannula 2.50 03/29/17 08:00 92 03/29/17 08:00 98.4 85 39 146/91 (109) 95 03/29/17 06:00 72 03/29/17 04:00 73 03/29/17 04:00 97.8 80 16 157/79 (105) 98 03/29/17 02:00 74 03/29/17 00:33 98 30 03/29/17 00:00 68 03/29/17 00:00 97.3 71 18 151/80 (103) 98 03/28/17 22:00 74 03/28/17 21:21 99 30 03/28/17 20:50 97 30 03/28/17 20:00 97.8 90 34 154/74 (100) 97 03/28/17 20:00 90 03/28/17 18:00 90 33 99 03/28/17 18:00 90 03/28/17 17:00 88 03/28/17 17:00 88 27 145/69 (94) 99 03/28/17 16:00 87 03/28/17 16:00 98.5 87 18 145/71 (95) 98 03/28/17 15:00 85 03/28/17 15:00 85 26 125/94 (104) 100 03/28/17 14:00 84 03/28/17 14:00 84 28 142/76 (98) 98 03/28/17 13:00 82 26 136/69 (91) 98 03/28/17 13:00 82 03/28/17 12:00 78 03/28/17 12:00 98.5 78 15 135/75 (95) 98 03/28/17 11:00 83 16 140/76 (97) 97 03/28/17 11:00 83 03/28/17 10:01 99 03/28/17 10:01 99 19 156/67 (96) 97 03/28/17 10:00 99 03/28/17 10:00 99 19 156/67 (96) 97 03/28/17 09:36 98 Nasal Cannula 3.00 Result Diagram: 03/29/17 0850 03/28/17 0610 A/P Problem List: (1) Acute respiratory failure with hypoxia ICD Codes: J96.01 - Acute respiratory failure with hypoxia Status: Acute Plan: 1. hypoxic resp failure...s/p intubation x 2 diastolic chf with exacerbation/effusions questionable pna paul. uses cpap pulmonary htn 2. afib. controlled. coumadin supratherapeutic 3. ckd 3 4. diabetes. steroid exacerbated. 5. htn. uncontrolled plan bipap. cont nebs . iv solumedrol. po lasix sildenafil for phtn coumadin was on hold..resume when inr under 3 Pt daily. currently at bedside cont ssi. resume oha anxiolytics on day 8 diflucan per professional nursing tutor for uti long talk with daughter. wants local rehab or snf then afterward she will be relocated to [place] with family. (2) Diastolic CHF ICD Codes: I50.30 - Unspecified diastolic (congestive) heart failure Status: Acute (3) Pleural effusion ICD Codes: J90 - Pleural effusion, not elsewhere classified Status: Acute (4) Diabetes ICD Codes: E11.9 - Type 2 diabetes mellitus without complications Status: Chronic (5) CKD (chronic kidney disease), stage III ICD Codes: N18.3 - Chronic kidney disease, stage 3 (moderate) Status: Chronic (6) Atrial fibrillation ICD Codes: I48.91 - Unspecified atrial fibrillation Status: Chronic Marcello Stuart MD Mar 29, 2017 09:36
[2017-03-29] MEDS: INSULIN ASPART SUPPLEMENTAL SCALE SQ SCH ×4 (09:42→19:58)
[2017-03-29] MEDS: FUROSEMIDE 40 MG TAB PO SCH (09:43)
[2017-03-29] MEDS: DOCUSATE SODIUM 50 MG/SENNA 8.6 MG TAB PO SCH ×2 (09:43→19:58)
[2017-03-29] MEDS: FAMOTIDINE 20 MG TAB OG-TUBE SCH (09:43)
[2017-03-29] MEDS: NIFEdipine 30 MG SUSTAINED RELEASE TAB PO SCH ×2 (09:43→19:58)
[2017-03-29] MEDS: CHOLECALCIFEROL (VIT D3) 1000 UNIT TAB PO SCH (09:43)
[2017-03-29] MEDS: SILDENAFIL CITRATE 20 MG TAB PO SCH (09:43)
[2017-03-29] MEDS: ATORVASTATIN 20 MG TAB PO SCH (09:44)
[2017-03-29] MEDS: METOPROLOL TARTRATE 50 MG TAB PO SCH ×2 (09:44→19:58)
--- NOTE | 2017-03-29 11:00 | HHI.CCPN ---
Subjective Remarks/Hospital Course 03/11: This is a 77-year-old female with a history of diastolic CHF who presents with a three-week history of slowly worsening shortness of breath. Patient does use CPAP quite frequently during the day and night, and consistently uses it whenever she takes a nap which occurs at least once or twice during the daytime and then uses it every night with consistency. She complains that over the last 2-3 days her shortness of breath has gotten significantly worse. She does endorse a nonproductive cough over the last 2-3 days and some chills although denies fever. She denies any chest pain. She endorses what sounds like orthopnea and PND type symptoms. She states that she had a prior diagnosis of CHF but has not had any heart workup or seen anyone for this for at least a year or more. She does have a history of atrial fibrillation and is on blood thinners, although she cannot remember which ones. In the emergency department she was significantly hypoxic and placed on BiPAP. She was given Lasix 80 mg IV. She's had a good response and greater than 1 L since that time in urine output. Her BNP is slightly elevated at 238. In the emergency department she had a low-grade temperature of 100.5 Fahrenheit, but has a normal white count. Chest x-ray suggestive of bilateral pleural effusions with possible lower lobe consolidations. 03/12: Was on nasal cannula this morning. Following return from CAT scan she developed respiratory distress and was placed on BiPAP. CT scan could not be completed as IV infiltrated. At the time of my evaluation patient was comfortably tolerating BiPAP with full facemask. 03/13: Was on BiPAP overnight. Awake and alert at the time of my evaluation, following commands this morning. 03/14: on 3L o2 by NC this AM. still somewhat dyspneic. tolerating breakfast. CT pulmonary angiogram yesterday without PE, concern for pulmonary edema with small pleural effusions. CXR today with worsening pulmonary edema. 03/16: Critical care medicine reconsulted by Dr. Radford for respiratory failure with possible need for intubation. Patient remained on BiPAP however does not tolerate taking it off and immediately gets extremely tachypneic and short of breath. Has not been able to have tube feeds of by mouth meds due to her respiratory status. No significant improvement and appears to be getting weaker with lack of nutrition. Discussed with Dr. Radford as well as family members on multiple occasions today. Discussed plan with family regarding proceeding with intubation and mechanical ventilation and inserting NG tube/OG tube to maintain nutritional status while waiting for improvement in pneumonia/ respiratory failure and they were agreeable. 03/17: Sedated, easily arousable, orally intubated on mechanical ventilation. Tolerating tube feeds. 03/18: Remains sedated, orally intubated on mechanical ventilation. Tolerating tube feeds. 03/19: Afebrile. Patient continues on CPAP trials successfully, plan for CT- guided thoracentesis this a.m.. 03/20: Late entry note. Patient underwent CT evaluation for pleural effusions minimal no thoracentesis performed. The patient continues on sedation with intermittent CPAP trials. 03/21: Afebrile. Patient noted to have yeast from urine culture type of plan started for 14 days regimen. Patient continues to tolerate tube feeds. 03/22: TMax 100.5. Patient CPAP trials initiated an ongoing since 8 AM. Patient transitioned to Precedex this a.m. was not started last night secondary to patient's bradycardic rate. With minimal sedation patient alert and oriented following commands daughter in the room. 03/23: The patient tolerated CPAP trials throughout the night greater than 24 hours. SBT parameters obtained within normal limits. Patient was successfully extubated, and has been weaned to 4 L via nasal cannula. Steroids continue to be weaned per pulmonology. 03/24: The patient was successfully extubated yesterday during the night ,however the patient became hypoxic ,cyanotic (per report) and required emergent intubation. She was reintubated, stat chest x-ray revealed pulmonary edema .Lasix ordered. Sputum culture obtained results pending. 03/25: The patient continues to be sedated and intubated, well oxygenated on FiO2 of 35%. Plan for CT angiography thorax today to rule out pulmonary embolus in the setting of pulmonary hypertension, and repeat intubation that occurred on 03/24/17. Plan for CPAP trials to continue and subsequently SBT parameters. Sedation vacation revealed patient alert and following commands on minimal sedation. 03/26: Tmax 99.7. Patient continues on CPAP trials since yesterday chest x-ray showing moderate pleural effusions. Continues on diuretics, prednisone was increased dosing to every 6 hours. INR this a.m. noted to be 3.6, Coumadin placed on hold. Pharmacy has been consulted for management of Coumadin for therapeutic level of 2.0- 3.0. Palliative care team is in conference with the patient's family regarding defining goals of care at this time. 03/27: Patient successfully passed SBT parameters. Palliative care care team coordinator scheduler and to discuss goals of care. Patient requests trial of extubation with an understanding that reintubation and possible tracheostomy in the future if required. Plan for extubation. 03/28: Patient tolerated BiPAP since extubation. Patient currently being weaned to nasal cannula and to wear BiPAP at night with the medical history significant for LEDA. Tolerating clear liquid diet and will advance to heart healthy diet this a.m. Physical therapy to evaluate and treat. Case management consulted for possible disposition of rehabilitation from oral hypoglycemic when patient is able to tolerate diet. 03/29: Afebrile. No acute events overnight. Patient tolerating regular diet. Glucose continues to be elevated. Oral hypoglycemic patient's home med, Glimiperide, reinitiated. INR therapeutic 3.0 today. Continuous weaning of O2 via nasal cannula currently at 2 L Objective Vital Signs Date Time Temp Pulse Resp B/P (MAP) Pulse Ox O2 Delivery O2 Flow Rate FiO2 03/29/17 10:00 72 03/29/17 08:08 95 Nasal Cannula 2.50 03/29/17 08:00 98.4 39 146/91 (109) 03/29/17 00:33 30 Intake and Output 03/29/17 03/29/17 03/30/17 08:00 16:00 00:00 Intake Total 700 ml Output Total 150 ml Balance 550 ml Result Diagram: 03/29/17 0850 03/28/17 0610 Imaging Last Impressions Chest X-Ray 03/28/17 0600 Signed Impressions: Service Date/Time: March 04:26 - CONCLUSION: 1. Cardiomegaly. No acute pulmonary disease. Resolution of the previously seen edema Camden Lakhani MD CT Angiography 03/25/17 0000 Signed Impressions: Service Date/Time: Saturday, March 25, 2017 13:29 - CONCLUSION: Negative for central pulmonary emboli Cardiomegaly with moderate congestive failure, consolidation in both base with small right pleural effusion. Satnam Ibarra MD FACR Consultation 03/20/17699 Signed Impressions: Service Date/Time: Monday, March 20, 2017 13:47 - CONCLUSION: 1. Very tiny bilateral pleural effusions which are too small for thoracentesis. 2. Cardiomegaly and coronary artery calcifications. 3. Bibasilar alveolar consolidations consistent with compressive atelectasis and/or pneumonia. 4. Mild pulmonary vascular congestion. Almas Dave MD Last Impressions Chest X-Ray 03/24/17 0000 Signed Impressions: Service Date/Time: Friday, March 24, 2017 03:08 - CONCLUSION: Increased bilateral pulmonary opacity likely representing pulmonary edema. Possible small right pleural effusion. Persistent cardiac silhouette enlargement. Endotracheal tube tip 1.6 cm above the chang. Juan Dempsey MD Consultation 03/20/17699 Signed Impressions: Service Date/Time: Monday, March 20, 2017 13:47 - CONCLUSION: 1. Very tiny bilateral pleural effusions which are too small for thoracentesis. 2. Cardiomegaly and coronary artery calcifications. 3. Bibasilar alveolar consolidations consistent with compressive atelectasis and/or pneumonia. 4. Mild pulmonary vascular congestion. Almas Dave MD CT Angiography 03/14/17 0000 Signed Impressions: Service Date/Time: February 05:15 - CONCLUSION: Bilateral pleural effusions and bibasilar consolidation with probable superimposed slight pulmonary edema as well. Cathi Martinez MD Last Impressions Chest X-Ray 03/19/17 06 Signed Impressions: Service Date/Time: Sunday, March 19, 2017 03:55 - CONCLUSION: Worsening right lung infiltrate. Yohannes Green Jr., MD CT Angiography 03/14/17 0000 Signed Impressions: Service Date/Time: February 05:15 - CONCLUSION: Bilateral pleural effusions and bibasilar consolidation with probable superimposed slight pulmonary edema as well. Cathi Martinez MD Chest x-ray portable done on 03/16 was personally reviewed: ET tube above chang , bilateral infiltrates more on the right, bilateral pleural effusions, NG tube in place Last 48 hours Impressions Chest X-Ray 03/16/17 0600 Signed Impressions: Service Date/Time: Thursday, March 16, 2017 03:28 - CONCLUSION: Patchy bilateral consolidation and small to moderate right pleural effusion not significantly changed. Mild cardiomegaly. Rufino Chow MD Last Impressions Chest X-Ray 03/11/171806 Signed Impressions: Service Date/Time: Saturday, March 11, 2017 18:39 - CONCLUSION: 1. Chronic cardiac silhouette enlargement. 2. New bilateral lower hemithorax opacity right greater than left likely representing right lower lobe atelectasis versus consolidation, right pleural effusion, and possible small left pleural effusion. Juan Dempsey MD Objective Remarks Gen-This is a morbidly obese female on nasal cannula at 2 L/m, in no distress HEENT/ Neuro: Alert and oriented 3, following commands, No pallor present, no icterus, tongue/ mucosa moist and pink Neck: No JVD Chest/Pulm: on mech vent, good air entry bilaterally, no wheezing or crackles. Clear to auscultation bilaterally. CVS: S1-S2 regular rate, no murmur. Telemetry atrial fibrillation rate controlled GI/abdomen: soft, nontender, bowel sounds normoactive Extremities: warm bilaterally, bilateral edema 2 + Neuro: RASS 0. Following commands, moving extremities 4. A/P Assessment and Plan Neuro: - Precedex discontinued -Avoid long-acting sedative type medications - Neurochecks per ICU protocol CHF Exacerbation, diastolic type Pulmonary hypertension -Status post diuresis - Continue sildenafil 20 mg/day for pulmonary hypertension on 03/17/17 - Cardiology: Dr. Moreno evaluated patient - CTA thorax- negative for pulmonary embolus Acute hypoxic respiratory failure Pulmonary edema -Intubated and placed on mechanical ventilation on 03/16. Extubated 03/23/17 - Intubated 03/24/17 -Ventilator bundle - Lasix 40 mg BID - abx - nebs prn - hob at 30 degrees - Incentive spirometry every 4 hours while awake Possible community acquired pneumonia Bilateral pleural effusions - broad spectrum abx given severity of symptoms. vanc and [id number]/21. sputum for Gram stain and cultures following intubation. - CT-guided thoracentesis cancel secondary to inadequate pleural fluid for drainage. Coumadin resumed -03/11 Blood culture- Anaerobic gram-positive cocci -03/18 Urine culture- yeast Acute kidney injury UTI -Off diuretics. Holding losartan starting 03/17 in view of rising creatinine. May require fluids. Repeat UA and urine culture as indicated - strict I & O's - trend Cr on daily BMP -/4 begin Diflucan x 14 days Atrial fibrillation - CHADS score > 2. Lovenox/Coumadin for anticoagulation. Coumadin per pharmacy dosing - currently rate controlled. GI/liver: -1800 kamar Diabetic diet PT evaluation and treat SCDs, SQH Pepcid for GI prophylaxis On 03/16 discussed at length with multiple family members today prior to intubation including reviewing CAT scan images.. Explained that patient is chronically on BiPAP and inability to take off BiPAP to feed or insert NG tube. Discussed option of proceeding with intubation and place on mechanical ventilation in order to be able to place the OG tube to meet nutritional requirements. Family in agreement. Discussed with Dr. Radford who is agreeable with the plan as well. 03/17: Discussed with family members at bedside regarding current clinical status and plan of care and they voiced understanding and were agreeable. Discussed with [employer] SALES REPRESENTATIVE at bedside. Dispo: Level 2 transfer to [facility] in a.m.. Transfer to [facility] floor when bed available Physician Nadiya Vazquez MD Mar 29, 2017 11:00
[2017-03-29] MEDS: FLUCONAZOLE 200 MG PREMIX BAG 100 ML IV SCH (13:36)
--- NOTE | 2017-03-29 17:04 | HHI.PR ---
Subjective Remarks 76 YOWF with resp insuff, Gets anxious CTA no PE, has pl eff Tolerates TF Extubated 03/27 follows commands Daughter at BS Tolerates PO Objective Vital Signs Vital Signs Date Time Temp Pulse Resp B/P (MAP) Pulse Ox O2 Delivery O2 Flow Rate FiO2 03/29/17 16:00 76 03/29/17 16:00 98.3 87 39 144/75 (98) 100 03/29/17 14:00 76 03/29/17 12:00 98.4 95 27 146/86 (106) 96 03/29/17 12:00 97.8 95 27 148/71 (96) 96 03/29/17 12:00 76 03/29/17 10:00 72 03/29/17 08:08 95 Nasal Cannula 2.50 03/29/17 08:00 92 03/29/17 08:00 98.4 85 39 146/91 (109) 95 03/29/17 06:00 72 03/29/17 04:00 73 03/29/17 04:00 97.8 80 16 157/79 (105) 98 03/29/17 02:00 74 03/29/17 00:33 98 30 03/29/17 00:00 68 03/29/17 00:00 97.3 71 18 151/80 (103) 98 03/28/17 22:00 74 03/28/17 21:21 99 30 03/28/17 20:50 97 30 03/28/17 20:00 97.8 90 34 154/74 (100) 97 03/28/17 20:00 90 03/28/17 18:00 90 33 99 03/28/17 18:00 90 I/O 03/28/17 03/28/17 03/28/17 03/29/17 03/29/17 03/29/17 07:00 15:00 23:00 07:00 15:00 23:00 Intake Total 25 ml 720 ml 700 ml Output Total 1700 ml 1600 ml 150 ml Balance -1675 ml -880 ml 550 ml Intake Oral 25 ml 720 ml 700 ml Output Urine Total 1700 ml 1600 ml 150 ml # Voids 2 # Bowel Movements 3 1 1 Result Diagram: 03/29/17 0850 03/28/17 0610 Objective Remarks GENERAL: Obese WF, sob, anxious SKIN: Warm and dry. HEAD: Normocephalic. EYES: No scleral icterus. No injection or drainage. NECK: Supple, trachea midline. No JVD or lymphadenopathy. CARDIOVASCULAR: Regular rate and rhythm without murmurs, gallops, or rubs. RESPIRATORY: Breath sounds equal bilaterally. No accessory muscle use. GASTROINTESTINAL: Abdomen soft, non-tender, nondistended. MUSCULOSKELETAL: No cyanosis, ++ edema. BACK: Nontender without obvious deformity. No CVA tenderness. A/P Assessment and Plan VDRF, s/p extubation No PE Pleural effusion CHF AF PLAN: Diurease Cont Abx monitor BS Supplement 02 to keep sat >90% CPAP at night Daughter will bring pt's CPAP machine Pred 10 mg tid DW daughter and son at BS Landon Tony MD Mar 29, 2017 17:04
[2017-03-29] MEDS: predniSONE 10 MG TAB PO SCH (18:02)
[2017-03-29] MEDS: FAMOTIDINE 20 MG TAB PO SCH (20:02)
[2017-03-29] MEDS: hydrALAZINE HCL 20 MG/ML VIAL IV PRN (21:22)
[2017-03-30] VITALS (19 sets, daily range): BP systolic 122–156; BP diastolic 66–82; PULSE 74–96; RESP 17–20; TEMP 96.5–97.4; O2SAT 92–96
[2017-03-30] MEDS: RESP: ALBUTEROL 2.5 MG/IPRATROPIUM 0.5 MG NEB (SCH) INH ×4 (03:25→20:49)
[2017-03-30] MEDS: CHLORHEXIDINE GLUCONATE 2 % 1 PACK (2 CLOTHS) TOP SCH (04:00)
[2017-03-30] MEDS: GEMFIBROZIL 600 MG TAB PO SCH ×2 (05:43→16:09)
[2017-03-30] MEDS: LEVOTHYROXINE SODIUM 100 MCG TAB PO SCH (05:43)
[2017-03-30 06:07] LABS: INTERNATIONAL NORMALIZED RATIO 3.1 RATIO; PROTHROMBIN TIME - PATIENT 31.4 SEC (9.8-11.6)
[2017-03-30 06:14] LABS: BICARBONATE 30.2 MEQ/L (21.0-32.0); CALCIUM 8.6 MG/DL (8.5-10.1); CREATININE 1.19 MG/DL (0.50-1.00)
[2017-03-30] MEDS: CHLORHEXIDINE 0.12% (ORAL KIT) 15 ML CUP MT SCH ×2 (08:00→20:00)
[2017-03-30] MEDS: DOCUSATE SODIUM 50 MG/SENNA 8.6 MG TAB PO SCH ×2 (09:00→21:53)
[2017-03-30] MEDS: RESP: BUDESONIDE 0.5 MG/2 ML NEB NEB SCH ×2 (09:11→20:00)
[2017-03-30] MEDS: POTASSIUM CHLORIDE 20 MEQ PWD PACKET PO SCH (09:14)
[2017-03-30] MEDS: FUROSEMIDE 40 MG TAB PO SCH (09:15)
[2017-03-30] MEDS: SILDENAFIL CITRATE 20 MG TAB PO SCH (09:15)
[2017-03-30] MEDS: NIFEdipine 30 MG SUSTAINED RELEASE TAB PO SCH ×2 (09:15→21:50)
[2017-03-30] MEDS: CHOLECALCIFEROL (VIT D3) 1000 UNIT TAB PO SCH (09:15)
[2017-03-30] MEDS: predniSONE 10 MG TAB PO SCH ×3 (09:16→17:32)
[2017-03-30] MEDS: METOPROLOL TARTRATE 50 MG TAB PO SCH ×2 (09:16→21:50)
[2017-03-30] MEDS: FAMOTIDINE 20 MG TAB PO SCH ×2 (09:16→21:51)
[2017-03-30] MEDS: GLIMEPIRIDE 1 MG TAB PO SCH ×2 (09:16→21:50)
[2017-03-30] MEDS: INSULIN ASPART SUPPLEMENTAL SCALE SQ SCH ×4 (09:25→21:54)
[2017-03-30] MEDS: ACETAMINOPHEN 325 MG TAB PO PRN ×2 (11:10→17:32)
[2017-03-30] MEDS: FLUCONAZOLE 200 MG PREMIX BAG 100 ML IV SCH (12:14)
--- NOTE | 2017-03-30 13:23 | HHI.PR ---
Subjective Remarks Patient is lying in bed in NAD. Afebrile. On 4L oxygen Objective Vital Signs Vital Signs Date Time Temp Pulse Resp B/P (MAP) Pulse Ox O2 Delivery O2 Flow Rate FiO2 03/30/17 12:42 81 03/30/17 11:28 74 03/30/17 09:26 Nasal Cannula 4.00 03/30/17 09:13 95 Nasal Cannula 2.50 03/30/17 09:12 83 03/30/17 08:00 96.8 90 20 151/72 (98) 95 03/30/17 06:48 87 03/30/17 04:00 97.1 96 17 156/78 (104) 92 03/29/17 22:45 96.9 97 18 139/72 (94) 93 03/29/17 22:00 88 03/29/17 20:47 97 Nasal Cannula 2.50 03/29/17 20:00 90 03/29/17 20:00 98.3 90 20 166/81 (109) 97 03/29/17 18:00 79 03/29/17 16:00 76 03/29/17 16:00 98.3 87 39 144/75 (98) 100 03/29/17 14:00 76 I/O 03/29/17 03/29/17 03/29/17 03/30/17 03/30/17 03/30/17 06:59 14:59 22:59 06:59 14:59 22:59 Intake Total 700 ml 560 ml 480 ml Output Total 150 ml 600 ml Balance 550 ml -40 ml 480 ml Intake Oral 700 ml 560 ml 480 ml Output Urine Total 150 ml 600 ml # Voids 2 # Bowel Movements 1 1 Result Diagram: 03/29/17 0850 03/30/17 0525 Other Results Last Impressions Chest X-Ray 03/28/17 0600 Signed Impressions: Service Date/Time: March 04:26 - CONCLUSION: 1. Cardiomegaly. No acute pulmonary disease. Resolution of the previously seen edema Camden Lakhani MD CT Angiography 03/25/17 0000 Signed Impressions: Service Date/Time: Saturday, March 25, 2017 13:29 - CONCLUSION: Negative for central pulmonary emboli Cardiomegaly with moderate congestive failure, consolidation in both base with small right pleural effusion. Satnam Ibarra MD FACR Consultation 03/20/17 0700 Signed Impressions: Service Date/Time: Monday, March 20, 2017 13:47 - CONCLUSION: 1. Very tiny bilateral pleural effusions which are too small for thoracentesis. 2. Cardiomegaly and coronary artery calcifications. 3. Bibasilar alveolar consolidations consistent with compressive atelectasis and/or pneumonia. 4. Mild pulmonary vascular congestion. Almas Dave MD Objective Remarks GENERAL: Obese WF lying in bed in NAD SKIN: Warm and dry. HEAD: Normocephalic. EYES: No scleral icterus. No injection or drainage. NECK: Supple, trachea midline. No JVD or lymphadenopathy. CARDIOVASCULAR: Regular rate and rhythm without murmurs, gallops, or rubs. RESPIRATORY: Breath sounds equal bilaterally. No accessory muscle use. GASTROINTESTINAL: Abdomen soft, non-tender, nondistended. MUSCULOSKELETAL: No cyanosis, ++ edema. Neuro: awake and alert A/P Assessment and Plan 1)Resp Insuff 2)CHF 3)Mod- severe pulm HTN 4)Morbid obesity, LEDA- On CPAP at home 5)MICHEAL 6)Atrial fib 7)UTI PLAN Continue with oxygen keep sat >92% Bronchodilators/Pulmicort NIPPV nocturnally and PRN for resp distress. On CPAP at home Continue prednisone 10mg daily Continue with diuretics- on Lasix 40mg daily On Diflucan for UTI. On Revatio 20mg daily for pulm HTN GI/DVT prophylaxis- on Coumadin with INR 3.1 today Continue treatment plan Chun Cuba MD Mar 30, 2017 13:23
--- NOTE | 2017-03-30 14:26 | HHI.PR ---
Subjective Remarks Pt overall is feeling well today She is concerned because she has not been out of bed since [place] and feels very week overall Vitals are stable. Pt is on 4L of supplemental O2 via NC which is about her baseline. Pts daughter feels that the pt has been confused more recently Objective Vitals Vital Signs Date Time Temp Pulse Resp B/P (MAP) Pulse Ox O2 Delivery O2 Flow Rate FiO2 03/30/17 13:25 78 03/30/17 12:42 81 03/30/17 11:28 74 03/30/17 09:26 Nasal Cannula 4.00 03/30/17 09:13 95 Nasal Cannula 2.50 03/30/17 09:12 83 03/30/17 08:00 96.8 90 20 151/72 (98) 95 03/30/17 06:48 87 03/30/17 04:00 97.1 96 17 156/78 (104) 92 03/29/17 22:45 96.9 97 18 139/72 (94) 93 03/29/17 22:00 88 03/29/17 20:47 97 Nasal Cannula 2.50 03/29/17 20:00 90 03/29/17 20:00 98.3 90 20 166/81 (109) 97 03/29/17 18:00 79 03/29/17 16:00 76 03/29/17 16:00 98.3 87 39 144/75 (98) 100 03/29/17 14:00 76 Result Diagram: 03/29/17 0850 03/30/17 0525 Other Results Laboratory Tests Test 03/28/17 17:45 03/29/17 05:43 03/29/17 08:50 03/30/17 05:25 Prothrombin Time 30.1 SEC 29.9 SEC 31.4 SEC Prothromb Time International Ratio 3.0 RATIO 3.0 RATIO 3.1 RATIO White Blood Count 11.1 TH/MM3 Red Blood Count 4.48 MIL/MM3 Hemoglobin 12.7 GM/DL Hematocrit 39.6 % Mean Corpuscular Volume 88.4 FL Mean Corpuscular Hemoglobin 28.4 PG Mean Corpuscular Hemoglobin Concent 32.1 % Red Cell Distribution Width 16.6 % Platelet Count 195 TH/MM3 Mean Platelet Volume 8.6 FL Neutrophils (%) (Auto) 93.8 % Lymphocytes (%) (Auto) 2.1 % Monocytes (%) (Auto) 4.0 % Eosinophils (%) (Auto) 0.0 % Basophils (%) (Auto) 0.1 % Neutrophils # (Auto) 10.4 TH/MM3 Lymphocytes # (Auto) 0.2 TH/MM3 Monocytes # (Auto) 0.4 TH/MM3 Eosinophils # (Auto) 0.0 TH/MM3 Basophils # (Auto) 0.0 TH/MM3 CBC Comment DIFF FINAL Differential Comment Blood Urea Nitrogen 43 MG/DL Creatinine 1.19 MG/DL Random Glucose 222 MG/DL Calcium Level 8.6 MG/DL Sodium Level 137 MEQ/L Potassium Level 4.0 MEQ/L Chloride Level 99 MEQ/L Carbon Dioxide Level 30.2 MEQ/L Anion Gap 8 MEQ/L Estimat Glomerular Filtration Rate 44 ML/MIN Imaging Last Impressions Chest X-Ray 03/28/17 0600 Signed Impressions: Service Date/Time: March 04:26 - CONCLUSION: 1. Cardiomegaly. No acute pulmonary disease. Resolution of the previously seen edema Camden Lakhani MD CT Angiography 03/25/17 0000 Signed Impressions: Service Date/Time: Saturday, March 25, 2017 13:29 - CONCLUSION: Negative for central pulmonary emboli Cardiomegaly with moderate congestive failure, consolidation in both base with small right pleural effusion. Satnam Ibarra MD FACR Consultation 03/20/17 0700 Signed Impressions: Service Date/Time: Monday, March 20, 2017 13:47 - CONCLUSION: 1. Very tiny bilateral pleural effusions which are too small for thoracentesis. 2. Cardiomegaly and coronary artery calcifications. 3. Bibasilar alveolar consolidations consistent with compressive atelectasis and/or pneumonia. 4. Mild pulmonary vascular congestion. Almas Dave MD Objective Remarks General: NAD, AAOx3 Chest: CTA Cardiac: Regular Abd: +BS, soft ND/NT Ext: Mild bilateral LE edema Procedures 2D Echo (03/16/17): - Normal left ventricular size. Moderate LVH. - Estimated EF 45- 50%. - LA is moderately dilated. - RA is uzby-wj-ywtcicvfrb dilated. - Dinw-vy-ljzleagf mitral valve regurgitation. - Aortic valve sclerosis is present. Mild aortic valve stenosis. - Trace aortic valve regurgitation. - Mild tricuspid valve regurgitation. - Estimated pulmonary arterial pressure is 62.8 mmHg. There is estimated vlnnksch-po-hdmaud pulmonary hypertension. - Mild pulmonary valve regurgitation. - Very technically difficult study. A/P Problem List: (1) Acute respiratory failure with hypoxia ICD Codes: J96.01 - Acute respiratory failure with hypoxia Status: Acute Plan: - Pt is a 76 y/o female with diastolic CHF, LEDA and uses CPAP, diabetes, HTN, and CKD stage 3. - Pt was admitted to ICU on 03/11 with worsening SOB for several days prior to admission. In the ED she was significantly hypoxic and placed on BiPAP. She was given Lasix 80 mg IV with good response. Her BNP was slightly elevated at 238 at admission. In the ED she had a low-grade temperature of 100.5 degrees, but has a normal white count. - Chest x-ray (03/11) was suggestive of bilateral pleural effusions with possible lower lobe consolidations. - CTA Thorax (03/14) --> Bilateral pleural effusions and bibasilar consolidation with probable superimposed slight pulmonary edema as well. - Pts respiratory status was very labile during admission and she required intubation x 2 (03/16/17 and 03/24/17) felt to be multifactorial secondary to her diastolic CHF with exacerbation/effusions, questionable PNA, LEDA, and pulmonary HTN - Pulmonary following. - Pt had been on IV Solu-Medrol until 03/29 when it was changed to Prednisone 10mg TID - Cont. Duonebs Q6H and Pulmicort Q12H - Lasix 40mg po daily and KCL 20meq daily - Pt was able to successfully be extubated on 03/27/17 and is currently on 4L via NC and BIPAP as needed - Cont. Sildenafil 20mg po daily for the pulmonary HTN - Check Head CT, TSH/Free T4, B12, Folate, Ammonia, RPR for reported increased confusion (2) Diastolic CHF ICD Codes: I50.30 - Unspecified diastolic (congestive) heart failure Status: Chronic Plan: - See above (3) Pleural effusion ICD Codes: J90 - Pleural effusion, not elsewhere classified Status: Acute Plan: - See above (4) HTN (hypertension) ICD Codes: I10 - Essential (primary) hypertension Status: Chronic Plan: - Pt is on Procardia 30mg po BID, Metoprolol 50mg po BID - Clonidine PRN (5) UTI (urinary tract infection) ICD Codes: N39.0 - Urinary tract infection, site not specified Plan: - Pt with urine culture grew out Catrachita Glabrata - She has been on Fluconazole IV x 10 days, and was recommended to complete a 14 day course by chemist (6) Diabetes ICD Codes: E11.9 - Type 2 diabetes mellitus without complications Status: Chronic Plan: - NovoLog SSI - Accu checks - Amaryl (7) CKD (chronic kidney disease), stage III ICD Codes: N18.3 - Chronic kidney disease, stage 3 (moderate) Status: Chronic Plan: - Labs are stable (8) Atrial fibrillation ICD Codes: I48.91 - Unspecified atrial fibrillation Status: Chronic Plan: - Rate controlled - Coumadin has been supra-therapeutic and has been on hold - INR 3.1 on 03/30 - Repeat labs in AM - Coumadin can be resumed once INR is under 3 (9) Pulmonary HTN ICD Codes: I27.20 - Pulmonary hypertension, unspecified Assessment and Plan Patient examined. Assessment and plan formulated with Radha Wing PA-C. I agree with the above. Problem Qualifiers (1) Diabetes: (2) Atrial fibrillation: Qualified Codes: I48.2 - Chronic atrial fibrillation Radha Wing Mar 30, 2017 14:26 Troy Anderson DO Mar 31, 2017 12:50
[2017-03-30] MEDS ORDERED: cloNIDine HCL 0.1 MG TAB PO PRN (15:30)
--- NOTE | 2017-03-30 18:24 | RADRPT ---
EXAM DATE/TIME: 03/30/2017 18:12 [place] COMPARISON: No previous studies available for comparison. INDICATIONS : Altered mental status. RADIATION DOSE: 55.10 CTDIvol (mGy) MEDICAL HISTORY : Cardiovascular disease. Cerebrovascular disease. Hypertension. Diabetes SURGICAL HISTORY : None. ENCOUNTER: Initial ACUITY: 1 day PAIN SCALE: 0/10 LOCATION: cranial TECHNIQUE: Multiple contiguous axial images were obtained of the head. Using automated exposure control and adj ustment of the mA and/or kV according to patient size, radiation dose was kept as low as reasonably a chievable to obtain optimal diagnostic quality images. DICOM format image data is available electro nically for review and comparison. FINDINGS: CEREBRUM: The ventricles are normal for age. No evidence of midline shift, mass lesion, hemorrhage or acute in farction. No extra-axial fluid collections are seen. POSTERIOR FOSSA: The cerebellum and brainstem are intact. The 4th ventricle is midline. The cerebellopontine angle i s unremarkable. EXTRACRANIAL: Right mastoid air cells are opacified. Paranasal sinuses are clear. SKULL: The calvaria is intact. No evidence of skull fracture. CONCLUSION: 1. No acute intracranial abnormality. 2. Apparent right sided mastoiditis. Please correlate clinically. Rufino Chow MD on March 30, 2017 at 18:20 Board Certified Radiologist. This report was verified electronically.
[2017-03-30] MEDS: ALPRAZolam 0.5 MG TAB PO PRN (23:23)
[2017-03-31] VITALS (16 sets, daily range): BP systolic 112–153; BP diastolic 71–83; PULSE 70–90; RESP 18–19; TEMP 95.4–98.1; O2SAT 90–96
[2017-03-31] MEDS: RESP: ALBUTEROL 2.5 MG/IPRATROPIUM 0.5 MG NEB (SCH) INH ×4 (04:00→20:06)
[2017-03-31] MEDS: CHLORHEXIDINE GLUCONATE 2 % 1 PACK (2 CLOTHS) TOP SCH (04:00)
[2017-03-31] MEDS: GEMFIBROZIL 600 MG TAB PO SCH ×2 (06:43→15:10)
[2017-03-31] MEDS: LEVOTHYROXINE SODIUM 100 MCG TAB PO SCH (06:43)
[2017-03-31] MEDS: ALPRAZolam 0.5 MG TAB PO PRN (06:58)
[2017-03-31 07:52] LABS: AUTOMATED NEUTROPHIL # 10.1 TH/MM3 (1.8-7.7); BASOPHIL # 0.1 TH/MM3 (0-0.2); BASOPHIL % 0.4 % (0.0-2.0); EOSINOPHIL % 0.2 % (0.0-4.0); HEMATOCRIT 38.3 % (35.0-46.0); HEMOGLOBIN 12.6 GM/DL (11.6-15.3); LYMPH % 8.1 % (9.0-44.0); MEAN CELL VOLUME 88.3 FL (80.0-100.0); MEAN CORPUSCULAR HEMOGLOBIN 29.1 PG (27.0-34.0); MEAN PLATELET VOLUME 9.7 FL (7.0-11.0); MONO % 6.1 % (0.0-8.0); MONOCYTE # 0.7 TH/MM3 (0-0.9); NEUT % 85.2 % (16.0-70.0); PLATELET COUNT 168 TH/MM3 (150-450); RED BLOOD COUNT 4.34 MIL/MM3 (4.00-5.30); RED CELL DISTRIBUTION WIDTH 16.5 % (11.6-17.2); WHITE BLOOD COUNT 11.9 TH/MM3 (4.0-11.0)
[2017-03-31 07:54] LABS: INTERNATIONAL NORMALIZED RATIO 2.6 RATIO; PROTHROMBIN TIME - PATIENT 26.4 SEC (9.8-11.6)
[2017-03-31] MEDS: INSULIN ASPART SUPPLEMENTAL SCALE SQ SCH ×4 (08:00→21:06)
[2017-03-31] MEDS: CHLORHEXIDINE 0.12% (ORAL KIT) 15 ML CUP MT SCH ×2 (08:00→20:00)
[2017-03-31 08:24] LABS: BICARBONATE 29.5 MEQ/L (21.0-32.0); CALCIUM 8.1 MG/DL (8.5-10.1); CREATININE 0.98 MG/DL (0.50-1.00); MAGNESIUM 2.2 MG/DL (1.5-2.5)
[2017-03-31 08:47] LABS: FOLATE 9.8 NG/ML (3.1-17.5); FREE T4 1.52 NG/DL (0.76-1.46)
[2017-03-31] MEDS: POTASSIUM CHLORIDE 20 MEQ PWD PACKET PO SCH (08:59)
[2017-03-31] MEDS: predniSONE 10 MG TAB PO SCH ×3 (08:59→16:59)
[2017-03-31] MEDS: FAMOTIDINE 20 MG TAB PO SCH ×2 (09:00→20:59)
[2017-03-31] MEDS: CHOLECALCIFEROL (VIT D3) 1000 UNIT TAB PO SCH (09:00)
[2017-03-31] MEDS: METOPROLOL TARTRATE 50 MG TAB PO SCH ×2 (09:00→20:59)
[2017-03-31] MEDS: FUROSEMIDE 40 MG TAB PO SCH (09:00)
[2017-03-31] MEDS: DOCUSATE SODIUM 50 MG/SENNA 8.6 MG TAB PO SCH ×2 (09:00→20:59)
[2017-03-31] MEDS: GLIMEPIRIDE 1 MG TAB PO SCH ×2 (09:00→20:59)
[2017-03-31] MEDS: SILDENAFIL CITRATE 20 MG TAB PO SCH (09:00)
[2017-03-31] MEDS: NIFEdipine 30 MG SUSTAINED RELEASE TAB PO SCH ×2 (09:00→20:59)
--- NOTE | 2017-03-31 09:26 | HHI.PR ---
Subjective Remarks Patient is lying in bed in NAD. Afebrile. Down to 2L oxygen with good sats. Objective Vital Signs Vital Signs Date Time Temp Pulse Resp B/P (MAP) Pulse Ox O2 Delivery O2 Flow Rate FiO2 03/31/17 09:07 Nasal Cannula 2.00 03/31/17 07:55 95.4 79 19 112/71 (85) 96 03/31/17 07:06 84 03/31/17 04:25 98.1 85 18 144/76 (98) 90 03/31/17 01:11 Nasal Cannula 4.00 30 03/30/17 23:40 97.4 86 20 122/73 (89) 93 03/30/17 20:51 94 Nasal Cannula 4.00 03/30/17 20:35 96.5 84 20 142/82 (102) 96 03/30/17 18:53 80 03/30/17 17:48 78 03/30/17 16:47 81 03/30/17 16:17 96.5 84 20 139/67 (91) 93 03/30/17 16:00 96.5 84 20 139/67 (91) 93 03/30/17 14:32 78 03/30/17 13:25 78 03/30/17 12:42 81 03/30/17 12:00 96.8 89 19 126/66 (86) 94 03/30/17 11:28 74 03/30/17 09:26 Nasal Cannula 4.00 I/O 03/30/17 03/30/17 03/30/17 03/31/17 03/31/17 03/31/17 07:00 15:00 23:00 07:00 15:00 23:00 Intake Total 480 ml 300 ml 480 ml Output Total 1400 ml Balance 480 ml -1100 ml 480 ml Intake Oral 480 ml 300 ml 480 ml Output Urine Total 1400 ml # Voids 3 2 # Bowel Movements 1 0 Result Diagram: 03/31/17 0715 03/31/17 0715 Other Results Last Impressions Head CT 03/30/17 0000 Signed Impressions: Service Date/Time: Thursday, March 30, 2017 18:12 - CONCLUSION: 1. No acute intracranial abnormality. 2. Apparent right sided mastoiditis. Please correlate clinically. Rufino Chwo MD Chest X-Ray 03/28/17 0600 Signed Impressions: Service Date/Time: March 04:26 - CONCLUSION: 1. Cardiomegaly. No acute pulmonary disease. Resolution of the previously seen edema Camden Lakhani MD CT Angiography 03/25/17 0000 Signed Impressions: Service Date/Time: Saturday, March 25, 2017 13:29 - CONCLUSION: Negative for central pulmonary emboli Cardiomegaly with moderate congestive failure, consolidation in both base with small right pleural effusion. Satnam Ibarra MD FACR Consultation 03/20/17 0700 Signed Impressions: Service Date/Time: Monday, March 20, 2017 13:47 - CONCLUSION: 1. Very tiny bilateral pleural effusions which are too small for thoracentesis. 2. Cardiomegaly and coronary artery calcifications. 3. Bibasilar alveolar consolidations consistent with compressive atelectasis and/or pneumonia. 4. Mild pulmonary vascular congestion. Almas Dave MD Objective Remarks GENERAL: Obese WF lying in bed in NAD SKIN: Warm and dry. HEAD: Normocephalic. EYES: No scleral icterus. No injection or drainage. NECK: Supple, trachea midline. No JVD or lymphadenopathy. CARDIOVASCULAR: Regular rate and rhythm without murmurs, gallops, or rubs. RESPIRATORY: Breath sounds equal bilaterally. No accessory muscle use. GASTROINTESTINAL: Abdomen soft, non-tender, nondistended. MUSCULOSKELETAL: No cyanosis, ++ edema. Neuro: awake and alert A/P Assessment and Plan 1)Resp Insuff 2)CHF 3)Mod- severe pulm HTN 4)Morbid obesity, LEDA- On CPAP at home 5)MICHEAL 6)Atrial fib 7)UTI PLAN Continue with oxygen keep sat >92% Bronchodilators/Pulmicort NIPPV nocturnally and PRN for resp distress. On CPAP at home Continue prednisone 10mg daily Continue with diuretics- on Lasix 40mg daily CXR from 03/28: cardiomegaly, no acute pulmonary disease On Diflucan for UTI. On Revatio 20mg daily for pulm HTN GI/DVT prophylaxis- on Coumadin with INR 2.6 today Discussed with daughter. Continue treatment plan Chun Cuba MD Mar 31, 2017 09:26
[2017-03-31] MEDS: RESP: BUDESONIDE 0.5 MG/2 ML NEB NEB SCH ×2 (09:50→20:06)
[2017-03-31] MEDS: FLUCONAZOLE 200 MG PREMIX BAG 100 ML IV SCH (11:47)
--- NOTE | 2017-03-31 12:55 | HHI.DS ---
Discharge Summary Admission Date Mar 11, 2017 at 19:57 Discharge Date: Apr 01, 2017 Admitting Diagnosis Hypoxic Respiratory Failure (1) Acute respiratory failure with hypoxia Diagnosis: Principal ICD Codes: J96.01 - Acute respiratory failure with hypoxia Status: Acute (2) Diastolic CHF Diagnosis: Principal ICD Codes: I50.30 - Unspecified diastolic (congestive) heart failure Status: Chronic (3) Pleural effusion Diagnosis: Principal ICD Codes: J90 - Pleural effusion, not elsewhere classified Status: Acute (4) HTN (hypertension) Diagnosis: Secondary ICD Codes: I10 - Essential (primary) hypertension Status: Chronic (5) UTI (urinary tract infection) Diagnosis: Principal ICD Codes: N39.0 - Urinary tract infection, site not specified (6) Diabetes Diagnosis: Secondary ICD Codes: E11.9 - Type 2 diabetes mellitus without complications Status: Chronic (7) CKD (chronic kidney disease), stage III Diagnosis: Secondary ICD Codes: N18.3 - Chronic kidney disease, stage 3 (moderate) Status: Chronic (8) Atrial fibrillation Diagnosis: Secondary ICD Codes: I48.91 - Unspecified atrial fibrillation Status: Chronic (9) Pulmonary HTN Diagnosis: Secondary ICD Codes: I27.20 - Pulmonary hypertension, unspecified Consultants Dr. Camden Moreno, Cardiology Dr. Landon Tony, Pulmonary Dr. Michele Rincon, Critical Care Procedures 2D Echo (03/16/17): - Normal left ventricular size. Moderate LVH. - Estimated EF 45- 50%. - LA is moderately dilated. - RA is gscc-aq-pbmvkyiqhz dilated. - Gusv-id-zryjlhtx mitral valve regurgitation. - Aortic valve sclerosis is present. Mild aortic valve stenosis. - Trace aortic valve regurgitation. - Mild tricuspid valve regurgitation. - Estimated pulmonary arterial pressure is 62.8 mmHg. There is estimated pkfmorrk-kp-aqkgav pulmonary hypertension. - Mild pulmonary valve regurgitation. - Very technically difficult study. Brief History This is a 77-year-old female with a history of diastolic CHF who presents with a three-week history of slowly worsening shortness of breath. Patient does use CPAP quite frequently during the day and night, and consistently uses it whenever she takes a nap which occurs at least once or twice during the daytime and then uses it every night with consistency. She complains that over the last 2-3 days her shortness of breath has gotten significantly worse. She does endorse a nonproductive cough over the last 2-3 days and some chills although denies fever. She denies any chest pain. She endorses what sounds like orthopnea and PND type symptoms. She states that she had a prior diagnosis of CHF but has not had any heart workup or seen anyone for this for at least a year or more. She does have a history of atrial fibrillation and is on blood thinners, although she cannot remember which ones. In the emergency department she was significantly hypoxic and placed on BiPAP. She was given Lasix 80 mg IV. She's had a good response and greater than 1 L since that time in urine output. Her BNP is slightly elevated at 238. In the emergency department she had a low-grade temperature of 100.5 Fahrenheit, but has a normal white count. Chest x-ray suggestive of bilateral pleural effusions with possible lower lobe consolidations. CBC/BMP: 03/31/17 0715 03/31/17 0715 Significant Findings Laboratory Tests Test 03/28/17 17:45 03/29/17 05:43 03/29/17 08:50 03/30/17 05:25 Prothrombin Time 30.1 SEC (9.8-11.6) 29.9 SEC (9.8-11.6) 31.4 SEC (9.8-11.6) White Blood Count 11.1 TH/MM3 (4.0-11.0) Neutrophils (%) (Auto) 93.8 % (16.0-70.0) Lymphocytes (%) (Auto) 2.1 % (9.0-44.0) Neutrophils # (Auto) 10.4 TH/MM3 (1.8-7.7) Lymphocytes # (Auto) 0.2 TH/MM3 (1.0-4.8) Blood Urea Nitrogen 43 MG/DL (7-18) Creatinine 1.19 MG/DL (0.50-1.00) Random Glucose 222 MG/DL (74-106) Estimat Glomerular Filtration Rate 44 ML/MIN (>89) Test 03/31/17 07:15 White Blood Count 11.9 TH/MM3 (4.0-11.0) Neutrophils (%) (Auto) 85.2 % (16.0-70.0) Lymphocytes (%) (Auto) 8.1 % (9.0-44.0) Neutrophils # (Auto) 10.1 TH/MM3 (1.8-7.7) Prothrombin Time 26.4 SEC (9.8-11.6) Blood Urea Nitrogen 35 MG/DL (7-18) Random Glucose 113 MG/DL (74-106) Calcium Level 8.1 MG/DL (8.5-10.1) Estimat Glomerular Filtration Rate 55 ML/MIN (>89) Free Thyroxine 1.52 NG/DL (0.76-1.46) Thyroid Stimulating Hormone 3rd Gen 0.142 uIU/ML (0.358-3.740) PE at Discharge General: NAD, AAOx3 Chest: CTA Cardiac: Regular Abd: +BS, soft ND/NT Ext: Mild bilateral LE edema Hospital Course (1) Acute respiratory failure with hypoxia ICD Codes: J96.01 - Acute respiratory failure with hypoxia Status: Acute Plan: - Pt is a 76 y/o female with diastolic CHF, LEDA and uses CPAP, diabetes, HTN, and CKD stage 3. - Pt was admitted to ICU on 03/11 with worsening SOB for several days prior to admission. In the ED she was significantly hypoxic and placed on BiPAP. She was given Lasix 80 mg IV with good response. Her BNP was slightly elevated at 238 at admission. In the ED she had a low-grade temperature of 100.5 degrees, but has a normal white count. - Chest x-ray (03/11) was suggestive of bilateral pleural effusions with possible lower lobe consolidations. - CTA Thorax (03/14) --> Bilateral pleural effusions and bibasilar consolidation with probable superimposed slight pulmonary edema as well. - Pts respiratory status was very labile during admission and she required intubation x 2 (03/16/17 and 03/24/17) felt to be multifactorial secondary to her diastolic CHF with exacerbation/effusions, questionable PNA, LEDA, and pulmonary HTN - Comgmt with Pulmonary Medicine, Dr. Tony - Pt had been on IV Solu-Medrol until 03/29 when it was changed to Prednisone 10mg TID - Cont. Duonebs Q6H and Pulmicort Q12H - Lasix 40mg po daily and KCL 20meq daily - Pt was able to successfully be extubated on 03/27/17 and is currently on 2L via NC and BIPAP as needed - Cont. Sildenafil 20mg po daily for the pulmonary HTN - pt's daughter was concerned about increased confusion, although pt was answering questions appropriately - TSH 0.142 (03/30), Free T4 1.52 (03/30) - B12, folate, RPR, ammonia --> WNL - CT brain (03/30) --> NO acute intracranial abnormality, right mastoiditis - Case d/w Radiology CT shows opacification of right mastoid and middle ear involvement - Pt received a course of IV zosyn during her stay in [facility] - Case d/w ENT, Dr. Tuttle (03/31) - He recommends NO further antibiotics - Pt should f/u with ENT when stronger - anticipate f/u with ENF in 4 -6 weeks (2) Diastolic CHF ICD Codes: I50.30 - Unspecified diastolic (congestive) heart failure Status: Chronic Plan: - See above (3) Pleural effusion ICD Codes: J90 - Pleural effusion, not elsewhere classified Status: Acute Plan: - See above (4) HTN (hypertension) ICD Codes: I10 - Essential (primary) hypertension Status: Chronic Plan: - Pt is on Procardia 30mg po BID, Metoprolol 50mg po BID - Clonidine PRN (5) UTI (urinary tract infection) ICD Codes: N39.0 - Urinary tract infection, site not specified Plan: - Pt with urine culture grew out Catrachita Glabrata - She has been on Fluconazole IV x 10 days, and was recommended to complete a 14 day course by transverse abdominal muscle nurse - Pt will complete course of fluconazole 04/04 - Case d/w [place] - Will discharge pt with peripheral IV (6) Diabetes ICD Codes: E11.9 - Type 2 diabetes mellitus without complications Status: Chronic Plan: - NovoLog SSI - Accu checks - Amaryl (7) CKD (chronic kidney disease), stage III ICD Codes: N18.3 - Chronic kidney disease, stage 3 (moderate) Status: Chronic Plan: - Labs are stable (8) Atrial fibrillation ICD Codes: I48.91 - Unspecified atrial fibrillation Status: Chronic Plan: - Rate controlled - Coumadin has been supra-therapeutic and has been on hold - INR 3.1 on 03/30 - Repeat labs in AM - Coumadin can be resumed once INR is under 3 (9) Pulmonary HTN ICD Codes: I27.20 - Pulmonary hypertension, unspecified Pt Condition on Discharge: Stable Discharge Disposition: Discharge to SNF Discharge Instructions DIET: Follow Instructions for: Diabetic Diet Activities you can perform: Weight Bearing as Z[place] Activities to Avoid: Strenuous Activity Follow up Referrals: Cardiology - [address] Camden Moreno Ear Nose Throat - [address] Tuttle PCP Follow-up - [address] Jesus Loo f/u with PCP, Dr. Jesus Loo one week after discharge from [facility] Pulmonology - 3 Weeks with Landon Tony MD New Medications: Fluconazole Inj (Fluconazole Inj) 200 Mg/100 Ml Bagp 200 MG IV DAILY for Infection for 3 Days, BAG 0 Refills last day 04/04/17 Ipratropium-Albuterol Neb (Duoneb) 0.5-2.5 Mg/3 Ml Neb 1 NEBULE INH Q6HR NEB for Breathing Treatment, #120 NEBULE 0 Refills Levothyroxine (Synthroid) 88 Mcg Tab 88 MCG PO DAILY for Thyroid, #30 TAB 0 Refills Alprazolam (Xanax) 0.5 Mg Tab 0.5 MG PO Q6H PRN for ANXIETY AND/OR AGITATION, #30 TAB 0 Refills Budesonide Neb (Pulmicort Respules) 0.5 Mg/2 Ml Neb 0.5 MG NEB Q12HR NEB for copd for 30 Days, NEBULE Furosemide (Furosemide) 40 Mg Tab 40 MG PO DAILY for chf for 30 Days, #30 TAB Prednisone (Prednisone) 10 Mg Tab 10 MG PO TID for copd for 14 Days, TAB one tab tid x 5d, then one tab bid x 5d, then one tab daily x5d, then stop Sildenafil (Revatio) 20 Mg Tab 20 MG PO DAILY for pulm htn for 30 Days, #30 TAB Continued Medications: Cholecalciferol (Vitamin D-1000) 1,000 Unit Tab 1000 UNITS PO DAILY for Nutritional Supplement, #1 BOTTLE 0 Refills Gemfibrozil (Gemfibrozil) 600 Mg Tab 600 MG PO BIDAC, #60 TAB 0 Refills Take 30 minutes prior to breakfast and dinner. Glimepiride (Glimepiride) 1 Mg Tab 1 MG PO BID for Blood Sugar Management, #30 TAB 0 Refills Take with breakfast or first main meal Losartan (Losartan) 50 Mg Tab 50 MG PO BID for Blood Pressure Management, #60 TAB 0 Refills Metoprolol Tartrate (Metoprolol Tartrate) 50 Mg Tab 50 MG PO BID, #60 TAB 0 Refills Potassium Chloride ER (K-Tab) 20 Meq Tab 20 MEQ PO DAILY for Electrolyte Replacement, #30 TAB 0 Refills Rosuvastatin (Crestor) 10 Mg Tab 10 MG PO sat, sat, , #30 TAB 0 Refills Warfarin (Jantoven) 5 Mg Tab 5 MG PO DAILY for Blood Clot Prevention, #30 TAB 0 Refills Discontinued Medications: Furosemide (Furosemide) 40 Mg Tab 40 MG PO BID, #60 TAB 0 Refills Glimepiride (Glimepiride) 1 Mg Tab 1 MG PO DAILY for Blood Sugar Management, #30 TAB 0 Refills Take with breakfast or first main meal Levothyroxine (Levothyroxine) 100 Mcg Tab 100 MCG PO DAILY for Thyroid, #30 TAB 0 Refills Metformin (Metformin) 1,000 Mg Tab 1000 MG PO BIDPC for Blood Sugar Management, #60 TAB 0 Refills Tryo Anderson DO Mar 31, 2017 12:54
[2017-03-31] MEDS: ACETAMINOPHEN 325 MG TAB PO PRN (13:00)
[2017-03-31] MEDS ORDERED: SYNT88TA PO (13:18)
[2017-03-31] MEDS ORDERED: BUDE.5I NEB (13:18)
[2017-03-31] MEDS ORDERED: ALPR.5 PO (13:18)
[2017-03-31] MEDS ORDERED: FURO40TA PO (13:18)
[2017-03-31] MEDS ORDERED: SILD20 PO (13:18)
[2017-03-31] MEDS ORDERED: [UNRECOGNIZED DRUG - CODE] IV (13:18)
[2017-03-31] MEDS ORDERED: PRED10 PO (13:18)
[2017-03-31] MEDS ORDERED: IPRASOL INH (13:18)
--- NOTE | 2017-03-31 13:26 | HHI.DCPOC ---
Discharge Care Plan Diagnosis: (1) Acute respiratory failure with hypoxia (2) Diastolic CHF (3) Pulmonary HTN (4) HTN (hypertension) (5) Mastoiditis of right side (6) Anxiety Goals to Promote Your Health * To prevent worsening of your condition and complications * To maintain your health at the optimal level Directions to Meet Your Goals Take your medications as prescribed Follow your dietary instruction Follow activity as directed Keep your appointments as scheduled Take your immunizations and boosters as scheduled If your symptoms worsen call your PCP, if no PCP go to Urgent Care Center or Emergency Room Smoking is Dangerous to Your Health. Avoid second hand smoke Call the 24-hour hour crisis hotline for domestic abuse at Troy Anderson DO Mar 31, 2017 13:26
[2017-03-31] MEDS ORDERED: WARFARIN SOD 5 MG TAB PO SCH (16:00)
[2017-03-31] MEDS ORDERED: WARFARIN SOD 4 MG TAB PO SCH (16:00)
[2017-04-01 00:27] VITALS: BP 155/85; PULSE 81; RESP 18; TEMP 97.9; O2SAT 95
[2017-04-01] MEDS: ALPRAZolam 0.5 MG TAB PO PRN (01:08)
[2017-04-01] MEDS: RESP: ALBUTEROL 2.5 MG/IPRATROPIUM 0.5 MG NEB (SCH) INH ×2 (03:39→11:18)
[2017-04-01] MEDS: CHLORHEXIDINE GLUCONATE 2 % 1 PACK (2 CLOTHS) TOP SCH (04:00)
[2017-04-01 04:20] VITALS: BP 154/77; PULSE 79; RESP 18; TEMP 97.6; O2SAT 96
[2017-04-01 04:32] VITALS: PULSE 92
[2017-04-01] MEDS: LEVOTHYROXINE SODIUM 100 MCG TAB PO SCH (06:33)
[2017-04-01] MEDS: GEMFIBROZIL 600 MG TAB PO SCH (06:33)
[2017-04-01 07:01] LABS: INTERNATIONAL NORMALIZED RATIO 2.2 RATIO; PROTHROMBIN TIME - PATIENT 21.9 SEC (9.8-11.6)
[2017-04-01 08:00] VITALS: BP 141/69; PULSE 77; RESP 17; TEMP 96.8; O2SAT 96
[2017-04-01] MEDS: INSULIN ASPART SUPPLEMENTAL SCALE SQ SCH ×2 (08:00→12:00)
[2017-04-01] MEDS: DOCUSATE SODIUM 50 MG/SENNA 8.6 MG TAB PO SCH (10:02)
[2017-04-01] MEDS: CHOLECALCIFEROL (VIT D3) 1000 UNIT TAB PO SCH (10:02)
[2017-04-01] MEDS: predniSONE 10 MG TAB PO SCH ×2 (10:02→13:15)
[2017-04-01] MEDS: FAMOTIDINE 20 MG TAB PO SCH (10:02)
[2017-04-01] MEDS: GLIMEPIRIDE 1 MG TAB PO SCH (10:02)
[2017-04-01] MEDS: FUROSEMIDE 40 MG TAB PO SCH (10:03)
[2017-04-01] MEDS: METOPROLOL TARTRATE 50 MG TAB PO SCH (10:03)
[2017-04-01] MEDS: NIFEdipine 30 MG SUSTAINED RELEASE TAB PO SCH (10:03)
[2017-04-01] MEDS: ATORVASTATIN 20 MG TAB PO SCH (10:03)
[2017-04-01] MEDS: POTASSIUM CHLORIDE 20 MEQ PWD PACKET PO SCH (10:04)
[2017-04-01 11:18] VITALS: O2SAT 97
[2017-04-01] MEDS: RESP: BUDESONIDE 0.5 MG/2 ML NEB NEB SCH (11:18)
[2017-04-01] MEDS: FLUCONAZOLE 200 MG PREMIX BAG 100 ML IV SCH (11:58)
[2017-04-01 12:00] VITALS: BP 147/73; PULSE 73; PULSE 88; RESP 16; TEMP 97.9; O2SAT 95
[2017-04-01] MEDS: SILDENAFIL CITRATE 20 MG TAB PO SCH (14:15)
== END 2017-04-01 15:21 | DRG 207 ==
LOC: NEPC 17:58 → NEDA 19:57 → HIME 21:00 → N06A 03-29 22:12
PROVIDERS: ADMIT Internal Medicine Critical Care Medicine; ATTEND Internal Medicine Critical Care Medicine
PROC: 5A09357 Assistance with Respiratory Ventilation, Less than 24 Consecutive Hours, Continuous Positive Airway Pressure (ICD-10-PCS; principal; 2017-03-11)
PROC: 0T9B70Z Drainage of Bladder with Drainage Device, Via Natural or Artificial Opening (ICD-10-PCS; 2017-03-11)
PROC: 5A1955Z Respiratory Ventilation, Greater than 96 Consecutive Hours (ICD-10-PCS; 2017-03-16)
PROC: 0BH17EZ Insertion of Endotracheal Airway into Trachea, Via Natural or Artificial Opening (ICD-10-PCS; 2017-03-16)
PROC: 5A1945Z Respiratory Ventilation, 24-96 Consecutive Hours (ICD-10-PCS; 2017-03-24)
PROC: 0BH17EZ Insertion of Endotracheal Airway into Trachea, Via Natural or Artificial Opening (ICD-10-PCS; 2017-03-24)
DX: J96.01 Acute respiratory failure with hypoxia (principal); J18.9 Pneumonia, unspecified organism; I50.33 Acute on chronic diastolic (congestive) heart failure; N17.9 Acute kidney failure, unspecified; E87.2 Acidosis; E11.22 Type 2 diabetes mellitus with diabetic chronic kidney disease; I13.0 Hypertensive heart and chronic kidney disease with heart failure and stage 1 through stage 4 chronic kidney disease, or unspecified chronic kidney disease; B37.49 Other urogenital candidiasis; J44.1 Chronic obstructive pulmonary disease with (acute) exacerbation; I08.8 Other rheumatic multiple valve diseases; I48.2 Chronic atrial fibrillation; I27.20 Pulmonary hypertension, unspecified; Z99.81 Dependence on supplemental oxygen; N18.3 Chronic kidney disease, stage 3 (moderate); E66.01 Morbid (severe) obesity due to excess calories; G47.33 Obstructive sleep apnea (adult) (pediatric); Z96.653 Presence of artificial knee joint, bilateral; M19.90 Unspecified osteoarthritis, unspecified site; E03.9 Hypothyroidism, unspecified; Z86.73 Personal history of transient ischemic attack (TIA), and cerebral infarction without residual deficits; Z51.5 Encounter for palliative care; F41.1 Generalized anxiety disorder; F40.240 Claustrophobia; F41.0 Panic disorder [episodic paroxysmal anxiety]; Z79.01 Long term (current) use of anticoagulants; Z74.01 Bed confinement status; R79.1 Abnormal coagulation profile; H70.91 Unspecified mastoiditis, right ear; R00.1 Bradycardia, unspecified; B37.2 Candidiasis of skin and nail
CPT/HCPCS: 31500; 36600; 51702; 70450; 71010; 71045; 71275; 76937; 80048; 80053; 80202; 81001; 82140; 82550; 82607; 82746; 82805; 82948; 83605; 83690; 83735; 83880; 84100; 84439; 84443; 84484; 85025; 85027; 85379; 85610; 85730; 86592; 87015; 87040; 87070; 87086; 87106; 87185; 87205; 87641; 87804; 93005; 93306; 94002; 94003; 94150; 94640; 94667; 94668; 96365; 96368; 96375; J0131; J0330; J0360; J1120; J1450; J1644; J1650; J1815; J1940; J2060; J2250; J2543; J2920; J3010; J3370; J7040; J7050; J7120; J7512; J7626; Q9967

== ENCOUNTER 2017-04-03 16:01 | Observation (INO) | payer MEDICARE ==
[2017-04-03] VITALS (7 sets, daily range): BP systolic 122–178; BP diastolic 75–95; PULSE 64–76; RESP 16–24; TEMP 97.7–97.8; O2SAT 95–98
[~2017-04-03] VITALS: Ht 160 cm; Wt 130.9 kg
[~2017-04-03 16:01] MED LIST changes: +ALPR.5 PO; +BUDE.5I NEB; -COUM5TAB PO; -COZA25TA PO; +FURO40TA PO; +GLIM1TAB PO; -GLYB1TAB50 PO; +IPRASOL INH; +JANT5TAB PO; -LASI20TA PO; -LEVO100T4 PO; +LOSA50TA PO; -MECL25CH PO; -METF500 PO; -METO25CR PO; +METO50TA PO; -NIFE10CA PO; -NIFE20CA PO; -POTA-243 PO; +POTA1TAB4 PO; +PRED10 PO; +ROSU10 PO; -ROSU40 PO; +SILD20 PO; +SYNT88TA PO; +VITA1000 PO; -VITA400C28 PO; -VITA500T10 PO; +[UNRECOGNIZED DRUG - CODE] IV
[2017-04-03] MEDS ORDERED: ZANT150T2 PO (16:32)
[2017-04-03] MEDS ORDERED: CHOL100025 CHEW (16:32)
[2017-04-03] MEDS ORDERED: FLOR250C PO (16:32)
[2017-04-03] MEDS ORDERED: ROSU10 PO (16:32)
[2017-04-03] MEDS ORDERED: NOVOLOGP2 SQ (16:32)
--- NOTE | 2017-04-03 16:33 | PD ---
HPI Chief Complaint: Abnormal Results Time Seen by Provider: 16:18 Travel History International Travel<30 days: No Contact w/Intl Traveler<30days: No Traveled to known affect area: No History of Present Illness HPI PATIENT WAS NOTED TO HAVE COUGH OVER LAST 2 DAYS AND INCREASING PRODUCTION OF BLOODY SPUTUM OVER THOSE DAYS,...NH TESTED INR WHICH WAS 4 (BECAUSE ON COUMADIN) . PCP DR BELCHER [facility] PMHX: CHF, AFIB, DM, CKD PFSH Past Medical History Arthritis: No Asthma: No Autoimmune Disease: No Blood Disorders: No Anxiety: No Depression: No Heart Rhythm Problems: No (Pt. came in with A-fib.) Cancer: No Cardiovascular Problems: Yes High Cholesterol: No Chemotherapy: No Chest Pain: No Congestive Heart Failure: Yes COPD: No Cerebrovascular Accident: Yes Diabetes: Yes Diminished Hearing: No Endocrine: No Gastrointestinal Disorders: No GERD: No Glaucoma: No Genitourinary: No Headaches: No Hepatitis: No Hiatal Hernia: No Hypertension: Yes Immune Disorder: No Kidney Stones: No Musculoskeletal: Yes Neurologic: Yes Psychiatric: No Reproductive: No Respiratory: Yes Migraines: No Myocardial Infarction: No Radiation Therapy: No Renal Failure: No Seizures: No Sickle Cell Disease: No Sleep Apnea: Yes (cpap) Thyroid Disease: No Ulcer: No Menopausal: Yes Past Surgical History Abdominal Surgery: No AICD: No Cardiac Surgery: No Ear Surgery: No Endocrine Surgery: No Eye Surgery: No Genitourinary Surgery: No Gynecologic Surgery: No Insulin Pump: No Joint Replacement: Yes (BILAT KNEE) Oral Surgery: No Pacemaker: No Thoracic Surgery: No Other Surgery: Yes (BILATERAL KNEE SX, NECK SURGERY) Social History Alcohol Use: No Tobacco Use: No Substance Use: No Allergies-Medications (Allergen,Severity, Reaction): Coded Allergies: bacitracin (Verified Allergy, Severe, Rash, 03/11/17) gramicidin D (Verified Allergy, Severe, Rash, 03/11/17) neomycin (Verified Allergy, Severe, Rash, 03/11/17) polymyxin B (Verified Allergy, Severe, Rash, 03/11/17) hydrocodone (Verified Adverse Reaction, Unknown, Hallucinations, 03/11/17) Reported Meds & Prescriptions Reported Meds & Active Scripts Active Fluconazole Inj 200 Mg/100 Ml Bagp 200 Mg IV DAILY 3 Days last day 04/04/17 Synthroid (Levothyroxine Sodium) 88 Mcg Tab 88 Mcg PO DAILY Prednisone 10 Mg Tab 10 Mg PO TID 14 Days one tab tid x 5d, then one tab bid x 5d, then one tab daily x5d, then stop Pulmicort Respules (Budesonide) 0.5 Mg/2 Ml Neb 0.5 Mg NEB Q12HR NEB 30 Days Furosemide 40 Mg Tab 40 Mg PO DAILY 30 Days Xanax (Alprazolam) 0.5 Mg Tab 0.5 Mg PO Q6H PRN Revatio (Sildenafil Citrate) 20 Mg Tab 20 Mg PO DAILY 30 Days Duoneb (Ipratropium-Albuterol Neb) 0.5-2.5 Mg/3 Ml Neb 1 Nebule INH Q6HR NEB Reported Novolog Inj (Insulin Aspart) 1,000 Unit/10 Ml Vial 0 SQ DIRECTED Sliding Scale as directed. Zantac (Ranitidine HCl) 150 Mg Tab 150 Mg PO BID Florastor (Saccharomyces Boulardii) 250 Mg Cap 250 Mg PO BID Vitamin D3 (Cholecalciferol) 1,000 Unit Chew 1,000 Units CHEW DAILY Vitamin D-1000 (Cholecalciferol) 1,000 Unit Tab 1,000 Units PO DAILY Jantoven (Warfarin) 5 Mg Tab 5 Mg PO DAILY Losartan (Losartan Potassium) 50 Mg Tab 50 Mg PO BID Crestor (Rosuvastatin Calcium) 10 Mg Tab 10 Mg PO MON, WED, FRID Glimepiride 1 Mg Tab 1 Mg PO BID Take with breakfast or first main meal K-Tab (Potassium Chloride) 20 Meq Tab 20 Meq PO DAILY Gemfibrozil 600 Mg Tab 600 Mg PO BIDAC Take 30 minutes prior to breakfast and dinner. Metoprolol Tartrate 50 Mg Tab 50 Mg PO BID Review of Systems General / Constitutional: No: Fever Eyes: No: Visual changes HENT: No: Headaches Cardiovascular: No: Chest Pain or Discomfort Respiratory: Positive: Cough (BLOODY SPUTUM) Gastrointestinal: No: Abdominal Pain Genitourinary: No: Dysuria Musculoskeletal: No: Pain Skin: No Rash Neurologic: No: Weakness Psychiatric: No: Depression Endocrine: No: Polydipsia Hematologic/Lymphatic: No: Easy Bruising Physical Exam Narrative GENERAL: ELDERLY WHITE FEMALE IN NAD SKIN: Warm and dry. HEAD: Atraumatic. Normocephalic. EYES: Pupils equal and round. No scleral icterus. No injection or drainage. ENT: No nasal bleeding or discharge. Mucous membranes pink and moist. NECK: Trachea midline. No JVD. CARDIOVASCULAR: Regular rate and rhythm. RESPIRATORY: No accessory muscle use. Clear to auscultation. Breath sounds equal bilaterally. GASTROINTESTINAL: Abdomen soft, non-tender, nondistended. MUSCULOSKELETAL: Extremities without clubbing, cyanosis, or edema. No obvious deformities. NEUROLOGICAL: Awake and alert. No obvious cranial nerve deficits. Motor grossly within normal limits. Five out of 5 muscle strength in the arms and legs. Normal speech. PSYCHIATRIC: Appropriate mood and affect; insight and judgment normal. Data Data Last Documented VS Vital Signs Date Time Temp Pulse Resp B/P (MAP) Pulse Ox O2 Delivery O2 Flow Rate FiO2 04/03/17 17:40 66 20 139/76 (97) 96 Nasal Cannula 04/03/17 16:35 2.50 04/03/17 16:22 97.8 Orders Orders Electrocardiogram (04/03/17 16:34) Ckmb (Isoenzyme) Profile (04/03/17 16:34) Complete Blood Count With Diff (04/03/17 16:34) Comprehensive Metabolic Panel (04/03/17 16:34) Prothrombin Time / Inr (Pt) (04/03/17 16:34) Act Partial Throm Time (Ptt) (04/03/17 16:34) Troponin I (04/03/17 16:34) Chest, Single Ap (04/03/17 16:34) Ecg Monitoring (04/03/17 16:34) Bilateral Bp Monitoring (04/03/17 16:34) Iv Access Insert/Monitor (04/03/17 16:34) Oximetry (04/03/17 16:34) Oxygen Administration (04/03/17 16:34) Ct Thorax/ Chest Wo Iv Contras (04/03/17 ) Ceftriaxone Inj (Rocephin Inj) (04/03/17 18:15) Admit Order (Ed Use Only) (04/03/17 19:37) Labs Laboratory Tests Test 04/03/17 17:30 White Blood Count 11.3 TH/MM3 Red Blood Count 4.20 MIL/MM3 Hemoglobin 12.1 GM/DL Hematocrit 38.0 % Mean Corpuscular Volume 90.3 FL Mean Corpuscular Hemoglobin 28.8 PG Mean Corpuscular Hemoglobin Concent 31.8 % Red Cell Distribution Width 17.1 % Platelet Count 147 TH/MM3 Mean Platelet Volume 9.6 FL Neutrophils (%) (Auto) 88.5 % Lymphocytes (%) (Auto) 5.8 % Monocytes (%) (Auto) 4.5 % Eosinophils (%) (Auto) 0.7 % Basophils (%) (Auto) 0.5 % Neutrophils # (Auto) 10.0 TH/MM3 Lymphocytes # (Auto) 0.7 TH/MM3 Monocytes # (Auto) 0.5 TH/MM3 Eosinophils # (Auto) 0.1 TH/MM3 Basophils # (Auto) 0.1 TH/MM3 CBC Comment DIFF FINAL Differential Comment Prothrombin Time 47.0 SEC Prothromb Time International Ratio 4.7 RATIO Activated Partial Thromboplast Time 24.0 SEC Blood Urea Nitrogen 39 MG/DL Creatinine 1.15 MG/DL Random Glucose 152 MG/DL Total Protein 6.3 GM/DL Albumin 2.7 GM/DL Calcium Level 8.1 MG/DL Alkaline Phosphatase 81 U/L Aspartate Amino Transf (AST/SGOT) 34 U/L Alanine Aminotransferase (ALT/SGPT) 52 U/L Total Bilirubin 0.6 MG/DL Sodium Level 140 MEQ/L Potassium Level 4.2 MEQ/L Chloride Level 104 MEQ/L Carbon Dioxide Level 28.4 MEQ/L Anion Gap 8 MEQ/L Estimat Glomerular Filtration Rate 46 ML/MIN Magnesium Level 1.9 MG/DL Total Creatine Kinase 87 U/L Troponin I 0.08 NG/ML MDM Medical Decision Making Medical Screen Exam Complete: Yes Emergency Medical Condition: Yes Medical Record Reviewed: Yes Differential Diagnosis PNA V COUMADIN OVERDOSE V ANEMIA v stemi/nonstemi Narrative Course cxr showed left perihilar infiltrate which may be the cause of cough, elevated coumadin level may be responsible for hemoptysis. troponin was elevated as well , raising the possibility of nonstemi Diagnosis Primary Impression: nonstemi Additional Impression: pneumonia with hemoptysis Admitting Information Admitting Physician Requests: Observation Glen Metcalf MD Apr 03, 2017 16:33
--- NOTE | 2017-04-03 17:23 | RADRPT ---
EXAM DATE/TIME: 04/03/2017 16:52 [facility] COMPARISON: No previous studies available for comparison. INDICATIONS : Short of breath, hemopysis. RADIATION DOSE: 19.41 CTDIvol (mGy) MEDICAL HISTORY : Hypertension. Diabetes mellitus type 2. CVA, Cardiac. SURGICAL HISTORY : Fusion, cervical. ENCOUNTER: Initial ACUITY: 1 day PAIN SCALE: 1/10 LOCATION: Bilateral chest TECHNIQUE: Volumetric scanning of the chest was performed. Using automated exposure control and adjustment of t he mA and/or kV according to patient size, radiation dose was kept as low as reasonably achievable to obtain optimal diagnostic quality images. DICOM format image data is available electronically for r eview and comparison. Follow-up recommendations for detected pulmonary nodules are based at a minimum on nodule size and pa tient risk factors according to Fleischner Society Guidelines. FINDINGS: LUNGS: There is extensive groundglass infiltrates throughout the dependent portion of the left lung includin g both the upper lobe and lower lobe. Small amount of groundglass infiltrate in the right upper lobe posteriorly. PLEURAE: There small bilateral pleural effusions right greater left. There some mild bibasilar atelectasis MEDIASTINUM: There is atherosclerotic disease of the coronary vessels. Heart is normal transverse diameter.. AXILLAE: Within normal limits. No lymphadenopathy. MUSCULOSKELETAL: Within normal limits for patient age. MISCELLANEOUS: The visualized upper abdominal organs demonstrate no acute abnormality. CONCLUSION: Patchy groundglass infiltrates throughout the lungs left greater than right. Pleural effusions right greater left with bibasilar passive atelectasis. Dense coronary atherosclerotic disease. Gagandeep Oconnell MD on April 03, 2017 at 17:19 Board Certified Radiologist. This report was verified electronically.
--- NOTE | 2017-04-03 17:49 | RADRPT ---
EXAM DATE/TIME: 04/03/2017 17:12 [facility] COMPARISON: CT THORAX W/O CONTRAST, April 03, 2017, 16:52. CHEST SINGLE AP, March 28, 2017, 4:26. INDICATIONS : Short of breath. MEDICAL HISTORY : Hypertension. Diabetes mellitus type 2. CVA, Cardiac. SURGICAL HISTORY : Fusion, cervical. ENCOUNTER: Initial ACUITY: 1 day PAIN SCORE: 0/10 LOCATION: Bilateral chest FINDINGS: There is mild focal infiltrate in the lateral perihilar region on the left. No significant effusion i s suspected. Cardiac contours are grossly stable with borderline heart size. CONCLUSION: Infiltrate best seen in the left perihilar region Rufino Panchal MD on April 03, 2017 at 17:45 Board Certified Radiologist. This report was verified electronically.
[2017-04-03 17:53] LABS: BASOPHIL # 0.1 TH/MM3 (0-0.2); BASOPHIL % 0.5 % (0.0-2.0); EOSINOPHIL # 0.1 TH/MM3 (0-0.4); EOSINOPHIL % 0.7 % (0.0-4.0); HEMOGLOBIN 12.1 GM/DL (11.6-15.3); LYMPH % 5.8 % (9.0-44.0); LYMPHOCYTE # 0.7 TH/MM3 (1.0-4.8); MEAN CELL VOLUME 90.3 FL (80.0-100.0); MEAN CORPUSCULAR HEMOGLOBIN 28.8 PG (27.0-34.0); MEAN CORPUSCULAR HGB CONC 31.8 % (32.0-36.0); MEAN PLATELET VOLUME 9.6 FL (7.0-11.0); MONO % 4.5 % (0.0-8.0); MONOCYTE # 0.5 TH/MM3 (0-0.9); NEUT % 88.5 % (16.0-70.0); PLATELET COUNT 147 TH/MM3 (150-450); RED CELL DISTRIBUTION WIDTH 17.1 % (11.6-17.2); WHITE BLOOD COUNT 11.3 TH/MM3 (4.0-11.0)
[2017-04-03 18:02] LABS: INTERNATIONAL NORMALIZED RATIO 4.7 RATIO
[2017-04-03] MEDS ORDERED: cefTRIAXone INJ 1,000 MG in SODIUM CHLORIDE 0.9% INJ 100 ML IV ONE (18:15)
[2017-04-03 18:22] LABS: ALBUMIN 2.7 GM/DL (3.4-5.0); ALT (GPT) 52 U/L (10-53); AST (GOT) 34 U/L (15-37); BICARBONATE 28.4 MEQ/L (21.0-32.0); BLOOD UREA NITROGEN 39 MG/DL (7-18); CALCIUM 8.1 MG/DL (8.5-10.1); CHLORIDE 104 MEQ/L (98-107); CREATININE 1.15 MG/DL (0.50-1.00); GLOMERULAR FILTRATION RATE 46 ML/MIN (>89); GLUCOSE,RANDOM 152 MG/DL (74-106); SODIUM (NA) 140 MEQ/L (136-145)
[2017-04-03 18:23] LABS: ALKALINE PHOSPHATASE 81 U/L (45-117); TOTAL BILIRUBIN ADULT 0.6 MG/DL (0.2-1.0); TOTAL PROTEIN 6.3 GM/DL (6.4-8.2); TROPONIN I 0.08 NG/ML (0.02-0.05)
[2017-04-03] MEDS ORDERED: SODIUM CHLORIDE 0.9% FLUSH 10 ML FLUSH IV FLUSH PRN (19:45)
[2017-04-03] MEDS ORDERED: NITROGLYCERIN 0.4 MG SL 25 TABS/BTL SL PRN (19:45)
[2017-04-03] MEDS ORDERED: MAGNESIUM HYDROXIDE SUSP 30 ML CUP PO PRN (19:45)
[2017-04-03] MEDS ORDERED: ACETAMINOPHEN 325 MG TAB PO PRN (19:45)
[2017-04-03] MEDS ORDERED: NALOXONE HCL 0.4 MG/ML AMP IV PUSH PRN (19:45)
[2017-04-03] MEDS: INSULIN ASPART SUPPLEMENTAL SCALE SQ SCH (21:00)
[2017-04-03] MEDS ORDERED: GLUCAGON 1 MG/ML VIAL OTHER PRN (21:00)
[2017-04-03] MEDS ORDERED: DEXTROSE 50% IN WATER 50 ML VIAL(D50) IV PUSH PRN (21:00)
[2017-04-03] MEDS ORDERED: ROSUVASTATIN CALCIUM 10 MG TAB PO SCH (21:00)
[2017-04-03] MEDS: METOPROLOL TARTRATE 50 MG TAB PO SCH (21:26)
[2017-04-03] MEDS: SODIUM CHLORIDE 0.9% FLUSH 10 ML FLUSH IV FLUSH SCH (21:26)
[2017-04-03] MEDS: FAMOTIDINE 20 MG TAB PO SCH (21:26)
[2017-04-03] MEDS: RESP: ALBUTEROL 2.5 MG/IPRATROPIUM 0.5 MG NEB (PRN) INH (21:41)
[2017-04-03] MEDS: RESP: BUDESONIDE 0.5 MG/2 ML NEB NEB SCH (21:45)
[2017-04-03] MEDS: LOSARTAN 50 MG TAB PO SCH (22:54)
[2017-04-03] MEDS: GLIMEPIRIDE 1 MG TAB PO SCH (22:54)
[2017-04-03] MEDS: ATORVASTATIN 20 MG TAB PO SCH (22:54)
[2017-04-04] VITALS (24 sets, daily range): BP systolic 105–174; BP diastolic 63–91; PULSE 52–78; RESP 18–20; TEMP 97.3–98.4; O2SAT 94–99
[2017-04-04 00:53] LABS: TROPONIN I 0.06 NG/ML (0.02-0.05)
[2017-04-04] MEDS: GEMFIBROZIL 600 MG TAB PO SCH ×2 (06:20→16:51)
[2017-04-04] MEDS: LEVOTHYROXINE SODIUM 88 MCG TAB PO SCH (06:20)
[2017-04-04 06:53] LABS: AUTOMATED NEUTROPHIL # 6.6 TH/MM3 (1.8-7.7); BASOPHIL % 0.1 % (0.0-2.0); EOSINOPHIL # 0.1 TH/MM3 (0-0.4); EOSINOPHIL % 0.7 % (0.0-4.0); HEMATOCRIT 36.5 % (35.0-46.0); LYMPHOCYTE # 1.1 TH/MM3 (1.0-4.8); MEAN CELL VOLUME 89.5 FL (80.0-100.0); MEAN CORPUSCULAR HEMOGLOBIN 29.5 PG (27.0-34.0); MEAN PLATELET VOLUME 8.6 FL (7.0-11.0); MONO % 6.1 % (0.0-8.0); MONOCYTE # 0.5 TH/MM3 (0-0.9); NEUT % 80.1 % (16.0-70.0); PLATELET COUNT 151 TH/MM3 (150-450); RED BLOOD COUNT 4.08 MIL/MM3 (4.00-5.30); RED CELL DISTRIBUTION WIDTH 16.7 % (11.6-17.2); WHITE BLOOD COUNT 8.3 TH/MM3 (4.0-11.0)
[2017-04-04 06:56] LABS: INTERNATIONAL NORMALIZED RATIO 5.2 RATIO; PROTHROMBIN TIME - PATIENT 52.2 SEC (9.8-11.6)
[2017-04-04 07:15] LABS: BICARBONATE 26.5 MEQ/L (21.0-32.0); CALCIUM 8.1 MG/DL (8.5-10.1); CHOLESTEROL/ HDL RATIO 3.53 RATIO; CREATININE 0.94 MG/DL (0.50-1.00); HDL CHOLESTEROL 51.5 MG/DL (40.0-60.0); TROPONIN I 0.07 NG/ML (0.02-0.05)
[2017-04-04] MEDS: GLIMEPIRIDE 1 MG TAB PO SCH (07:29)
[2017-04-04] MEDS: INSULIN ASPART SUPPLEMENTAL SCALE SQ SCH ×4 (08:00→21:00)
[2017-04-04] MEDS: RESP: BUDESONIDE 0.5 MG/2 ML NEB NEB SCH ×2 (08:46→20:42)
[2017-04-04] MEDS ORDERED: PHYTONADIONE 5 MG/SWFI 5 ML ORAL SYR PO ONE (09:45)
--- NOTE | 2017-04-04 09:45 | HHI.HP ---
HPI Service [facility] Primary Care Physician Jesus Loo MD, PhD Admission Diagnosis NONSTEMI, PNA W/HEMOPTYSIS Chief Complaint: cough and hemoptysis x 2 days Travel History International Travel<30 Days: No Contact w/Intl Traveler <30 Da: No Traveled to Known Affected Are: No History of Present Illness This is a 77-year-old female with a history of chronic diastolic CHF 2D Echo () estimated EF 45- 50%. , obstructive sleep apnea on CPAP at home, diabetes mellitus, prior CVA without residual effects, hypertension and atrial fibrillation on Coumadin. Patient was recently hospitalized from 03/11/2017 to 03/31/2016 with hypoxic respiratory failure, complicated by urinary tract infection Catrachita Glabrata. Patient was [facility] on 03/31/2016. Patient presented to the emergency department 04/03/17 secondary to 2 days of hemoptysis. Daughter report moderate amount bright red bloody sputum with some clots noted after coughing. INR noted to be supratherapeutic at 4.7 on admission. Information provided by patient and daughter at bedside. Denies fevers, chills, N/V/D/C, shortness of breath or chest pain. Patient offers no other complaints and has had no hemoptysis today. Review of Systems Respiratory: COMPLAINS OF: Cough, Hemoptysis Past Family Social History Past Medical History Diastolic congestive heart failure with a prior EF Obstructive sleep apnea on CPAP at home Diabetes Prior CVA without residual deficits Hypertension Atrial fibrillation Past Surgical History Bilateral total knee arthroplasties Neck surgery Reported Medications Fluconazole Inj 200 Mg/100 Ml Bagp 200 Mg IV DAILY 3 Days last day 04/04/17 Synthroid (Levothyroxine Sodium) 88 Mcg Tab 88 Mcg PO DAILY Prednisone 10 Mg Tab 10 Mg PO TID 14 Days one tab tid x 5d, then one tab bid x 5d, then one tab daily x5d, then stop Pulmicort Respules (Budesonide) 0.5 Mg/2 Ml Neb 0.5 Mg NEB Q12HR NEB 30 Days Furosemide 40 Mg Tab 40 Mg PO DAILY 30 Days Xanax (Alprazolam) 0.5 Mg Tab 0.5 Mg PO Q6H PRN Revatio (Sildenafil Citrate) 20 Mg Tab 20 Mg PO DAILY 30 Days Novolog Inj (Insulin Aspart) 1,000 Unit/10 Ml Vial 0 SQ DIRECTED Sliding Scale as directed. Zantac (Ranitidine HCl) 150 Mg Tab 150 Mg PO BID Florastor (Saccharomyces Boulardii) 250 Mg Cap 250 Mg PO BID Vitamin D3 (Cholecalciferol) 1,000 Unit Chew 1,000 Units CHEW DAILY Vitamin D-1000 (Cholecalciferol) 1,000 Unit Tab 1,000 Units PO DAILY Jantoven (Warfarin) 5 Mg Tab 5 Mg PO DAILY Losartan (Losartan Potassium) 50 Mg Tab 50 Mg PO BID Crestor (Rosuvastatin Calcium) 10 Mg Tab 10 Mg PO MON, WED, FRID Glimepiride 1 Mg Tab 1 Mg PO BID Take with breakfast or first main meal K-Tab (Potassium Chloride) 20 Meq Tab 20 Meq PO DAILY Gemfibrozil 600 Mg Tab 600 Mg PO BIDAC Take 30 minutes prior to breakfast and dinner. Metoprolol Tartrate 50 Mg Tab 50 Mg PO BID Allergies: Coded Allergies: bacitracin (Verified Allergy, Severe, Rash, 03/11/17) gramicidin D (Verified Allergy, Severe, Rash, 03/11/17) neomycin (Verified Allergy, Severe, Rash, 03/11/17) polymyxin B (Verified Allergy, Severe, Rash, 03/11/17) hydrocodone (Verified Adverse Reaction, Unknown, Hallucinations, 03/11/17) Active Ordered Medications Current Medications Medications (Trade) Dose Ordered Sig/Diann Route Start Time Stop Time Status Last Admin (NS Flush) 2 ml UNSCH PRN IV FLUSH 04/03/17 19:45 (NS Flush) 2 ml BID IV FLUSH 04/03/17 21:00 04/03/17 21:26 (Tylenol) 650 mg Q4H PRN PO 04/03/17 19:45 (Narcan Inj) 0.4 mg UNSCH PRN IV PUSH 04/03/17 19:45 (Milk Of Magnesia Liq) 30 ml Q12H PRN PO 04/03/17 19:45 (Nitrostat Sl) 0.4 mg Q5M PRN SL 04/03/17 19:45 (Xanax) 0.5 mg Q6H PRN PO 04/03/17 19:45 04/04/17 00:00 (Pulmicort Respule Neb) 0.5 mg Q12HR NEB NEB 04/03/17 20:00 04/04/17 08:46 Fluconazole/ Sodium Chloride 100 ml @ 100 mls/hr DAILY IV 04/04/17 09:00 (Lasix) 40 mg DAILY PO 04/04/17 09:00 (Lopid) 600 mg BIDAC PO 04/04/17 07:00 04/04/17 06:20 (Amaryl) 1 mg BID PO 04/03/17 21:00 04/03/17 22:54 (Duoneb Neb) 1 ampule Q6HR NEB PRN INH 04/03/17 19:45 04/03/17 21:41 (Synthroid) 88 mcg DAILY@0600 PO 04/04/17 06:00 04/04/17 06:20 (Cozaar) 50 mg BID PO 04/03/17 21:00 04/03/17 22:54 (Lopressor) 50 mg BID PO 04/03/17 21:00 04/03/17 21:26 (KCl) 20 meq DAILY PO 04/04/17 09:00 (Deltasone) 10 mg TID PO 04/04/17 09:00 (Revatio) 20 mg DAILY PO 04/04/17 09:00 (Pepcid) 20 mg BID PO 04/03/17 21:00 04/03/17 21:26 (NovoLOG SUPPLEMENTAL SCALE) 1 ACHS SLIDING SCALE SQ 04/03/17 21:00 (D50w (Vial) Inj) 50 ml UNSCH PRN IV PUSH 04/03/17 21:00 (Glucagon Inj) 1 mg UNSCH PRN OTHER 04/03/17 21:00 (Lipitor) 20 mg MoWeFr PO 04/03/17 22:45 04/03/17 22:54 Family History reviewed and found to be noncontributory to her acute illness Social History denies tobacco, etoh, illicit drug use Physical Exam Vital Signs Vital Signs Date Time Temp Pulse Resp B/P (MAP) Pulse Ox O2 Delivery O2 Flow Rate FiO2 04/04/17 08:53 98 Nasal Cannula 2.00 04/04/17 06:00 59 04/04/17 05:00 56 04/04/17 04:00 65 04/04/17 03:00 56 04/04/17 03:00 97.3 62 18 132/78 (96) 99 04/04/17 02:00 60 04/04/17 01:00 62 04/04/17 00:00 60 04/03/17 23:00 64 04/03/17 23:00 97.7 64 20 159/85 (109) 97 04/03/17 21:44 98 Nasal Cannula 2.00 04/03/17 21:29 64 16 178/90 (119) 98 Nasal Cannula 2.50 04/03/17 19:39 64 17 159/95 (116) 97 04/03/17 17:40 66 20 139/76 (97) 96 Nasal Cannula 04/03/17 16:35 76 16 122/79 (93) 95 Nasal Cannula 2.50 04/03/17 16:32 95 Nasal Cannula 2.50 04/03/17 16:22 97.8 65 24 161/75 (103) 95 Physical Exam GENERAL: This is a well-nourished, well-developed patient, in no apparent distress. SKIN: No rashes, ecchymoses or lesions. Cool and dry. HEAD: Atraumatic. Normocephalic. No temporal or scalp tenderness. EYES: Pupils equal round and reactive. Extraocular motions intact. No scleral icterus. No injection or drainage. ENT: Nose without bleeding, purulent drainage or septal hematoma. Throat without erythema, tonsillar hypertrophy or exudate. Uvula midline. Airway patent. NECK: Trachea midline. No JVD or lymphadenopathy. Supple, nontender, no meningeal signs. CARDIOVASCULAR: Regular rate and rhythm without murmurs, gallops, or rubs. RESPIRATORY: Clear to auscultation. Breath sounds equal bilaterally. No wheezes , rales, or rhonchi. GASTROINTESTINAL: Abdomen soft, non-tender, nondistended. No hepato-splenomegaly , or palpable masses. No guarding. MUSCULOSKELETAL: Extremities without clubbing, cyanosis, or edema. No joint tenderness, effusion, or edema noted. No calf tenderness. Negative Homans sign bilaterally. NEUROLOGICAL: Awake and alert. Cranial nerves II through XII intact. Motor and sensory grossly within normal limits. Five out of 5 muscle strength in all muscle groups. Normal speech. Laboratory Laboratory Tests Test 04/03/17 17:30 04/03/17 23:40 04/04/17 05:18 White Blood Count 11.3 8.3 Red Blood Count 4.20 4.08 Hemoglobin 12.1 12.0 Hematocrit 38.0 36.5 Mean Corpuscular Volume 90.3 89.5 Mean Corpuscular Hemoglobin 28.8 29.5 Mean Corpuscular Hemoglobin Concent 31.8 33.0 Red Cell Distribution Width 17.1 16.7 Platelet Count 147 151 Mean Platelet Volume 9.6 8.6 Neutrophils (%) (Auto) 88.5 80.1 Lymphocytes (%) (Auto) 5.8 13.0 Monocytes (%) (Auto) 4.5 6.1 Eosinophils (%) (Auto) 0.7 0.7 Basophils (%) (Auto) 0.5 0.1 Neutrophils # (Auto) 10.0 6.6 Lymphocytes # (Auto) 0.7 1.1 Monocytes # (Auto) 0.5 0.5 Eosinophils # (Auto) 0.1 0.1 Basophils # (Auto) 0.1 0.0 CBC Comment DIFF FINAL DIFF FINAL Differential Comment Prothrombin Time 47.0 52.2 Prothromb Time International Ratio 4.7 5.2 Activated Partial Thromboplast Time 24.0 Blood Urea Nitrogen 39 36 Creatinine 1.15 0.94 Random Glucose 152 47 Total Protein 6.3 Albumin 2.7 Calcium Level 8.1 8.1 Alkaline Phosphatase 81 Aspartate Amino Transf (AST/SGOT) 34 Alanine Aminotransferase (ALT/SGPT) 52 Total Bilirubin 0.6 Sodium Level 140 141 Potassium Level 4.2 3.7 Chloride Level 104 107 Carbon Dioxide Level 28.4 26.5 Anion Gap 8 8 Estimat Glomerular Filtration Rate 46 58 Magnesium Level 1.9 Total Creatine Kinase 87 73 62 Troponin I 0.08 0.06 0.07 Triglycerides Level 81 Cholesterol Level 182 LDL Cholesterol 114 HDL Cholesterol 51.5 Cholesterol/HDL Ratio 3.53 Result Diagram: 04/04/17 0518 04/04/17 0518 Imaging Last Impressions Chest X-Ray 04/03/17 1634 Signed Impressions: Service Date/Time: Monday, April 03, 2017 17:12 - CONCLUSION: Infiltrate best seen in the left perihilar region Rufino Panchal MD Chest CT 04/03/17 0000 Signed Impressions: Service Date/Time: Monday, April 03, 2017 16:52 - CONCLUSION: Patchy groundglass infiltrates throughout the lungs left greater than right. Pleural effusions right greater left with bibasilar passive atelectasis. Dense coronary atherosclerotic disease. MD Do Knight VTE Risk Assessment Caprini VTE Risk Assessment: No/Low Risk (score <= 1) Caprini Risk Assessment Model Point Value = 1 Point Value = 2 Point Value = 3 Point Value = 5 Age 41-60 Minor surgery BMI > 25 kg/m2 Swollen legs Varicose veins or History of unexplained or recurrent spontaneous Oral contraceptives or hormone replacement Sepsis (< 1 month) Serious lung disease, including pneumonia (< 1 month) Abnormal pulmonary function Acute myocardial infarction Congestive heart failure (< 1 month) History of inflammatory bowel disease Medical patient at bed rest Age 61-74 Arthroscopic surgery Major open surgery (> 45 min) Laparoscopic surgery (> 45 min) Malignancy Confined to bed (> 72 hours) Immobilizing plaster cast Central venous access Age >= 75 History of VTE Family history of VTE Factor V Leiden Prothrombin [id number] Lupus anticoagulant Anticardiolipin antibodies Elevated serum homocysteine Heparin-induced thrombocytopenia Other congenital or acquired thrombophilia Stroke (< 1 month) Elective arthroplasty Hip, pelvis, or leg fracture Acute spinal cord injury (< 1 month) Prophylaxis Regimen Total Risk Factor Score Risk Level Prophylaxis Regimen 0-1 Low Early ambulation 2 Moderate Order ONE of the following: *Sequential Compression Device (SCD) *Heparin 5000 units SQ BID 3-4 Higher Order ONE of the following medications: *Heparin 5000 units SQ TID *Enoxaparin/Lovenox 40 mg SQ daily (WT < 150 kg, CrCl > 30 mL/min) *Enoxaparin/Lovenox 30 mg SQ daily (WT < 150 kg, CrCl > 10-29 mL/min) *Enoxaparin/Lovenox 30 mg SQ BID (WT < 150 kg, CrCl > 30 mL/min) AND/OR *Sequential Compression Device (SCD) 5 or more Highest Order ONE of the following medications: *Heparin 5000 units SQ TID (Preferred with Epidurals) *Enoxaparin/Lovenox 40 mg SQ daily (WT < 150 kg, CrCl > 30 mL/min) *Enoxaparin/Lovenox 30 mg SQ daily (WT < 150 kg, CrCl > 10-29 mL/min) *Enoxaparin/Lovenox 30 mg SQ BID (WT < 150 kg, CrCl > 30 mL/min) AND *Sequential Compression Device (SCD) Assessment and Plan Problem List: (1) Hemoptysis ICD Codes: R04.2 - Hemoptysis Plan: Patient on Coumadin with a supra therapeutic INR, 4.7 on admission -> 5.2 (04/04) will give vit K 5 mg x 1 recheck INR in AM CXR reveals: Infiltrate best seen in the left perihilar region Chest CT reveals: Patchy groundglass infiltrates throughout the lungs left greater than right. Pleural effusions right greater than left with bibasilar passive atelectasis. Dense coronary atherosclerotic disease. likely resolving lung process from recent admission. Will repeat CXR in AM Patient on prednisone taper from previous hospitalization Prednisone (Prednisone) 10 Mg Tab 10 MG PO TID for copd for to continue steroid taper from previous hospitalization (2) Atrial fibrillation ICD Codes: I48.91 - Unspecified atrial fibrillation Status: Chronic Plan: rate controlled continue metoprolol 50 mg BID Coumadin on hold due to supratherapeutic INR, in discussing the INR with patient and daughter at bedside. Daughter reports they often have difficulty with Coumadin dose and are frequently having to adjust the dose. Consider discharging patient on different anticoagulation (3) Diabetes ICD Codes: E11.9 - Type 2 diabetes mellitus without complications Status: Chronic Plan: patient had hypoglycemic episode this AM after not eating last night will decrease to low dose SSI continue to monitor blood glucose ACHS decrease Amaryl to 1 mg once a day (4) UTI (urinary tract infection) ICD Codes: N39.0 - Urinary tract infection, site not specified Plan: Catrachita Glabrata from urine culture 03/20/17 patient is currently on Fluconazole IV stop date today 04/04/17 (5) HTN (hypertension) ICD Codes: I10 - Essential (primary) hypertension Status: Chronic Plan: Will continue Losartan 50 mg PO BID, Metoprolol 50 mg PO BID (6) Pulmonary HTN ICD Codes: I27.20 - Pulmonary hypertension, unspecified (7) Diastolic CHF ICD Codes: I50.30 - Unspecified diastolic (congestive) heart failure Status: Chronic Plan: Will continue home Losartan 50 mg PO BID, Metoprolol 50 mg PO BID, Furosemide 40 mg PO daily 2D Echo (03/16/17): - Normal left ventricular size. Moderate LVH. - Estimated EF 45- 50%. - LA is moderately dilated. - RA is iyzg-cc-szamnvandl dilated. - Ztjn-ov-qvaymtls mitral valve regurgitation. - Aortic valve sclerosis is present. Mild aortic valve stenosis. - Trace aortic valve regurgitation. - Mild tricuspid valve regurgitation. - Estimated pulmonary arterial pressure is 62.8 mmHg. There is estimated xidbgkzk-sv-ugmrhj pulmonary hypertension. - Mild pulmonary valve regurgitation. - Very technically difficult study. (8) Elevated troponin ICD Codes: R74.8 - Abnormal levels of other serum enzymes Plan: 0.08, 0.06, 0.[address] Moreno recommends lexiscan Lexiscan ordered await results, due to patient weight this will be a two day test Assessment and Plan Patient examined. Assessment and plan formulated with Brook THOMPSON-C. I agree with the above. - Pt admitted with c/o hemoptysis - INR supra therapeutic - Pt given vitamin K 5mg - Vitals stable. Hg stable - repeat INR in AM - incidental finding of elevated troponin, but flat pattern: 0.08, 0.06, 0.07 - Pt has NO c/o CP - Case d/w Cardiology, Dr. Camden Moreno - obtain lexiscan - First half completed 04/04. Second half will complete 04/05 - If lexiscan is negative, and pt remains clinically stable, then will d/c back to [facility] 04/05 Brook Reyes Apr 04, 2017 09:45 Troy Anderson DO Apr 04, 2017 23:00
[2017-04-04] MEDS: LOSARTAN 50 MG TAB PO SCH ×2 (09:47→22:23)
[2017-04-04] MEDS: METOPROLOL TARTRATE 50 MG TAB PO SCH ×2 (09:47→22:23)
[2017-04-04] MEDS: FUROSEMIDE 40 MG TAB PO SCH (09:47)
[2017-04-04] MEDS: FAMOTIDINE 20 MG TAB PO SCH ×2 (09:47→22:23)
[2017-04-04] MEDS: predniSONE 10 MG TAB PO SCH ×3 (09:48→16:51)
[2017-04-04] MEDS: POTASSIUM CHLORIDE 20 MEQ CONTROLLED RELEASE TAB PO SCH (09:48)
[2017-04-04] MEDS: SODIUM CHLORIDE 0.9% FLUSH 10 ML FLUSH IV FLUSH SCH ×2 (09:48→22:24)
[2017-04-04] MEDS: SILDENAFIL CITRATE 20 MG TAB PO SCH (09:58)
[2017-04-04] MEDS: FLUCONAZOLE 200 MG PREMIX BAG 100 ML IV SCH (09:59)
[2017-04-04] MEDS ORDERED: REGADENOSON INJ 0.4 MG/5 ML SYR ONE (14:33)
[2017-04-04] MEDS: RESP: ALBUTEROL 2.5 MG/IPRATROPIUM 0.5 MG NEB (PRN) INH (20:42)
--- NOTE | 2017-04-04 21:59 | EKG ---
Date Performed: 04/04/2017 Time Performed: 06:04:00 PTAGE: 76 years EKG: Atrial fibrillation with slow ventricular response LVH with secondary repolarization abnorm ality Extensive ST-T changes may be due to hypertrophy and/or ischemia Abnormal ECG PREVIOUS TRACING : 04/04/2017 00.56 Since previous tracing, no significant change noted DOCTOR: Amadeo Johnson Interpretating Date/Time 04/04/2017 21:58:34
--- NOTE | 2017-04-04 22:06 | EKG ---
Date Performed: 04/04/2017 Time Performed: 00:56:44 PTAGE: 76 years EKG: Atrial fibrillation LVH with secondary repolarization abnormality Extensive ST-T changes ma y be due to hypertrophy and/or ischemia Abnormal ECG PREVIOUS TRACING : 04/03/2017 18.48 Since previous tracing, no significant change noted DOCTOR: Amadeo Johnson Interpretating Date/Time 04/04/2017 22:05:58
[2017-04-04] MEDS: ALPRAZolam 0.5 MG TAB PO PRN ×2 (22:23)
--- NOTE | 2017-04-04 22:24 | EKG ---
Date Performed: 04/03/2017 Time Performed: 18:48:08 PTAGE: 76 years EKG: ATRIAL FIBRILLATION ST DEVIATION AND MODERATE T-WAVE ABNORMALITY, CONSIDER LATERAL ISCHEMIA ST DEVIATION AND MODERATE T-WAVE ABNORMALITY, CONSIDER INFERIOR ISCHEMIA ABNORMAL ECG PREVIOUS TRACING : 03/25/2017 14.10 Since previous tracing, no significant change noted DOCTOR: Amadeo Johnson Interpretating Date/Time 04/04/2017 22:22:18
[2017-04-05] VITALS (27 sets, daily range): BP systolic 149–166; BP diastolic 63–91; PULSE 56–85; RESP 18–22; TEMP 97.9–98.5; O2SAT 96–98
[2017-04-05] MEDS: LEVOTHYROXINE SODIUM 88 MCG TAB PO SCH (06:15)
[2017-04-05] MEDS: GEMFIBROZIL 600 MG TAB PO SCH ×2 (06:15→17:43)
[2017-04-05 06:32] LABS: INTERNATIONAL NORMALIZED RATIO 1.6 RATIO; PROTHROMBIN TIME - PATIENT 16.6 SEC (9.8-11.6)
[2017-04-05] MEDS: INSULIN ASPART SUPPLEMENTAL SCALE SQ SCH ×4 (08:00→20:31)
[2017-04-05] MEDS: SILDENAFIL CITRATE 20 MG TAB PO SCH (08:30)
[2017-04-05] MEDS: METOPROLOL TARTRATE 50 MG TAB PO SCH ×2 (08:31→20:23)
[2017-04-05] MEDS: predniSONE 10 MG TAB PO SCH ×3 (08:32→20:23)
[2017-04-05] MEDS: FAMOTIDINE 20 MG TAB PO SCH ×2 (08:32→20:22)
[2017-04-05] MEDS: FUROSEMIDE 40 MG TAB PO SCH (08:32)
[2017-04-05] MEDS: LOSARTAN 50 MG TAB PO SCH ×2 (08:32→20:22)
[2017-04-05] MEDS: POTASSIUM CHLORIDE 20 MEQ CONTROLLED RELEASE TAB PO SCH (08:32)
[2017-04-05] MEDS: GLIMEPIRIDE 1 MG TAB PO SCH (08:34)
[2017-04-05] MEDS: SODIUM CHLORIDE 0.9% FLUSH 10 ML FLUSH IV FLUSH SCH ×2 (08:35→20:23)
[2017-04-05] MEDS: FLUCONAZOLE 200 MG PREMIX BAG 100 ML IV SCH (08:35)
--- NOTE | 2017-04-05 11:02 | RADRPT ---
EXAM DATE/TIME: 04/04/2017 14:57 [facility] COMPARISON: CT THORAX W/O CONTRAST, April 03, 2017, 16:52. CHEST SINGLE AP, April 03, 2017, 17:12. INDICATIONS : Mid chest pain for one day. Atrial fibrillation. DOSE: 30 mCi Tc99m Myoview at stress. 32.4 mCi Tc99m Myoview at rest. 0.4 mg Lexiscan STRESS SYMPTOMS: Shortness of breath. EJECTION FRACTION: 43% MEDICAL HISTORY : Diabetes mellitus type 2. Congestive heart failure. Hypertension. SURGICAL HISTORY : Bilateral knees. ENCOUNTER: Initial ACUITY: 1 day PAIN SCALE: 2/10 LOCATION: chest TECHNIQUE: The patient underwent pharmacologic stress with infusion of prescribed dose. Continuous ECG tracing was monitored during stress. Gated SPECT imaging was performed after stress and conventional SPECT i maging was performed at rest. The examination was performed on a SPECT/CT scanner, both attenuation and non-corrected datasets were reviewed. FINDINGS: DISTRIBUTION: The maximum perfused segment at stress is in the anterior wall. PERFUSION STUDY: The pattern of perfusion at stress is within normal limits. GATED STUDY: There is hypokinesia and paradoxical bulging of the anterior septal and inferior wall at end systole. CONCLUSION: Abnormal study. Diminished ejection fraction with normal size heart. Hypokinesia of the and tear aspe ct of the septal and inferior wall with paradoxical bulging of this region at end systole raising the question as to ventricular aneurysm . No perfusion defect is identified RISK CATEGORY: Intermediate (1-3% Annual Mortality Rate) Cedric Sen MD on April 05, 2017 at 10:55 Board Certified Radiologist. This report was verified electronically.
[2017-04-05] MEDS: RESP: BUDESONIDE 0.5 MG/2 ML NEB NEB SCH ×2 (12:59→20:15)
[2017-04-05] MEDS: RESP: ALBUTEROL 2.5 MG/IPRATROPIUM 0.5 MG NEB (PRN) INH (12:59)
[2017-04-05] MEDS: ATORVASTATIN 20 MG TAB PO SCH (20:21)
[2017-04-05] MEDS: ALPRAZolam 0.5 MG TAB PO PRN (20:23)
--- NOTE | 2017-04-05 23:39 | HHI.PR ---
Subjective Remarks No new complaints. No chest pain. No hemoptysis. Objective Vitals Vital Signs Date Time Temp Pulse Resp B/P (MAP) Pulse Ox O2 Delivery O2 Flow Rate FiO2 04/05/17 21:00 73 04/05/17 20:18 97 Nasal Cannula 2.00 04/05/17 20:00 75 04/05/17 20:00 98.2 75 22 155/91 (112) 96 04/05/17 20:00 Nasal Cannula 2.00 04/05/17 18:00 73 04/05/17 17:38 98.0 75 18 150/79 (102) 96 04/05/17 17:00 70 04/05/17 16:00 68 04/05/17 15:00 68 04/05/17 14:00 70 04/05/17 13:02 Nasal Cannula 3.00 04/05/17 13:00 69 04/05/17 12:00 85 04/05/17 11:08 98.5 65 20 149/76 (100) 97 04/05/17 11:00 65 04/05/17 10:00 70 04/05/17 09:00 69 04/05/17 08:00 85 04/05/17 07:30 98.4 60 18 166/63 (97) 97 04/05/17 07:15 56 04/05/17 06:04 61 04/05/17 05:00 56 04/05/17 04:00 60 04/05/17 03:00 57 04/05/17 03:00 97.9 63 18 158/86 (110) 98 04/05/17 02:00 65 04/05/17 01:00 62 04/05/17 00:00 66 04/05/17 04/05/17 04/06/17 15:00 23:00 07:00 Intake Total 100 ml 720 ml Output Total 1150 ml Balance 100 ml -430 ml Intake Oral 720 ml IV Total 100 ml Output Urine Total 1150 ml Result Diagram: 04/04/17 0518 04/04/1718 Imaging Last Impressions Myocardial Perfusion Scan Nuc Med 04/04/17 0000 Signed Impressions: Service Date/Time: March 14:57 - CONCLUSION: Abnormal study. Diminished ejection fraction with normal size heart. Hypokinesia of the and tear aspect of the septal and inferior wall with paradoxical bulging of this region at end systole raising the question as to ventricular aneurysm . No perfusion defect is identified RISK CATEGORY: Intermediate (1-3%% Annual Mortality Rate) Cedric Sen MD Chest X-Ray 04/03/17 1634 Signed Impressions: Service Date/Time: Monday, April 03, 2017 17:12 - CONCLUSION: Infiltrate best seen in the left perihilar region Rufino Panchal MD Chest CT 04/03/17 0000 Signed Impressions: Service Date/Time: Monday, April 03, 2017 16:52 - CONCLUSION: Patchy groundglass infiltrates throughout the lungs left greater than right. Pleural effusions right greater left with bibasilar passive atelectasis. Dense coronary atherosclerotic disease. Gagandeep Oconnell MD Objective Remarks GENERAL: This is a well-nourished, well-developed patient, in no apparent distress. CARDIOVASCULAR: Regular rate and rhythm without murmurs, gallops, or rubs. RESPIRATORY: Clear to auscultation. Breath sounds equal bilaterally. No wheezes , rales, or rhonchi. GASTROINTESTINAL: Abdomen soft, non-tender, nondistended. Normal active bowel sounds MUSCULOSKELETAL: Extremities without clubbing, cyanosis, or edema. NEURO: Alert & Oriented x4 to person, place, time, situation. Moves all ext x4 A/P Problem List: (1) Elevated troponin ICD Codes: R74.8 - Abnormal levels of other serum enzymes Plan: 0.08, 0.06, 0.[address] Moreno recommends lexiscan (04/04) - lexiscan (04/05), study divided into 2 days d/t pt's weight - radiologist read torito as possible ventricular aneurysm - Pt had echocardiogram 02/2017 which did NOT indicate aneurysm - Cardiology to review case 04/06 - if NO concerns after Cardiology review, then will d/c back to SNF 04/06 (2) Hemoptysis ICD Codes: R04.2 - Hemoptysis Status: Resolved Plan: Patient on Coumadin with a supra therapeutic INR, 4.7 on admission -> 5.2 (04/04) will give vit K 5 mg x 1 - INR 1.6 (04/05) CXR reveals: Infiltrate best seen in the left perihilar region Chest CT reveals: Patchy groundglass infiltrates throughout the lungs left greater than right. Pleural effusions right greater than left with bibasilar passive atelectasis. Dense coronary atherosclerotic disease. likely resolving lung process from recent admission. - Repeat CXR (04/06) Patient on prednisone taper from previous hospitalization decrease Prednisone to 10mg BID - Pt denies further hemoptysis - repeat INR in AM (3) Atrial fibrillation ICD Codes: I48.91 - Unspecified atrial fibrillation Status: Chronic Plan: rate controlled continue metoprolol 50 mg BID Coumadin on hold due to supratherapeutic INR, in discussing the INR with patient and daughter at bedside. Daughter reports they often have difficulty with Coumadin dose and are frequently having to adjust the dose. Consider discharging patient on different anticoagulation - daughter concerned about reversibility of newer anticoagulants - consider pradaxa (4) Diabetes ICD Codes: E11.9 - Type 2 diabetes mellitus without complications Status: Chronic Plan: patient had hypoglycemic episode will decrease to low dose SSI continue to monitor blood glucose ACHS decrease Amaryl to 1 mg once a day (5) UTI (urinary tract infection) ICD Codes: N39.0 - Urinary tract infection, site not specified Plan: Catrachita Glabrata from urine culture 03/20/17 patient is currently on Fluconazole IV stop date today 04/04/17 - diflucan stopped (6) HTN (hypertension) ICD Codes: I10 - Essential (primary) hypertension Status: Chronic Plan: Will continue Losartan 50 mg PO BID, Metoprolol 50 mg PO BID (7) Pulmonary HTN ICD Codes: I27.20 - Pulmonary hypertension, unspecified (8) Diastolic CHF ICD Codes: I50.30 - Unspecified diastolic (congestive) heart failure Status: Chronic Plan: Will continue home Losartan 50 mg PO BID, Metoprolol 50 mg PO BID, Furosemide 40 mg PO daily 2D Echo (03/16/17): - Normal left ventricular size. Moderate LVH. - Estimated EF 45- 50%. - LA is moderately dilated. - RA is chqt-zl-adukfosjzu dilated. - Evma-tb-wcjdmjdw mitral valve regurgitation. - Aortic valve sclerosis is present. Mild aortic valve stenosis. - Trace aortic valve regurgitation. - Mild tricuspid valve regurgitation. - Estimated pulmonary arterial pressure is 62.8 mmHg. There is estimated zafwlpqx-tm-opgakv pulmonary hypertension. - Mild pulmonary valve regurgitation. - Very technically difficult study. Problem Qualifiers (1) Diabetes: Qualified Codes: E11.8 - Type 2 diabetes mellitus with unspecified complications Troy Anderson DO Apr 05, 2017 23:39
[2017-04-06] VITALS (22 sets, daily range): BP systolic 124–158; BP diastolic 63–85; PULSE 51–79; RESP 18–20; TEMP 97.8–98.5; O2SAT 97–100
[2017-04-06] MEDS: GEMFIBROZIL 600 MG TAB PO SCH ×2 (06:06→17:25)
[2017-04-06] MEDS: LEVOTHYROXINE SODIUM 88 MCG TAB PO SCH (06:06)
[2017-04-06 07:34] LABS: INTERNATIONAL NORMALIZED RATIO 1.3 RATIO; PROTHROMBIN TIME - PATIENT 13.4 SEC (9.8-11.6)
[2017-04-06] MEDS: POTASSIUM CHLORIDE 20 MEQ CONTROLLED RELEASE TAB PO SCH (08:39)
[2017-04-06] MEDS: SILDENAFIL CITRATE 20 MG TAB PO SCH (08:39)
[2017-04-06] MEDS: GLIMEPIRIDE 1 MG TAB PO SCH (08:40)
[2017-04-06] MEDS: METOPROLOL TARTRATE 50 MG TAB PO SCH (08:40)
[2017-04-06] MEDS: LOSARTAN 50 MG TAB PO SCH (08:40)
[2017-04-06] MEDS: FUROSEMIDE 40 MG TAB PO SCH (08:40)
[2017-04-06] MEDS: FAMOTIDINE 20 MG TAB PO SCH (08:40)
[2017-04-06] MEDS: predniSONE 10 MG TAB PO SCH (08:40)
[2017-04-06] MEDS: INSULIN ASPART SUPPLEMENTAL SCALE SQ SCH ×3 (08:40→17:26)
[2017-04-06] MEDS: SODIUM CHLORIDE 0.9% FLUSH 10 ML FLUSH IV FLUSH SCH (08:41)
[2017-04-06] MEDS: RESP: BUDESONIDE 0.5 MG/2 ML NEB NEB SCH (09:55)
[2017-04-06] MEDS ORDERED: PRED10 PO (09:59)
--- NOTE | 2017-04-06 10:08 | HHI.DS ---
Discharge Summary Admission Date Apr 03, 2017 at 19:38 Discharge Date: Apr 06, 2017 Admitting Diagnosis NONSTEMI, PNA W/HEMOPTYSIS (1) Elevated troponin Diagnosis: Principal ICD Codes: R74.8 - Abnormal levels of other serum enzymes (2) Hemoptysis Diagnosis: Principal ICD Codes: R04.2 - Hemoptysis Status: Resolved (3) Atrial fibrillation Diagnosis: Secondary ICD Codes: I48.91 - Unspecified atrial fibrillation Status: Chronic (4) Diabetes Diagnosis: Secondary ICD Codes: E11.9 - Type 2 diabetes mellitus without complications Status: Chronic (5) UTI (urinary tract infection) Diagnosis: Secondary ICD Codes: N39.0 - Urinary tract infection, site not specified (6) HTN (hypertension) Diagnosis: Secondary ICD Codes: I10 - Essential (primary) hypertension Status: Chronic (7) Pulmonary HTN Diagnosis: Secondary ICD Codes: I27.20 - Pulmonary hypertension, unspecified (8) Diastolic CHF Diagnosis: Secondary ICD Codes: I50.30 - Unspecified diastolic (congestive) heart failure Status: Chronic Consultants Dr. Kan, cardiology Procedures none Brief History This is a 77-year-old female with a history of chronic diastolic CHF 2D Echo () estimated EF 45- 50%. , obstructive sleep apnea on CPAP at home, diabetes mellitus, prior CVA without residual effects, hypertension and atrial fibrillation on Coumadin. Patient was recently hospitalized from 03/11/2017 to 03/31/2016 with hypoxic respiratory failure, complicated by urinary tract infection Catrachita Glabrata. Patient was discharged to this [facility] facility on 03/31/2016. Patient presented to the emergency department 04/03/17 secondary to 2 days of hemoptysis. Daughter report moderate amount bright red bloody sputum with some clots noted after coughing. INR noted to be supratherapeutic at 4.7 on admission. Information provided by patient and daughter at bedside. Denies fevers, chills, N/V/D/C, shortness of breath or chest pain. Patient offers no other complaints and has had no hemoptysis today. CBC/BMP: 04/04/17 0518 04/04/17 0518 Significant Findings Laboratory Tests Test 04/03/17 17:30 04/03/17 23:40 04/04/17 05:18 04/05/17 05:11 White Blood Count 11.3 TH/MM3 (4.0-11.0) Mean Corpuscular Hemoglobin Concent 31.8 % (32.0-36.0) Platelet Count 147 TH/MM3 (150-450) Neutrophils (%) (Auto) 88.5 % (16.0-70.0) 80.1 % (16.0-70.0) Lymphocytes (%) (Auto) 5.8 % (9.0-44.0) Neutrophils # (Auto) 10.0 TH/MM3 (1.8-7.7) Lymphocytes # (Auto) 0.7 TH/MM3 (1.0-4.8) Prothrombin Time 47.0 SEC (9.8-11.6) 52.2 SEC (9.8-11.6) 16.6 SEC (9.8-11.6) Activated Partial Thromboplast Time 24.0 SEC (24.3-30.1) Blood Urea Nitrogen 39 MG/DL (7-18) 36 MG/DL (7-18) Creatinine 1.15 MG/DL (0.50-1.00) Random Glucose 152 MG/DL (74-106) 47 MG/DL (74-106) Total Protein 6.3 GM/DL (6.4-8.2) Albumin 2.7 GM/DL (3.4-5.0) Calcium Level 8.1 MG/DL (8.5-10.1) 8.1 MG/DL (8.5-10.1) Estimat Glomerular Filtration Rate 46 ML/MIN (>89) 58 ML/MIN (>89) Troponin I 0.08 NG/ML (0.02-0.05) 0.06 NG/ML (0.02-0.05) 0.07 NG/ML (0.02-0.05) LDL Cholesterol 114 MG/DL (0-99) Test 04/06/17 06:18 Prothrombin Time 13.4 SEC (9.8-11.6) Imaging Last Impressions Myocardial Perfusion Scan Nuc Med 04/04/17 0000 Signed Impressions: Service Date/Time: March 14:57 - CONCLUSION: Abnormal study. Diminished ejection fraction with normal size heart. Hypokinesia of the and tear aspect of the septal and inferior wall with paradoxical bulging of this region at end systole raising the question as to ventricular aneurysm . No perfusion defect is identified RISK CATEGORY: Intermediate (1-3%% Annual Mortality Rate) Cedric Sen MD Chest X-Ray 04/03/17 1634 Signed Impressions: Service Date/Time: Monday, April 03, 2017 17:12 - CONCLUSION: Infiltrate best seen in the left perihilar region Rufino Panchal MD Chest CT 04/03/17 0000 Signed Impressions: Service Date/Time: Monday, April 03, 2017 16:52 - CONCLUSION: Patchy groundglass infiltrates throughout the lungs left greater than right. Pleural effusions right greater left with bibasilar passive atelectasis. Dense coronary atherosclerotic disease. Gagandeep Oconnell MD PE at Discharge GENERAL: This is a well-nourished, well-developed patient, in no apparent distress. CARDIOVASCULAR: Regular rate and rhythm without murmurs, gallops, or rubs. RESPIRATORY: Clear to auscultation. Breath sounds equal bilaterally. No wheezes , rales, or rhonchi. GASTROINTESTINAL: Abdomen soft, non-tender, nondistended. Normal active bowel sounds MUSCULOSKELETAL: Extremities without clubbing, cyanosis, or edema. NEURO: Alert & Oriented x4 to person, place, time, situation. Moves all ext x4 Hospital Course Elevated troponin 0.08, 0.06, 0.[address] Moreno recommends lexiscan (04/04) - lexiscan (04/05), study divided into 2 days d/t pt's weight - radiologist read torito as possible ventricular aneurysm - Pt had echocardiogram 02/2017 which did NOT indicate aneurysm - Cardiology to review case 04/06 - Cleared by cardiology d/c back to SNF Hemoptysis Patient on Coumadin with a supra therapeutic INR, 4.7 on admission -> 5.2 (04/04) will give vit K 5 mg x 1 - INR 1.6 (04/05) CXR reveals: Infiltrate best seen in the left perihilar region Chest CT reveals: Patchy groundglass infiltrates throughout the lungs left greater than right. Pleural effusions right greater than left with bibasilar passive atelectasis. Dense coronary atherosclerotic disease. likely resolving lung process from recent admission. - Repeat CXR (04/06) Patient on prednisone taper from previous hospitalization decrease Prednisone to 10mg BID- DC with steroid taper - Pt denies further hemoptysis - repeat INR (04/06) 1.3 Atrial fibrillation rate controlled continue metoprolol 50 mg BID Coumadin on hold due to supratherapeutic INR, in discussing the INR with patient and daughter at bedside. Daughter reports they often have difficulty with Coumadin dose and are frequently having to adjust the dose. Consider discharging patient on different anticoagulation - daughter concerned about reversibility of newer anticoagulants - Start Pradaxa Diabetes patient had hypoglycemic episode will decrease to low dose SSI continue to monitor blood glucose ACHS decrease Amaryl to 1 mg once a day while in hospital, will increase back to BID once patient DC suspect patient has greater PO intake not in the hospital UTI (urinary tract infection) Catrachita Glabrata from urine culture 03/20/17 patient is currently on Fluconazole IV stop date today 04/04/17 - diflucan IV completed HTN (hypertension) Will continue Losartan 50 mg PO BID, Metoprolol 50 mg PO BID Pulmonary HTN Pulmonary hypertension, unspecified Diastolic CHF Will continue home Losartan 50 mg PO BID, Metoprolol 50 mg PO BID, Furosemide 40 mg PO daily 2D Echo (03/16/17): - Normal left ventricular size. Moderate LVH. - Estimated EF 45- 50%. - LA is moderately dilated. - RA is dwnt-yc-zuvmxtyzmt dilated. - Uelz-sg-tswxmtvq mitral valve regurgitation. - Aortic valve sclerosis is present. Mild aortic valve stenosis. - Trace aortic valve regurgitation. - Mild tricuspid valve regurgitation. - Estimated pulmonary arterial pressure is 62.8 mmHg. There is estimated guwrcinn-he-qfjhoz pulmonary hypertension. - Mild pulmonary valve regurgitation. - Very technically difficult study. Pt Condition on Discharge: Stable Discharge Disposition: Discharge to SNF Discharge Instructions DIET: Follow Instructions for: Heart Healthy Diet, Diabetic Diet Activities you can perform: See Additionl Instruction Other Activity Instructions: OOB with assistance Follow up Referrals: Cardiology - [address] Moreno Ear Nose Throat - [address] Tuttle PCP Follow-up - [address] Loo Pulmonology - 2 Weeks with Landon Tony MD New Medications: Dabigatran (Pradaxa) 150 Mg Cap 150 MG PO BID for Blood Clot Prevention, #60 CAP 0 Refills Prednisone (Prednisone) 10 Mg Tab 10 MG PO DIRECTED for steroid taper, #15 TAB 0 Refills Take 10 mg by mouth twice a day for 5 days, then take 10 mg by mouth once a day for five days, then stop Continued Medications: Alprazolam (Xanax) 0.5 Mg Tab 0.5 MG PO Q6H PRN for ANXIETY AND/OR AGITATION, #30 TAB 0 Refills Budesonide Neb (Pulmicort Respules) 0.5 Mg/2 Ml Neb 0.5 MG NEB Q12HR NEB for copd for 30 Days, NEBULE Cholecalciferol (Vitamin D-1000) 1,000 Unit Tab 1000 UNITS PO DAILY for Nutritional Supplement, #1 BOTTLE 0 Refills Cholecalciferol (Vitamin D3) 1,000 Unit Chew 1000 UNITS CHEW DAILY for Nutritional Supplement, #1 BOTTLE 0 Refills Furosemide (Furosemide) 40 Mg Tab 40 MG PO DAILY for chf for 30 Days, #30 TAB Gemfibrozil (Gemfibrozil) 600 Mg Tab 600 MG PO BIDAC, #60 TAB 0 Refills Take 30 minutes prior to breakfast and dinner. Glimepiride (Glimepiride) 1 Mg Tab 1 MG PO BID for Blood Sugar Management, #30 TAB 0 Refills Take with breakfast or first main meal Insulin Aspart Inj (Novolog Inj) 1,000 Unit/10 Ml Vial 0 SQ DIRECTED for Blood Sugar Management, #10 ML 0 Refills Sliding Scale as directed. Ipratropium-Albuterol Neb (Duoneb) 0.5-2.5 Mg/3 Ml Neb 1 NEBULE INH Q6HR NEB for Breathing Treatment, #120 NEBULE 0 Refills Levothyroxine (Synthroid) 88 Mcg Tab 88 MCG PO DAILY for Thyroid, #30 TAB 0 Refills Losartan (Losartan) 50 Mg Tab 50 MG PO BID for Blood Pressure Management, #60 TAB 0 Refills Metoprolol Tartrate (Metoprolol Tartrate) 50 Mg Tab 50 MG PO BID, #60 TAB 0 Refills Potassium Chloride ER (K-Tab) 20 Meq Tab 20 MEQ PO DAILY for Electrolyte Replacement, #30 TAB 0 Refills Ranitidine (Zantac) 150 Mg Tab 150 MG PO BID for Reduce Stomach Acid, #60 TAB 0 Refills Rosuvastatin (Crestor) 10 Mg Tab 10 MG PO mon, wed, frid, #30 TAB 0 Refills Sildenafil (Revatio) 20 Mg Tab 20 MG PO DAILY for pulm htn for 30 Days, #30 TAB Discontinued Medications: Fluconazole Inj (Fluconazole Inj) 200 Mg/100 Ml Bagp 200 MG IV DAILY for Infection for 3 Days, BAG 0 Refills last day 04/04/17 Prednisone (Prednisone) 10 Mg Tab 10 MG PO TID for copd for 14 Days, TAB one tab tid x 5d, then one tab bid x 5d, then one tab daily x5d, then stop Saccharomyces Boulardii (Florastor) 250 Mg Cap 250 MG PO BID for Nutritional Supplement, CAP 0 Refills Warfarin (Jantoven) 5 Mg Tab 5 MG PO DAILY for Blood Clot Prevention, #30 TAB 0 Refills Additional Information Patient examined. Assessment and plan formulated with Brook Reyes PA-C. I agree with the above. Brook Reyes Apr 06, 2017 10:08 Troy Anderson DO Apr 10, 2017 22:19
--- NOTE | 2017-04-06 11:02 | RADRPT ---
EXAM DATE/TIME: 04/06/2017 10:32 [facility] COMPARISON: CHEST SINGLE AP, April 03, 2017, 17:12. CT THORAX W/O CONTRAST, April 03, 2017, 16:52. INDICATIONS : Cough. Shortness of breath. MEDICAL HISTORY : Hypertension. Diabetes mellitus type II. Stroke. SURGICAL HISTORY : None. ENCOUNTER: Subsequent ACUITY: 1 month PAIN SCORE: 0/10 LOCATION: Bilateral chest FINDINGS: Cardiomegaly has not changed. There is a tiny right pleural effusion and possible minimal bibasilar a telectasis and/or infiltrate. CONCLUSION: Tiny right pleural effusion and questionable mild bibasilar atelectasis and/or infiltrate. Cathi Martinez MD on April 06, 2017 at 10:59 Board Certified Radiologist. This report was verified electronically.
[2017-04-06] MEDS ORDERED: PRAD150C PO (17:15)
--- NOTE | 2017-04-06 17:26 | PD.CONS ---
HPI Service cardiology Consult Requested By Dr. Troy Anderson Reason for Consult Elevated troponin Primary Care Physician Jesus Loo MD, PhD History of Present Illness she is a very nice 77-year-old lady, recently resided in [place], was sent to emergency department 04/03/17 secondary to 2 day-hx of hemoptysis. Daughter reported moderate amount bright red bloody sputum with some clots noted after coughing. INR noted to be super-therapeutic at 4.7 on admission. In ER, work up including troponin was elevated,but flat in 0.07, 0.06, 0.08. she underwent Lexiscan myocardial perfusion stress test, showed no ischemia. She reported no chest pain. She has a history of chronic diastolic CHF 2D Echo (03/16/17) estimated EF 45- 50%. , obstructive sleep apnea on CPAP at home, diabetes mellitus, prior CVA without residual effects, hypertension and atrial fibrillation on Coumadin. Patient was recently hospitalized from 03/11/2017 to 03/31/2016 with hypoxic respiratory failure, complicated by urinary tract infection Catrachita Glabrata. [facility] 03[facility]31/2016. Review of Systems Consitutional: COMPLAINS OF: Fatigue Eyes: DENIES: Amaurosis Fugax, Change in vision HEENT: DENIES: Lightheadedness, Change in hearing Respiratory: COMPLAINS OF: See HPI, Cough Cardiovascular: DENIES: See HPI, Chest pain, Palpitations, Syncope, Tachycardia Gastrointestinal: DENIES: Nausea, Vomiting, Change in bowel habits, Reflux, Bloody stools, Melena Genitourinary: DENIES: Urinary incontinence, Difficulty voiding Integumentary: DENIES: Rash Neurologic: DENIES: Tingling or numbness, Memory problems, Poor Balance, Stroke symptoms Musculoskeletal: DENIES: Joint pain, Muscle pain, Limited range of motion, Back pain Psychiatric: DENIES: Anxiety, Depression, Sleep disturbances Hematologic: DENIES: Bruising tendencies, Bleeding tendencies Endocrine: DENIES: Weight gain, Weight loss, Thyroid disease Past Family Social History Allergies: Coded Allergies: bacitracin (Verified Allergy, Severe, Rash, 03/11/17) gramicidin D (Verified Allergy, Severe, Rash, 03/11/17) neomycin (Verified Allergy, Severe, Rash, 03/11/17) polymyxin B (Verified Allergy, Severe, Rash, 03/11/17) hydrocodone (Verified Adverse Reaction, Unknown, Hallucinations, 03/11/17) Past Medical History Diastolic congestive heart failure with a prior EF Obstructive sleep apnea on CPAP at home Diabetes Prior CVA without residual deficits Hypertension Atrial fibrillation Past Surgical History Bilateral total knee arthroplasties Neck surgery Reported Medications Reported Meds & Active Scripts Active Prednisone 10 Mg Tab 10 Mg PO DIRECTED Take 10 mg by mouth twice a day for 5 days, then take 10 mg by mouth once a day for five days, then stop Fluconazole Inj 200 Mg/100 Ml Bagp 200 Mg IV DAILY 3 Days last day 04/04/17 Synthroid (Levothyroxine Sodium) 88 Mcg Tab 88 Mcg PO DAILY Prednisone 10 Mg Tab 10 Mg PO TID 14 Days one tab tid x 5d, then one tab bid x 5d, then one tab daily x5d, then stop Pulmicort Respules (Budesonide) 0.5 Mg/2 Ml Neb 0.5 Mg NEB Q12HR NEB 30 Days Furosemide 40 Mg Tab 40 Mg PO DAILY 30 Days Xanax (Alprazolam) 0.5 Mg Tab 0.5 Mg PO Q6H PRN Revatio (Sildenafil Citrate) 20 Mg Tab 20 Mg PO DAILY 30 Days Duoneb (Ipratropium-Albuterol Neb) 0.5-2.5 Mg/3 Ml Neb 1 Nebule INH Q6HR NEB Reported Novolog Inj (Insulin Aspart) 1,000 Unit/10 Ml Vial 0 SQ DIRECTED Sliding Scale as directed. Zantac (Ranitidine HCl) 150 Mg Tab 150 Mg PO BID Florastor (Saccharomyces Boulardii) 250 Mg Cap 250 Mg PO BID Vitamin D3 (Cholecalciferol) 1,000 Unit Chew 1,000 Units CHEW DAILY Vitamin D-1000 (Cholecalciferol) 1,000 Unit Tab 1,000 Units PO DAILY Jantoven (Warfarin) 5 Mg Tab 5 Mg PO DAILY Losartan (Losartan Potassium) 50 Mg Tab 50 Mg PO BID Crestor (Rosuvastatin Calcium) 10 Mg Tab 10 Mg PO MON, WED, FRID Glimepiride 1 Mg Tab 1 Mg PO BID Take with breakfast or first main meal K-Tab (Potassium Chloride) 20 Meq Tab 20 Meq PO DAILY Gemfibrozil 600 Mg Tab 600 Mg PO BIDAC Take 30 minutes prior to breakfast and dinner. Metoprolol Tartrate 50 Mg Tab 50 Mg PO BID Active Ordered Medications Current Medications Medications (Trade) Dose Ordered Sig/Diann Route Start Time Stop Time Status Last Admin (NS Flush) 2 ml UNSCH PRN IV FLUSH 04/03/17 19:45 (NS Flush) 2 ml BID IV FLUSH 04/03/17 21:00 04/06/17 08:41 (Tylenol) 650 mg Q4H PRN PO 04/03/17 19:45 (Narcan Inj) 0.4 mg UNSCH PRN IV PUSH 04/03/17 19:45 (Milk Of Magnesia Liq) 30 ml Q12H PRN PO 04/03/17 19:45 (Nitrostat Sl) 0.4 mg Q5M PRN SL 04/03/17 19:45 (Xanax) 0.5 mg Q6H PRN PO 04/03/17 19:45 04/05/17 20:23 (Pulmicort Respule Neb) 0.5 mg Q12HR NEB NEB 04/03/17 20:00 04/06/17 09:55 (Lasix) 40 mg DAILY PO 04/04/17 09:00 04/06/17 08:40 (Lopid) 600 mg BIDAC PO 04/04/17 07:00 04/06/17 06:06 (Duoneb Neb) 1 ampule Q6HR NEB PRN INH 04/03/17 19:45 04/05/17 12:59 (Synthroid) 88 mcg DAILY@0600 PO 04/04/17 06:00 04/06/17 06:06 (Cozaar) 50 mg BID PO 04/03/17 21:00 04/06/17 08:40 (Lopressor) 50 mg BID PO 04/03/17 21:00 04/06/17 08:40 (KCl) 20 meq DAILY PO 04/04/17 09:00 04/06/17 08:39 (Revatio) 20 mg DAILY PO 04/04/17 09:00 04/06/17 08:39 (Pepcid) 20 mg BID PO 04/03/17 21:00 04/06/17 08:40 (D50w (Vial) Inj) 50 ml UNSCH PRN IV PUSH 04/03/17 21:00 (Glucagon Inj) 1 mg UNSCH PRN OTHER 04/03/17 21:00 (Lipitor) 20 mg MoWeFr PO 04/03/17 22:45 04/05/17 20:21 (Amaryl) 1 mg DAILY PO 04/05/17 09:00 04/06/17 08:40 (NovoLOG SUPPLEMENTAL SCALE) 1 ACHS SLIDING SCALE SQ 04/04/17 12:00 04/06/17 08:40 (Deltasone) 10 mg BID PO 04/05/17 21:00 04/06/17 08:40 Family History noncontributory to her acute illness Social History denies tobacco, etoh, illicit drug use Physical Exam Vital Signs Vital Signs Date Time Temp Pulse Resp B/P (MAP) Pulse Ox O2 Delivery O2 Flow Rate FiO2 04/06/17 15:16 98.5 63 20 154/83 (106) 100 04/06/17 11:00 98.5 74 20 155/85 (108) 100 04/06/17 09:54 98 Nasal Cannula 2.00 04/06/17 08:17 98.2 75 18 158/63 (94) 100 04/06/17 07:19 60 04/06/17 07:17 96 Nasal Cannula 2.00 04/06/17 06:00 71 04/06/17 05:00 69 04/06/17 04:00 66 04/06/17 04:00 98.0 66 20 124/66 (85) 97 04/06/17 03:00 51 04/06/17 02:00 57 04/06/17 01:00 59 04/06/17 00:00 97.8 61 20 146/78 (100) 98 04/06/17 00:00 61 04/06/17 00:00 Nasal Cannula 2.00 04/05/17 23:00 59 04/05/17 22:00 64 04/05/17 21:00 73 04/05/17 20:18 97 Nasal Cannula 2.00 04/05/17 20:00 75 04/05/17 20:00 98.2 75 22 155/91 (112) 96 04/05/17 20:00 Nasal Cannula 2.00 04/05/17 18:00 73 04/05/17 17:38 98.0 75 18 150/79 (102) 96 Physical Exam GENERAL: Pleasant, in no apparent distress. Obese. SKIN: No rashes, ecchymoses or lesions. Cool and dry. HEAD: Atraumatic. Normocephalic. No temporal or scalp tenderness. EYES: Pupils equal round and reactive. Extraocular motions intact. No scleral icterus. No injection or drainage. NECK: Trachea midline. No JVD or lymphadenopathy. Supple. CARDIOVASCULAR: Irregularily irregular rate and rhythm. 2/6 systolic murmurs at apex. No gallops, or rubs. RESPIRATORY: Clear to auscultation. Breath sounds equal bilaterally. No wheezes , rales, or rhonchi. GASTROINTESTINAL: Abdomen soft, non-tender, nondistended. No hepato-splenomegaly , or palpable masses. No guarding. MUSCULOSKELETAL: Extremities without clubbing, cyanosis, or edema. No joint tenderness, effusion, or edema noted. No calf tenderness. Negative Homans sign bilaterally. NEUROLOGICAL: Awake and alert. Normal speech. Laboratory Laboratory Tests Test 04/06/17 06:18 Prothrombin Time 13.4 Prothromb Time International Ratio 1.3 Result Diagram: 04/04/1751704/04/17517 Assessment and Plan Problem List: (1) Elevated troponin ICD Codes: R74.8 - Abnormal levels of other serum enzymes Plan: Minimally elevated and flat. No ischemic ECG changes, no chest pain. Noninvasive Lexiscan stress test showed no evidence of ischemia. presence of afib may affect LVEF interpretation by gate stress test. No further work up necessary at this point. Ok to discharge back to rehab from cardiology standpoint. Discussed at bedside with patient and her daughter. Discussed with Dr. Anderson in length. (2) Hemoptysis ICD Codes: R04.2 - Hemoptysis Status: Resolved Plan: Off coumadin. resolved. (3) Diastolic CHF ICD Codes: I50.30 - Unspecified diastolic (congestive) heart failure Status: Chronic (4) HTN (hypertension) ICD Codes: I10 - Essential (primary) hypertension Status: Chronic (5) Diabetes ICD Codes: E11.9 - Type 2 diabetes mellitus without complications Status: Chronic (6) Atrial fibrillation ICD Codes: I48.91 - Unspecified atrial fibrillation Status: Chronic Plan: Rate well controlled. Continue anticoagulation with Pradaxa. Problem Qualifiers (1) Diabetes: Qualified Codes: E11.8 - Type 2 diabetes mellitus with unspecified complications Wing Mariza Kan MD Apr 06, 2017 17:26
== END 2017-04-06 20:00 ==
LOC: NEPE 16:01 → NEDA 19:38 → HCIS 22:13
PROVIDERS: ADMIT Hospitalist; ATTEND Hospitalist
DX: I21.4 Non-ST elevation (NSTEMI) myocardial infarction (principal); J18.9 Pneumonia, unspecified organism; I48.91 Unspecified atrial fibrillation; I25.10 Atherosclerotic heart disease of native coronary artery without angina pectoris; I11.0 Hypertensive heart disease with heart failure; I50.32 Chronic diastolic (congestive) heart failure; I27.20 Pulmonary hypertension, unspecified; I34.0 Nonrheumatic mitral (valve) insufficiency; I35.0 Nonrheumatic aortic (valve) stenosis; I37.1 Nonrheumatic pulmonary valve insufficiency; I07.1 Rheumatic tricuspid insufficiency; E11.649 Type 2 diabetes mellitus with hypoglycemia without coma; G47.33 Obstructive sleep apnea (adult) (pediatric); J44.0 Chronic obstructive pulmonary disease with (acute) lower respiratory infection; J98.11 Atelectasis; N39.0 Urinary tract infection, site not specified; R79.1 Abnormal coagulation profile; Z79.01 Long term (current) use of anticoagulants; Z79.4 Long term (current) use of insulin; Z86.73 Personal history of transient ischemic attack (TIA), and cerebral infarction without residual deficits; Z96.653 Presence of artificial knee joint, bilateral
CPT/HCPCS: 71045; 71046; 71250; 78452; 80048; 80053; 80061; 82550; 82948; 83735; 84484; 85025; 85610; 85730; 93005; 93017; 94150; 94640; 94664; 96365; 96372; 96376; 97110; 97162; 97530; 99285; A9502; G0378; G8987; G8988; J0696; J1450; J1815; J2785; J7512; J7626

== ENCOUNTER 2017-04-19 13:55 | Emergency (ER) | payer MEDICARE ==
[~2017-04-19] VITALS: Ht 160 cm; Wt 130.0 kg
[~2017-04-19 13:55] MED LIST changes: +CHOL100025 CHEW; -JANT5TAB PO; +NOVOLOGP2 SQ; +PRAD150C PO; +ZANT150T2 PO; -[UNRECOGNIZED DRUG - CODE] IV
[2017-04-19 14:23] VITALS: BP 121/68; PULSE 73; RESP 17; TEMP 98.3; O2SAT 97
[2017-04-19] MEDS ORDERED: PIPERACIL-TAZO 3.375 GM PREMIX 50 ML IV ONE ×2 (14:30→20:15)
[2017-04-19] MEDS ORDERED: SODIUM CHLORID 0.9% 500 ML INJ 500 ML IV ONE (14:30)
--- NOTE | 2017-04-19 14:38 | PD ---
HPI Chief Complaint: Syncope/Near-Syncope Time Seen by Provider: 14:18 Travel History International Travel<30 days: No Contact w/Intl Traveler<30days: No Traveled to known affect area: No History of Present Illness HPI 76y female with a history of oxygen dependent COPD, atrial fibrillation, hypothyroidism, diabetes mellitus, heart failure presents to the ED after a syncopal episode that occurred at her SNF just prior to arrival. Pt remembers waking up to her nurses applying oxygen to her but does not know how long she was unconscious. According to notes, patient had a witnessed syncopal episode while she was in her wheelchair while performing physical therapy. States that she did not fall. Patient is being treated for urinary tract infection but has cultured pseudomonas aeruginosa and is apparently resistant to multiple antibiotics. Patient has a urinary catheter in place she has urinary retention as well. Dr. Salazar, her physician at the facility, but that he was concerned about sepsis secondary to the multidrug-resistant urinary tract infection. Patient denies fever, chills, chest pain, shortness of breath, abdominal pain. Patient does not have any other complaints at this time and prefers not to be here today. PFSH Past Medical History Hx Anticoagulant Therapy: Yes Arthritis: Yes Asthma: No Atrial Fibrillation: Yes Autoimmune Disease: No Blood Disorders: No Anxiety: Yes Depression: No Heart Rhythm Problems: Yes (AFIB ) Cancer: No Cardiovascular Problems: Yes High Cholesterol: Yes Chemotherapy: No Chest Pain: No Congestive Heart Failure: Yes COPD: Yes Cerebrovascular Accident: Yes Diabetes: Yes Patient Takes Glucophage: No Diminished Hearing: No Endocrine: Yes Gastrointestinal Disorders: No GERD: No Glaucoma: No Genitourinary: Yes (CKD STAGE 3) Headaches: No Hepatitis: No Hiatal Hernia: No Hypertension: Yes Immune Disorder: No Kidney Stones: No Musculoskeletal: Yes Neurologic: Yes Psychiatric: Yes Reproductive: No Respiratory: Yes (PULMONARY HTN) Immunizations Current: Yes Migraines: No Myocardial Infarction: No Pneumonia: Yes Radiation Therapy: No Renal Failure: Yes Seizures: No Sickle Cell Disease: No Sleep Apnea: Yes Thyroid Disease: No Ulcer: No Menopausal: Yes Past Surgical History Abdominal Surgery: No AICD: No Cardiac Surgery: No Ear Surgery: No Endocrine Surgery: No Eye Surgery: No Genitourinary Surgery: Yes (TUBAL LIGATION ) Gynecologic Surgery: No Insulin Pump: No Joint Replacement: Yes (KNEE ) Neurologic Surgery: Yes (DISK FUSION ) Oral Surgery: No Pacemaker: No Thoracic Surgery: No Other Surgery: Yes (BILATERAL KNEE SX, NECK SURGERY) Social History Alcohol Use: No Tobacco Use: No Substance Use: No Allergies-Medications (Allergen,Severity, Reaction): Coded Allergies: bacitracin (Verified Allergy, Severe, Rash, 04/19/17) gramicidin D (Verified Allergy, Severe, Rash, 04/19/17) neomycin (Verified Allergy, Severe, Rash, 04/19/17) polymyxin B (Verified Allergy, Severe, Rash, 04/19/17) hydrocodone (Verified Adverse Reaction, Unknown, Hallucinations, 04/19/17) Reported Meds & Prescriptions Reported Meds & Active Scripts Active Pradaxa (Dabigatran) 150 Mg Cap 150 Mg PO BID Synthroid (Levothyroxine Sodium) 88 Mcg Tab 88 Mcg PO DAILY Pulmicort Respules (Budesonide) 0.5 Mg/2 Ml Neb 0.5 Mg NEB Q12HR NEB 30 Days Furosemide 40 Mg Tab 40 Mg PO DAILY 30 Days Revatio (Sildenafil Citrate) 20 Mg Tab 20 Mg PO DAILY 30 Days Duoneb (Ipratropium-Albuterol Neb) 0.5-2.5 Mg/3 Ml Neb 1 Nebule INH Q6HR NEB Reported Xanax (Alprazolam) 0.25 Mg Tab 0.25 Mg PO BID PRN Flomax (Tamsulosin HCl) 0.4 Mg Cap 0.4 Mg PO DAILY Novolog Inj (Insulin Aspart) 1,000 Unit/10 Ml Vial 0 SQ ACHS Sliding Scale as directed. Zantac (Ranitidine HCl) 150 Mg Tab 150 Mg PO BID Vitamin D-1000 (Cholecalciferol) 1,000 Unit Tab 1,000 Units PO DAILY Losartan (Losartan Potassium) 50 Mg Tab 50 Mg PO BID Crestor (Rosuvastatin Calcium) 10 Mg Tab 10 Mg PO MOWEFR Take 1 tablet (10mg) daily on Saturday,Saturday and Saturday K-Tab (Potassium Chloride) 20 Meq Tab 20 Meq PO DAILY Gemfibrozil 600 Mg Tab 600 Mg PO BIDAC Take 30 minutes prior to breakfast and dinner. Metoprolol Tartrate 50 Mg Tab 50 Mg PO BID Review of Systems Except as stated in HPI: all other systems reviewed are Neg Physical Exam Narrative GENERAL: Well-developed well-nourished in no apparent distress, morbidly obese SKIN: Focused skin assessment warm/dry. Mid upper lip with scabbing (2-3 days old?), Left anterior cervical area ecchymosis that follow carotid (5 days old?) HEAD: Normocephalic. EYES: Right pupil 2-3mm, left pupil 4mm, reactive to light. EOMI. ENT: No nasal bleeding or discharge. Mucous membranes pink and moist. Equal rise and fall of the uvula. NECK: Trachea midline. No JVD. No lymphadenopathy CARDIOVASCULAR: Regular rate and rhythm. No murmur appreciated. RESPIRATORY: No accessory muscle use. Clear to auscultation. Breath sounds equal bilaterally. GASTROINTESTINAL: Abdomen soft, non-tender, nondistended. MUSCULOSKELETAL: No obvious deformities. No clubbing. No cyanosis. Mild edema bilateral lower extremities about the ankles NEUROLOGICAL: Awake and alert. No obvious cranial nerve deficits. Motor grossly within normal limits. Normal speech. Bilateral equal mcat tutor strength. PSYCHIATRIC: Appropriate mood and affect; insight and judgment normal. Data Data Last Documented VS Vital Signs Date Time Temp Pulse Resp B/P (MAP) Pulse Ox O2 Delivery O2 Flow Rate FiO2 04/19/17 22:15 04/19/17 19:15 78 18 97 Nasal Cannula 2.00 04/19/17 14:23 98.3 Orders Orders Electrocardiogram (04/19/17 14:19) Complete Blood Count With Diff (04/19/17 14:19) Comprehensive Metabolic Panel (04/19/17 14:19) Magnesium (Mg) (04/19/17 14:19) Troponin I (04/19/17 14:19) Act Partial Throm Time (Ptt) (04/19/17 14:19) Prothrombin Time / Inr (Pt) (04/19/17 14:19) Urinalysis - C+S If Indicated (04/19/17 14:19) Chest, Single Ap (04/19/17 14:19) Ct Brain W/O Iv Contrast(Rout) (04/19/17 14:19) Ecg Monitoring (04/19/17 14:19) Iv Access Insert/Monitor (04/19/17 14:19) Oximetry (04/19/17 14:19) Orthostatic Vital Signs (04/19/17 14:19) Blood Culture (04/19/17 14:19) Lactic Acid Sepsis Protocol (04/19/17 14:19) Piperacil-Tazo 3.375 Gm Premix (Zosyn 3. (04/19/17 14:30) Sodium Chlorid 0.9% 500 Ml Inj (Ns 500 M (04/19/17 14:30) Urinary Catheter Insert/Apply (04/19/17 15:29) Remove Urinary Catheter .ONCE (04/19/17 15:29) Urine Culture (04/19/17 16:15) Vascular Access Team Consult/P PRN (04/19/17 16:52) Vascular Poc Ultrasound (04/19/17 ) Piperacil-Tazo 3.375 Gm Premix (Zosyn 3. (04/19/17 20:15) Ed Discharge Order (04/19/17 21:26) Labs Laboratory Tests Test 04/19/17 16:15 04/19/17 17:52 Urine Color LIGHT-YELLOW Urine Turbidity CLEAR Urine pH 5.5 Urine Specific [place] 1.006 Urine Protein TRACE mg/dL Urine Glucose (UA) NEG mg/dL Urine Ketones NEG mg/dL Urine Occult Blood SMALL Urine Nitrite NEG Urine Bilirubin NEG Urine Urobilinogen LESS THAN 2.0 MG/DL Urine Leukocyte Esterase MOD Urine RBC 5 /hpf Urine WBC 12 /hpf Urine WBC Clumps RARE Microscopic Urinalysis Comment CULTURE INDICATED White Blood Count 4.0 TH/MM3 Red Blood Count 3.96 MIL/MM3 Hemoglobin 11.9 GM/DL Hematocrit 36.4 % Mean Corpuscular Volume 91.8 FL Mean Corpuscular Hemoglobin 30.2 PG Mean Corpuscular Hemoglobin Concent 32.8 % Red Cell Distribution Width 19.5 % Platelet Count 318 TH/MM3 Mean Platelet Volume 6.5 FL Neutrophils (%) (Auto) 62.1 % Lymphocytes (%) (Auto) 26.8 % Monocytes (%) (Auto) 8.7 % Eosinophils (%) (Auto) 1.4 % Basophils (%) (Auto) 1.0 % Neutrophils # (Auto) 2.5 TH/MM3 Lymphocytes # (Auto) 1.1 TH/MM3 Monocytes # (Auto) 0.4 TH/MM3 Eosinophils # (Auto) 0.1 TH/MM3 Basophils # (Auto) 0.0 TH/MM3 CBC Comment DIFF FINAL Differential Comment Prothrombin Time 12.9 SEC Prothromb Time International Ratio 1.3 RATIO Activated Partial Thromboplast Time 36.5 SEC Blood Urea Nitrogen 23 MG/DL Creatinine 1.42 MG/DL Random Glucose 104 MG/DL Total Protein 6.4 GM/DL Albumin 2.6 GM/DL Calcium Level 9.3 MG/DL Magnesium Level 2.1 MG/DL Alkaline Phosphatase 105 U/L Aspartate Amino Transf (AST/SGOT) 26 U/L Alanine Aminotransferase (ALT/SGPT) 32 U/L Total Bilirubin 0.3 MG/DL Sodium Level 142 MEQ/L Potassium Level 4.0 MEQ/L Chloride Level 105 MEQ/L Carbon Dioxide Level 27.8 MEQ/L Anion Gap 9 MEQ/L Estimat Glomerular Filtration Rate 36 ML/MIN Lactic Acid Level 1.3 mmol/L Troponin I 0.05 NG/ML MDM Medical Decision Making Medical Screen Exam Complete: Yes Emergency Medical Condition: Yes Differential Diagnosis Sepsis, urosepsis, congestive heart failure, pneumonia Narrative Course 76y female with a history of oxygen dependent COPD, atrial fibrillation, hypothyroidism, diabetes mellitus, heart failure presents to the ED after a syncopal episode that occurred at her SNF just prior to arrival. Pt remembers waking up to her nurses applying oxygen to her but does not know how long she was unconscious. According to notes, patient had a witnessed syncopal episode while she was in her wheelchair while performing physical therapy. States that she did not fall. Patient is being treated for urinary tract infection but has cultured pseudomonas aeruginosa and is apparently resistant to multiple antibiotics. Patient has a urinary catheter in place she has urinary retention as well. Dr. Salazar, her physician at the facility, but that he was concerned about sepsis secondary to the multidrug-resistant urinary tract infection. Patient denies fever, chills, chest pain, shortness of breath, abdominal pain. Patient does not have any other complaints at this time and prefers not to be here today. Vital signs stable in the emergency department today. EKG shows atrial fibrillation, rate 68, non specific ST changes Physical exam findings demonstrate anisocoria. After speaking with the daughter , states that she noticed the same finding 2 weeks ago and therefore this is not an acute process. Equal bilateral strength upper and lower extremities. No other cranial nerve defects noted. Last Impressions Head CT 04/19/17 2059 Signed Impressions: Service Date/Time: Wednesday, April 19, 2017 15:04 - CONCLUSION: No acute intracranial abnormality. uJan Bella MD Chest X-Ray 04/19/17 1419 Signed Impressions: Service Date/Time: Wednesday, April 19, 2017 14:33 - CONCLUSION: Right basilar density likely scarring. Juan Bella MD Laboratory Tests Test 04/19/17 16:15 04/19/17 17:52 Urine Color LIGHT-YELLOW Urine Turbidity CLEAR Urine pH 5.5 Urine Specific [place] 1.006 Urine Protein TRACE mg/dL Urine Glucose (UA) NEG mg/dL Urine Ketones NEG mg/dL Urine Occult Blood SMALL Urine Nitrite NEG Urine Bilirubin NEG Urine Urobilinogen LESS THAN 2.0 MG/DL Urine Leukocyte Esterase MOD Urine RBC 5 /hpf Urine WBC 12 /hpf Urine WBC Clumps RARE Microscopic Urinalysis Comment CULTURE INDICATED White Blood Count 4.0 TH/MM3 Red Blood Count 3.96 MIL/MM3 Hemoglobin 11.9 GM/DL Hematocrit 36.4 % Mean Corpuscular Volume 91.8 FL Mean Corpuscular Hemoglobin 30.2 PG Mean Corpuscular Hemoglobin Concent 32.8 % Red Cell Distribution Width 19.5 % Platelet Count 318 TH/MM3 Mean Platelet Volume 6.5 FL Neutrophils (%) (Auto) 62.1 % Lymphocytes (%) (Auto) 26.8 % Monocytes (%) (Auto) 8.7 % Eosinophils (%) (Auto) 1.4 % Basophils (%) (Auto) 1.0 % Neutrophils # (Auto) 2.5 TH/MM3 Lymphocytes # (Auto) 1.1 TH/MM3 Monocytes # (Auto) 0.4 TH/MM3 Eosinophils # (Auto) 0.1 TH/MM3 Basophils # (Auto) 0.0 TH/MM3 CBC Comment DIFF FINAL Differential Comment Prothrombin Time 12.9 SEC Prothromb Time International Ratio 1.3 RATIO Activated Partial Thromboplast Time 36.5 SEC Blood Urea Nitrogen 23 MG/DL Creatinine 1.42 MG/DL Random Glucose 104 MG/DL Total Protein 6.4 GM/DL Albumin 2.6 GM/DL Calcium Level 9.3 MG/DL Magnesium Level 2.1 MG/DL Alkaline Phosphatase 105 U/L Aspartate Amino Transf (AST/SGOT) 26 U/L Alanine Aminotransferase (ALT/SGPT) 32 U/L Total Bilirubin 0.3 MG/DL Sodium Level 142 MEQ/L Potassium Level 4.0 MEQ/L Chloride Level 105 MEQ/L Carbon Dioxide Level 27.8 MEQ/L Anion Gap 9 MEQ/L Estimat Glomerular Filtration Rate 36 ML/MIN Lactic Acid Level 1.3 mmol/L Troponin I 0.05 NG/ML Once in the emergency department, we changed the Velarde catheter to ensure a good urine sample with the least contaminants. The nurse noted significant vaginal candidiasis appearing on the vaginal labia. I spoke with Sierra Adair, her daughter who gives a little more history regarding this patient. Says she has had multiple hospital visits in the last months for severe infections, pneumonia and UTI. The goal per Sierra is to have the patient move to [place] and lived with her daughter for further care Saturday. There was a significant delay in obtaining IV access and obtaining labs this patient did have poor vascular access. We requested the vascular access team to assist in our efforts. Used extreme caution in IVF administration as she does have Heart Failure. Zosyn administered x2 as pt did have an extended time in the ED today and I wanted to be sure pt had abx on board for the evening. If cultures grow a resistant pattern to Zosyn, patient/ facility should be notified immediately. Patient feels well. She was able to move to the side of the bed and maneuver throughout the stretcher today. Patient denies any concerns or complaints at this time. Patient does want to go home to her facility. There is no evidence of sepsis currently. Patient is afebrile, lactic 1.3, no leukocytosis, blood pressure stable. Pt will go to the facility with recommendations to continue Zosyn as an outpatient in a SNF. Diagnosis Primary Impression: UTI (urinary tract infection) Qualified Codes: N30.00 - Acute cystitis without hematuria Referrals: Primary Care Physician Additional Instructions: Follow-up with primary care physician. Recommend Zosyn 3.375 Q6hrs for the treatment of Pseudomonas UTI for 7-10 days. (renally dosed) Once the UTI C&S returns, if not sensitive to Zosyn, we will make further recommendations. You may call the hospital for results in 2-3 days. Continue velarde catheter until cleared by physician or urologist for urinary retention. Note that this was changed in the ED today. Encourage adequate hydration. Disposition: 01 DISCHARGE HOME Condition: Stable Jacquelyn Logan Apr 19, 2017 14:38
--- NOTE | 2017-04-19 15:01 | RADRPT ---
EXAM DATE/TIME: 04/19/2017 14:33 [facility] COMPARISON: CHEST SINGLE AP, April 03, 2017, 17:12. INDICATIONS : Palpitations. MEDICAL HISTORY : Hypertension. Diabetes mellitus type II. Stroke SURGICAL HISTORY : None. ENCOUNTER: Initial ACUITY: 1 day PAIN SCORE: 0/10 LOCATION: Bilateral chest FINDINGS: A single view of the chest demonstrates diminished lung biopsy with right basilar density. Heart mild ly enlarged. The cardiomediastinal contours are unremarkable. Osseous structures are intact. CONCLUSION: Right basilar density likely scarring. Juan Bella MD on April 19, 2017 at 14:53 Board Certified Radiologist. This report was verified electronically.
--- NOTE | 2017-04-19 15:19 | RADRPT ---
EXAM DATE/TIME: 04/19/2017 15:04 [facility] COMPARISON: No previous studies available for comparison. INDICATIONS : Dizziness and syncope. RADIATION DOSE: 64.25 CTDIvol (mGy) MEDICAL HISTORY : Stroke. Cardiovascular disease Hypertension.Renal failure, diabetes. SURGICAL HISTORY : None. ENCOUNTER: Initial ACUITY: 1 day PAIN SCALE: 0/10 LOCATION: cranial TECHNIQUE: Multiple contiguous axial images were obtained of the head. Using automated exposure control and adj ustment of the mA and/or kV according to patient size, radiation dose was kept as low as reasonably a chievable to obtain optimal diagnostic quality images. DICOM format image data is available electro nically for review and comparison. FINDINGS: CEREBRUM: The ventricles are normal for age. No evidence of midline shift, mass lesion, hemorrhage or acute in farction. No extra-axial fluid collections are seen. POSTERIOR FOSSA: The cerebellum and brainstem are intact. The 4th ventricle is midline. The cerebellopontine angle i s unremarkable. EXTRACRANIAL: The visualized portion of the orbits is intact. SKULL: The calvaria is intact. No evidence of skull fracture. CONCLUSION: No acute intracranial abnormality. Juan Bella MD on April 19, 2017 at 15:14 Board Certified Radiologist. This report was verified electronically.
[2017-04-19] MEDS ORDERED: ALPR.25 PO (15:55)
[2017-04-19] MEDS ORDERED: TAMS5CAP PO (15:55)
[2017-04-19 16:48] LABS: BILIRUBIN, URINE NEG (NEG); BLOOD, URINE SMALL (NEG); GLUCOSE,URINE NEG (NEG); KETONE, URINE NEG (NEG); NITRITE,URINE NEG (NEG); PH, URINE 5.5 (5.0-8.5); URINE COLOR LIGHT-YELLOW (YELLW/STRAW); URINE LEUKOCYTE ESTERASE MOD (NEG); WHITE BLOOD CELL CLUMPS RARE
[2017-04-19 18:11] LABS: AUTOMATED NEUTROPHIL # 2.5 TH/MM3 (1.8-7.7); EOSINOPHIL # 0.1 TH/MM3 (0-0.4); EOSINOPHIL % 1.4 % (0.0-4.0); HEMATOCRIT 36.4 % (35.0-46.0); HEMOGLOBIN 11.9 GM/DL (11.6-15.3); LYMPH % 26.8 % (9.0-44.0); LYMPHOCYTE # 1.1 TH/MM3 (1.0-4.8); MEAN CELL VOLUME 91.8 FL (80.0-100.0); MEAN CORPUSCULAR HEMOGLOBIN 30.2 PG (27.0-34.0); MEAN CORPUSCULAR HGB CONC 32.8 % (32.0-36.0); MEAN PLATELET VOLUME 6.5 FL (7.0-11.0); MONO % 8.7 % (0.0-8.0); MONOCYTE # 0.4 TH/MM3 (0-0.9); NEUT % 62.1 % (16.0-70.0); PLATELET COUNT 318 TH/MM3 (150-450); RED BLOOD COUNT 3.96 MIL/MM3 (4.00-5.30); RED CELL DISTRIBUTION WIDTH 19.5 % (11.6-17.2)
[2017-04-19 18:23] LABS: INTERNATIONAL NORMALIZED RATIO 1.3 RATIO; PROTHROMBIN TIME - PATIENT 12.9 SEC (9.8-11.6)
[2017-04-19 18:30] VITALS: BP_SYST 115; BP_SYST 157; BP_DIAS 57; BP_DIAS 72; RESP 18; RESP 21
[2017-04-19 18:32] LABS: ALBUMIN 2.6 GM/DL (3.4-5.0); AST (GOT) 26 U/L (15-37); BICARBONATE 27.8 MEQ/L (21.0-32.0); BLOOD UREA NITROGEN 23 MG/DL (7-18); CALCIUM 9.3 MG/DL (8.5-10.1); CHLORIDE 105 MEQ/L (98-107); CREATININE 1.42 MG/DL (0.50-1.00); GLOMERULAR FILTRATION RATE 36 ML/MIN (>89); GLUCOSE,RANDOM 104 MG/DL (74-106); MAGNESIUM 2.1 MG/DL (1.5-2.5); SODIUM (NA) 142 MEQ/L (136-145)
[2017-04-19 18:33] LABS: ALT (GPT) 32 U/L (10-53)
[2017-04-19 18:36] LABS: ALKALINE PHOSPHATASE 105 U/L (45-117); TOTAL BILIRUBIN ADULT 0.3 MG/DL (0.2-1.0); TOTAL PROTEIN 6.4 GM/DL (6.4-8.2); TROPONIN I 0.05 NG/ML (0.02-0.05)
[2017-04-19 19:15] VITALS: BP 157/72; PULSE 78; RESP 18; O2SAT 97
--- NOTE | 2017-04-20 15:20 | EKG ---
Date Performed: 04/19/2017 Time Performed: 17:11:40 PTAGE: 76 years EKG: ATRIAL FIBRILLATION ST DEVIATION AND MODERATE T-WAVE ABNORMALITY, CONSIDER LATERAL ISCHEMIA ABNORMAL ECG Compared to PREVIOUS TRACING , no significant change has occurred. PREVIOUS TRACIN04/04/2017 06.04 DOCTOR: Marcello Diallo Interpretating Date/Time 04/20/2017 15:20:20
== END 2017-04-19 22:18 ==
LOC: NEPC 13:55
DX: N30.00 Acute cystitis without hematuria (principal); B96.5 Pseudomonas (aeruginosa) (mallei) (pseudomallei) as the cause of diseases classified elsewhere; I48.91 Unspecified atrial fibrillation; I13.0 Hypertensive heart and chronic kidney disease with heart failure and stage 1 through stage 4 chronic kidney disease, or unspecified chronic kidney disease; I27.20 Pulmonary hypertension, unspecified; N18.3 Chronic kidney disease, stage 3 (moderate); J44.9 Chronic obstructive pulmonary disease, unspecified; E78.00 Pure hypercholesterolemia, unspecified; I50.9 Heart failure, unspecified; F41.9 Anxiety disorder, unspecified; E11.22 Type 2 diabetes mellitus with diabetic chronic kidney disease; E03.9 Hypothyroidism, unspecified; Z16.24 Resistance to multiple antibiotics; Z86.73 Personal history of transient ischemic attack (TIA), and cerebral infarction without residual deficits; Z79.4 Long term (current) use of insulin; Z79.899 Other long term (current) drug therapy
CPT/HCPCS: 51702; 70450; 71045; 80053; 81001; 83605; 83735; 84484; 85025; 85610; 85730; 87040; 87077; 87086; 87186; 93005; 96365; 96366; 99285; J2543; J7040